=== PATIENT | male | born 1940 | race Caucasian/White ===

== ENCOUNTER → 2016-10-20 | Outpatient (CLI) | payer MEDICARE ==
[2016-10-20 10:47] LABS: CH 33.7; CHCM 33.6; HCT 39.9 % (39.0-53.0); HDW 2.49; HGB 13.3 gm/dL (13.0-17.5); MCH 33.6 pg (25.0-35.0); MCHC 33.3 g/dL (31.0-37.0); MCV 100.8 fL (80.0-100.0); Macrocytosis Slight; Mean Platelet Volume 9.1; RBC 3.96 m/uL (4.30-5.90); RDW 13.8 % (11.5-15.5); WBC 5.3 k/uL (3.8-10.6)
[2016-10-20 10:51] LABS: Appearance,Urine Clear (Clear); Bacteria,Urine Occasional /hpf; Bilirubin,Urine Negative (Negative); Glucose,Urine (UA) Negative (Negative); Ketones,Urine Negative (Negative); Leukocyte Esterase,Urine Moderate (Negative); Mucus,Urine Rare /hpf; Nitrite,Urine Negative (Negative); Particle Count 10788; Protein,Urine Negative (Negative); RBC,Urine <1 /hpf (0-5); Specific Gravity,Urine 1.007 (1.001-1.035); Squamous Epithelial Cell,Urine <1 /hpf (0-4); UA Billing (MACRO vs. MICRO) MICRO; Urobilinogen,Urine <2.0 mg/dL (<2.0); WBC,Urine 15 /hpf (0-5)
[2016-10-20 11:06] LABS: INR 2.3 (<1.1); Partial Thromboplastin Time 30.3 sec (22.0-30.0); Prothrombin Time 22.4 sec (9.0-12.0)
[2016-10-20 11:10] LABS: Calcium 8.6 mg/dL (8.4-10.2); Potassium 4.1 mmol/L (3.5-5.1)
[2016-10-20 11:33] LABS: Total Bilirubin 1.2 mg/dL (0.2-1.3); Total Protein 6.8 g/dL (6.3-8.2)
== END | disposition home or self-care (01) ==
LOC: LABWHC1 10:10
PROVIDERS: ATTEND Orthopaedic Surgery
DX: N39.0 Urinary tract infection, site not specified (principal)
CPT/HCPCS: 36415; 80053; 81001; 85027; 85610; 85730; 87070; 87077; 87086; 87186

== ENCOUNTER 2016-11-10 14:47 | Emergency (ER) | payer MEDICARE ==
[2016-11-10 15:15] VITALS: RESP 16
[2016-11-10 16:43] LABS: INR 3.6 (<1.1)
--- NOTE | 2016-11-10 16:49 | ED ---
General Adult HPI - General Source: patient, family, RN notes reviewed Mode of arrival: wheelchair Limitations: no limitations <Rj Smith - Last Filed: 11/10/16 17:10> <Terrell Farris - Last Filed: 11/10/16 17:16> - General Chief complaint: Extremity Injury, Lower Stated complaint: Post OP/Leg Pain/Poss clot Time Seen by Provider: 11/10/16 15:33 - History of Present Illness Initial comments: Patient is 76-year-old male who presents emergency room status post knee replacement on the right times one week. Patient does admit that he was advised by his outpatient therapist come here in the emergency room to rule out a blood clot. Patient does admit that he has had increased swelling to the right lower extremity over the last 2 days. He does admit some pain in the calf area. He denies any other complaints or associated symptoms. Patient denies any recent fever, chills, shortness of breath, chest pain, back pain, abdominal pain, nausea or vomiting, numbness or tingling, dysuria or hematuria, constipation or diarrhea, headaches or visual changes, or any other complaints. (Rj Smith) - Related Data Home Medications Medication Instructions Recorded Confirmed ALPRAZolam [Xanax] 0.5 mg PO TID PRN 11/10/16 11/10/16 Amiodarone [Cordarone] 200 mg PO DAILY 11/10/16 11/10/16 Bifidobacterium Infantis [Align] 4 mg PO DAILY 11/10/16 11/10/16 Calcium Carbonate [Calcium] 600 mg PO BID 11/10/16 11/10/16 Carvedilol [Coreg] 25 mg PO BID 11/10/16 11/10/16 Finasteride [Proscar] 5 mg PO DAILY 11/10/16 11/10/16 Furosemide [Lasix] 40 mg PO DAILY 11/10/16 11/10/16 Furosemide [Lasix] 80 mg PO DAILY 11/10/16 11/10/16 Levothyroxine Sodium [Levo-T] 25 mcg PO DAILY 11/10/16 11/10/16 Methocarbamol [Robaxin] 750 mg PO TID 11/10/16 11/10/16 Metolazone [Zaroxolyn] 2.5 mg PO DAILY PRN 11/10/16 11/10/16 Multivitamins, Thera [Multivitamin 1 tab PO DAILY 11/10/16 11/10/16 (formulary)] Polyethylene Glycol 3350 [Miralax] 17 gm PO DAILY PRN 11/10/16 11/10/16 Potassium Chloride [Klor-Con] 20 meq PO BID 11/10/16 11/10/16 Pravastatin Sodium [Pravachol] 40 mg PO HS 11/10/16 11/10/16 Spironolactone [Aldactone] 25 mg PO DAILY 11/10/16 11/10/16 Vitamin D3 2500units 2,500 units PO DAILY 11/10/16 11/10/16 Warfarin [Coumadin] 1 mg PO SUSA 11/10/16 11/10/16 Warfarin [Coumadin] 2 mg PO MOTUWETHFR 11/10/16 11/10/16 traMADol HCL [Ultram] 50 mg PO TID PRN 11/10/16 11/10/16 Previous Rx's Medication Instructions Recorded Cephalexin [Keflex] 500 mg PO Q12HR 7 Days 11/10/16 Allergies Allergy/AdvReac Type Severity Reaction Status Date / Time formoterol [From Dulera] Allergy Hallucinati Verified 11/10/16 15:42 ons hydromorphone [From Dilaudid] Allergy Rash/Hives Verified 11/10/16 15:42 mometasone furoate Allergy Hallucinati Verified 11/10/16 15:42 [From Dulera] ons Review of Systems ROS Other: All systems not noted in ROS Statement are negative. <Rj Smith - Last Filed: 11/10/16 17:10> ROS Other: All systems not noted in ROS Statement are negative. <Terrell Farris - Last Filed: 11/10/16 17:16> ROS Statement: Those systems with pertinent positive or pertinent negative responses have been documented in the HPI. Past Medical History Past Medical History: Atrial Fibrillation, Coronary Artery Disease (CAD), Heart Failure, COPD, Hypertension, Prostate Disorder, Renal Disease, Thyroid Disorder History of Any Multi-Drug Resistant Organisms: VRE Date of last positivie culture/infection: 10/20/16 MDRO Source:: URINE VRE Past Surgical History: Joint Replacement Additional Past Surgical History / Comment(s): right and left knee replacement, right shoulder surgery Past Psychological History: No Psychological Hx Reported Smoking Status: Never smoker Past Alcohol Use History: None Reported Past Drug Use History: None Reported <LuisRj - Last Filed: 11/10/16 17:10> General Exam Limitations: no limitations <Rj Smith - Last Filed: 11/10/16 17:10> <Terrell Farris - Last Filed: 11/10/16 17:16> - General Exam Comments Initial Comments: General: The patient is awake and alert, in no distress, and does not appear acutely ill. Neck: The neck is supple, there is no tenderness or JVD. Cardiovascular: There is a regular rate and rhythm. No murmur, rub or gallop is appreciated. Respiratory: Lungs are clear to auscultation, respirations are non-labored, breath sounds are equal. No wheezes, stridor, rales, or rhonchi. Musculoskeletal: Patient does have moderate swelling to the right lower extremity. Patient does have surgical incision midline over the right knee. Patient's sensation intact. Pulses equal bilaterally 2+. She does have pain to palpation to the posterior aspect of the right calf. Neurological: A&O x 3. CN II-XII intact, There are no obvious motor or sensory deficits. Coordination appears grossly intact. Speech is normal. Skin: No redness locally around in incision site. Bruising swelling appreciated to the right lower leg. Psychiatric: Normal mood and affect. (Rj Smith) Course <SmithRj - Last Filed: 11/10/16 17:10> <Terrell Farris - Last Filed: 11/10/16 17:16> Vital Signs 11/10/16 11/10/16 15:10 15:42 Temperature 97.6 F 97.9 F Pulse Rate 72 71 Respiratory 16 16 Rate Blood Pressure 93/62 109/60 O2 Sat by Pulse 98 97 Oximetry - Reevaluation(s) Reevaluation #1: 11/10/16 17:15 I did personally do a [id number] examination the patient did discuss the findings initially with his family and him. He does demonstrate right lower extremity edema with evidence of ecchymosis the incision to the anterior knee is intact no evidence of dehiscence or is very minimal erythema around the edges. No evidence of any lymphangitis or is ecchymosis noted to the medial aspect of the knee and thigh. Also some ecchymosis noted to the lower extremity no tenderness palpation over the calf or anterior leg. I do agree with the assessment and plan. (Terrell Farris) Medical Decision Making <Rj Smith - Last Filed: 11/10/16 17:10> <Terrell Farris - Last Filed: 11/10/16 17:16> - Medical Decision Making Ultrasound negative for any evidence of DVT. Patient's INR 3.6. Case was discussed and seen by attending physician Dr. Farris. At this time patient will be advised to hold Coumadin dose tonight. Advised to have INR rechecked over the next 2 days. Advised to begin antibiotic to cover for possible early infection. Patient advised follow-up the surgeon tomorrow. Advised return for any other concerns. (Rj Smith) - Lab Data Lab Results 11/10/16 Range/Units 16:24 PT 35.0 H (9.0-12.0) sec INR 3.6 (<1.1) Disposition Time of Disposition: 17:12 <Rj Smith - Last Filed: 11/10/16 17:10> <Terrell Farris - Last Filed: 11/10/16 17:16> Clinical Impression: Leg edema, right Disposition: HOME SELF-CARE Condition: Good Instructions: Leg Edema (ED) Additional Instructions: Please hold Coumadin dose tonight as discussed. Please have INR checked over the last 2 days. Please begin antibiotic as prescribed and follow-up with your surgeon tomorrow. Please return to emergency room for any other concerns. Prescriptions: Cephalexin [Keflex] 500 mg PO Q12HR 7 Days Referrals: Keith Sales DO [Primary Care Provider] - 1-2 days
--- NOTE | 2016-11-10 16:58 | US ---
EXAMINATION TYPE: US venous doppler duplex LE RT DATE OF EXAM: 11/10/2016 4:48 PM COMPARISON: NONE CLINICAL HISTORY: Pain, Post op 1 week total knee. SIDE PERFORMED: Right TECHNIQUE: The lower extremity deep venous system is examined utilizing real time linear array sonog maria with graded compression, doppler sonography and color-flow sonography. VESSELS IMAGED: External Iliac Vein (EIV) Common Femoral Vein Deep Femoral Vein Greater Saphenous Vein * Femoral Vein Popliteal Vein Small Saphenous Vein * Proximal Calf Veins (* superficial vessels) Right Leg: Negative for DVT IMPRESSION: Normal exam. No evidence of deep venous thrombosis in the right leg.
[2016-11-10 17:23] VITALS: BP 109/66; PULSE 70; TEMP 97.7
== END 2016-11-10 17:25 | disposition home or self-care (01) ==
LOC: EC 14:47
DX: R60.0 Localized edema (principal); I11.0 Hypertensive heart disease with heart failure; I50.9 Heart failure, unspecified; E07.9 Disorder of thyroid, unspecified; I48.91 Unspecified atrial fibrillation; Z96.653 Presence of artificial knee joint, bilateral; Z88.5 Allergy status to narcotic agent; Z88.8 Allergy status to other drugs, medicaments and biological substances; Z79.01 Long term (current) use of anticoagulants; Z79.899 Other long term (current) drug therapy
CPT/HCPCS: 36415; 85610; 99284

== ENCOUNTER 2016-12-10 13:07 | Emergency (ER) | payer MEDICARE ==
[2016-12-10 13:13] VITALS: RESP 18
--- NOTE | 2016-12-10 14:00 | ED ---
General Adult HPI - General Chief complaint: Fall Stated complaint: Fall Time Seen by Provider: 12/10/16 13:47 Source: patient, RN notes reviewed Mode of arrival: EMS Limitations: no limitations - History of Present Illness Initial comments: Patient 76-year-old male who presents emergency room today with a chief complaint of fall occurred just prior to arrival. He does admit that he was using his walker coming out of the bathroom. He states he believes he caught his bottom of his shoe on the lip of the threshold of the door causing him to fall forward down onto his knees bilaterally. He states he also went down and hit the right elbow and does have an abrasion to this area. He states tetanus is up-to-date. He states there is no head injury or loss conscious. He denies any other complaints or symptoms at this time. Patient denies any recent fever, chills, shortness of breath, chest pain, back pain, abdominal pain, nausea or vomiting, numbness or tingling, dysuria or hematuria, constipation or diarrhea, headaches or visual changes, or any other complaints. - Related Data Home Medications Medication Instructions Recorded Confirmed ALPRAZolam [Xanax] 0.5 mg PO TID PRN 11/10/16 12/10/16 Amiodarone [Cordarone] 200 mg PO DAILY 11/10/16 12/10/16 Bifidobacterium Infantis [Align] 4 mg PO DAILY 11/10/16 12/10/16 Calcium Carbonate [Calcium] 600 mg PO BID 11/10/16 12/10/16 Carvedilol [Coreg] 25 mg PO BID 11/10/16 12/10/16 Finasteride [Proscar] 5 mg PO DAILY 11/10/16 12/10/16 Furosemide [Lasix] 40 mg PO DAILY 11/10/16 12/10/16 Furosemide [Lasix] 80 mg PO DAILY 11/10/16 12/10/16 Levothyroxine Sodium [Levo-T] 25 mcg PO DAILY 11/10/16 12/10/16 Methocarbamol [Robaxin] 750 mg PO TID PRN 11/10/16 12/10/16 Metolazone [Zaroxolyn] 2.5 mg PO DAILY PRN 11/10/16 12/10/16 Multivitamins, Thera [Multivitamin 1 tab PO DAILY 11/10/16 12/10/16 (formulary)] Polyethylene Glycol 3350 [Miralax] 17 gm PO DAILY PRN 11/10/16 12/10/16 Potassium Chloride [Klor-Con] 20 meq PO BID 11/10/16 12/10/16 Pravastatin Sodium [Pravachol] 40 mg PO HS 11/10/16 12/10/16 Spironolactone [Aldactone] 25 mg PO DAILY 11/10/16 12/10/16 Vitamin D3 2500units 2,500 units PO DAILY 11/10/16 12/10/16 Warfarin [Coumadin] 1 mg PO DAILY 11/10/16 12/10/16 traMADol HCL [Ultram] 50 mg PO TID PRN 11/10/16 12/10/16 Allergies Allergy/AdvReac Type Severity Reaction Status Date / Time formoterol [From Dulera] Allergy Hallucinati Verified 12/10/16 14:21 ons hydromorphone [From Dilaudid] Allergy Rash/Hives Verified 12/10/16 14:21 mometasone furoate Allergy Hallucinati Verified 12/10/16 14:21 [From Dulera] ons Review of Systems ROS Statement: Those systems with pertinent positive or pertinent negative responses have been documented in the HPI. ROS Other: All systems not noted in ROS Statement are negative. Past Medical History Past Medical History: Atrial Fibrillation, Coronary Artery Disease (CAD), Heart Failure, COPD, Hypertension, Prostate Disorder, Renal Disease, Thyroid Disorder History of Any Multi-Drug Resistant Organisms: VRE Date of last positivie culture/infection: 10/20/16 MDRO Source:: URINE VRE Past Surgical History: Joint Replacement Additional Past Surgical History / Comment(s): right and left knee replacement, right shoulder surgery Past Psychological History: No Psychological Hx Reported Smoking Status: Never smoker Past Alcohol Use History: None Reported Past Drug Use History: None Reported General Exam - General Exam Comments Initial Comments: General: The patient is awake and alert, in no distress, and does not appear acutely ill. Eye: Pupils are equal, round and reactive to light, extra-ocular movements are intact. No nystagmus. There is normal conjunctiva bilaterally. No signs of icterus. Ears, nose, mouth and throat: There are moist mucous membranes and no oral lesions. Neck: The neck is supple, there is no tenderness or JVD. Cardiovascular: There is a regular rate and rhythm. No murmur, rub or gallop is appreciated. Respiratory: Lungs are clear to auscultation, respirations are non-labored, breath sounds are equal. No wheezes, stridor, rales, or rhonchi. Gastrointestinal: Soft, non-distended, non-tender abdomen without masses or organomegaly noted. There is no rebound or guarding present. No CVA tenderness. Bowel sounds are unremarkable. Musculoskeletal: patient does have bilateral old surgical incisions over the anterior knees. No sign of infection. Healing well. Patient shows good range of motion bilaterally. No bony tenderness on exam. Strength 5/5. Sensation intact. Pulses equal bilaterally 2+. Neurological: A&O x 3. CN II-XII intact, There are no obvious motor or sensory deficits. Coordination appears grossly intact. Speech is normal. Skin: superficial abrasion to the posterior aspect of the right elbow. No active bleeding. small superficial abrasion over the anterior aspect of the right knee. Psychiatric: Cooperative, appropriate mood & affect, normal judgment. Limitations: no limitations Course Vital Signs 12/10/16 13:09 Temperature 97.4 F L Pulse Rate 69 Respiratory 18 Rate Blood Pressure 112/59 O2 Sat by Pulse 100 Oximetry Medical Decision Making - Medical Decision Making ears negative for any acute abnormalities. Results were discussed with patient. Patient's laboratory appear in the emergency room. She'll be discharged home. Advised follow-up with orthopedic doctor. Advised return if any symptoms increase or worsen. Disposition Clinical Impression: Fall Disposition: HOME SELF-CARE Condition: Good Instructions: Fall Prevention (ED) Additional Instructions: Please follow-up with the orthopedic doctor over the next 2 days as discussed. Please return to emergency room if any symptoms increase or worsen or for any other concerns. Referrals: Keith Sales DO [Primary Care Provider] - 1-2 days Time of Disposition: 14:59
--- NOTE | 2016-12-10 14:26 | XR ---
EXAMINATION TYPE: XR knee complete bilateral DATE OF EXAM: 12/10/2016 CLINICAL HISTORY: pain TECHNIQUE: Three views of the right knee are obtained. COMPARISON: None. FINDINGS: There is no acute fracture/dislocation. Total knee arthroplasty appears well seated. The o verlying soft tissue appears unremarkable. IMPRESSION: There is no acute fracture or dislocation.ICD 10 NO FRACTURE, INITIAL EVALUATION EXAMINATION TYPE: XR knee complete bilateral DATE OF EXAM: 12/10/2016 CLINICAL HISTORY: pain TECHNIQUE: Three views of the left knee are obtained. COMPARISON: None. FINDINGS: There is no acute fracture/dislocation. Total knee arthroplasty appears well seated. The overlying soft tissue appears unremarkable. IMPRESSION: There is no acute fracture or dislocation ICD 10 NO FRACTURE, INITIAL EVALUATION
--- NOTE | 2016-12-10 14:26 | XR ---
EXAMINATION TYPE: XR pelvis AP view DATE OF EXAM: 12/10/2016 CLINICAL HISTORY: pain TECHNIQUE: Single view the pelvis is submitted. FINDINGS: No evidence for fracture, dislocation or bony lesion. Joint spaces are well-preserved. S I joints appear symmetric. IMPRESSION: 1. No acute fracture or dislocation seen. ICD 10 NO FRACTURE, INITIAL EVALUATION
[2016-12-10 15:23] VITALS: BP 102/64; PULSE 71; TEMP 97.6
== END 2016-12-10 15:23 | disposition home or self-care (01) ==
LOC: EC 13:07
DX: S50.311A Abrasion of right elbow, initial encounter (principal); S80.211A Abrasion, right knee, initial encounter; I48.91 Unspecified atrial fibrillation; I25.10 Atherosclerotic heart disease of native coronary artery without angina pectoris; I50.9 Heart failure, unspecified; I10 Essential (primary) hypertension; E07.9 Disorder of thyroid, unspecified; N42.9 Disorder of prostate, unspecified; Z79.01 Long term (current) use of anticoagulants; Z79.899 Other long term (current) drug therapy; Z88.5 Allergy status to narcotic agent; Z88.8 Allergy status to other drugs, medicaments and biological substances; Z96.653 Presence of artificial knee joint, bilateral; W01.10XA Fall on same level from slipping, tripping and stumbling with subsequent striking against unspecified object, initial encounter; Y93.01 Activity, walking, marching and hiking; Y92.89 Other specified places as the place of occurrence of the external cause
CPT/HCPCS: 72170; 99283

== ENCOUNTER 2017-06-25 19:42 | Observation (INO) | payer MEDICARE ==
[2017-06-25] MEDS ORDERED: ASPIRIN 325 MG TAB PO STA (20:14)
[2017-06-25 20:49] LABS: Basophils % (A) 0 %; Eosinophils % (A) 0 %; HCT 41.2 % (39.0-53.0); HGB 13.8 gm/dL (13.0-17.5); Lymphocytes # (A) 0.9 k/uL (1.0-4.8); Lymphocytes % (A) 11 %; MCH 32.6 pg (25.0-35.0); MCHC 33.4 g/dL (31.0-37.0); MCV 97.5 fL (80.0-100.0); Mean Platelet Volume 10.2; Monocytes # (A) 0.4 k/uL (0-1.0); Monocytes % (A) 5 %; Neutrophils % (A) 82 %; Platelet Count 125 k/uL (150-450); RBC 4.22 m/uL (4.30-5.90); RDW 13.4 % (11.5-15.5); WBC 8.6 k/uL (3.8-10.6)
[2017-06-25 20:59] LABS: Calcium 8.9 mg/dL (8.4-10.2); Total Bilirubin 1.9 mg/dL (0.2-1.3)
[2017-06-25 21:07] LABS: INR 2.3 (<1.2); Partial Thromboplastin Time 31.3 sec (22.0-30.0); Prothrombin Time 20.8 sec (9.0-12.0)
[2017-06-25 21:09] LABS: Albumin 4.3 g/dL (3.5-5.0); Total Protein 7.4 g/dL (6.3-8.2)
[2017-06-25 21:11] LABS: Potassium 5.4 mmol/L (3.5-5.1)
--- NOTE | 2017-06-25 21:28 | XR ---
EXAMINATION: XR chest 2V DATE AND TIME: 06/25/2017 9:04 PM ORDERING PROVIDER: Chris Pedersen CLINICAL INDICATION: chest pain TECHNIQUE: PA and lateral COMPARISON: None. DESCRIPTION: Pacemaker noted. The lungs are predominantly clear, but a subtle fine reticular pattern of increased density seen throughout the lungs, mildly silhouetting the pulmonary vasculature symmetr ically. This can correlate with a clinical diagnosis of minimal interstitial phase pulmonary edema. The pleural spaces are negative. The cardiac silhouette is mildly enlarged. The mediastinal and pleural silhouettes are unremarkable. The skeletal structures are intact without focal findings. The soft tissues are unremarkable. IMPRESSION: Suspect minimal interstitial phase pulmonary edema presumably cardiogenic etiology.
[2017-06-25] MEDS ORDERED: SODIUM POLYSTYRENE SULFONATE 15 GM/60 ML BOTTLE PO STA (22:05)
--- NOTE | 2017-06-25 22:05 | ED ---
General Adult HPI - General Chief complaint: Abdominal Pain Stated complaint: chest pain,abd pain Time Seen by Provider: 06/25/17 19:53 Source: patient, EMS Mode of arrival: EMS Limitations: no limitations - History of Present Illness Initial comments: 77-year-old male with past medical history of H or fibrillation on Coumadin, CAD, CHF, COPD, HTN, kidney disease, and thyroid disorder presenting for evaluation of chest pain and bilateral arm tingling. He states this started today at about 4:30 and has progressively continued throughout the day. He states the chest pain goes from one armpit to the other and there is also epigastric abdominal pain. He denies nausea vomiting lightheadedness or dizziness. Pain is nonreproducible. Abdominal pain is not associated with by mouth intake. - Related Data Home Medications Medication Instructions Recorded Confirmed ALPRAZolam [Xanax] 0.5 mg PO TID PRN 11/10/16 06/25/17 Amiodarone [Cordarone] 200 mg PO DAILY 11/10/16 06/25/17 Bifidobacterium Infantis [Align] 4 mg PO HS 11/10/16 06/25/17 Calcium Carbonate [Calcium] 600 mg PO BID 11/10/16 06/25/17 Carvedilol [Coreg] 25 mg PO BID 11/10/16 06/25/17 Finasteride [Proscar] 5 mg PO DAILY 11/10/16 06/25/17 Furosemide [Lasix] 40 mg PO DAILY 11/10/16 06/25/17 Furosemide [Lasix] 80 mg PO DAILY 11/10/16 06/25/17 Levothyroxine Sodium [Levo-T] 25 mcg PO DAILY 11/10/16 06/25/17 Methocarbamol [Robaxin] 750 mg PO TID PRN 11/10/16 06/25/17 Metolazone [Zaroxolyn] 2.5 mg PO DAILY PRN 11/10/16 06/25/17 Multivitamins, Thera [Multivitamin 1 tab PO DAILY 11/10/16 06/25/17 (formulary)] Polyethylene Glycol 3350 [Miralax] 17 gm PO DAILY PRN 11/10/16 06/25/17 Potassium Chloride [Klor-Con] 20 meq PO BID 11/10/16 06/25/17 Pravastatin Sodium [Pravachol] 40 mg PO HS 11/10/16 06/25/17 Spironolactone [Aldactone] 25 mg PO DAILY 11/10/16 06/25/17 Warfarin [Coumadin] 1 mg PO DRIVER 11/10/16 06/25/17 traMADol HCL [Ultram] 50 mg PO TID PRN 11/10/16 06/25/17 Acetaminophen [Tylenol 8 Hour] 650 mg PO Q8H PRN 06/25/17 06/25/17 Bisacodyl [Dulcolax] 5 mg PO HS 06/25/17 06/25/17 Cholecalciferol [Vitamin D3] 5,000 unit PO BID 06/25/17 06/25/17 Warfarin Sodium 2 mg PO MOTUWETHFRSA 06/25/17 06/25/17 Allergies Allergy/AdvReac Type Severity Reaction Status Date / Time formoterol [From Dulera] Allergy Hallucinati Verified 06/25/17 20:04 ons hydromorphone [From Dilaudid] Allergy Rash/Hives Verified 06/25/17 20:04 mometasone furoate Allergy Hallucinati Verified 06/25/17 20:04 [From Dulera] ons Review of Systems ROS Statement: Those systems with pertinent positive or pertinent negative responses have been documented in the HPI. ROS Other: All systems not noted in ROS Statement are negative. Constitutional: Denies: fever, chills, weakness Eyes: Denies: eye pain, eye discharge ENT: Denies: ear pain, throat pain, hearing loss Respiratory: Denies: cough, dyspnea, wheezes, hemoptysis Cardiovascular: Reports: chest pain, dyspnea on exertion, edema. Denies: palpitations, orthopnea, syncope Endocrine: Denies: fatigue, polydipsia, polyuria Gastrointestinal: Reports: abdominal pain, nausea. Denies: vomiting, diarrhea, constipation, hematemesis, melena, hematochezia Genitourinary: Denies: urgency, dysuria Musculoskeletal: Denies: back pain, arthralgia, myalgia Skin: Denies: rash, lesions Neurological: Denies: headache, weakness Psychiatric: Denies: anxiety, depression Hematological/Lymphatic: Denies: easy bleeding, easy bruising Past Medical History Past Medical History: Atrial Fibrillation, Coronary Artery Disease (CAD), Heart Failure, COPD, Hypertension, Prostate Disorder, Renal Disease, Thyroid Disorder History of Any Multi-Drug Resistant Organisms: VRE Date of last positivie culture/infection: 10/20/16 MDRO Source:: URINE VRE Past Surgical History: Joint Replacement Additional Past Surgical History / Comment(s): right and left knee replacement, right shoulder surgery Past Psychological History: No Psychological Hx Reported Smoking Status: Never smoker Past Alcohol Use History: None Reported Past Drug Use History: None Reported General Exam Limitations: no limitations General appearance: alert, in no apparent distress Head exam: Present: atraumatic, normocephalic, normal inspection Eye exam: Present: normal appearance, PERRL, EOMI. Absent: scleral icterus, conjunctival injection, periorbital swelling ENT exam: Present: normal exam, mucous membranes moist Neck exam: Present: normal inspection. Absent: tenderness, meningismus, lymphadenopathy Respiratory exam: Present: normal lung sounds bilaterally, rhonchi (Bilateral lower lobes, faint). Absent: respiratory distress, wheezes, rales, stridor Cardiovascular Exam: Present: regular rate, normal rhythm, normal heart sounds. Absent: systolic murmur, diastolic murmur, rubs, gallop, clicks GI/Abdominal exam: Present: soft, normal bowel sounds. Absent: distended, tenderness, guarding, rebound, rigid Rectal exam: Present: deferred Extremities exam: Present: full ROM, normal capillary refill, pedal edema. Absent: normal inspection, tenderness, joint swelling, calf tenderness Back exam: Present: normal inspection Neurological exam: Present: alert, oriented X3, CN II-XII intact Psychiatric exam: Present: normal affect, normal mood Skin exam: Present: warm, dry, intact, normal color. Absent: rash Course Vital Signs 06/25/17 20:00 Temperature 96.8 F L Pulse Rate 71 Respiratory 20 Rate Blood Pressure 156/71 O2 Sat by Pulse 100 Oximetry EKG Findings - EKG Comments: EKG Findings:: Jugular paced rhythm with ventricular rate of 71, QRS 198, QTC is 575 Medical Decision Making - Medical Decision Making 77-year-old male with past medical history as noted above presented for evaluation of chest pain with bilateral arm tingling starting suddenly this afternoon. On physical examination the chest pain is nonreproducible. Lungs are clear to auscultation in the upper lobes but mild rales bilateral lower lobes that are faint to auscultation. There is lower extremity edema. Remainder physical exam is benign.Labs significant for a therapeutic INR of 2.3. His kidney function is stable for his baseline however he does have mild hyperkalemia. BNP is also elevated 2330. Chest x-ray shows interstitial phase pulmonary edema presumably cardiogenic in etiology. The patient was reevaluated and had no change in his physical exam. He was informed of all results and through shared decision making it was determined that he would be admitted for further treatment and evaluation. Discussed the case with [facility] hospitalist Dr. Umaña who accepted the admission without further request. Admission order placed and bed request submitted. - Lab Data Result diagrams: 06/25/17 19:58 06/25/17 19:58 Lab Results 06/25/17 06/25/17 06/25/17 Range/Units 19:58 19:58 19:58 WBC 8.6 (3.8-10.6) k/uL RBC 4.22 L (4.30-5.90) m/uL Hgb 13.8 (13.0-17.5) gm/dL Hct 41.2 (39.0-53.0) % MCV 97.5 (80.0-100.0) fL MCH 32.6 (25.0-35.0) pg MCHC 33.4 (31.0-37.0) g/dL RDW 13.4 (11.5-15.5) % Plt Count 125 L (150-450) k/uL Neutrophils % 82 % Lymphocytes % 11 % Monocytes % 5 % Eosinophils % 0 % Basophils % 0 % Neutrophils # 7.0 (1.3-7.7) k/uL Lymphocytes # 0.9 L (1.0-4.8) k/uL Monocytes # 0.4 (0-1.0) k/uL Eosinophils # 0.0 (0-0.7) k/uL Basophils # 0.0 (0-0.2) k/uL PT (9.0-12.0) sec INR (<1.2) APTT (22.0-30.0) sec Sodium 134 L (137-145) mmol/L Potassium 5.4 H (3.5-5.1) mmol/L Chloride 100 (98-107) mmol/L Carbon Dioxide 23 (22-30) mmol/L Anion Gap 11 mmol/L BUN 25 H (9-20) mg/dL Creatinine 1.50 H (0.66-1.25) mg/dL Est GFR (MDRD) Af Amer 55 (>60 ml/min/1.73 sqM) Est GFR (MDRD) Non-Af 46 (>60 ml/min/1.73 sqM) Glucose 149 H (74-99) mg/dL Calcium 8.9 (8.4-10.2) mg/dL Total Bilirubin 1.9 H (0.2-1.3) mg/dL AST 81 H (17-59) U/L ALT 26 (21-72) U/L Alkaline Phosphatase 104 (38-126) U/L Troponin I (0.000-0.034) ng/mL NT-Pro-B Natriuret Pep 2330 pg/mL Total Protein 7.4 (6.3-8.2) g/dL Albumin 4.3 (3.5-5.0) g/dL Lipase 259 (23-300) U/L 06/25/17 06/25/17 Range/Units 19:58 19:58 WBC (3.8-10.6) k/uL RBC (4.30-5.90) m/uL Hgb (13.0-17.5) gm/dL Hct (39.0-53.0) % MCV (80.0-100.0) fL MCH (25.0-35.0) pg MCHC (31.0-37.0) g/dL RDW (11.5-15.5) % Plt Count (150-450) k/uL Neutrophils % % Lymphocytes % % Monocytes % % Eosinophils % % Basophils % % Neutrophils # (1.3-7.7) k/uL Lymphocytes # (1.0-4.8) k/uL Monocytes # (0-1.0) k/uL Eosinophils # (0-0.7) k/uL Basophils # (0-0.2) k/uL PT 20.8 H (9.0-12.0) sec INR 2.3 H (<1.2) APTT 31.3 H (22.0-30.0) sec Sodium (137-145) mmol/L Potassium (3.5-5.1) mmol/L Chloride (98-107) mmol/L Carbon Dioxide (22-30) mmol/L Anion Gap mmol/L BUN (9-20) mg/dL Creatinine (0.66-1.25) mg/dL Est GFR (MDRD) Af Amer (>60 ml/min/1.73 sqM) Est GFR (MDRD) Non-Af (>60 ml/min/1.73 sqM) Glucose (74-99) mg/dL Calcium (8.4-10.2) mg/dL Total Bilirubin (0.2-1.3) mg/dL AST (17-59) U/L ALT (21-72) U/L Alkaline Phosphatase (38-126) U/L Troponin I 0.034 (0.000-0.034) ng/mL NT-Pro-B Natriuret Pep pg/mL Total Protein (6.3-8.2) g/dL Albumin (3.5-5.0) g/dL Lipase (23-300) U/L Disposition Clinical Impression: CHF (congestive heart failure), Hyperkalemia Disposition: ADMITTED IP TO THIS HOSP Referrals: Keith Sales DO [Primary Care Provider] - 1-2 days Decision to Admit Reason: Admit from EC Decision Date: 06/25/17 Decision Time: 22:05
[2017-06-25] MEDS ORDERED: ACETAMINOPHEN TAB 325 MG TAB PO PRN ×2 (22:08→22:11)
[2017-06-25] MEDS ORDERED: ALPRAZolam 0.25 MG TAB PO PRN (22:11)
[2017-06-25] MEDS ORDERED: METOLAZONE 2.5 MG TAB PO PRN (22:11)
[2017-06-25] MEDS ORDERED: METHOCARBAMOL 750 MG TAB PO PRN (22:11)
[2017-06-25] MEDS ORDERED: traMADol 50 MG TAB PO PRN (22:11)
[2017-06-25] MEDS ORDERED: POLYETHYLENE GLYCOL 3350 17 GM POWD.PACK PO PRN (22:11)
[2017-06-25] MEDS ORDERED: FUROSEMIDE 10 MG/ML 10 ML VIAL IV SCH (22:15)
[2017-06-25] MEDS ORDERED: NITROGLYCERIN SL TABS 0.4 MG TAB SUBLINGUAL PRN (22:22)
[2017-06-25] MEDS ORDERED: NITROGLYCERIN SL TABS 0.4 MG TAB SUBLINGUAL STA (22:22)
--- NOTE | 2017-06-25 22:37 | P.HPIM ---
History of Present Illness H&P Date: 06/25/17 Chief Complaint: SOB and chest pressure 77-year-old male with past medical history of atrial fibrillation on Coumadin, CHF status post pacemaker/defibrillator placement, COPD, HTN, chronic kidney disease, and hypothyroidism presenting for evaluation of chest pain and shortness of breath. The pain feels like a pressure and it extends from one armpit to the other and radiates all the way to the abdomen reaching the umbilical area. It started after he finished eating dinner. It was 8 out of 10 in severity when it started and currently is 6 out of 10. It was associated with some tingling sensation around his lips as well as both of his hands. He reported that he always feels cold but he denied having any fevers. He denies nausea vomiting, lightheadedness or dizziness. He denied having any recent illness, cough, urinary symptoms, diarrhea or constipation. No focal weakness or numbness, no slurred speech, no blurry vision or double vision. When he was checked by his conditioning room worker about 2 weeks ago in the office and was told that everything looked fine. His last echocardiogram was done last summer in December or January. His ejection fraction according to him was between 20 and 23%. Review of Systems 12 point review of system was performed, negative except for HPI Past Medical History Past Medical History: Atrial Fibrillation, Coronary Artery Disease (CAD), Heart Failure, COPD, Hypertension, Prostate Disorder, Renal Disease, Thyroid Disorder History of Any Multi-Drug Resistant Organisms: VRE Date of last positivie culture/infection: 10/20/16 MDRO Source:: URINE VRE Past Surgical History: Joint Replacement Additional Past Surgical History / Comment(s): right and left knee replacement, right shoulder surgery Past Psychological History: No Psychological Hx Reported Smoking Status: Never smoker Past Alcohol Use History: None Reported Past Drug Use History: None Reported Additional History: Family history: Unobtainable Medications and Allergies Home Medications Medication Instructions Recorded Confirmed Type ALPRAZolam [Xanax] 0.5 mg PO TID PRN 11/10/16 06/25/17 History Amiodarone [Cordarone] 200 mg PO DAILY 11/10/16 06/25/17 History Bifidobacterium Infantis [Align] 4 mg PO HS 11/10/16 06/25/17 History Calcium Carbonate [Calcium] 600 mg PO BID 11/10/16 06/25/17 History Carvedilol [Coreg] 25 mg PO BID 11/10/16 06/25/17 History Finasteride [Proscar] 5 mg PO DAILY 11/10/16 06/25/17 History Furosemide [Lasix] 40 mg PO DAILY 11/10/16 06/25/17 History Furosemide [Lasix] 80 mg PO DAILY 11/10/16 06/25/17 History Levothyroxine Sodium [Levo-T] 25 mcg PO DAILY 11/10/16 06/25/17 History Methocarbamol [Robaxin] 750 mg PO TID PRN 11/10/16 06/25/17 History Metolazone [Zaroxolyn] 2.5 mg PO DAILY PRN 11/10/16 06/25/17 History Multivitamins, Thera [Multivitamin 1 tab PO DAILY 11/10/16 06/25/17 History (formulary)] Polyethylene Glycol 3350 [Miralax] 17 gm PO DAILY PRN 11/10/16 06/25/17 History Potassium Chloride [Klor-Con] 20 meq PO BID 11/10/16 06/25/17 History Pravastatin Sodium [Pravachol] 40 mg PO HS 11/10/16 06/25/17 History Spironolactone [Aldactone] 25 mg PO DAILY 11/10/16 06/25/17 History Warfarin [Coumadin] 1 mg PO DRIVER 11/10/16 06/25/17 History traMADol HCL [Ultram] 50 mg PO TID PRN 11/10/16 06/25/17 History Acetaminophen [Tylenol 8 Hour] 650 mg PO Q8H PRN 06/25/17 06/25/17 History Bisacodyl [Dulcolax] 5 mg PO HS 06/25/17 06/25/17 History Cholecalciferol [Vitamin D3] 5,000 unit PO BID 06/25/17 06/25/17 History Warfarin Sodium 2 mg PO MOTUWETHFRSA 06/25/17 06/25/17 History Allergies Allergy/AdvReac Type Severity Reaction Status Date / Time formoterol [From Dulera] Allergy Hallucinati Verified 06/25/17 20:04 ons hydromorphone [From Dilaudid] Allergy Rash/Hives Verified 06/25/17 20:04 mometasone furoate Allergy Hallucinati Verified 06/25/17 20:04 [From Dulera] ons Physical Exam Vitals: Vital Signs Temp Pulse Resp BP Pulse Ox 06/25/17 21:04 81 20 141/61 99 06/25/17 20:00 96.8 F L 71 20 156/71 100 Intake and Output 06/25/17 06/25/17 06/25/17 06:59 14:59 22:59 Other: Weight 95.254 kg Patient Weight 06/26/17 06:59 Weight 95.254 kg Constitutional: No acute distress, conversant, pleasant Eyes:Anicteric sclerae, moist conjunctiva, no lid-lag, PERRLA, ENMT: Oropharynx clear, no erythema, exudates Neck: Supple, FROM, no masses, or JVD, No carotid bruits, No thyromegaly Lungs: Clear to auscultation, Clear to percussion, Normal respiratory effort, no accessory muscle use Cardiovascular: Heart regular in rate and rhythm, No murmurs, gallops, or rubs, trace peripheral edema left leg more than right. Abdominal: Soft, slightly distende, tender in the epigastric and periumbilical areas. There is an umbilical hernia evident during coughing. No guarding, rebound or rigidity, Normoactive bowel sounds, No hepatomegaly, No splenomegaly , No palpable mass Skin: Normal temperature, tone, texture, turgor, no induration, No subcutaneous nodules, No rash, lesions, No ulcers Extremities: No digital cyanosis, No clubbing, Pedal pulses intact and symmetrical, Radial pulses intact and symmetrical, No calf tenderness Psychiatric: Alert and oriented to person, place and time, appropriate affect, intact judgement Neuro: Muscles Strength 5/5 in all 4 extremities, Sensation to light touch grossly present throughout, Cranial nerves II-XII grossly intact, no focal sensory deficits Results CBC & Chem 7: 06/25/17 19:58 06/25/17 19:58 Labs: Abnormal Lab Results - Last 24 Hours (Table) 06/25/17 06/25/17 06/25/17 Range/Units 19:58 19:58 19:58 RBC 4.22 L (4.30-5.90) m/uL Plt Count 125 L (150-450) k/uL Lymphocytes # 0.9 L (1.0-4.8) k/uL PT 20.8 H (9.0-12.0) sec INR 2.3 H (<1.2) APTT 31.3 H (22.0-30.0) sec Sodium 134 L (137-145) mmol/L Potassium 5.4 H (3.5-5.1) mmol/L BUN 25 H (9-20) mg/dL Creatinine 1.50 H (0.66-1.25) mg/dL Glucose 149 H (74-99) mg/dL Total Bilirubin 1.9 H (0.2-1.3) mg/dL AST 81 H (17-59) U/L Assessment and Plan Plan: #1 Acute chest pain and shortness of breath: Likely secondary to acute exacerbation of chronic systolic congestive heart failure Admit to subjective care for observation Labs, chest x-ray and EKG were reviewed. Cycle troponins Administer nitroglycerin sublingual Switch Lasix from by mouth to IV at 60 mg twice a day. Continue Zaroxolyn and Aldactone Obtain echocardiogram to follow-up an ejection fraction Consult cardiology Continue metoprolol, unclear why he is not on WAGNER inhibitor, obtain records from [place], #2 Chronic atrial fibrillation: Status post pacemaker placement Continue amiodarone and warfarin Currently INR is therapeutic #3 Hypothyroidism: Continue levothyroxine Check TSH #49 Benign prostatic hypertrophy: Continue finasteride #5 Benign hypertension, hyperlipidemia: Continue all medications #6 DVT prophylaxis Already on Coumadin
[2017-06-25] MEDS: WARFARIN 2 MG TAB PO SCH ×3 (22:39→22:42)
[2017-06-25] MEDS ORDERED: PRAVASTATIN SODIUM 40 MG TAB PO SCH (23:34)
[2017-06-26 01:01] VITALS: RESP 16
[2017-06-26 01:07] VITALS: PULSE 71; BMI 30.9
[2017-06-26 04:09] VITALS: BP 114/68; TEMP 97.1
[2017-06-26 08:56] LABS: Calcium 8.9 mg/dL (8.4-10.2); Magnesium 2.2 mg/dL (1.6-2.3); Phosphorus 3.1 mg/dL (2.5-4.5); Potassium 3.3 mmol/L (3.5-5.1)
[2017-06-26] MEDS ORDERED: CHOLECALCIFEROL 1,000 UNIT TAB ONE (09:00)
[2017-06-26] MEDS ORDERED: FINASTERIDE 5 MG TAB ONE (09:00)
[2017-06-26] MEDS ORDERED: LOSARTAN 25 MG TAB ONE (09:00)
[2017-06-26] MEDS ORDERED: SPIRONOLACTONE 25 MG TAB ONE (09:00)
[2017-06-26] MEDS ORDERED: LEVOTHYROXINE 25 MCG TAB ONE (09:00)
[2017-06-26] MEDS ORDERED: FUROSEMIDE 10 MG/ML 10 ML VIAL ONE (09:00)
[2017-06-26] MEDS ORDERED: CALCIUM CARBONATE 500 MG CHEWABLE PO ONE (09:00)
[2017-06-26] MEDS ORDERED: LEVOTHYROXINE 25 MCG TAB PO SCH (09:00)
[2017-06-26] MEDS ORDERED: CARVEDILOL 12.5 MG TAB ONE (09:00)
[2017-06-26] MEDS ORDERED: CHOLECALCIFEROL 1,000 UNIT TAB PO SCH (09:00)
[2017-06-26] MEDS ORDERED: AMIODARONE 200 MG TAB ONE (09:00)
[2017-06-26] MEDS ORDERED: ISOSORBIDE MONONITRATE ER 30 MG TAB.ER.24H PO ONE (09:00)
[2017-06-26] MEDS ORDERED: FINASTERIDE 5 MG TAB PO SCH (09:00)
[2017-06-26] MEDS ORDERED: SPIRONOLACTONE 25 MG TAB PO SCH (09:00)
[2017-06-26] MEDS ORDERED: CALCIUM CARBONATE 500 MG CHEWABLE PO SCH (09:00)
[2017-06-26] MEDS ORDERED: CARVEDILOL 12.5 MG TAB PO SCH (09:00)
[2017-06-26] MEDS ORDERED: AMIODARONE 200 MG TAB PO SCH (09:00)
[2017-06-26] MEDS ORDERED: MULTIVITAMINS, THERA 1 EACH TAB PO SCH (09:00)
[2017-06-26] MEDS ORDERED: MULTIVITAMINS, THERA 1 EACH TAB ONE (09:00)
[2017-06-26] MEDS ORDERED: ALPRAZolam 0.5 MG TAB ONE (10:15)
[2017-06-26] MEDS ORDERED: LOSARTAN 25 MG TAB PO ONE (10:45)
--- NOTE | 2017-06-26 10:54 | CONS ---
CONSULTATION CHIEF COMPLAINT: Shortness of breath and chest pain. This is a 77-year-old gentleman with history of atrial fibrillation, cardiomyopathy with congestive heart failure, status post AICD, hypertension, chronic renal insufficiency, who presented to hospital complaining of chest discomfort. He describes it as a pressure-like sensation starting in the epigastric area, felt in the precordial area and also radiated to both upper extremities. The patient has extensive cardiac history and apparently developed cardiomyopathy with congestive heart failure more than 15 years ago. He follows with a order processing clerk out of [facility]. He has known cardiomyopathy with severe LV systolic dysfunction. He apparently has had a negative stress test within the last one year. He has had 2 cardiac catheterizations over the last 15 years and was told that he had normal coronary arteries. I do not have those records with me. His symptoms have gradually improved and at the time of my evaluation, he appears comfortable at rest and chest discomfort has resolved. While I am not able to access the labs at the moment, I am told by the nurse that the cardiac enzymes have been negative. EKG shows paced rhythm. PAST MEDICAL HISTORY: Significant for atrial fibrillation, cardiomyopathy, congestive heart failure, COPD, renal disease, and thyroid disease. PAST SURGICAL HISTORY: Significant for right and left knee replacement and right shoulder surgery. SOCIAL HISTORY: Negative for smoking. There is no history of EtOH abuse or drug abuse. REVIEW OF SYSTEMS: HEENT is unremarkable. CARDIAC: As described above. RESPIRATORY: As described above. GI: Negative. GENITOURINARY: Negative. ALLERGY/IMMUNOLOGY: Negative. SKIN: Negative. MUSCULOSKELETAL: Significant for joint pain. PSYCHOSOCIAL: Negative. ENDOCRINE: Negative. HEMATOLOGICAL: Negative. DERM: Negative. CONSTITUTIONAL: Negative. ONCOLOGICAL: Negative. Rest of the system review is not relevant. HOME MEDICATIONS: Patient's home medications include amiodarone 200 mg daily, Xanax, Coreg 25 b.i.d., Proscar 5 mg daily, Lasix 40 mg daily, levothyroxine, Zaroxolyn, Pravachol, Aldactone, Coumadin, Dulcolax. ALLERGIES: Allergic to DULERA, DILAUDID. FAMILY HISTORY: Negative for premature coronary artery disease. SOCIAL HISTORY: Negative for smoking, EtOH abuse or drug abuse. PHYSICAL EXAMINATION: On exam, he appears comfortable at rest. Vital signs are stable. Chest exam reveals good air entry bilaterally. I do not hear any crackles or rhonchi. Heart exam reveals first and second heart sounds. No gallop. Has an ejection systolic murmur in the aortic area. Abdomen is soft. Exam of extremities did not reveal any edema. Peripheral pulses are felt. LAB: Labs show that 3 sets of cardiac enzymes are negative. BUN is 25, creatinine is 1.5. Potassium is elevated at 5.4. Hemoglobin is 13.8. INR is therapeutic at 2.3. ASSESSMENT: 1. Precordial chest pain. 2. Chronic atrial fibrillation. 3. Cardiomyopathy, status post automated implantable cardioverter-defibrillator. 4. Chronic systolic heart failure. 5. Hyperkalemia. PLAN: I will review records from his order processing clerk. Given the typical symptoms, I advised him to undergo cardiac catheterization. Understanding all the issues, he wishes to go home and have followup through his own order processing clerk. We will ambulate the patient, start him on nitrates if he is not already on it and continue the current therapies including beta blockers and arrange follow up with his order processing clerk. We will review the echo once the results are available. We are going to stop the Aldactone at this time due to the hyperkalemia and renal insufficiency. MMODL / IJN: [id number] /
[2017-06-26] MEDS ORDERED: ISOSORBIDE MONONITRATE ER 30 MG TAB.ER.24H PO SCH (11:30)
[2017-06-26] MEDS ORDERED: BIFIDOBACTERIUM INFANTIS 4 MG PO SCH (21:00)
[2017-06-26] MEDS ORDERED: BISACODYL 5 MG TABLET.DR PO SCH (21:00)
[2017-06-26] MEDS ORDERED: PRAVASTATIN SODIUM 40 MG TAB PO SCH (21:00)
--- NOTE | 2017-06-26 22:53 | ECHOF ---
Referral Reason:CHF evaulation MEASUREMENTS -------- HEIGHT: 175.3 cm WEIGHT: 98.4 kg BP: 114/68 IVSd: 0.9 cm (0.6 - 1.1) LVIDd: 5.0 cm (3.9 - 5.3) LVPWd: 1.0 cm (0.6 - 1.1) IVSs: 1.2 cm LVIDs: 4.7 cm LVPWs: 1.0 cm LAESV Index (A-L): 46.62 ml/m Ao Diam: 3.0 cm (2.0 - 3.7) AV Cusp: 1.6 cm (1.5 - 2.6) LA Diam: 4.4 cm (2.7 - 3.8) MV EXCURSION: 15.271 mm (> 18.000) MV EF SLOPE: 89 mm/s (70 - 150) EPSS: 2.3 cm MV E Jc: 0.94 m/s MV DecT: 188 ms MV A Jc: 0.43 m/s MV E/A Ratio: 2.19 AR PHT: 987 ms RAP: 5.00 mmHg RVSP: 21.75 mmHg FINDINGS -------- Paced rhythm. AICD Pacemaker This was a technically good study. The left ventricular size is normal. Left ventricular wall thickness is normal. There is severe g lobal hypokinesis of LV . Overall left ventricular systolic function is severely impaired with, an EF between 20 - 25 %. The right ventricle is normal in size and function. The left atrium is moderately dilated. The right atrium is normal in size. 1.5mg of Definity was utilized for enhancement of images to rule out thrombus in LV APEX. No thrombus seen. There is mild aortic regurgitation. Mild mitral regurgitation is present. Mild tricuspid regurgitation present. The right ventricular systolic pressure, as measured by Doppl er, is 21.75mmHg. Pulmonic valve appears structurally normal. The aortic root size is normal. The pericardium is normal. CONCLUSIONS -------- 1. Paced rhythm. 2. AICD 3. Pacemaker 4. This was a technically good study. 5. The left ventricular size is normal. 6. Left ventricular wall thickness is normal. 7. There is severe global hypokinesis of LV . 8. Overall left ventricular systolic function is severely impaired with, an EF between 20 - 25 %. 9. The right ventricle is normal in size and function. 10. The left atrium is moderately dilated. 11. The right atrium is normal in size. 12. 1.5mg of Definity was utilized for enhancement of images to rule out thrombus in LV APEX. No thro mbus seen 13. There is mild aortic regurgitation. 14. Mild mitral regurgitation is present. 15. Mild tricuspid regurgitation present. 16. The right ventricular systolic pressure, as measured by Doppler, is 21.75mmHg. 17. Pulmonic valve appears structurally normal. 18. The aortic root size is normal. 19. The pericardium is normal. AUTO REFINISHER: Patricia Ortiz RDCS
--- NOTE | 2017-06-27 08:06 | DS ---
DISCHARGE SUMMARY DATE OF ADMISSION: 06/25/2017. DATE OF DISCHARGE: 06/26/2017. DISCHARGE DIAGNOSES: 1. Chest pain with anginal equivalent. 2. Acute exacerbation of systolic congestive heart failure with ejection fraction 20- 25%. 3. Chronic atrial fibrillation. 4. Coumadin coagulopathy. 5. Hypothyroidism. 6. Benign prostatic hypertrophy. 7. Benign hypertension, controlled. 8. Dyslipidemia. 9. Hyperkalemia with chronic kidney disease stage 3, hyperkalemia resolved. HOSPITAL COURSE: The patient is a 77-year-old, male with past medical history of atrial fibrillation on Coumadin, congestive heart failure with ejection fraction 20-25 % with a pacemaker and defibrillator placement, COPD, hypertension, chronic kidney disease, and hypothyroidism who presents to the emergency department with complaints of chest pain and shortness of breath. In the emergency department. He was found to have mild congestive heart failure on his chest x-ray, and a slightly elevated basic metabolic profile. He is started on IV diuretics and admitted to the hospital to [facility] unit for further monitoring of his chest pain and congestive heart failure. His EKG showed a paced rhythm with no acute abnormalities. His troponin was negative x3. He was seen by Cardiology who recommended evaluation with his primary prize jacker and possible need for inpatient transfer with catheterization vs outpatient evaluation. The patient remained chest pain free throughout his hospitalization. His blood pressure was initially 154/ 77 in the emergency department but this trended down his norms of about 113 prior to discharge. All of his symptoms had resolved. I had a long discussion with his primary prize jacker Dr. Crane out of [facility]. After much discussion, we elected that the patient could be discharged home. They will call him with a appointment for an outpatient Lexiscan early next week and he will follow up in the office. He did not want to jump directly to cardiac catheterization with the patient's complicated past history and his advanced age. This was discussed with the patient and his daughter and they were in agreement with plan of care. I also discussed with them at length that they need to return to the emergency department and seek medical care should his chest pain comes back or his numbness and tingling or shortness of breath return. They also understand that he was started on losartan 12.5 mg oral daily and that he needs to take his blood pressure daily. If his systolic blood pressures is less than 95 he will discontinue this medication. He does have a history of hypotension with WAGNER inhibitor in the past and this was discussed with his primary prize jacker who is the one that felt the addition of losartan with help. He will continue on all of his medications as prior to admission with the addition of losartan 12.5 mg daily. He was discharged home in stable condition. Patient seen and examined at bedside. He complains of constipation which subsequently resolved on my second visit after having prune juice. He denies any chest pain, shortness of breath, or numbness and tingling. Initially he had trouble recalling his prize jacker but after he was able to calm down he could tell me his prize jacker and daughter's name. PHYSICAL EXAM: General: no acute distress. Nontoxic. Appeared at stated age. HEAD: Normocephalic, atraumatic. Symmetric. Eyes: Extraocular motion intact. No lid lesions or leg, an icteric sclerae. Cardiovascular are S1, S2. Without murmurs, rubs, gallops, or rubs. Trace edema bilateral feet. Positive posterior tibial pulses bilaterally. LUNGS: Clear to auscultation bilaterally without rhonchi, rales, or wheezing. No accessory muscle use. ABDOMEN: Soft, nontender to palpation. Nondistended, no organomegaly. Neuro cranial nerves 2-12 grossly intact, no focal neuro deficits. Psych: Alert and oriented with appropriate affect. FOLLOWUP: 1. The patient will follow up with his primary care provider Dr. Sales in 7 days. 2. Patient cardiology office will call him with an appointment for a Lexiscan stress test and follow up with Dr. Crane early next week. 3. Heart healthy diet. 4. Activity as tolerated. 5. Return to the hospital or seek medical advice should you have recurrent chest pain, shortness of breath, or numbness and tingling. 6. Please check blood pressures once daily, make a log, and if blood pressure is less than 95, discontinue losartan. 7. Please take medications as directed. PERTINENT STUDIES: Chest x-ray-mild venous congestion. HOME MEDICATIONS: 1. Xanax 0.5 mg 3 times daily as needed. 2. Amiodarone 200 mg daily. 3. Align 4 mg p.o. q.h.s. 4. Calcium carbonate 600 mg oral twice daily. 5. Coreg 25 mg oral twice daily. 6. Proscar 5 mg daily. 7. Lasix 40 mg daily or 80 mg daily as needed. 8. Levothyroxine 25 mcg daily. 9. Robaxin 75 mg oral 3 times daily. 10.Zaroxolyn 25 mg oral daily. 11.Multivitamin 1 tab oral daily. 12.MiraLAX 17 g p.o. daily as needed. 13.Potassium chloride 20 mEq twice daily. 14.Pravachol 40 mg at night. 15.Spironolactone 25 mg daily. 16.Coumadin 1 mg on Thursday and then as directed. 17.Ultram 50 mg oral 3 times daily. 18.Acetaminophen 650 mg oral every 8 hours. 19.Dulcolax 5 mg oral at night. 20.Vitamin D3 5000 units p.o. twice daily. 21.Additional medications losartan 12.5 mg daily. MMODL / IJN: [id number] / MTDD
[2017-06-27 21:40] LABS: HCT 40.8 % (39.0-53.0); HGB 13.1 gm/dL (13.0-17.5); MCH 32.3 pg (25.0-35.0); MCHC 32.2 g/dL (31.0-37.0); MCV 100.3 fL (80.0-100.0); Mean Platelet Volume 11.1; Platelet Count 123 k/uL (150-450); RBC 4.07 m/uL (4.30-5.90); RDW 13.4 % (11.5-15.5); WBC 9.6 k/uL (3.8-10.6)
[2017-06-27 21:59] LABS: Band Neutrophils % 6 %; Lymphocytes # (M) 0.58 k/uL (1.0-4.8); Monocytes # (M) 1.06 k/uL (0-1.0); Neutrophils % (M) 77 %; Nucleated Red Blood Cells 0 /100 WBC (0-0); Total Cells Counted 100
[2017-06-28] MEDS ORDERED: WARFARIN 1 MG TAB PO SCH (18:00)
== END 2017-06-26 15:10 | disposition home or self-care (01) ==
LOC: EC 19:42 → 6SEL 22:05
PROVIDERS: ADMIT Internal Medicine; ATTEND Internal Medicine
DX: R07.89 Other chest pain (principal); J44.9 Chronic obstructive pulmonary disease, unspecified; I13.0 Hypertensive heart and chronic kidney disease with heart failure and stage 1 through stage 4 chronic kidney disease, or unspecified chronic kidney disease; N18.3 Chronic kidney disease, stage 3 (moderate); I50.23 Acute on chronic systolic (congestive) heart failure; I25.10 Atherosclerotic heart disease of native coronary artery without angina pectoris; I48.2 Chronic atrial fibrillation; E03.9 Hypothyroidism, unspecified; E87.5 Hyperkalemia; I42.9 Cardiomyopathy, unspecified; N40.0 Benign prostatic hyperplasia without lower urinary tract symptoms; R79.1 Abnormal coagulation profile; E78.5 Hyperlipidemia, unspecified; T45.515A Adverse effect of anticoagulants, initial encounter; Z79.01 Long term (current) use of anticoagulants; Z79.899 Other long term (current) drug therapy; Z88.5 Allergy status to narcotic agent; Z88.8 Allergy status to other drugs, medicaments and biological substances; Z95.810 Presence of automatic (implantable) cardiac defibrillator
CPT/HCPCS: 99285; 36415; 93005; 83880; 80053; 80048; 83690; 83735; 84100; 84443; 84484 ×2; 85025 ×2; 85610; 85730; 71020; G0378 ×2; C8929; Q9957; 93306

== ENCOUNTER 2020-06-25 08:22 | Emergency (ER) | payer MEDICARE ==
[2020-06-25] MEDS ORDERED: SODIUM CHLORIDE 0.9% 1,000 ML IV STA ×2 (09:18)
[2020-06-25 09:53] LABS: Albumin 3.7 g/dL (3.5-5.0); Calcium 8.7 mg/dL (8.4-10.2); Potassium 4.1 mmol/L (3.5-5.1); Total Bilirubin 2.1 mg/dL (0.2-1.3); Total Protein 6.4 g/dL (6.3-8.2)
--- NOTE | 2020-06-25 09:54 | XR ---
EXAMINATION TYPE: XR KUB DATE OF EXAM: 06/25/2020 COMPARISON: NONE HISTORY: Pain TECHNIQUE: Single supine KUB image of the abdomen is obtained FINDINGS: Small bowel demonstrates no evidence for dilatation or air fluid levels. Gas and fecal material is seen in non-distended colon. No convincing evidence for pneumoperitoneum. No unusual calcifications. The lung bases are clear. The osseous structures are intact. IMPRESSION: 1. Overall nonobstructive bowel gas pattern.
--- NOTE | 2020-06-25 09:55 | XR ---
EXAMINATION TYPE: XR chest 1V DATE OF EXAM: 06/25/2020 HISTORY: Shortness of breath. COMPARISON: 06/29/2017 TECHNIQUE: Single view of the chest is submitted. FINDINGS: Demonstrated are scattered senescent parenchymal change. Pulmonary venous congestion without overt failure. Small right-sided pleural effusion. Dual-lead pace r is in place. The heart is stable. Hilar and mediastinal structures are within normal limits. Degenerative changes are seen of the dorsal spine. IMPRESSION: 1. Pulmonary venous congestion without overt failure. Small right-sided pleural effusion. Dual-lead pacer is in place.
--- NOTE | 2020-06-25 10:32 | ED ---
Nausea/Vomiting/Diarrhea HPI - General Chief complaint: Nausea/Vomiting/Diarrhea Stated complaint: diarrrhea Time Seen by Provider: 06/25/20 08:43 Source: patient, EMS, RN notes reviewed, old records reviewed Mode of arrival: EMS - History of Present Illness Initial comments: 80-year-old male presents emergency department today for evaluation for her diarrhea since April. He reports he's had significant watery diarrhea. He states he believes he may develop an infection after he had a pacemaker placed at [facility] and week later he developed the diarrhea. He reports crampy abdominal pain. Reports his watery stools. Denies any significant bloody stool. He also reports a history of a hemorrhoid. Patient states that he has no specific chest pain shortness of breath. - Related Data Home Medications Medication Instructions Recorded Confirmed Amiodarone [Cordarone] 200 mg PO DAILY@0900 11/10/16 06/25/20 Finasteride [Proscar] 5 mg PO DAILY@0911/10/16 06/25/20 Levothyroxine Sodium [Levo-T] 25 mcg PO DAILY@0811/10/16 06/25/20 Pravastatin Sodium [Pravachol] 40 mg PO HS 11/10/16 06/25/20 Spironolactone [Aldactone] 25 mg PO DAILY@0911/10/16 06/25/20 Warfarin Sodium 2 mg PO HS 06/25/17 06/25/20 bisacodyL [Dulcolax] 5 mg PO HS PRN 06/25/17 06/25/20 ALPRAZolam [Xanax] 0.5 mg PO TID 06/27/17 06/25/20 Carvedilol [Coreg] 12.5 mg PO BID 06/25/20 06/25/20 Furosemide [Lasix] 40 mg PO DAILY@1100 06/25/20 06/25/20 Furosemide [Lasix] 80 mg PO DAILY@0906/25/20 06/25/20 Hydrocortisone Pr Cream 1 applic RECTAL BID PRN 06/25/20 06/25/20 [Proctosol-Hc 2.5%] Loperamide [Imodium] 2 mg PO QID PRN 06/25/20 06/25/20 Nitroglycerin Sl Tabs [Nitrostat] 0.4 mg SUBLINGUAL Q5M PRN 06/25/20 06/25/20 Polyethylene Glycol 3350 [Miralax] 17 gm PO DAILY PRN 06/25/20 06/25/20 Potassium Chloride ER [K-Dur 20] 20 meq PO BID 06/25/20 06/25/20 metOLazone [Zaroxolyn] 2.5 mg PO DAILY PRN 06/25/20 06/25/20 Previous Rx's Medication Instructions Recorded Ciprofloxacin HCl [Cipro] 500 mg PO Q12H 5 Days #10 tab 06/25/20 Loperamide [Imodium] 2 mg PO QID #20 capsule 06/25/20 Allergies Allergy/AdvReac Type Severity Reaction Status Date / Time formoterol [From Dulera] Allergy Hallucinati Verified 06/25/20 11:49 ons hydromorphone [From Dilaudid] Allergy Rash/Hives Verified 06/25/20 11:49 mometasone furoate Allergy Hallucinati Verified 06/25/20 11:49 [From Dulera] ons Review of Systems ROS Statement: Those systems with pertinent positive or pertinent negative responses have been documented in the HPI. ROS Other: All systems not noted in ROS Statement are negative. Past Medical History Past Medical History: Atrial Fibrillation, Coronary Artery Disease (CAD), Heart Failure, COPD, Hypertension, Prostate Disorder, Renal Disease, Thyroid Disorder Additional Past Medical History / Comment(s): CKD 3 History of Any Multi-Drug Resistant Organisms: VRE Date of last positivie culture/infection: 10/20/16 MDRO Source:: URINE VRE Past Surgical History: Joint Replacement Additional Past Surgical History / Comment(s): right and left knee replacement, right shoulder surgery Past Anesthesia/Blood Transfusion Reactions: No Reported Reaction Past Psychological History: No Psychological Hx Reported Smoking Status: Former smoker Past Alcohol Use History: None Reported Past Drug Use History: None Reported - Past Family History Father Additional Family Medical History / Comment(s): Heart disease, blood clot that traveled ultimately result in his Mother Additional Family Medical History / Comment(s): Some type of intestinal cancer resulting in a bleed. General Exam - General Exam Comments Initial Comments: 80-year-old male. Alert and oriented 3. Head exam: Present: atraumatic, normocephalic, normal inspection Eye exam: Present: normal appearance, PERRL, EOMI. Absent: scleral icterus, conjunctival injection, periorbital swelling ENT exam: Present: normal exam, mucous membranes moist Neck exam: Present: normal inspection. Absent: tenderness, meningismus, ly mphadenopathy Respiratory exam: Present: normal lung sounds bilaterally. Absent: respiratory distress, wheezes, rales, rhonchi, stridor Cardiovascular Exam: Present: regular rate, normal rhythm, normal heart sounds. Absent: systolic murmur, diastolic murmur, rubs, gallop, clicks GI/Abdominal exam: Present: soft, normal bowel sounds. Absent: distended, tenderness, guarding, rebound, rigid Extremities exam: Present: normal inspection, full ROM, normal capillary refill. Absent: tenderness, pedal edema, joint swelling, calf tenderness Back exam: Present: normal inspection Neurological exam: Present: alert, oriented X3, CN II-XII intact Course Vital Signs 06/25/20 06/25/20 08:23 09:30 Temperature 97.6 F Pulse Rate 69 Blood Pressure 113/69 105/76 O2 Sat by Pulse 98 Oximetry Medical Decision Making - Lab Data Result diagrams: 06/25/20 09:26 06/25/20 09:26 Lab Results 06/25/20 06/25/20 06/25/20 Range/Units 09:26 09:26 09:52 WBC 4.2 (3.8-10.6) k/uL RBC 4.54 (4.30-5.90) m/uL Hgb 14.6 (13.0-17.5) gm/dL Hct 45.8 (39.0-53.0) % MCV 100.7 H (80.0-100.0) fL MCH 32.2 (25.0-35.0) pg MCHC 31.9 (31.0-37.0) g/dL RDW 14.8 (11.5-15.5) % Plt Count 86 L (150-450) k/uL MPV 10.6 Neutrophils % 67 % Lymphocytes % 18 % Monocytes % 9 % Eosinophils % 2 % Basophils % 1 % Neutrophils # 2.8 (1.3-7.7) k/uL Lymphocytes # 0.8 L (1.0-4.8) k/uL Monocytes # 0.4 (0-1.0) k/uL Eosinophils # 0.1 (0-0.7) k/uL Basophils # 0.0 (0-0.2) k/uL Manual Slide Review Performed Poikilocytosis (manual Present Macrocytosis Slight Sodium 136 L (137-145) mmol/L Potassium 4.1 (3.5-5.1) mmol/L Chloride 103 (98-107) mmol/L Carbon Dioxide 26 (22-30) mmol/L Anion Gap 7 mmol/L BUN 18 (9-20) mg/dL Creatinine 1.74 H (0.66-1.25) mg/dL Est GFR (CKD-EPI)AfAm 42 (>60 ml/min/1.73 sqM) Est GFR (CKD-EPI)NonAf 37 (>60 ml/min/1.73 sqM) Glucose 101 H (74-99) mg/dL Plasma Lactic Acid Edin 1.3 (0.7-2.0) mmol/L Calcium 8.7 (8.4-10.2) mg/dL Total Bilirubin 2.1 H (0.2-1.3) mg/dL AST 34 (17-59) U/L ALT 16 (4-49) U/L Alkaline Phosphatase 76 (38-126) U/L Total Protein 6.4 (6.3-8.2) g/dL Albumin 3.7 (3.5-5.0) g/dL Amylase 101 (30-110) U/L Lipase 206 (23-300) U/L Urine Color Urine Appearance (Clear) Urine pH (5.0-8.0) Ur Specific Garibaldi (1.001-1.035) Urine Protein (Negative) Urine Glucose (UA) (Negative) Urine Ketones (Negative) Urine Blood (Negative) Urine Nitrite (Negative) Urine Bilirubin (Negative) Urine Urobilinogen (<2.0) mg/dL Ur Leukocyte Esterase (Negative) Urine RBC (0-5) /hpf Urine WBC (0-5) /hpf Ur Squamous Epith Cells (0-4) /hpf Amorphous Sediment (None) /hpf Urine Bacteria (None) /hpf Hyaline Casts (0-2) /lpf Stool Occult Blood (Negative) C. difficile (EIA) Intrp (Negative) 06/25/20 06/25/20 06/25/20 Range/Units 11:04 11:17 11:17 WBC (3.8-10.6) k/uL RBC (4.30-5.90) m/uL Hgb (13.0-17.5) gm/dL Hct (39.0-53.0) % MCV (80.0-100.0) fL MCH (25.0-35.0) pg MCHC (31.0-37.0) g/dL RDW (11.5-15.5) % Plt Count (150-450) k/uL MPV Neutrophils % % Lymphocytes % % Monocytes % % Eosinophils % % Basophils % % Neutrophils # (1.3-7.7) k/uL Lymphocytes # (1.0-4.8) k/uL Monocytes # (0-1.0) k/uL Eosinophils # (0-0.7) k/uL Basophils # (0-0.2) k/uL Manual Slide Review Poikilocytosis (manual Macrocytosis Sodium (137-145) mmol/L Potassium (3.5-5.1) mmol/L Chloride (98-107) mmol/L Carbon Dioxide (22-30) mmol/L Anion Gap mmol/L BUN (9-20) mg/dL Creatinine (0.66-1.25) mg/dL Est GFR (CKD-EPI)AfAm (>60 ml/min/1.73 sqM) Est GFR (CKD-EPI)NonAf (>60 ml/min/1.73 sqM) Glucose (74-99) mg/dL Plasma Lactic Acid Edin (0.7-2.0) mmol/L Calcium (8.4-10.2) mg/dL Total Bilirubin (0.2-1.3) mg/dL AST (17-59) U/L ALT (4-49) U/L Alkaline Phosphatase (38-126) U/L Total Protein (6.3-8.2) g/dL Albumin (3.5-5.0) g/dL Amylase (30-110) U/L Lipase (23-300) U/L Urine Color Yellow Urine Appearance Clear (Clear) Urine pH 5.5 (5.0-8.0) Ur Specific Garibaldi 1.007 (1.001-1.035) Urine Protein Trace H (Negative) Urine Glucose (UA) Negative (Negative) Urine Ketones Negative (Negative) Urine Blood Negative (Negative) Urine Nitrite Negative (Negative) Urine Bilirubin Negative (Negative) Urine Urobilinogen 2.0 (<2.0) mg/dL Ur Leukocyte Esterase Trace H (Negative) Urine RBC <1 (0-5) /hpf Urine WBC 5 (0-5) /hpf Ur Squamous Epith Cells 1 (0-4) /hpf Amorphous Sediment Rare H (None) /hpf Urine Bacteria Occasional H (None) /hpf Hyaline Casts 10 H (0-2) /lpf Stool Occult Blood Negative (Negative) C. difficile (EIA) Intrp Negative (Negative) Disposition Clinical Impression: Diarrhea Disposition: HOME SELF-CARE Condition: Good Instructions (If sedation given, give patient instructions): Acute Diarrhea (ED) Additional Instructions: Patient's stool culture will be pending. Recommended taking the antibiotic until that time. Following up with primary care doctor for reevaluation. Return to the ED if any alarming signs or symptoms occur. Prescriptions: Ciprofloxacin HCl [Cipro] 500 mg PO Q12H 5 Days #10 tab Loperamide [Imodium] 2 mg PO QID #20 capsule Is patient prescribed a controlled substance at d/c from ED?: No Referrals: Keith Sales DO [Primary Care Provider] - 1-2 days Time of Disposition: 13:09
[2020-06-25 10:33] LABS: Basophils % (A) 1 %; Eosinophils # (A) 0.1 k/uL (0-0.7); Eosinophils % (A) 2 %; HCT 45.8 % (39.0-53.0); HGB 14.6 gm/dL (13.0-17.5); Lymphocytes # (A) 0.8 k/uL (1.0-4.8); Lymphocytes % (A) 18 %; MCH 32.2 pg (25.0-35.0); MCHC 31.9 g/dL (31.0-37.0); MCV 100.7 fL (80.0-100.0); Macrocytosis Slight; Mean Platelet Volume 10.6; Monocytes # (A) 0.4 k/uL (0-1.0); Monocytes % (A) 9 %; Neutrophils # (A) 2.8 k/uL (1.3-7.7); Neutrophils % (A) 67 %; RBC 4.54 m/uL (4.30-5.90); RDW 14.8 % (11.5-15.5); WBC 4.2 k/uL (3.8-10.6)
[2020-06-25 10:56] LABS: Platelet Count 86 k/uL (150-450)
[2020-06-25 10:57] LABS: Poikilocytosis (M) Present
[2020-06-25 11:44] LABS: Amorphous Sediment,Urine Rare /hpf; Appearance,Urine Clear (Clear); Bacteria,Urine Occasional /hpf; Bilirubin,Urine Negative (Negative); Blood,Urine Negative (Negative); Color,Urine Yellow; Glucose,Urine (UA) Negative (Negative); Hyaline Casts,Urine 10 /lpf (0-2); Ketones,Urine Negative (Negative); Leukocyte Esterase,Urine Trace (Negative); Nitrite,Urine Negative (Negative); PH, Urine 5.5 (5.0-8.0); Protein,Urine Trace (Negative); RBC,Urine <1 /hpf (0-5); Specific Gravity,Urine 1.007 (1.001-1.035); Squamous Epithelial Cell,Urine 1 /hpf (0-4); WBC,Urine 5 /hpf (0-5)
[2020-06-25] MEDS ORDERED: LEVOFLOXACIN 500 MG TAB PO STA (13:07)
[2020-06-25] MEDS ORDERED: DIPHENOX-ATROP STARTER PACK 8 TAB BTL PO STA (13:07)
[2020-06-25 13:22] VITALS: BP 115/72; PULSE 71; RESP 18; TEMP 98.2
== END 2020-06-25 13:23 | disposition home or self-care (01) ==
LOC: EC 08:22
DX: R19.7 Diarrhea, unspecified (principal); I13.0 Hypertensive heart and chronic kidney disease with heart failure and stage 1 through stage 4 chronic kidney disease, or unspecified chronic kidney disease; N18.30 Chronic kidney disease, stage 3 unspecified; I50.9 Heart failure, unspecified; I48.91 Unspecified atrial fibrillation; E07.9 Disorder of thyroid, unspecified; Z79.01 Long term (current) use of anticoagulants; Z79.899 Other long term (current) drug therapy; Z79.890 Hormone replacement therapy; Z88.8 Allergy status to other drugs, medicaments and biological substances; Z88.5 Allergy status to narcotic agent; Z87.891 Personal history of nicotine dependence; Z96.653 Presence of artificial knee joint, bilateral; Z20.828 Contact with and (suspected) exposure to other viral communicable diseases
CPT/HCPCS: 36415; 80053; 82150; 83605; 83690; 85025; 82272; 81001; 87324; 87045; 83630; 87046; 71045; 74018; 99284; 96360; 96361 ×3; U0003

== ENCOUNTER 2020-08-15 19:34 | Inpatient (IN) | payer MEDICARE ==
[2020-08-15] MEDS ORDERED: IPRATROPIUM-ALBUTEROL 3 ML NEB INHALATION STA (19:50)
--- NOTE | 2020-08-15 19:53 | ED ---
General Adult HPI - General Chief complaint: Shortness of Breath Stated complaint: NAT Time Seen by Provider: 08/15/20 19:42 Source: patient, EMS, RN notes reviewed Mode of arrival: EMS Limitations: no limitations - History of Present Illness Initial comments: Patient is a pleasant 80-year-old male presenting to the emergency Department with complaints of difficulty in breathing. Onset of symptoms was a week or so ago. Symptoms worsen last couple of days. Patient has occasional cough, dry. No leg pain. Patient does have some leg edema. Patient was recently started on Lasix for this. No fevers. Patient does have history of similar symptoms previously associated with COPD. - Related Data Home Medications Medication Instructions Recorded Confirmed Amiodarone [Cordarone] 200 mg PO DAILY 11/10/16 08/15/20 Finasteride [Proscar] 5 mg PO DAILY 11/10/16 08/15/20 Levothyroxine Sodium [Levo-T] 25 mcg PO DAILY 11/10/16 08/15/20 Pravastatin Sodium [Pravachol] 40 mg PO HS 11/10/16 08/15/20 Spironolactone [Aldactone] 25 mg PO DAILY 11/10/16 08/15/20 ALPRAZolam [Xanax] 0.5 mg PO TID 06/27/17 08/15/20 Carvedilol [Coreg] 12.5 mg PO BID 06/25/20 08/15/20 Furosemide [Lasix] 80 mg PO BID 06/25/20 08/15/20 Nitroglycerin Sl Tabs [Nitrostat] 0.4 mg SUBLINGUAL Q5M PRN 06/25/20 08/15/20 Potassium Chloride ER [K-Dur 20] 20 meq PO BID 06/25/20 08/15/20 metOLazone [Zaroxolyn] 2.5 mg PO DIRECTED 06/25/20 08/15/20 Loperamide [Imodium] 2 mg PO QID PRN 08/15/20 08/15/20 Warfarin [Coumadin] 1 mg PO DAILY 08/15/20 08/15/20 Allergies Allergy/AdvReac Type Severity Reaction Status Date / Time formoterol [From Dulera] Allergy Hallucinati Verified 06/25/20 11:49 ons hydromorphone [From Dilaudid] Allergy Rash/Hives Verified 06/25/20 11:49 methocarbamol Allergy Unknown Verified 08/15/20 21:22 mometasone furoate Allergy Hallucinati Verified 06/25/20 11:49 [From Dulera] ons Review of Systems ROS Statement: Those systems with pertinent positive or pertinent negative responses have been documented in the HPI. ROS Other: All systems not noted in ROS Statement are negative. Constitutional: Denies: fever Eyes: Denies: eye pain ENT: Denies: ear pain Respiratory: Reports: as per HPI, cough, dyspnea Cardiovascular: Denies: chest pain Endocrine: Denies: fatigue Gastrointestinal: Denies: abdominal pain Genitourinary: Denies: dysuria Musculoskeletal: Denies: back pain Skin: Denies: rash Neurological: Denies: weakness Past Medical History Past Medical History: Atrial Fibrillation, Coronary Artery Disease (CAD), Heart Failure, COPD, Hypertension, Prostate Disorder, Renal Disease, Thyroid Disorder Additional Past Medical History / Comment(s): CKD 3 History of Any Multi-Drug Resistant Organisms: VRE Date of last positivie culture/infection: 10/20/16 MDRO Source:: URINE VRE Past Surgical History: Joint Replacement Additional Past Surgical History / Comment(s): right and left knee replacement, right shoulder surgery Past Anesthesia/Blood Transfusion Reactions: No Reported Reaction Past Psychological History: No Psychological Hx Reported Smoking Status: Former smoker Past Alcohol Use History: None Reported Past Drug Use History: None Reported - Past Family History Father Additional Family Medical History / Comment(s): Heart disease, blood clot that traveled ultimately result in his Mother Additional Family Medical History / Comment(s): Some type of intestinal cancer resulting in a bleed. General Exam Limitations: no limitations General appearance: alert, in no apparent distress Head exam: Present: normocephalic Eye exam: Present: normal appearance Respiratory exam: Present: wheezes Cardiovascular Exam: Present: regular rate, normal rhythm GI/Abdominal exam: Present: soft. Absent: tenderness Extremities exam: Present: pedal edema. Absent: calf tenderness Neurological exam: Present: alert Psychiatric exam: Present: normal affect, normal mood Skin exam: Present: normal color Course Vital Signs 08/15/20 08/15/20 08/15/20 19:36 20:24 20:25 Temperature 98.0 F Pulse Rate 72 67 Respiratory 20 22 Rate Blood Pressure 101/75 O2 Sat by Pulse 99 Oximetry 08/15/20 20:35 Temperature Pulse Rate 70 Respiratory Rate Blood Pressure O2 Sat by Pulse Oximetry EKG Findings - EKG Comments: EKG Findings:: Paced rhythm with a rate of 70. QRS 22. QT 536. QTc 578. Superior axis. Wide-complex QRS. No acute ST change Medical Decision Making - Medical Decision Making Patient reevaluated and resting comfortably in bed. Patient updated on results and plan. [facility] has been paged for admission covering for hospital call - Lab Data Result diagrams: 08/15/20 20:07 08/15/20 20:07 Lab Results 08/15/20 08/15/20 08/15/20 Range/Units 20:07 20:07 20:07 WBC 4.2 (3.8-10.6) k/uL RBC 4.71 (4.30-5.90) m/uL Hgb 14.9 (13.0-17.5) gm/dL Hct 46.0 (39.0-53.0) % MCV 97.6 (80.0-100.0) fL MCH 31.6 (25.0-35.0) pg MCHC 32.4 (31.0-37.0) g/dL RDW 15.3 (11.5-15.5) % Plt Count 103 L (150-450) k/uL MPV 10.7 Neutrophils % 64 % Lymphocytes % 18 % Monocytes % 13 % Eosinophils % 1 % Basophils % 1 % Neutrophils # 2.7 (1.3-7.7) k/uL Lymphocytes # 0.8 L (1.0-4.8) k/uL Monocytes # 0.5 (0-1.0) k/uL Eosinophils # 0.1 (0-0.7) k/uL Basophils # 0.0 (0-0.2) k/uL PT 18.9 H (9.0-12.0) sec INR 1.9 H (<1.2) APTT 29.8 (22.0-30.0) sec Sodium 132 L (137-145) mmol/L Potassium 4.5 (3.5-5.1) mmol/L Chloride 100 (98-107) mmol/L Carbon Dioxide 21 L (22-30) mmol/L Anion Gap 11 mmol/L BUN 34 H (9-20) mg/dL Creatinine 1.55 H (0.66-1.25) mg/dL Est GFR (CKD-EPI)AfAm 49 (>60 ml/min/1.73 sqM) Est GFR (CKD-EPI)NonAf 42 (>60 ml/min/1.73 sqM) Glucose 96 (74-99) mg/dL Plasma Lactic Acid Edin (0.7-2.0) mmol/L Calcium 8.8 (8.4-10.2) mg/dL Total Bilirubin 2.2 H (0.2-1.3) mg/dL AST 43 (17-59) U/L ALT 19 (4-49) U/L Alkaline Phosphatase 124 (38-126) U/L Troponin I (0.000-0.034) ng/mL NT-Pro-B Natriuret Pep pg/mL Total Protein 6.8 (6.3-8.2) g/dL Albumin 3.7 (3.5-5.0) g/dL Coronavirus (PCR) (Not Detectd) Influenza Type A RNA (Not Detectd) Influenza Type B (PCR) (Not Detectd) 08/15/20 08/15/20 08/15/20 Range/Units 20:07 20:07 20:07 WBC (3.8-10.6) k/uL RBC (4.30-5.90) m/uL Hgb (13.0-17.5) gm/dL Hct (39.0-53.0) % MCV (80.0-100.0) fL MCH (25.0-35.0) pg MCHC (31.0-37.0) g/dL RDW (11.5-15.5) % Plt Count (150-450) k/uL MPV Neutrophils % % Lymphocytes % % Monocytes % % Eosinophils % % Basophils % % Neutrophils # (1.3-7.7) k/uL Lymphocytes # (1.0-4.8) k/uL Monocytes # (0-1.0) k/uL Eosinophils # (0-0.7) k/uL Basophils # (0-0.2) k/uL PT (9.0-12.0) sec INR (<1.2) APTT (22.0-30.0) sec Sodium (137-145) mmol/L Potassium (3.5-5.1) mmol/L Chloride (98-107) mmol/L Carbon Dioxide (22-30) mmol/L Anion Gap mmol/L BUN (9-20) mg/dL Creatinine (0.66-1.25) mg/dL Est GFR (CKD-EPI)AfAm (>60 ml/min/1.73 sqM) Est GFR (CKD-EPI)NonAf (>60 ml/min/1.73 sqM) Glucose (74-99) mg/dL Plasma Lactic Acid Edin 1.8 (0.7-2.0) mmol/L Calcium (8.4-10.2) mg/dL Total Bilirubin (0.2-1.3) mg/dL AST (17-59) U/L ALT (4-49) U/L Alkaline Phosphatase (38-126) U/L Troponin I 0.042 H* (0.000-0.034) ng/mL NT-Pro-B Natriuret Pep 6810 pg/mL Total Protein (6.3-8.2) g/dL Albumin (3.5-5.0) g/dL Coronavirus (PCR) (Not Detectd) Influenza Type A RNA (Not Detectd) Influenza Type B (PCR) (Not Detectd) 08/15/20 Range/Units 20:07 WBC (3.8-10.6) k/uL RBC (4.30-5.90) m/uL Hgb (13.0-17.5) gm/dL Hct (39.0-53.0) % MCV (80.0-100.0) fL MCH (25.0-35.0) pg MCHC (31.0-37.0) g/dL RDW (11.5-15.5) % Plt Count (150-450) k/uL MPV Neutrophils % % Lymphocytes % % Monocytes % % Eosinophils % % Basophils % % Neutrophils # (1.3-7.7) k/uL Lymphocytes # (1.0-4.8) k/uL Monocytes # (0-1.0) k/uL Eosinophils # (0-0.7) k/uL Basophils # (0-0.2) k/uL PT (9.0-12.0) sec INR (<1.2) APTT (22.0-30.0) sec Sodium (137-145) mmol/L Potassium (3.5-5.1) mmol/L Chloride (98-107) mmol/L Carbon Dioxide (22-30) mmol/L Anion Gap mmol/L BUN (9-20) mg/dL Creatinine (0.66-1.25) mg/dL Est GFR (CKD-EPI)AfAm (>60 ml/min/1.73 sqM) Est GFR (CKD-EPI)NonAf (>60 ml/min/1.73 sqM) Glucose (74-99) mg/dL Plasma Lactic Acid Edin (0.7-2.0) mmol/L Calcium (8.4-10.2) mg/dL Total Bilirubin (0.2-1.3) mg/dL AST (17-59) U/L ALT (4-49) U/L Alkaline Phosphatase (38-126) U/L Troponin I (0.000-0.034) ng/mL NT-Pro-B Natriuret Pep pg/mL Total Protein (6.3-8.2) g/dL Albumin (3.5-5.0) g/dL Coronavirus (PCR) Not Detected (Not Detectd) Influenza Type A RNA Not Detected (Not Detectd) Influenza Type B (PCR) Not Detected (Not Detectd) - Radiology Data Radiology results: image reviewed (Chest x-ray does show mild CHF with right pleural effusion.) Disposition Clinical Impression: CHF (congestive heart failure) Disposition: ADMITTED IP TO THIS HOSP Is patient prescribed a controlled substance at d/c from ED?: No Referrals: Keith Sales DO [Primary Care Provider] - 1-2 days Decision Time: 21:34
--- NOTE | 2020-08-15 20:24 | XR ---
EXAMINATION TYPE: XR chest 2V DATE OF EXAM: 08/15/2020 COMPARISON: 06/25/2020. HISTORY: Shortness of breath. TECHNIQUE: Frontal and lateral views of the chest are obtained. FINDINGS: There is mild interstitial edema with small right pleural effusion. No pneumothorax seen. Moderate to marked cardiomegaly. Left AICD noted. The osseous structures are intact. IMPRESSION: Mild CHF with small right pleural effusion.
[2020-08-15 20:34] LABS: Basophils % (A) 1 %; Eosinophils # (A) 0.1 k/uL (0-0.7); Eosinophils % (A) 1 %; HGB 14.9 gm/dL (13.0-17.5); Lymphocytes # (A) 0.8 k/uL (1.0-4.8); Lymphocytes % (A) 18 %; MCH 31.6 pg (25.0-35.0); MCHC 32.4 g/dL (31.0-37.0); MCV 97.6 fL (80.0-100.0); Mean Platelet Volume 10.7; Monocytes # (A) 0.5 k/uL (0-1.0); Monocytes % (A) 13 %; Neutrophils # (A) 2.7 k/uL (1.3-7.7); Neutrophils % (A) 64 %; Platelet Count 103 k/uL (150-450); RBC 4.71 m/uL (4.30-5.90); RDW 15.3 % (11.5-15.5); WBC 4.2 k/uL (3.8-10.6)
[2020-08-15 20:39] LABS: INR 1.9 (<1.2); Partial Thromboplastin Time 29.8 sec (22.0-30.0); Prothrombin Time 18.9 sec (9.0-12.0)
[2020-08-15 20:45] LABS: Albumin 3.7 g/dL (3.5-5.0); Calcium 8.8 mg/dL (8.4-10.2); Potassium 4.5 mmol/L (3.5-5.1); Total Bilirubin 2.2 mg/dL (0.2-1.3); Total Protein 6.8 g/dL (6.3-8.2)
[2020-08-15 21:00] LABS: SARS-CoV-2 RNA Rapid Abbott Not Detected (Not Detectd)
[2020-08-15] MEDS ORDERED: ASPIRIN 325 MG TAB PO STA (21:35)
[2020-08-15] MEDS: FUROSEMIDE 10 MG/ML 4 ML VIAL IV SCH (22:20)
[2020-08-15] MEDS: NITROGLYCERIN OINT 1 INCH/GM PACKET TOPICAL SCH (22:21)
--- NOTE | 2020-08-16 02:45 | P.HPIM ---
History of Present Illness H&P Date: 08/15/20 Chief Complaint: trouble breathing 80 year old male with CHF, pacemaker, COPD, CAD, hypothyroid patient comes in due to trouble breathing. his daughter reports progressive SOB over the past few days, and seems to have gotten worse today, she was checking on him as he lives alone, and found him to be tired, with trouble breathing, and congested lips patient denies any associated chest pain , but he admits to progressive exertional dyspnea , he has been started on lasix by his doctors due to swollen legs in the past, however, he did not improve much this time, and his doctors were discussing starting him on metalozone, but he was waiting for approval from his overcoil stepper , due to CKD. he otherwise , denies any leg swelling this time, no leg tenderness, no chest pain , no fever, no chills, no nausea no vomiting, no abd pain , no recent travel or hospitalization . daughter was going to check on him , and get his INR, but she found his tired and decided thats time to come to the hospital . patient felt better after a dose of lasix. in the ED blood work , showed CKD 3, elevated trops probably related to CKD (has chronic elevation), eKG paced rhythm , mild thrombocytopenia , mile elevation of bilirubin Review of Systems Pertinent positives as noted in HPI. All other systems were reviewed and are negative Past Medical History Past Medical History: Atrial Fibrillation, Coronary Artery Disease (CAD), Heart Failure, COPD, Hypertension, Prostate Disorder, Renal Disease, Thyroid Disorder Additional Past Medical History / Comment(s): CKD 3 History of Any Multi-Drug Resistant Organisms: VRE Date of last positivie culture/infection: 10/20/16 MDRO Source:: URINE VRE Past Surgical History: Joint Replacement Additional Past Surgical History / Comment(s): right and left knee replacement, right shoulder surgery Past Anesthesia/Blood Transfusion Reactions: No Reported Reaction Past Psychological History: No Psychological Hx Reported Smoking Status: Former smoker Past Alcohol Use History: None Reported Past Drug Use History: None Reported - Past Family History Father Additional Family Medical History / Comment(s): Heart disease, blood clot that traveled ultimately result in his Mother Additional Family Medical History / Comment(s): Some type of intestinal cancer resulting in a bleed. Medications and Allergies Home Medications Medication Instructions Recorded Confirmed Type Amiodarone [Cordarone] 200 mg PO DAILY 11/10/16 08/15/20 History Finasteride [Proscar] 5 mg PO DAILY 11/10/16 08/15/20 History Levothyroxine Sodium [Levo-T] 25 mcg PO DAILY 11/10/16 08/15/20 History Pravastatin Sodium [Pravachol] 40 mg PO HS 11/10/16 08/15/20 History Spironolactone [Aldactone] 25 mg PO DAILY 11/10/16 08/15/20 History ALPRAZolam [Xanax] 0.5 mg PO TID 06/27/17 08/15/20 History Carvedilol [Coreg] 12.5 mg PO BID 06/25/20 08/15/20 History Furosemide [Lasix] 80 mg PO BID 06/25/20 08/15/20 History Nitroglycerin Sl Tabs [Nitrostat] 0.4 mg SUBLINGUAL Q5M PRN 06/25/20 08/15/20 History Potassium Chloride ER [K-Dur 20] 20 meq PO BID 06/25/20 08/15/20 History metOLazone [Zaroxolyn] 2.5 mg PO DIRECTED 06/25/20 08/15/20 History Loperamide [Imodium] 2 mg PO QID PRN 08/15/20 08/15/20 History Warfarin [Coumadin] 1 mg PO DAILY 08/15/20 08/15/20 History Allergies Allergy/AdvReac Type Severity Reaction Status Date / Time formoterol [From Dulera] Allergy Hallucinati Verified 06/25/20 11:49 ons hydromorphone [From Dilaudid] Allergy Rash/Hives Verified 06/25/20 11:49 methocarbamol Allergy Unknown Verified 08/15/20 21:22 mometasone furoate Allergy Hallucinati Verified 06/25/20 11:49 [From Dulera] ons Physical Exam Vitals: Vital Signs Temp Pulse Resp BP Pulse Ox 08/15/20 22:00 74 20 97/61 100 08/15/20 20:35 70 08/15/20 20:25 22 08/15/20 20:24 67 08/15/20 19:36 98.0 F 72 20 101/75 99 Intake and Output 08/15/20 08/15/2021 14:59 22:59 06:59 Other: Weight 92.986 kg Constitutional: No acute distress, conversant, pleasant Eyes: hint of jaundice sclerae, moist conjunctiva, Pupils equal round reactive to light ENMT: NC/AT Oropharynx clear, no erythema, or exudates Neck: Supple, FROM, no masses, or JVD No carotid bruits No thyromegaly Lungs: good breathi sounds bilaterally , no wheezing , no rhonchi no rales Clear to percussion Normal respiratory effort, no accessory muscle use Cardiovascular: Heart regular in rate and rhythm, No murmurs, gallops, or rubs No peripheral edema Abdominal: Soft Nontender, no guarding, rebound or rigidity Abdomen moving with respiration Normoactive bowel sounds No hepatomegaly, No splenomegaly No palpable mass No abdominal wall hernia noted Skin: Normal temperature, tone, texture, turgor No induration No subcutaneous nodules No rash, lesions No ulcers Extremities: No digital cyanosis No clubbing Pedal pulses intact and symmetrical Radial pulses intact and symmetrical No calf tenderness Psychiatric: Alert and oriented to person, place Appropriate affect fair judgement Neuro Muscles Strength 5/5 in all 4 extremities Sensation to light touch grossly present throughout Cranial nerves II-XII grossly intact No focal sensory deficits Lymphatics: no palpable cervical or supraclavicular , or inguinal lymph nodes Results CBC & Chem 7: 08/15/20 20:07 08/15/20 20:07 Labs: Abnormal Lab Results - Last 24 Hours (Table) 08/15/20 08/15/20 08/15/20 Range/Units 20:07 20:07 20:07 Plt Count 103 L (150-450) k/uL Lymphocytes # 0.8 L (1.0-4.8) k/uL PT 18.9 H (9.0-12.0) sec INR 1.9 H (<1.2) Sodium 132 L (137-145) mmol/L Carbon Dioxide 21 L (22-30) mmol/L BUN 34 H (9-20) mg/dL Creatinine 1.55 H (0.66-1.25) mg/dL Total Bilirubin 2.2 H (0.2-1.3) mg/dL Troponin I (0.000-0.034) ng/mL 08/15/20 Range/Units 20:07 Plt Count (150-450) k/uL Lymphocytes # (1.0-4.8) k/uL PT (9.0-12.0) sec INR (<1.2) Sodium (137-145) mmol/L Carbon Dioxide (22-30) mmol/L BUN (9-20) mg/dL Creatinine (0.66-1.25) mg/dL Total Bilirubin (0.2-1.3) mg/dL Troponin I 0.042 H* (0.000-0.034) ng/mL Assessment and Plan Assessment: mild systolic CHF exacerbation right pleural effusion exertional dyspnea plan IV diuresis PT eval trend trops , most likely elevated chronically related to CKD, denies any chest pain monitor vital signs , teletypesetter monitor resume home meds chronic condition history of CAD hypothyroid BPH afib on coumadin (dosing by pharmacy ) resume home meds mild thrombocytopenia , denies any bleeding , continue tomonitor Surrogate decision-maker: daughter [phone] nino Garcia CODE STATUS: full code DVT prophylaxis: on coumadin Discussed with: Patient, ER Anticipated length of stay > than [address]: home A total of 65 minutes was spent on the care of this complex patient more than 50% of the time was spent in counseling and care coordination.
[2020-08-16] MEDS: FUROSEMIDE 10 MG/ML 4 ML VIAL IV SCH (06:03)
[2020-08-16] MEDS: LEVOTHYROXINE 25 MCG TAB PO SCH (06:07)
[2020-08-16] MEDS: carvediloL 12.5 MG TAB PO SCH ×2 (07:36→17:31)
[2020-08-16] MEDS: SPIRONOLACTONE 25 MG TAB PO SCH (09:19)
[2020-08-16] MEDS: NITROGLYCERIN OINT 1 INCH/GM PACKET TOPICAL SCH ×4 (09:19→20:24)
[2020-08-16] MEDS: FINASTERIDE 5 MG TAB PO SCH (09:20)
[2020-08-16] MEDS: AMIODARONE 200 MG TAB PO SCH (09:20)
--- NOTE | 2020-08-16 11:04 | ECHOF ---
Referral Reason:LV function MEASUREMENTS -------- HEIGHT: 175.3 cm WEIGHT: 93.0 kg BP: 104/67 RVIDd: 2.9 cm (< 3.3) IVSd: 0.7 cm (0.6 - 1.1) LVIDd: 6.7 cm (3.9 - 5.3) LVPWd: 0.9 cm (0.6 - 1.1) IVSs: 1.0 cm LVIDs: 6.6 cm LVPWs: 1.1 cm LAESV Index (A-L): 44.42 ml/m Ao Diam: 3.7 cm (2.0 - 3.7) AV Cusp: 1.6 cm (1.5 - 2.6) LA Diam: 3.8 cm (2.7 - 3.8) MV EXCURSION: 16.703 mm (> 18.000) MV EF SLOPE: 69 mm/s (70 - 150) EPSS: 3.0 cm MV E Jc: 0.71 m/s MV DecT: 239 ms MV A Jc: 0.21 m/s MV E/A Ratio: 3.31 AR PHT: 573 ms RAP: 15.00 mmHg RVSP: 39.40 mmHg FINDINGS -------- Pacerwire seen in RV and RA. This was a technically adequate study. The left ventricle is moderately dilated. Left ventricular wall thickness is normal. There is sev ere global hypokinesis of LV . Overall left ventricular systolic function is severely impaired with , an EF < 20%. Left ventricular fillimg pressure cannot be estimated due to paced rhythm. The right ventricle is normal in size. LA is severely dilated >40 ml/m2 The right atrial size is normal. There is mild aortic valve sclerosis. There is mild aortic regurgitation. Mild mitral annular calcification present. Mild mitral regurgitation is present. The tricuspid valve appears structurally normal. Mild tricuspid regurgitation present. There is m ild pulmonary hypertension. The right ventricular systolic pressure, as measured by Doppler, is 39. 40mmHg. The pulmonic valve was not well visualized. There is no pulmonic regurgitation present. The aortic root size is normal. The inferior vena cava is mildly dilated. There is no pericardial effusion. CONCLUSIONS -------- 1. Pacerwire seen in RV and RA. 2. The left ventricle is moderately dilated. 3. There is severe global hypokinesis of LV . 4. Overall left ventricular systolic function is severely impaired with, an EF < 20%. 5. LA is severely dilated >40 ml/m2 6. There is mild aortic valve sclerosis. 7. There is mild aortic regurgitation. 8. Mild mitral annular calcification present. 9. Mild mitral regurgitation is present. 10. Mild tricuspid regurgitation present. 11. There is mild pulmonary hypertension. 12. There is no pericardial effusion. EMBRYOLOGY PROFESSOR: Patricia Ortiz RDCS
--- NOTE | 2020-08-16 11:41 | CONS ---
ISATU Buitrago is a 80-year-old gentleman with history of cardiomyopathy, congestive heart failure, COPD, coronary artery disease, prior history of AICD whose details are not available to me and atrial fibrillation who presented to hospital with symptoms of shortness of breath. He has been becoming progressively more short of breath over the last several days that has gotten particularly worse on the day of his coming to the emergency room. He is tired, fatigued and short of breath. The patient states that he has been becoming progressively short of breath ever since he had the device put in in April. The patient has chronic renal insufficiency, currently on a diuretic, but his seat joiner was waiting for the energy audit advisor approval to give metolazone. At the time of my evaluation, patient appears very comfortable at rest. He is lying flat in the bed. Does not have any leg edema. Does not appear to be short of breath. He is in paced rhythm. PAST MEDICAL HISTORY: Significant for atrial fibrillation, pacer defibrillator, cardiomyopathy, congestive heart failure, coronary artery disease, COPD, hypertension, renal insufficiency. MEDICATIONS: Medications at home included Lasix 80 b.i.d., Coumadin, Aldactone 25 mg daily, Pravachol 40 mg daily, K-Dur 20 b.i.d., sublingual nitroglycerin on a p.r.n. basis, Zaroxolyn, Imodium, levothyroxine, Proscar, Coreg, Cordarone, and Xanax. ALLERGIES: He is allergic to DULERA, DILAUDID and METHOCARBAMOL. FAMILY HISTORY: Negative for premature coronary artery disease. SOCIAL HISTORY: Negative for current smoking, EtOH abuse, or drug abuse. REVIEW OF SYSTEMS: HEENT is unremarkable. CARDIAC: As described above. RESPIRATORY: As described above. GI: Negative. GENITOURINARY: Negative. ALLERGY/IMMUNOLOGY: Negative. SKIN: Negative. MUSCULOSKELETAL: Significant for arthritis. PSYCHOSOCIAL: Negative. ENDOCRINE: Negative. DERM: Negative. CONSTITUTIONAL: Negative. ONCOLOGICAL: Negative. TECHNICAL INSPECTOR: Significant for deafness. Rest of the system review is not relevant. PHYSICAL EXAMINATION: On exam, patient is afebrile. Heart rate is 70 beats per minute. Blood pressure is 104/67. Respiratory rate is 18. O2 saturation is 99%. There is no jugular venous distention. Chest exam reveals good air entry bilaterally. I do not hear any crackles or rhonchi. Heart exam reveals first and second heart sounds. No gallop. Has a systolic murmur at the apex. Abdomen is soft. Examination of extremities did not reveal any edema. Peripheral pulses are felt. LABS: Labs show that he is negative for influenza and coronavirus. Troponin is slightly elevated at 0.04, 0.04. Creatinine is 1.5. BNP is elevated at 6810. Hemoglobin is normal at 14.9. INR is therapeutic at 1.9. ASSESSMENT: 1. Acute exacerbation of chronic systolic heart failure. 2. Troponin elevation probably related to renal insufficiency. The patient did not have a myocardial infarction. 3. Chronic renal insufficiency. 4. Persistent atrial fibrillation. PLAN: I will continue the patient on IV Lasix, beta blockers, nitrates, statins. Continue the Coumadin to maintain an INR of 2 to 2.5. I will obtain a 2D echo to evaluate his LV function. PATRICIA / NICOLE: [phone] /
[2020-08-16] MEDS ORDERED: FUROSEMIDE 10 MG/ML 2 ML VIAL IV ONE (11:45)
--- NOTE | 2020-08-16 12:12 | P.PN ---
Progress Note - Text Progress Note Date: 08/16/20 Pt seen and examined at bedside, I agree with the plan as documented by by colleague earlier in the day. I called Cinthia Garcia today to update her on plan of care going forward, and she is in agreement. Echo findings show EF of <20%; patient tells me he had an echo a couple weeks ago at [facility] which showed an EF of 10%.
[2020-08-16 12:21] LABS: Basophils % (A) 1 %; Eosinophils # (A) 0.1 k/uL (0-0.7); Eosinophils % (A) 2 %; HCT 47.7 % (39.0-53.0); HGB 14.8 gm/dL (13.0-17.5); Hypochromasia Slight; Lymphocytes # (A) 0.8 k/uL (1.0-4.8); Lymphocytes % (A) 17 %; MCH 30.6 pg (25.0-35.0); MCV 98.7 fL (80.0-100.0); Macrocytosis Slight; Mean Platelet Volume 10.1; Monocytes # (A) 0.5 k/uL (0-1.0); Monocytes % (A) 10 %; Neutrophils % (A) 67 %; RBC 4.83 m/uL (4.30-5.90); RDW 15.6 % (11.5-15.5); WBC 4.5 k/uL (3.8-10.6)
[2020-08-16 12:32] LABS: Albumin 3.6 g/dL (3.5-5.0); Potassium 4.1 mmol/L (3.5-5.1); Total Bilirubin 2.6 mg/dL (0.2-1.3); Total Protein 6.6 g/dL (6.3-8.2)
[2020-08-16 12:34] LABS: Calcium 8.9 mg/dL (8.4-10.2); INR 2.4 (<1.2)
[2020-08-16 13:06] LABS: Platelet Count 94 k/uL (150-450); Poikilocytosis (M) Present
--- NOTE | 2020-08-16 17:14 | P.PN ---
Subjective Progress Note Date: 08/16/20 Ongoing complaints of weakness, dyspnea, LE swelling, fatigue. Objective - Vital Signs Vital signs: Vital Signs Temp 97.7 F 08/16/20 15:21 Pulse 70 08/16/20 15:21 Resp 20 08/16/20 15:21 BP 104/60 08/16/20 15:21 Pulse Ox 99 08/16/20 15:21 Intake & Output 08/15/20 08/16/20 08/16/20 18:59 06:59 18:59 Output Total 850 1500 Balance -850 -1500 Weight 92.986 kg Output: Urine 850 1500 Other: # Voids 2 - Exam Gen: awake, alert HEENT: normocephalic, atraumatic, good hearing acuity, moist mucous membranes Resp: good air exchange, breathing comfortably with no accessory muscle use CVS: good distal perfusion x 4, GI: soft, NTTP, ND : no SPT, no CVAT, garcia catheter not present MSK: Bilateral pitting edema, no clubbing Neuro: non-focal, moving all extremities Psych: cooperative, euthymic mood - Labs CBC & Chem 7: 08/16/20 11:50 08/16/20 11:50 Labs: Abnormal Lab Results - Last 24 Hours (Table) 08/15/20 08/15/20 08/15/20 Range/Units 20:07 20:07 20:07 RDW (11.5-15.5) % Plt Count 103 L (150-450) k/uL Lymphocytes # 0.8 L (1.0-4.8) k/uL PT 18.9 H (9.0-12.0) sec INR 1.9 H (<1.2) Sodium 132 L (137-145) mmol/L Carbon Dioxide 21 L (22-30) mmol/L BUN 34 H (9-20) mg/dL Creatinine 1.55 H (0.66-1.25) mg/dL Total Bilirubin 2.2 H (0.2-1.3) mg/dL Troponin I (0.000-0.034) ng/mL 08/15/20 08/16/20 08/16/20 Range/Units 20:07 03:06 11:50 RDW (11.5-15.5) % Plt Count (150-450) k/uL Lymphocytes # (1.0-4.8) k/uL PT 23.0 H (9.0-12.0) sec INR 2.4 H (<1.2) Sodium (137-145) mmol/L Carbon Dioxide (22-30) mmol/L BUN (9-20) mg/dL Creatinine (0.66-1.25) mg/dL Total Bilirubin (0.2-1.3) mg/dL Troponin I 0.042 H* 0.043 H* (0.000-0.034) ng/mL 08/16/20 08/16/20 Range/Units 11:50 11:50 RDW 15.6 H (11.5-15.5) % Plt Count 94 L (150-450) k/uL Lymphocytes # 0.8 L (1.0-4.8) k/uL PT (9.0-12.0) sec INR (<1.2) Sodium (137-145) mmol/L Carbon Dioxide (22-30) mmol/L BUN 32 H (9-20) mg/dL Creatinine 1.50 H (0.66-1.25) mg/dL Total Bilirubin 2.6 H (0.2-1.3) mg/dL Troponin I (0.000-0.034) ng/mL Assessment and Plan Assessment: systolic CHF exacerbation right pleural effusion exertional dyspnea plan IV diuresis PT eval trend trops , most likely elevated chronically related to CKD, denies any chest pain monitor vital signs , 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
[2020-08-16] MEDS ORDERED: WARFARIN 1 MG TAB PO ONE (18:00)
[2020-08-16] MEDS: FUROSEMIDE 10 MG/ML 10 ML VIAL IV SCH (20:24)
[2020-08-16] MEDS: ASPIRIN 325 MG TAB PO SCH (20:24)
[2020-08-16] MEDS: PRAVASTATIN SODIUM 40 MG TAB PO SCH (20:24)
[2020-08-16] MEDS: ALPRAZolam 0.5 MG TAB PO PRN (21:57)
[2020-08-17] MEDS: carvediloL 12.5 MG TAB PO SCH ×2 (06:41→15:00)
[2020-08-17] MEDS: LEVOTHYROXINE 25 MCG TAB PO SCH (06:41)
[2020-08-17] MEDS: SPIRONOLACTONE 25 MG TAB PO SCH (08:03)
[2020-08-17] MEDS: AMIODARONE 200 MG TAB PO SCH (08:03)
[2020-08-17] MEDS: NITROGLYCERIN OINT 1 INCH/GM PACKET TOPICAL SCH (08:04)
[2020-08-17] MEDS: FUROSEMIDE 10 MG/ML 10 ML VIAL IV SCH ×2 (08:04→20:02)
[2020-08-17] MEDS: ASPIRIN 325 MG TAB PO SCH (08:04)
[2020-08-17] MEDS: FINASTERIDE 5 MG TAB PO SCH (08:08)
[2020-08-17 08:10] LABS: INR 1.8 (<1.2); Prothrombin Time 17.8 sec (9.0-12.0)
[2020-08-17] MEDS ORDERED: bisacodyL 5 MG TABLET.DR PO PRN (08:12)
[2020-08-17] MEDS: polyethylene glycoL 3350 17 GM POWD.PACK PO SCH (09:58)
[2020-08-17] MEDS: DOCUSATE 100 MG CAP PO SCH ×2 (09:58→21:46)
[2020-08-17] MEDS ORDERED: FUROSEMIDE 10 MG/ML 2 ML VIAL IV STA (10:12)
--- NOTE | 2020-08-17 11:46 | P.PN ---
Subjective Progress Note Date: 08/17/20 No new complaints. Spoke with daughter yesterday about overall care plan. Ongoing IV diuresis, then d/c likely tomorrow. Objective - Vital Signs Vital signs: Vital Signs Temp 97.6 F 08/17/20 11:34 Pulse 76 08/17/20 11:34 Resp 16 08/17/20 11:34 BP 100/57 08/17/20 11:34 Pulse Ox 95 08/17/20 11:34 Intake & Output 08/16/20 08/17/20 08/17/20 18:59 06:59 18:59 Intake Total 250 20 220 Output Total 1800 Balance -1550 20 220 Weight 95.572 kg 94.2 kg Intake: IV 10 20 20 Invasive Line 1 10 20 20 Oral 240 200 Output: Urine 1800 Other: Voiding Method Urinal Urinal Urinal Diaper Diaper Diaper Incontinent Incontinent Incontinent # Voids 2 1 # Bowel Movements 1 - Exam Gen: awake, alert HEENT: normocephalic, atraumatic, good hearing acuity, moist mucous membranes Resp: good air exchange, breathing comfortably with no accessory muscle use CVS: good distal perfusion x 4, GI: soft, NTTP, ND : no SPT, no CVAT, garcia catheter not present MSK: Bilateral pitting edema, no clubbing Neuro: non-focal, moving all extremities Psych: cooperative, euthymic mood - Labs CBC & Chem 7: 08/16/20 11:50 08/16/20 11:50 Labs: Abnormal Lab Results - Last 24 Hours (Table) 08/16/20 08/16/20 08/16/20 Range/Units 11:50 11:50 11:50 RDW 15.6 H (11.5-15.5) % Plt Count 94 L (150-450) k/uL Lymphocytes # 0.8 L (1.0-4.8) k/uL PT 23.0 H (9.0-12.0) sec INR 2.4 H (<1.2) BUN 32 H (9-20) mg/dL Creatinine 1.50 H (0.66-1.25) mg/dL Total Bilirubin 2.6 H (0.2-1.3) mg/dL 08/17/20 Range/Units 07:01 RDW (11.5-15.5) % Plt Count (150-450) k/uL Lymphocytes # (1.0-4.8) k/uL PT 17.8 H (9.0-12.0) sec INR 1.8 H (<1.2) BUN (9-20) mg/dL Creatinine (0.66-1.25) mg/dL Total Bilirubin (0.2-1.3) mg/dL Microbiology - Last 24 Hours (Table) 08/15/20 20:07 Blood Culture - Preliminary Blood No Growth after 24 hours Assessment and Plan Assessment: systolic CHF exacerbation right pleural effusion exertional dyspnea plan IV diuresis PT eval trend trops , most likely elevated chronically related to CKD, denies any chest pain monitor vital signs , 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
--- NOTE | 2020-08-17 12:01 | P.PN ---
Subjective Progress Note Date: 08/17/20 HISTORY OF PRESENT ILLNESS: 80-year-old male who follows with a integrated specialist out of [facility] who is admitted to the hospital secondary to congestive heart failure. Patient denies chest pain or pressure. He denies shortness of breath at the time of examination. He remains on IV Lasix 60 mg twice a day. Fluid balance of the last 24 hours is -1530 mL. Patient reports feeling slightly off balance pending relating to the bathroom. Echocardiogram completed revealed ejection fraction less than 20%. PHYSICAL EXAM: VITAL SIGNS: Reviewed. GENERAL: Well-developed in no acute distress. NECK: Supple. No JVD or thyromegaly LUNGS: Respirations even and unlabored. Lungs diminished to auscultation bilaterally. HEART: Irregular rate and rhythm. S1 and S2 heard. Systolic murmur noted. EXTREMITIES: Normal range of motion. No clubbing or cyanosis. Peripheral pulses intact. No lower extremity edema ASSESSMENT: Acute exacerbation of chronic systolic heart failure, ejection fraction 20% Chronic persistent atrial fibrillation, on anticoagulation with Coumadin Cardiomyopathy with previous ICD placement PLAN: Continue IV Lasix Monitor kidney function Daily weight Accurate I&O Continue Coumadin per pharmacy dosing Anticipate discharge home tomorrow Nurse practitioner note has been reviewed by physician. Signing provider agrees with the documented findings, assessment, and plan of care. Objective - Vital Signs Vital signs: Vital Signs Temp 97.6 F 08/17/20 11:34 Pulse 76 08/17/20 11:34 Resp 16 08/17/20 11:34 BP 100/57 08/17/20 11:34 Pulse Ox 95 08/17/20 11:34 Intake & Output 08/16/20 08/17/20 08/17/20 18:59 06:59 18:59 Intake Total 250 20 220 Output Total 1800 Balance -1550 20 220 Weight 95.572 kg 94.2 kg Intake: IV 10 20 20 Invasive Line 1 10 20 20 Oral 240 200 Output: Urine 1800 Other: Voiding Method Urinal Urinal Urinal Diaper Diaper Diaper Incontinent Incontinent Incontinent # Voids 2 1 # Bowel Movements 1 - Labs CBC & Chem 7: 08/16/20 11:50 08/16/20 11:50 Labs: Abnormal Lab Results - Last 24 Hours (Table) 08/16/20 08/16/20 08/16/20 Range/Units 11:50 11:50 11:50 RDW 15.6 H (11.5-15.5) % Plt Count 94 L (150-450) k/uL Lymphocytes # 0.8 L (1.0-4.8) k/uL PT 23.0 H (9.0-12.0) sec INR 2.4 H (<1.2) BUN 32 H (9-20) mg/dL Creatinine 1.50 H (0.66-1.25) mg/dL Total Bilirubin 2.6 H (0.2-1.3) mg/dL 08/17/20 Range/Units 07:01 RDW (11.5-15.5) % Plt Count (150-450) k/uL Lymphocytes # (1.0-4.8) k/uL PT 17.8 H (9.0-12.0) sec INR 1.8 H (<1.2) BUN (9-20) mg/dL Creatinine (0.66-1.25) mg/dL Total Bilirubin (0.2-1.3) mg/dL Microbiology - Last 24 Hours (Table) 08/15/20 20:07 Blood Culture - Preliminary Blood No Growth after 24 hours
[2020-08-17 14:22] VITALS: BMI 30.7
[2020-08-17] MEDS ORDERED: WARFARIN 1.25 MG TAB PO ONE (18:00)
[2020-08-17] MEDS: PRAVASTATIN SODIUM 40 MG TAB PO SCH (20:07)
[2020-08-17] MEDS: ALPRAZolam 0.5 MG TAB PO PRN (23:18)
[2020-08-18] MEDS: LEVOTHYROXINE 25 MCG TAB PO SCH (06:22)
[2020-08-18] MEDS: carvediloL 12.5 MG TAB PO SCH (06:23)
[2020-08-18 07:19] LABS: INR 2.1 (<1.2); Prothrombin Time 20.1 sec (9.0-12.0)
[2020-08-18 07:20] LABS: Calcium 8.5 mg/dL (8.4-10.2); Potassium 3.6 mmol/L (3.5-5.1)
[2020-08-18 09:00] VITALS: BP 99/58; PULSE 65; RESP 16; TEMP 98.6
[2020-08-18] MEDS: DOCUSATE 100 MG CAP PO SCH (09:00)
[2020-08-18] MEDS: FINASTERIDE 5 MG TAB PO SCH (09:00)
[2020-08-18] MEDS: AMIODARONE 200 MG TAB PO SCH (09:00)
[2020-08-18] MEDS: FUROSEMIDE 10 MG/ML 10 ML VIAL IV SCH (09:00)
[2020-08-18] MEDS: SPIRONOLACTONE 25 MG TAB PO SCH (09:00)
[2020-08-18] MEDS: polyethylene glycoL 3350 17 GM POWD.PACK PO SCH (09:00)
--- NOTE | 2020-08-18 09:21 | P.DS ---
Providers Date of admission: 08/15/20 21:35 Expected date of discharge: 08/18/20 Attending physician: Amee Chu MD Consults: 08/15/20 21:35 Consult Physician Routine Consulting Provider: Devendra Chavira Consult Reason/Comments: chf Do you want consulting provider notified?: Yes Primary care physician: [facility] Course: This is a 80-year-old male with past medical history noted below who presented to the emergency room with worsening shortness of breath. Patient was evaluated in the ER and admitted to the hospital for further management of his medical problems noted below. 1. Acute systolic heart failure exacerbation, echocardiogram showed EF of 20%. Patient was diuresed with IV Lasix 80 mg twice daily with good response. Lower extremity edema and shortness of breath improved significantly. Patient will resume home dose of diuretics as directed by his big data developer. I would change his potassium supplement from twice a day to once a day as patient did not require potassium replacement during this hospitalization. He is scheduled to follow-up with his big data developer on Thursday. Continue to monitor weight at home. 2. Underlying ischemic cardiomyopathy status post AICD placement 3. Coronary artery disease 4. Underlying COPD with no evidence of exacerbation 5. Chronic atrial fibrillation on anticoagulation with Coumadin. INR on the day of discharge 2.1 Patient will be discharged home in a stable condition. He was on room air on the day of discharge. He is scheduled to follow-up with his big data developer at [facility] on Thursday. Physical exam: General: The patient is awake and alert, in no distress Eye: there is normal conjunctiva bilaterally. Neck: The neck is supple, there is no JVD. Cardiovascular: Normal S1-S2, no S3-S4, no murmurs. Respiratory: Lungs clear to auscultation bilaterally Gastrointestinal: Abdomen is soft, nontender Musculoskeletal: There is +1 pedal edema. Neurological:. Speech is normal. Skin: Skin is warm and dry Patient Condition at Discharge: Fair Plan - Discharge Summary Discharge Rx Participant: No New Discharge Prescriptions: Continue Pravastatin Sodium [Pravachol] 40 mg PO HS Spironolactone [Aldactone] 25 mg PO DAILY Finasteride [Proscar] 5 mg PO DAILY Levothyroxine Sodium [Levo-T] 25 mcg PO DAILY Amiodarone [Cordarone] 200 mg PO DAILY ALPRAZolam [Xanax] 0.5 mg PO TID Nitroglycerin Sl Tabs [Nitrostat] 0.4 mg SUBLINGUAL Q5M PRN PRN Reason: Chest Pain metOLazone [Zaroxolyn] 2.5 mg PO DIRECTED Carvedilol [Coreg] 12.5 mg PO BID Furosemide [Lasix] 80 mg PO BID Warfarin [Coumadin] 1 mg PO DAILY Loperamide [Imodium] 2 mg PO QID PRN PRN Reason: Diarrhea Changed Potassium Chloride ER [K-Dur 20] 20 meq PO DAILY #0 Discharge Medication List Amiodarone [Cordarone] 200 mg PO DAILY 11/10/16 [History] Finasteride [Proscar] 5 mg PO DAILY 11/10/16 [History] Levothyroxine Sodium [Levo-T] 25 mcg PO DAILY 11/10/16 [History] Pravastatin Sodium [Pravachol] 40 mg PO HS 11/10/16 [History] Spironolactone [Aldactone] 25 mg PO DAILY 11/10/16 [History] ALPRAZolam [Xanax] 0.5 mg PO TID 06/27/17 [History] Carvedilol [Coreg] 12.5 mg PO BID 06/25/20 [History] Furosemide [Lasix] 80 mg PO BID 06/25/20 [History] Nitroglycerin Sl Tabs [Nitrostat] 0.4 mg SUBLINGUAL Q5M PRN 06/25/20 [History] metOLazone [Zaroxolyn] 2.5 mg PO DIRECTED 06/25/20 [History] Loperamide [Imodium] 2 mg PO QID PRN 08/15/20 [History] Warfarin [Coumadin] 1 mg PO DAILY 08/15/20 [History] Potassium Chloride ER [K-Dur 20] 20 meq PO DAILY #0 08/18/20 [Rx] Follow up Appointment(s)/Referral(s): Keith Sales DO [Primary Care Provider] - 1-2 days Discharge Disposition: HOME SELF-CARE
--- NOTE | 2020-08-18 12:08 | P.PN ---
Subjective Progress Note Date: 08/18/20 Assessment pleasant 80-year-old gentleman who follows with a returner out of [facility]. With has a history of cardiomyopathy status post ICD. Presented to the hospital secondary to congestive heart failure. He has been diuresed and is feeling quite better. His breathing although not completely to his baseline is significantly improved since admission. Echocardiogram done showed an ejection fraction of less than 20%. He is overall feeling well this morning and is ready to be discharged home. He has no complaints of chest discomfort, edema, palpitations, dizziness or lightheadedness. He has no orthopnea or PND. Continues to have some dyspnea on exertion. Objective - Vital Signs Vital signs: Vital Signs Temp 98.6 F 08/18/20 08:00 Pulse 65 08/18/20 08:00 Resp 16 08/18/20 08:00 BP 99/58 08/18/20 08:00 Pulse Ox 97 08/18/20 08:00 Intake & Output 08/17/20 08/18/20 08/18/20 18:59 06:59 18:59 Intake Total 770 10 300 Output Total 900 800 Balance -130 -790 300 Weight 94.2 kg 94.7 kg Intake: IV 30 10 Invasive Line 1 30 10 Oral 740 300 Output: Urine 900 800 Other: Voiding Method Urinal Toilet Toilet Diaper Incontinent - Exam PHYSICAL EXAMINATION: HEENT: Head is atraumatic, normocephalic. Pupils equal, round. Neck is supple. There is no elevated jugular venous pressure. HEART EXAMINATION: Heart sounds irregular irregular, S1 and S2 with systolic murmur. CHEST EXAMINATION: Lungs reveal diminished air entry bilaterally. No chest wall tenderness is noted on palpation or with deep breathing. ABDOMEN: Soft, nontender. Bowel sounds are heard. No organomegaly noted. EXTREMITIES: 2+ peripheral pulses with no evidence of peripheral edema and no calf tenderness noted. NEUROLOGIC patient is awake, alert and oriented x3. . - Labs CBC & Chem 7: 08/16/20 11:50 08/18/20 06:20 Labs: Abnormal Lab Results - Last 24 Hours (Table) 08/18/20 08/18/20 Range/Units 06:20 06:20 PT 20.1 H (9.0-12.0) sec INR 2.1 H (<1.2) Sodium 136 L (137-145) mmol/L BUN 28 H (9-20) mg/dL Creatinine 1.41 H (0.66-1.25) mg/dL Microbiology - Last 24 Hours (Table) 08/15/20 20:07 Blood Culture - Preliminary Blood No Growth after 48 hours Assessment and Plan Assessment: #1 acute exacerbation of chronic systolic congestive heart failure, ejection fraction less than 20% #2 chronic persistent atrial fibrillation, anticoagulated on Coumadin #3 cardiomyopathy with previous ICD placement Plan: From cardiology's perspective medications were reviewed and we will continue the same. Anticipate the patient will be discharged home today. He will follow-up as an outpatient with his primary returner. The above dictated assessment and findings were discussed with signing physician. The impression and plan of care have been directed as dictated. Trinidad Gabriel, Nurse Practitioner, acting as scribe for signing physician.
[2020-08-18] MEDS ORDERED: WARFARIN 1 MG TAB PO ONE (18:00)
== END 2020-08-18 13:28 | disposition home health service (06) | DRG 291 ==
LOC: EC 19:34 → 3SCARD 21:35
PROVIDERS: ADMIT Internal Medicine; ATTEND Internal Medicine
DX: I13.0 Hypertensive heart and chronic kidney disease with heart failure and stage 1 through stage 4 chronic kidney disease, or unspecified chronic kidney disease (principal); I50.23 Acute on chronic systolic (congestive) heart failure; I48.19 Other persistent atrial fibrillation; D69.6 Thrombocytopenia, unspecified; Z79.01 Long term (current) use of anticoagulants; N18.30 Chronic kidney disease, stage 3 unspecified; J44.9 Chronic obstructive pulmonary disease, unspecified; Z20.822 Contact with and (suspected) exposure to COVID-19; I25.5 Ischemic cardiomyopathy; E80.7 Disorder of bilirubin metabolism, unspecified; E03.9 Hypothyroidism, unspecified; I25.10 Atherosclerotic heart disease of native coronary artery without angina pectoris; N40.1 Benign prostatic hyperplasia with lower urinary tract symptoms; N39.498 Other specified urinary incontinence; R77.8 Other specified abnormalities of plasma proteins; R53.1 Weakness; Z79.890 Hormone replacement therapy; Z79.899 Other long term (current) drug therapy; Z87.891 Personal history of nicotine dependence; Z96.653 Presence of artificial knee joint, bilateral; Z86.19 Personal history of other infectious and parasitic diseases; Z95.810 Presence of automatic (implantable) cardiac defibrillator; Z60.2 Problems related to living alone; Z88.5 Allergy status to narcotic agent; Z88.8 Allergy status to other drugs, medicaments and biological substances; Z82.49 Family history of ischemic heart disease and other diseases of the circulatory system; Z80.0 Family history of malignant neoplasm of digestive organs; Z83.2 Family history of diseases of the blood and blood-forming organs and certain disorders involving the immune mechanism
CPT/HCPCS: 36415; 71046; 80048; 80053; 83605; 83880; 84484; 85025; 85610; 85730; 87040; 87502; 87635; 93005; 93306; 94640; 96374; 96376; 99285

== ENCOUNTER 2020-09-10 06:01 | Inpatient (IN) | payer MEDICARE ==
--- NOTE | 2020-09-10 06:05 | ED ---
Weakness HPI - General Stated complaint: NAT Time Seen by Provider: 09/10/20 06:03 Source: RN notes reviewed, old records reviewed Mode of arrival: EMS Limitations: altered mental status - History of Present Illness Initial comments: This is a 80-year-old male DF for evaluation patient presents today for evaluation regards to severe shortness of breath found on the ground with low oxygen level. Patient brought in DF for evaluation poor strain secondary to clinical distress. Placed on BiPAP on arrival in the ER, history otherwise obtained from EMS and patient's prior charting MD Complaint: generalized weakness, lack of energy, difficulty walking -: hour(s) Location: generalized Severity: severe Severity scale (1-10): 10 Consistency: constant Improves with: none Worsens with: none Context: recent illness, history of similar Associated Symptoms: confusion, shortness of breath - Related Data Home Medications Medication Instructions Recorded Confirmed Amiodarone [Cordarone] 200 mg PO DAILY 11/10/16 09/10/20 Finasteride [Proscar] 5 mg PO DAILY 11/10/16 09/10/20 Levothyroxine Sodium [Levo-T] 25 mcg PO DAILY 11/10/16 09/10/20 Pravastatin Sodium [Pravachol] 40 mg PO HS 11/10/16 09/10/20 Spironolactone [Aldactone] 25 mg PO DAILY 11/10/16 09/10/20 ALPRAZolam [Xanax] 0.5 mg PO TID 06/27/17 09/10/20 Carvedilol [Coreg] 12.5 mg PO BID 06/25/20 09/10/20 Nitroglycerin Sl Tabs [Nitrostat] 0.4 mg SL Q5M PRN 06/25/20 09/10/20 metOLazone [Zaroxolyn] 2.5 mg PO DIRECTED PRN 06/25/20 09/10/20 Loperamide [Imodium] 2 mg PO QID PRN 08/15/20 09/10/20 Warfarin [Coumadin] 1 mg PO DAILY 08/15/20 09/10/20 Furosemide [Lasix] 80 mg PO BID 09/10/20 09/10/20 Previous Rx's Medication Instructions Recorded Potassium Chloride ER [K-Dur 20] 20 meq PO DAILY #0 08/18/20 Allergies Allergy/AdvReac Type Severity Reaction Status Date / Time formoterol [From Dulera] Allergy Hallucinati Verified 09/10/20 07:17 ons hydromorphone [From Dilaudid] Allergy Rash/Hives Verified 09/10/20 07:17 methocarbamol Allergy Unknown Verified 09/10/20 07:17 mometasone furoate Allergy Hallucinati Verified 09/10/20 07:17 [From Dulera] ons Review of Systems ROS Statement: Those systems with pertinent positive or pertinent negative responses have been documented in the HPI. ROS Other: All systems not noted in ROS Statement are negative. Past Medical History Past Medical History: Atrial Fibrillation, Coronary Artery Disease (CAD), Heart Failure, COPD, Hypertension, Osteoarthritis (OA), Prostate Disorder, Renal Disease, Sleep Apnea/CPAP/BIPAP, Thyroid Disorder Additional Past Medical History / Comment(s): CKD 3, Ventricular tachycardia, cardiomyopathy, CAD, EF 10% (07/20/2020), Prostatitis, kidney failure, vertigo & orthostatic,[id number], degenerative neck vertebra,lower lumbar pinched nerves, osteopina, History of Any Multi-Drug Resistant Organisms: VRE Date of last positivie culture/infection: 10/20/16 MDRO Source:: URINE VRE Past Surgical History: AICD, Heart Catheterization, Joint Replacement, Pacemaker Additional Past Surgical History / Comment(s): right and left knee replacement, right shoulder surgery Past Anesthesia/Blood Transfusion Reactions: No Reported Reaction Type of Cardiac Device: Permanent Pacemaker, AICD Device Placement Date:: 04/19/20 Past Psychological History: No Psychological Hx Reported Smoking Status: Former smoker Past Alcohol Use History: None Reported Additional Past Alcohol Use History / Comment(s): Quit smoking at the age of 13. Smoked for 5 years- 1PPD Past Drug Use History: None Reported - Past Family History Father Additional Family Medical History / Comment(s): Heart disease, blood clot that traveled ultimately result in his Mother Additional Family Medical History / Comment(s): Some type of intestinal cancer resulting in a bleed. General Exam Limitations: altered mental status General appearance: alert, anxious, lethargic, in distress Head exam: Present: atraumatic, normocephalic, normal inspection Eye exam: Present: normal appearance, PERRL, EOMI. Absent: scleral icterus, conjunctival injection, periorbital swelling ENT exam: Present: normal exam, mucous membranes moist Neck exam: Present: normal inspection. Absent: tenderness, meningismus, lymphadenopathy Respiratory exam: Present: respiratory distress, wheezes, rales, rhonchi, accessory muscle use, decreased breath sounds, prolonged expiratory. Absent: stridor Cardiovascular Exam: Present: regular rate, normal rhythm, normal heart sounds. Absent: systolic murmur, diastolic murmur, rubs, gallop, clicks GI/Abdominal exam: Present: soft, normal bowel sounds. Absent: distended, tenderness, guarding, rebound, rigid Extremities exam: Present: normal inspection, full ROM, normal capillary refill. Absent: tenderness, pedal edema, joint swelling, calf tenderness Back exam: Present: normal inspection Neurological exam: Present: alert, oriented X3, CN II-XII intact Psychiatric exam: Present: normal affect, normal mood Skin exam: Present: warm, dry, intact, normal color. Absent: rash Course Vital Signs 09/10/20 09/10/20 09/10/20 06:10 06:15 07:01 Temperature 97.6 F Pulse Rate 70 71 Respiratory 22 22 22 Rate Blood Pressure 96/67 115/80 O2 Sat by Pulse 98 100 Oximetry 09/10/20 09/10/20 09/10/20 07:44 07:51 09:55 Temperature Pulse Rate 71 69 69 Respiratory 19 Rate Blood Pressure 102/70 O2 Sat by Pulse 100 Oximetry 09/10/20 09/10/20 09/10/20 10:50 10:56 13:16 Temperature Pulse Rate 73 77 70 Respiratory 17 Rate Blood Pressure 102/69 O2 Sat by Pulse 100 Oximetry 09/10/20 15:16 Temperature Pulse Rate 75 Respiratory Rate Blood Pressure O2 Sat by Pulse Oximetry - Reevaluation(s) Reevaluation #1: Medical record is reviewed Patient symptoms are improved here in the ER on BiPAP is patient was placed on BiPAP on arrival Patient informed results and questions have been answered Patient will be admitted for cardiopulmonary evaluation treatment, continue BiPAP EKG Findings - EKG Comments: EKG Findings:: EKG shows paced 73 QRS 218 QTC 588 Medical Decision Making - Medical Decision Making 80 male DF for evaluation weakness patient is COPD CHF with hypoxia will admit for multifactorial respiratory failure possible coronavirus - Lab Data Result diagrams: 09/10/20 06:20 09/11/20 06:36 Lab Results 09/10/20 09/10/20 09/10/20 Range/Units 06:20 06:20 06:20 WBC 11.2 H (3.8-10.6) k/uL RBC 5.15 (4.30-5.90) m/uL Hgb 16.3 (13.0-17.5) gm/dL Hct 50.6 (39.0-53.0) % MCV 98.4 (80.0-100.0) fL MCH 31.7 (25.0-35.0) pg MCHC 32.2 (31.0-37.0) g/dL RDW 16.3 H (11.5-15.5) % Plt Count 88 L (150-450) k/uL MPV 11.1 Neutrophils % 88 % Lymphocytes % 5 % Monocytes % 5 % Eosinophils % 1 % Basophils % 0 % Neutrophils # 9.8 H (1.3-7.7) k/uL Lymphocytes # 0.5 L (1.0-4.8) k/uL Monocytes # 0.6 (0-1.0) k/uL Eosinophils # 0.1 (0-0.7) k/uL Basophils # 0.0 (0-0.2) k/uL Anisocytosis Slight Macrocytosis Slight PT 34.1 H (9.0-12.0) sec INR 3.5 H (<1.2) APTT 31.1 H (22.0-30.0) sec Sodium (137-145) mmol/L Potassium (3.5-5.1) mmol/L Chloride (98-107) mmol/L Carbon Dioxide (22-30) mmol/L Anion Gap mmol/L BUN (9-20) mg/dL Creatinine (0.66-1.25) mg/dL Est GFR (CKD-EPI)AfAm (>60 ml/min/1.73 sqM) Est GFR (CKD-EPI)NonAf (>60 ml/min/1.73 sqM) Glucose (74-99) mg/dL Plasma Lactic Acid Edin (0.7-2.0) mmol/L Calcium (8.4-10.2) mg/dL Phosphorus (2.5-4.5) mg/dL Magnesium (1.6-2.3) mg/dL Total Bilirubin (0.2-1.3) mg/dL AST (17-59) U/L ALT (4-49) U/L Alkaline Phosphatase (38-126) U/L Lactate Dehydrogenase (313-618) U/L Creatine Kinase (55-170) U/L Troponin I (0.000-0.034) ng/mL C-Reactive Protein (<10.0) mg/L NT-Pro-B Natriuret Pep pg/mL Total Protein (6.3-8.2) g/dL Albumin (3.5-5.0) g/dL Urine Color Yellow Urine Appearance Clear (Clear) Urine pH 5.0 (5.0-8.0) Ur Specific [place] 1.008 (1.001-1.035) Urine Protein Negative (Negative) Urine Glucose (UA) Negative (Negative) Urine Ketones Negative (Negative) Urine Blood Negative (Negative) Urine Nitrite Negative (Negative) Urine Bilirubin Negative (Negative) Urine Urobilinogen <2.0 (<2.0) mg/dL Ur Leukocyte Esterase Negative (Negative) Coronavirus (PCR) (Not Detectd) 09/10/20 09/10/20 09/10/20 Range/Units 06:20 06:20 06:20 WBC (3.8-10.6) k/uL RBC (4.30-5.90) m/uL Hgb (13.0-17.5) gm/dL Hct (39.0-53.0) % MCV (80.0-100.0) fL MCH (25.0-35.0) pg MCHC (31.0-37.0) g/dL RDW (11.5-15.5) % Plt Count (150-450) k/uL MPV Neutrophils % % Lymphocytes % % Monocytes % % Eosinophils % % Basophils % % Neutrophils # (1.3-7.7) k/uL Lymphocytes # (1.0-4.8) k/uL Monocytes # (0-1.0) k/uL Eosinophils # (0-0.7) k/uL Basophils # (0-0.2) k/uL Anisocytosis Macrocytosis PT (9.0-12.0) sec INR (<1.2) APTT (22.0-30.0) sec Sodium 129 L (137-145) mmol/L Potassium 5.1 (3.5-5.1) mmol/L Chloride 97 L (98-107) mmol/L Carbon Dioxide 18 L (22-30) mmol/L Anion Gap 14 mmol/L BUN 42 H (9-20) mg/dL Creatinine 1.84 H (0.66-1.25) mg/dL Est GFR (CKD-EPI)AfAm 40 (>60 ml/min/1.73 sqM) Est GFR (CKD-EPI)NonAf 34 (>60 ml/min/1.73 sqM) Glucose 115 H (74-99) mg/dL Plasma Lactic Acid Edin 4.9 H* (0.7-2.0) mmol/L Calcium 9.2 (8.4-10.2) mg/dL Phosphorus 5.0 H (2.5-4.5) mg/dL Magnesium 2.2 (1.6-2.3) mg/dL Total Bilirubin 4.5 H (0.2-1.3) mg/dL AST 111 H (17-59) U/L ALT 56 H (4-49) U/L Alkaline Phosphatase 147 H (38-126) U/L Lactate Dehydrogenase 826 H (313-618) U/L Creatine Kinase 65 (55-170) U/L Troponin I 0.074 H* (0.000-0.034) ng/mL C-Reactive Protein 60.7 H (<10.0) mg/L NT-Pro-B Natriuret Pep pg/mL Total Protein 7.3 (6.3-8.2) g/dL Albumin 4.1 (3.5-5.0) g/dL Urine Color Urine Appearance (Clear) Urine pH (5.0-8.0) Ur Specific [place] (1.001-1.035) Urine Protein (Negative) Urine Glucose (UA) (Negative) Urine Ketones (Negative) Urine Blood (Negative) Urine Nitrite (Negative) Urine Bilirubin (Negative) Urine Urobilinogen (<2.0) mg/dL Ur Leukocyte Esterase (Negative) Coronavirus (PCR) (Not Detectd) 09/10/20 09/10/20 Range/Units 06:20 06:26 WBC (3.8-10.6) k/uL RBC (4.30-5.90) m/uL Hgb (13.0-17.5) gm/dL Hct (39.0-53.0) % MCV (80.0-100.0) fL MCH (25.0-35.0) pg MCHC (31.0-37.0) g/dL RDW (11.5-15.5) % Plt Count (150-450) k/uL MPV Neutrophils % % Lymphocytes % % Monocytes % % Eosinophils % % Basophils % % Neutrophils # (1.3-7.7) k/uL Lymphocytes # (1.0-4.8) k/uL Monocytes # (0-1.0) k/uL Eosinophils # (0-0.7) k/uL Basophils # (0-0.2) k/uL Anisocytosis Macrocytosis PT (9.0-12.0) sec INR (<1.2) APTT (22.0-30.0) sec Sodium (137-145) mmol/L Potassium (3.5-5.1) mmol/L Chloride (98-107) mmol/L Carbon Dioxide (22-30) mmol/L Anion Gap mmol/L BUN (9-20) mg/dL Creatinine (0.66-1.25) mg/dL Est GFR (CKD-EPI)AfAm (>60 ml/min/1.73 sqM) Est GFR (CKD-EPI)NonAf (>60 ml/min/1.73 sqM) Glucose (74-99) mg/dL Plasma Lactic Acid Edin (0.7-2.0) mmol/L Calcium (8.4-10.2) mg/dL Phosphorus (2.5-4.5) mg/dL Magnesium (1.6-2.3) mg/dL Total Bilirubin (0.2-1.3) mg/dL AST (17-59) U/L ALT (4-49) U/L Alkaline Phosphatase (38-126) U/L Lactate Dehydrogenase (313-618) U/L Creatine Kinase (55-170) U/L Troponin I (0.000-0.034) ng/mL C-Reactive Protein (<10.0) mg/L NT-Pro-B Natriuret Pep 30232 pg/mL Total Protein (6.3-8.2) g/dL Albumin (3.5-5.0) g/dL Urine Color Urine Appearance (Clear) Urine pH (5.0-8.0) Ur Specific [place] (1.001-1.035) Urine Protein (Negative) Urine Glucose (UA) (Negative) Urine Ketones (Negative) Urine Blood (Negative) Urine Nitrite (Negative) Urine Bilirubin (Negative) Urine Urobilinogen (<2.0) mg/dL Ur Leukocyte Esterase (Negative) Coronavirus (PCR) Not Detected (Not Detectd) - Radiology Data Radiology results: report reviewed (Chest x-ray was significant pulmonary edema), image reviewed Critical Care Time Critical Care Time: Yes Total Critical Care Time: 31 Disposition Clinical Impression: Weakness, COPD (chronic obstructive pulmonary disease), CHF (congestive heart failure), Hypoxia Disposition: ADMITTED IP TO THIS [facility] Condition: Good Is patient prescribed a controlled substance at d/c from ED?: No
[2020-09-10] MEDS ORDERED: IPRATROPIUM 0.5 MG/2.5 ML NEBU INHALATION STA (06:08)
[2020-09-10] MEDS ORDERED: ALBUTEROL NEBULIZED 2.5 MG/3 ML INHALATION STA (06:08)
[2020-09-10] MEDS ORDERED: methylPREDNISolone SOD SUCCI 125 MG/2 ML VIAL IV STA (06:09)
--- NOTE | 2020-09-10 06:38 | XR ---
EXAM: XR Chest, 1 View CLINICAL HISTORY: ITS.REASON XR Reason: sob TECHNIQUE: Frontal view of the chest. COMPARISON: Chest radiograph August 15, 2020. FINDINGS/IMPRESSION: Small right pleural effusion. Emphysema. Mild pulmonary vascular congestion. No pneumothorax. Cardiomegaly. 3-lead AICD/pacemaker. Calcified aorta.
[2020-09-10 06:43] LABS: Anisocytosis Slight; Basophils % (A) 0 %; Eosinophils # (A) 0.1 k/uL (0-0.7); Eosinophils % (A) 1 %; HCT 50.6 % (39.0-53.0); HGB 16.3 gm/dL (13.0-17.5); Lymphocytes # (A) 0.5 k/uL (1.0-4.8); Lymphocytes % (A) 5 %; MCH 31.7 pg (25.0-35.0); MCHC 32.2 g/dL (31.0-37.0); MCV 98.4 fL (80.0-100.0); Macrocytosis Slight; Mean Platelet Volume 11.1; Monocytes # (A) 0.6 k/uL (0-1.0); Monocytes % (A) 5 %; Neutrophils # (A) 9.8 k/uL (1.3-7.7); Neutrophils % (A) 88 %; RBC 5.15 m/uL (4.30-5.90); RDW 16.3 % (11.5-15.5); WBC 11.2 k/uL (3.8-10.6)
[2020-09-10 06:54] LABS: Platelet Count 88 k/uL (150-450)
[2020-09-10 06:56] LABS: INR 3.5 (<1.2); Partial Thromboplastin Time 31.1 sec (22.0-30.0); Prothrombin Time 34.1 sec (9.0-12.0)
[2020-09-10 07:04] LABS: Albumin 4.1 g/dL (3.5-5.0); C Reactive Protein 60.7 mg/L (<10.0); Calcium 9.2 mg/dL (8.4-10.2); Magnesium 2.2 mg/dL (1.6-2.3); Potassium 5.1 mmol/L (3.5-5.1); Total Bilirubin 4.5 mg/dL (0.2-1.3); Total Protein 7.3 g/dL (6.3-8.2)
[2020-09-10] MEDS: IPRATROPIUM-ALBUTEROL 3 ML NEB INHALATION SCH ×4 (07:41→19:32)
[2020-09-10] MEDS ORDERED: ENOXAPARIN 40 MG/0.4 ML SYRINGE SQ SCH (09:00)
[2020-09-10] MEDS ORDERED: metOLazone 2.5 MG TAB PO PRN (10:47)
[2020-09-10] MEDS ORDERED: NITROGLYCERIN SL TABS 0.4 MG TAB SUBLINGUAL PRN (10:47)
[2020-09-10] MEDS ORDERED: LOPERAMIDE 2 MG CAP PO PRN (10:47)
[2020-09-10] MEDS: FUROSEMIDE 10 MG/ML 10 ML VIAL IV SCH ×2 (11:53→23:53)
--- NOTE | 2020-09-10 11:53 | P.HPIM ---
History of Present Illness 80-year-old male came in with compensative generalized weakness lack of energy difficulty walking has been going on for last few days. She is presently on BiPAP is being treated for COPD exacerbation although patient doesn't have any significant wheezing at this time. Patient does have history of congestive heart failure with EF of less than 20% was recently treated for CHF exacerbation patient doesn't have any pedal edema no significantly elevated JVD but BNP is elevated to 11,000 which was around 6000 during his last hospitalization and he was treated for CHF exacerbation. Patient does have elevated liver enzymes which can be hepatic congestion along with mildly elevated although therapeutic INR. She does have history of atrial fibrillation presently rate controlled at this time. He does have chronic kidney disease creatinine at his baseline which is around 1.8. Patient is presently on IV steroids for COPD. patient apparently didn't see for last couple days because of which she is bit drowsy today Review of Systems Other review of systems is negative except those mentioned above Past Medical History Past Medical History: Atrial Fibrillation, Coronary Artery Disease (CAD), Heart Failure, COPD, Hypertension, Osteoarthritis (OA), Prostate Disorder, Renal Disease, Sleep Apnea/CPAP/BIPAP, Thyroid Disorder Additional Past Medical History / Comment(s): CKD 3, Ventricular tachycardia, cardiomyopathy, CAD, EF 10% (07/20/2020), Prostatitis, kidney failure, vertigo & orthostatic,[id number], degenerative neck vertebra,lower lumbar pinched nerves, osteopina, History of Any Multi-Drug Resistant Organisms: VRE Date of last positivie culture/infection: 10/20/16 MDRO Source:: URINE VRE Past Surgical History: AICD, Heart Catheterization, Joint Replacement, Pacemaker Additional Past Surgical History / Comment(s): right and left knee replacement, right shoulder surgery Past Anesthesia/Blood Transfusion Reactions: No Reported Reaction Type of Cardiac Device: Permanent Pacemaker, AICD Device Placement Date:: 04/19/20 Past Psychological History: No Psychological Hx Reported Smoking Status: Former smoker Past Alcohol Use History: None Reported Additional Past Alcohol Use History / Comment(s): Quit smoking at the age of 13. Smoked for 5 years- 1PPD Past Drug Use History: None Reported - Past Family History Father Additional Family Medical History / Comment(s): Heart disease, blood clot that traveled ultimately result in his Mother Additional Family Medical History / Comment(s): Some type of intestinal cancer resulting in a bleed. Medications and Allergies Home Medications Medication Instructions Recorded Confirmed Type Amiodarone [Cordarone] 200 mg PO DAILY 11/10/16 09/10/20 History Finasteride [Proscar] 5 mg PO DAILY 11/10/16 09/10/20 History Levothyroxine Sodium [Levo-T] 25 mcg PO DAILY 11/10/16 09/10/20 History Pravastatin Sodium [Pravachol] 40 mg PO HS 11/10/16 09/10/20 History Spironolactone [Aldactone] 25 mg PO DAILY 11/10/16 09/10/20 History ALPRAZolam [Xanax] 0.5 mg PO TID 06/27/17 09/10/20 History Carvedilol [Coreg] 12.5 mg PO BID 06/25/20 09/10/20 History Nitroglycerin Sl Tabs [Nitrostat] 0.4 mg SL Q5M PRN 06/25/20 09/10/20 History metOLazone [Zaroxolyn] 2.5 mg PO DIRECTED PRN 06/25/20 09/10/20 History Loperamide [Imodium] 2 mg PO QID PRN 08/15/20 09/10/20 History Warfarin [Coumadin] 1 mg PO DAILY 08/15/20 09/10/20 History Potassium Chloride ER [K-Dur 20] 20 meq PO DAILY #0 08/18/20 09/10/20 Rx Furosemide [Lasix] 80 mg PO BID 09/10/20 09/10/20 History Allergies Allergy/AdvReac Type Severity Reaction Status Date / Time formoterol [From Dulera] Allergy Hallucinati Verified 09/10/20 07:17 ons hydromorphone [From Dilaudid] Allergy Rash/Hives Verified 09/10/20 07:17 methocarbamol Allergy Unknown Verified 09/10/20 07:17 mometasone furoate Allergy Hallucinati Verified 09/10/20 07:17 [From Dulera] ons Physical Exam Vitals: Vital Signs Temp Pulse Resp BP Pulse Ox 09/10/20 10:56 77 09/10/20 10:50 73 09/10/20 09:55 69 19 102/70 100 09/10/20 07:51 69 09/10/20 07:44 71 09/10/20 07:01 71 22 115/80 100 09/10/20 06:15 22 09/10/20 06:10 97.6 F 70 22 96/67 98 Intake and Output 09/09/20 09/10/20 09/10/20 22:59 06:59 14:59 Other: Weight 86.183 kg PHYSICAL EXAMINATION: GENERAL: The patient is drowsy on BiPAP, not in any acute distress. Well developed, well nourished. HEENT: Pupils are round and equally reacting to light. EOMI. No scleral icterus. No conjunctival pallor. Normocephalic, atraumatic. No pharyngeal erythema. No thyromegaly. CARDIOVASCULAR: S1 and S2 present. No murmurs, rubs, or gallops. PULMONARY: Chest is clear to auscultation, no wheezing or crackles. ABDOMEN: Soft, nontender, nondistended, normoactive bowel sounds. No palpable organomegaly. MUSCULOSKELETAL: No joint swelling or deformity. EXTREMITIES: No cyanosis, clubbing, or pedal edema. NEUROLOGICAL: Gross neurological examination did not reveal any focal deficits. SKIN: No rashes. Results CBC & Chem 7: 09/10/20 06:20 09/10/20 06:20 Labs: Abnormal Lab Results - Last 24 Hours (Table) 09/10/20 09/10/20 09/10/20 Range/Units 06:20 06:20 06:20 WBC 11.2 H (3.8-10.6) k/uL RDW 16.3 H (11.5-15.5) % Plt Count 88 L (150-450) k/uL Neutrophils # 9.8 H (1.3-7.7) k/uL Lymphocytes # 0.5 L (1.0-4.8) k/uL PT 34.1 H (9.0-12.0) sec INR 3.5 H (<1.2) APTT 31.1 H (22.0-30.0) sec Sodium 129 L (137-145) mmol/L Chloride 97 L (98-107) mmol/L Carbon Dioxide 18 L (22-30) mmol/L BUN 42 H (9-20) mg/dL Creatinine 1.84 H (0.66-1.25) mg/dL Glucose 115 H (74-99) mg/dL Plasma Lactic Acid Edin (0.7-2.0) mmol/L Phosphorus 5.0 H (2.5-4.5) mg/dL Total Bilirubin 4.5 H (0.2-1.3) mg/dL AST 111 H (17-59) U/L ALT 56 H (4-49) U/L Alkaline Phosphatase 147 H (38-126) U/L Lactate Dehydrogenase 826 H (313-618) U/L Troponin I (0.000-0.034) ng/mL C-Reactive Protein 60.7 H (<10.0) mg/L 09/10/20 09/10/20 Range/Units 06:20 06:20 WBC (3.8-10.6) k/uL RDW (11.5-15.5) % Plt Count (150-450) k/uL Neutrophils # (1.3-7.7) k/uL Lymphocytes # (1.0-4.8) k/uL PT (9.0-12.0) sec INR (<1.2) APTT (22.0-30.0) sec Sodium (137-145) mmol/L Chloride (98-107) mmol/L Carbon Dioxide (22-30) mmol/L BUN (9-20) mg/dL Creatinine (0.66-1.25) mg/dL Glucose (74-99) mg/dL Plasma Lactic Acid Edin 4.9 H* (0.7-2.0) mmol/L Phosphorus (2.5-4.5) mg/dL Total Bilirubin (0.2-1.3) mg/dL AST (17-59) U/L ALT (4-49) U/L Alkaline Phosphatase (38-126) U/L Lactate Dehydrogenase (313-618) U/L Troponin I 0.074 H* (0.000-0.034) ng/mL C-Reactive Protein (<10.0) mg/L Assessment and Plan Plan: -Acute hypoxic respiratory failure: The patient probably has a combination of COPD as well as CHF exacerbation. Uses to steroids inhalational treatments patient will be started on IV Lasix along with metolazone. As patient blood pressure is already on low normal side instead of Coreg will use metoprolol. Both pulmonology and cardiology were consulted -Hyponatremia probably hypervolemic hyponatremia Lasix as mentioned above -Chronic kidney disease stage IV may be hypertensive nephrosclerosis next and heparin atrial fibrillation paroxysmal presently rate controlled Coumadin will be held today will be restarted back tomorrow we will repeat INR tomorrow -COPD with acute exacerbation: Patient used to be smoker until 5 years ago used to smoke 1 pack per day Congestive heart heart failure chronic systolic dysfunction with EF of around less than 20% with acute exacerbation patient has an AICD . -Hypertension -Benign prostatic hypertrophy -Sleep apnea -Hypothyroidism DVT prophylaxis patient's INR is presently 3.5
[2020-09-10] MEDS ORDERED: methylPREDNISolone SOD SUCCI 125 MG/2 ML VIAL IV SCH (12:00)
[2020-09-10 15:12] LABS: Appearance,Urine Clear (Clear); Bilirubin,Urine Negative (Negative); Blood,Urine Negative (Negative); Color,Urine Yellow; Glucose,Urine (UA) Negative (Negative); Ketones,Urine Negative (Negative); Leukocyte Esterase,Urine Negative (Negative); Nitrite,Urine Negative (Negative); Protein,Urine Negative (Negative); Specific Gravity,Urine 1.008 (1.001-1.035); Urobilinogen,Urine <2.0 mg/dL (<2.0)
[2020-09-10] MEDS ORDERED: PRAVASTATIN SODIUM 40 MG TAB PO SCH (21:00)
[2020-09-10] MEDS: METOPROLOL TARTRATE 50 MG TAB PO SCH (21:47)
[2020-09-10] MEDS: methylPREDNISolone SOD SUCCI 40 MG/ML 1 ML VIAL IV SCH (21:47)
[2020-09-11] MEDS: LEVOTHYROXINE 25 MCG TAB PO SCH (07:17)
[2020-09-11] MEDS: IPRATROPIUM-ALBUTEROL 3 ML NEB INHALATION SCH ×3 (07:30→16:43)
[2020-09-11 07:58] LABS: Albumin 3.2 g/dL (3.5-5.0); Calcium 8.8 mg/dL (8.4-10.2); Potassium 4.5 mmol/L (3.5-5.1); Prothrombin Time 38.2 sec (9.0-12.0); Total Protein 6.2 g/dL (6.3-8.2)
[2020-09-11] MEDS: SPIRONOLACTONE 25 MG TAB PO SCH (08:47)
[2020-09-11] MEDS: METOPROLOL TARTRATE 50 MG TAB PO SCH ×2 (08:47→21:04)
[2020-09-11] MEDS: FINASTERIDE 5 MG TAB PO SCH (08:47)
[2020-09-11] MEDS: FUROSEMIDE 10 MG/ML 10 ML VIAL IV SCH ×2 (08:48→21:04)
[2020-09-11] MEDS: methylPREDNISolone SOD SUCCI 40 MG/ML 1 ML VIAL IV SCH (08:48)
[2020-09-11] MEDS ORDERED: POTASSIUM CHLORIDE ER 20 MEQ TAB.ER PO SCH (09:00)
[2020-09-11] MEDS ORDERED: AMIODARONE 200 MG TAB PO SCH (09:00)
--- NOTE | 2020-09-11 11:29 | P.PN ---
Subjective 80-year-old male was admitted secondary to CHF exacerbation and acute hypoxic respiratory failure was requiring the BiPAP yesterday patient is off BiPAP patient is not wheezing will discontinue the systemic steroids and patient will be continued on IV Lasix is improvement in serum creatinine as well as a serum sodium with IV Lasix. Patient appears to have heart failure exacerbation at this time. Patient was also started on Rocephin for minimally abnormal urine although patient doesn't have any symptoms and Videx will be discontinued at this time there is no evidence of pneumonia either. Patient is presently on 3 L of oxygen Constitutional: Denied any fatigue denied any fever. Cardio vascular: denied any chest pain, palpitations Gastrointestinal denied any nausea vomiting Pulmonary: Significantly improved shortness of breath. Neurologic denied any new focal deficits All inpatient medications were reviewed and appropriate changes in these medications as dictated in the interval history and assessment and plan. Objective - Vital Signs Vital signs: Vital Signs Temp 97.9 F 09/11/20 08:00 Pulse 72 09/11/20 11:00 Resp 16 09/11/20 08:00 BP 119/75 09/11/20 08:00 Pulse Ox 97 09/11/20 08:00 Intake & Output 09/10/20 09/11/20 09/11/20 18:59 06:59 18:59 Intake Total 1140 480 Output Total 2134 600 Balance -994 -120 Weight 86.183 kg 97 kg Intake: Oral 1140 480 Output: Urine 1500 600 Post Void Residual 634 Other: Voiding Method Indwelling Catheter Indwelling Catheter # Voids 1 1 # Bowel Movements 1 - Exam PHYSICAL EXAMINATION: GENERAL: The patient is drowsy on BiPAP, not in any acute distress. Well developed, well nourished. HEENT: Pupils are round and equally reacting to light. EOMI. No scleral icterus. No conjunctival pallor. Normocephalic, atraumatic. No pharyngeal erythema. No thyromegaly. CARDIOVASCULAR: S1 and S2 present. No murmurs, rubs, or gallops. PULMONARY: Chest is clear to auscultation, no wheezing or crackles. ABDOMEN: Soft, nontender, nondistended, normoactive bowel sounds. No palpable organomegaly. MUSCULOSKELETAL: No joint swelling or deformity. EXTREMITIES: No cyanosis, clubbing, or pedal edema. NEUROLOGICAL: Gross neurological examination did not reveal any focal deficits. SKIN: No rashes. - Labs CBC & Chem 7: 09/10/20 06:20 09/11/20 06:36 Labs: Abnormal Lab Results - Last 24 Hours (Table) 09/11/20 09/11/20 Range/Units 06:36 06:36 PT 38.2 H (9.0-12.0) sec INR 4.0 H (<1.2) Sodium 132 L (137-145) mmol/L BUN 48 H (9-20) mg/dL Creatinine 1.62 H (0.66-1.25) mg/dL Glucose 126 H (74-99) mg/dL Total Bilirubin 3.0 H (0.2-1.3) mg/dL AST 325 H (17-59) U/L ALT 162 H (4-49) U/L Total Protein 6.2 L (6.3-8.2) g/dL Albumin 3.2 L (3.5-5.0) g/dL Microbiology - Last 24 Hours (Table) 09/10/20 06:45 Blood Culture Gram Stain - Preliminary Blood Blood Culture - Preliminary Gram Neg Bacilli 09/10/20 06:30 Blood Culture Gram Stain - Preliminary Blood Blood Culture - Preliminary Gram Neg Bacilli 09/10/20 06:45 Blood Culture - Final Blood 09/10/20 06:30 Blood Culture - Final Blood Assessment and Plan Plan: -Acute hypoxic respiratory failure: Secondary to congestive heart failure chronic systolic dysfunction with acute exacerbation. Patient will be continued on IV Lasix. We'll repeat, his metabolic profile liver enzymes continues to be elevated. -Hyponatremia , hypervolemic hyponatremia proved with Lasix. -Related liver enzymes secondary to hepatic congestion expected to improve. -Chronic kidney disease stage IV may be hypertensive nephrosclerosis next and heparin atrial fibrillation paroxysmal presently rate controlled Coumadin will be held today will be restarted back tomorrow we will repeat INR tomorrow -COPD with mild acute acute exacerbation: Patient used to be smoker until 5 years ago used to smoke 1 pack per day. Patient will not require any systemic steroids at this time patient will be switched to inhaled steroids and IV steroids will be discontinued Congestive heart heart failure chronic systolic dysfunction with EF of around l ess than 20% with acute exacerbation patient has an AICD . -Hypertension -Benign prostatic hypertrophy -Sleep apnea -Hypothyroidism -Supratherapeutic INR without any evidence of bleeding DVT prophylaxis patient's INR is presently 4 and continue to hold Coumadin
--- NOTE | 2020-09-11 11:46 | P.CRDCN ---
History of Present Illness Consult date: 09/11/20 History of present illness: HISTORY OF PRESENT ILLNESS: This is a 80-year-old male with a past medical history significant for congestive heart failure, chronic kidney disease, COPD, atrial fibrillation, hypertension, and hyperlipidemia. Patient follows with a website designer out of [place] (Dr. Crane?). We have been asked to see the patient in consultation for congestive heart failure. Patient examined at the bedside. Patient states yesterday he was sitting on the side of his bed at home. He was trying to get out of bed but fell and landed on the floor. He states when he called EMS they noticed his fingers and lips to be blue so they brought him to the emergency room. The patient currently denies chest pain or pressure. He denies shortness of breath at the time of examination. Patient was found to be in acute exacerbation of CHF and was started on IV Lasix. EKG reveals paced rhythm Chest xray small right pleural effusion. Emphysema. Mild pulmonary vascular congestion. Cardiomegaly. Laboratory data: WBC 11.2. Hemoglobin 16.3. Platelet count 88. INR 4.0. Sodium 132. BUN 48. Creatinine 1.62. Bilirubin 3.0. AST 325. ALT 162. Troponin 0.074. BNP 11,600. Current home cardiac medications include Zaroxolyn 2.5 mg daily as needed, Coumadin 1 mg daily, Aldactone 25 mg daily, pravastatin 40 mg daily, potassium chloride 20 meq daily, Lasix 80 mg twice a day, Coreg 12.5 mg twice a day, amiodarone 200 mg daily Most recent echocardiogram obtained in August 2020 revealed ejection fraction less than 20%, mild mitral regurgitation, mild tricuspid regurgitation, and mild aortic regurgitation. REVIEW OF SYSTEMS: At the time of my exam: CONSTITUTIONAL: Denies fever or chills. HEENT: Denies blurred vision, vision changes, or eye pain. Denies hemoptysis CARDIOVASCULAR: Denies chest pain. Denies orthopnea. Denies PND. Denies palpitations RESPIRATORY: Denies shortness of breath. GASTROINTESTINAL: Denies abdominal pain. Denies nausea or vomiting. HEMATOLOGIC: Denies bleeding disorders. GENITOURINARY: Denies any blood in urine. SKIN: Denies pruitis. Denies rash. PHYSICAL EXAM: VITAL SIGNS: Reviewed. GENERAL: Well-developed in no acute distress. HEENT: Head is normocephalic. Pupils are equal, round. Sclerae anicteric. Mucous membranes of the mouth are moist. Neck supple. No JVD or thyromegaly LUNGS: Respirations even and unlabored. Lungs diminished bilaterally. HEART: Regular rate and rhythm. S1 and S2 heard. ABDOMEN: Soft. Nondistended. Nontender. EXTREMITIES: Normal range of motion. No clubbing or cyanosis. Peripheral pulses intact. EH hose to bilateral lower extremities NEUROLOGIC: Awake and alert. Oriented x 3. ASSESSMENT: Acute exacerbation of chronic systolic heart failure, ejection fraction less than 20% History of paroxysmal atrial fibrillation, on anticoagulation with Coumadin Supratherapeutic INR Transaminitis, suspect secondary to hepatic congestion History of AICD implantation Chronic kidney disease COPD Abnormal troponin, secondary to acute exacerbation of heart failure and chronic kidney disease, no evidence of acute coronary syndrome PLAN: No need to repeat echocardiogram as this was performed in August 2020 Continue IV Lasix Monitor kidney function Accurate I&O Daily weights Hold amiodarone and pravastatin secondary to elevated LFTs. Repeat in a.m. Continue to hold Coumadin secondary to elevated INR. Repeat in a.m. Further recommendations pending patient's course Nurse practitioner note has been reviewed by physician. Signing provider agrees with the documented findings, assessment, and plan of care. Past Medical History Past Medical History: Atrial Fibrillation, Coronary Artery Disease (CAD), Heart Failure, COPD, Hyperlipidemia, Hypertension, Osteoarthritis (OA), Prostate Diso rder, Renal Disease, Thyroid Disorder Additional Past Medical History / Comment(s): Pt recently admitted to [facility] on 08/15/20 with exacerbation CHD/EF 20%, lower extremity edema. Other hx: VTach, ischemic cardiomyopathy/has AICD-pacer, CKD stage III, BPH, degenerative cervical disease, lumbar pinched nerve with pain, bilateral shoulder muscle/tendons are shredded and extreme pain with movement, hyperstimulated nerve endings/will cause rash, orthostatic hypotension, vertigo, hypothyroid. History of Any Multi-Drug Resistant Organisms: VRE Date of last positivie culture/infection: 10/20/16 MDRO Source:: URINE VRE Past Surgical History: AICD, Heart Catheterization, Joint Replacement, Orthopedic Surgery, Pacemaker Additional Past Surgical History / Comment(s): AICD/pacer, right and left knee replacement, right shoulder surgery Past Anesthesia/Blood Transfusion Reactions: No Reported Reaction Type of Cardiac Device: Permanent Pacemaker, AICD Device Placement Date:: 04/19/20 Smoking Status: Never smoker - Past Family History Father Family Medical History: Coronary Artery Disease (CAD), Deep Vein Thrombosis (DVT) Additional Family Medical History / Comment(s): Heart disease, blood clot that traveled ultimately result in his Mother Family Medical History: Cancer, GI Bleed Additional Family Medical History / Comment(s): Some type of intestinal cancer resulting in a bleed. Medications and Allergies Home Medications Medication Instructions Recorded Confirmed Type Amiodarone [Cordarone] 200 mg PO DAILY 11/10/16 09/10/20 History Finasteride [Proscar] 5 mg PO DAILY 11/10/16 09/10/20 History Levothyroxine Sodium [Levo-T] 25 mcg PO DAILY 11/10/16 09/10/20 History Pravastatin Sodium [Pravachol] 40 mg PO HS 11/10/16 09/10/20 History Spironolactone [Aldactone] 25 mg PO DAILY 11/10/16 09/10/20 History ALPRAZolam [Xanax] 0.5 mg PO TID 06/27/17 09/10/20 History Carvedilol [Coreg] 12.5 mg PO BID 06/25/20 09/10/20 History Nitroglycerin Sl Tabs [Nitrostat] 0.4 mg SL Q5M PRN 06/25/20 09/10/20 History metOLazone [Zaroxolyn] 2.5 mg PO DIRECTED PRN 06/25/20 09/10/20 History Loperamide [Imodium] 2 mg PO QID PRN 08/15/20 09/10/20 History Warfarin [Coumadin] 1 mg PO DAILY 08/15/20 09/10/20 History Potassium Chloride ER [K-Dur 20] 20 meq PO DAILY #0 08/18/20 09/10/20 Rx Furosemide [Lasix] 80 mg PO BID 09/10/20 09/10/20 History Allergies Allergy/AdvReac Type Severity Reaction Status Date / Time formoterol [From Dulera] Allergy Hallucinati Verified 09/10/20 07:17 ons hydromorphone [From Dilaudid] Allergy Rash/Hives Verified 09/10/20 07:17 methocarbamol Allergy Unknown Verified 09/10/20 07:17 mometasone furoate Allergy Hallucinati Verified 09/10/20 07:17 [From Dulera] ons Physical Exam Vitals: Vital Signs Temp Pulse Pulse Resp BP BP BP 09/11/20 11:00 72 09/11/20 10:50 72 09/11/20 08:00 97.9 F 70 16 119/75 09/11/20 07:44 72 09/11/20 07:40 09/11/20 07:30 70 09/11/20 04:00 98.6 F 70 18 100/67 09/11/20 02:00 70 18 09/11/20 00:00 97.7 F 70 18 101/70 09/10/20 20:00 97.6 F 71 18 92/56 09/10/20 19:52 76 09/10/20 19:33 71 09/10/20 16:00 97.8 F 75 20 82/50 101/61 09/10/20 15:34 78 09/10/20 15:16 75 09/10/20 13:16 70 17 102/69 Pulse Ox 09/11/20 11:00 09/11/20 10:50 09/11/20 08:00 97 09/11/20 07:44 09/11/20 07:40 100 09/11/20 07:30 09/11/20 04:00 93 L 09/11/20 02:00 09/11/20 00:00 98 09/10/20 20:00 98 09/10/20 19:52 09/10/20 19:33 100 09/10/20 16:00 99 09/10/20 15:34 09/10/20 15:16 09/10/20 13:16 100 Intake and Output 09/10/20 09/11/20 09/11/20 22:59 06:59 14:59 Intake Total 240 900 480 Output Total 634 1500 600 Balance -394 -600 -120 Intake: Oral 240 900 480 Output: Urine 1500 600 Post Void Residual 634 Other: Voiding Method Indwelling Catheter Indwelling Catheter Indwelling Catheter # Voids 1 # Bowel Movements 1 Weight 97 kg Results 09/10/20 06:20 09/11/20 06:36 Cardiac Enzymes 09/11/20 Range/Units 06:36 AST 325 H (17-59) U/L Coagulation 09/11/20 Range/Units 06:36 PT 38.2 H (9.0-12.0) sec Comprehensive Metabolic Panel 09/11/20 Range/Units 06:36 Sodium 132 L (137-145) mmol/L Potassium 4.5 (3.5-5.1) mmol/L Chloride 100 (98-107) mmol/L Carbon Dioxide 23 (22-30) mmol/L BUN 48 H (9-20) mg/dL Creatinine 1.62 H (0.66-1.25) mg/dL Glucose 126 H (74-99) mg/dL Calcium 8.8 (8.4-10.2) mg/dL AST 325 H (17-59) U/L ALT 162 H (4-49) U/L Alkaline Phosphatase 122 (38-126) U/L Total Protein 6.2 L (6.3-8.2) g/dL Albumin 3.2 L (3.5-5.0) g/dL Current Medications Generic Name Dose Route Start Last Admin Trade Name Freq PRN Reason Stop Dose Admin Albuterol/Ipratropium 3 ml 09/10/20 08:00 09/11/20 10:50 Ipratropium-Albuterol 3 Ml Neb INHALATION 3 ml RT-QID BLANCA Administration Budesonide 0.5 mg 09/11/20 20:00 Budesonide 0.5 Mg/2 Ml Nebu INHALATION RT-BID BLANCA Finasteride 5 mg 09/11/20 09:00 09/11/20 08:47 Finasteride 5 Mg Tab PO 5 mg DAILY BLANCA Administration Furosemide 80 mg 09/10/20 11:00 09/11/20 08:48 Furosemide 10 Mg/Ml 10 Ml Vial IV 80 mg Q12HR BLANCA Administration Levothyroxine Sodium 25 mcg 09/11/20 06:30 09/11/20 07:17 Levothyroxine 25 Mcg Tab PO 25 mcg DAILY@0630 BLANCA Administration Metolazone 2.5 mg 09/10/20 10:47 Metolazone 2.5 Mg Tab PO DAILY PRN per heart monitor/edema Metoprolol Tartrate 50 mg 09/10/20 21:00 09/11/20 08:47 Metoprolol Tartrate 50 Mg Tab PO 50 mg BID BLANCA Administration Nitroglycerin 0.4 mg 09/10/20 10:47 Nitroglycerin Sl Tabs 0.4 Mg Tab SUBLINGUAL Q5M PRN Chest Pain Spironolactone 25 mg 09/11/20 09:00 09/11/20 08:47 Spironolactone 25 Mg Tab PO 25 mg DAILY BLANCA Administration Intake and Output 09/10/20 09/11/20 09/11/20 22:59 06:59 14:59 Intake Total 240 900 480 Output Total 634 1500 600 Balance -394 -600 -120 Intake: Oral 240 900 480 Output: Urine 1500 600 Post Void Residual 634 Other: Voiding Method Indwelling Catheter Indwelling Catheter Indwelling Catheter # Voids 1 # Bowel Movements 1 Weight 97 kg 09/10/20 06:20 09/11/20 06:36
--- NOTE | 2020-09-11 16:00 | P.CNPUL ---
History of Present Illness Consult date: 09/11/20 Reason for consult: dyspnea Chief complaint: Shortness of breath History of present illness: This is a 80-year-old white male with history of multiple medical problems including congestive heart failure, questionable COPD, chronic atrial fibrillation, chronic kidney disease, patient is also known to have history of cardiomyopathy and LV dysfunction, ejection fraction is supposedly quite low in the range of less than 20% based on previous echocardiogram done in August 2020. Patient was brought to the ER yesterday mostly because as he was sitting at the side of his bed, patient fell off the bed and landed on the floor. Upon EMS arrival, patient was noted to be present, and noted to be short of breath. Brought into the ER, chest x-ray showed evidence of congestive heart failure. Patient was placed on Lasix, and over the last 12 hours since admission the patient has made a significant improvement. Patient remains on Lasix, he is also on oxygen at 2 L nasal cannula, although his O2 saturation on room air was 98%, I was asked to see him on consultation mostly because of questionable COPD. Patient did have remote smoking history when he was a teenager, and has not smoked since he was a teenager. I have no idea how the diagnoses of COPD was made although the patient was never a heavy smoker. Patient denies cough wheezing denies intermittent episodes of wheezing and again patient is not on home oxygen, and not usually on bronchodilators Review of Systems Constitutional: Denies fever chills weight loss HEENT: Negative. Cardiac: As noted in HPI patient denies any chest pain, denies any palpitations, but was clearly in CHF upon presentation. Pulmonary: Shortness of breath on admission but presently asymptomatic. GI: Negative. Genitourinary: Negative. Musculoskeletal: Negative. Endocrine: Negative. Hematologic: Negative. Neurologic: Negative. Psychiatric: Negative. Skin: Negative. Past Medical History Past Medical History: Atrial Fibrillation, Coronary Artery Disease (CAD), Heart Failure, COPD, Hyperlipidemia, Hypertension, Osteoarthritis (OA), Prostate Disorder, Renal Disease, Thyroid Disorder Additional Past Medical History / Comment(s): Pt recently admitted to [facility] on 08/15/20 with exacerbation CHD/EF 20%, lower extremity edema. Other hx: VTach, ischemic cardiomyopathy/has AICD-pacer, CKD stage III, BPH, degenerative cervical disease, lumbar pinched nerve with pain, bilateral shoulder muscle/tendons are shredded and extreme pain with movement, hyperstimulated nerve endings/will cause rash, orthostatic hypotension, vertigo, hypothyroid. History of Any Multi-Drug Resistant Organisms: VRE Date of last positivie culture/infection: 10/20/16 MDRO Source:: URINE VRE Past Surgical History: AICD, Heart Catheterization, Joint Replacement, Orthopedic Surgery, Pacemaker Additional Past Surgical History / Comment(s): AICD/pacer, right and left knee replacement, right shoulder surgery Past Anesthesia/Blood Transfusion Reactions: No Reported Reaction Type of Cardiac Device: Permanent Pacemaker, AICD Device Placement Date:: 04/19/20 Smoking Status: Never smoker - Past Family History Father Family Medical History: Coronary Artery Disease (CAD), Deep Vein Thrombosis (DVT) Additional Family Medical History / Comment(s): Heart disease, blood clot that traveled ultimately result in his Mother Family Medical History: Cancer, GI Bleed Additional Family Medical History / Comment(s): Some type of intestinal cancer r esulting in a bleed. Medications and Allergies Home Medications Medication Instructions Recorded Confirmed Type Amiodarone [Cordarone] 200 mg PO DAILY 11/10/16 09/10/20 History Finasteride [Proscar] 5 mg PO DAILY 11/10/16 09/10/20 History Levothyroxine Sodium [Levo-T] 25 mcg PO DAILY 11/10/16 09/10/20 History Pravastatin Sodium [Pravachol] 40 mg PO HS 11/10/16 09/10/20 History Spironolactone [Aldactone] 25 mg PO DAILY 11/10/16 09/10/20 History ALPRAZolam [Xanax] 0.5 mg PO TID 06/27/17 09/10/20 History Carvedilol [Coreg] 12.5 mg PO BID 06/25/20 09/10/20 History Nitroglycerin Sl Tabs [Nitrostat] 0.4 mg SL Q5M PRN 06/25/20 09/10/20 History metOLazone [Zaroxolyn] 2.5 mg PO DIRECTED PRN 06/25/20 09/10/20 History Loperamide [Imodium] 2 mg PO QID PRN 08/15/20 09/10/20 History Warfarin [Coumadin] 1 mg PO DAILY 08/15/20 09/10/20 History Potassium Chloride ER [K-Dur 20] 20 meq PO DAILY #0 08/18/20 09/10/20 Rx Furosemide [Lasix] 80 mg PO BID 09/10/20 09/10/20 History Allergies Allergy/AdvReac Type Severity Reaction Status Date / Time formoterol [From Dulera] Allergy Hallucinati Verified 09/10/20 07:17 ons hydromorphone [From Dilaudid] Allergy Rash/Hives Verified 09/10/20 07:17 methocarbamol Allergy Unknown Verified 09/10/20 07:17 mometasone furoate Allergy Hallucinati Verified 09/10/20 07:17 [From Dulera] ons Physical Exam Vitals: Vital Signs Temp Pulse Pulse Resp BP BP Pulse Ox 09/11/20 12:00 70 16 99/64 98 09/11/20 11:00 72 09/11/20 10:50 72 09/11/20 08:00 97.9 F 70 16 119/75 97 09/11/20 07:44 72 09/11/20 07:40 100 09/11/20 07:30 70 09/11/20 04:00 98.6 F 70 18 100/67 93 L 09/11/20 02:00 70 18 09/11/20 00:00 97.7 F 70 18 101/70 98 09/10/20 20:00 97.6 F 71 18 92/56 98 09/10/20 19:52 76 09/10/20 19:33 71 100 09/10/20 16:00 97.8 F 75 20 82/50 101/61 99 Intake and Output 09/11/20 09/11/20 09/11/20 06:59 14:59 22:59 Intake Total 900 720 Output Total 1500 600 Balance -600 120 Intake: Oral 900 720 Output: Urine 1500 600 Other: Voiding Method Indwelling Catheter Indwelling Catheter # Bowel Movements 1 Weight 97 kg Physical Exam: Revealed 80-year-old white male, quite talkative, in no form of respiratory distress. Head: Atraumatic, normocephalic. HEENT:[Neck is supple.] [No neck masses.] [No thyromegaly.] [No JVD.]EOMI, nonicteric Chest: Symmetrical chest expansion. Lungs: Diminished breath sounds at the bases fine crackles at the bases no rhonchi and no wheezes. Cardiac Exam: [Normal S1 and S2, no S3 gallop2/6 systolic murmur thought the precordium. omen: [Soft, nontender, no megaly, no rebound, no guarding, normal bowel sounds.] Extremities: [No clubbi1+ bipedal el, no cyanosis.] good pulses bilaterally. Neurological Exam: [No focal neurologic deficit.] alert and oriented 3. psychiatric: Normal mood, affect and normal mental status examination. skin: No rashes. Musculoskeletal: No limitation in range of motion, no deformities. Results - Laboratory Findings CBC and BMP: 09/10/20 06:20 09/11/20 06:36 PT/INR, D-dimer PT 38.2 sec (9.0-12.0) H 09/11/20 06:36 INR 4.0 (<1.2) H 09/11/20 06:36 Abnormal lab findings: Abnormal Labs 09/10/20 09/10/20 09/10/20 06:20 06:20 06:20 WBC 11.2 H RDW 16.3 H Plt Count 88 L Neutrophils # 9.8 H Lymphocytes # 0.5 L PT 34.1 H INR 3.5 H APTT 31.1 H Sodium 129 L Chloride 97 L Carbon Dioxide 18 L BUN 42 H Creatinine 1.84 H Glucose 115 H Plasma Lactic Acid Edin Phosphorus 5.0 H Total Bilirubin 4.5 H AST 111 H ALT 56 H Alkaline Phosphatase 147 H Lactate Dehydrogenase 826 H Troponin I C-Reactive Protein 60.7 H Total Protein Albumin 09/10/20 09/10/20 09/11/20 06:20 06:20 06:36 WBC RDW Plt Count Neutrophils # Lymphocytes # PT 38.2 H INR 4.0 H APTT Sodium Chloride Carbon Dioxide BUN Creatinine Glucose Plasma Lactic Acid Edin 4.9 H* Phosphorus Total Bilirubin AST ALT Alkaline Phosphatase Lactate Dehydrogenase Troponin I 0.074 H* C-Reactive Protein Total Protein Albumin 09/11/20 06:36 WBC RDW Plt Count Neutrophils # Lymphocytes # PT INR APTT Sodium 132 L Chloride Carbon Dioxide BUN 48 H Creatinine 1.62 H Glucose 126 H Plasma Lactic Acid Edin Phosphorus Total Bilirubin 3.0 H AST 325 H ALT 162 H Alkaline Phosphatase Lactate Dehydrogenase Troponin I C-Reactive Protein Total Protein 6.2 L Albumin 3.2 L - Diagnostic Findings Chest x-ray: image reviewed (Chest x-ray is consistent with congestive heart failure./Interstitial edema.) Assessment and Plan Assessment: Impression: Acute exacerbation of chronic systolic congestive heart failure, ejection fraction is less than 20%. History of paroxysmal atrial fibrillation. Patient is on Coumadin. History of AICD implantation for his cardiomyopathy and LV dysfunction. Acute hepatic congestion and elevated transaminases. Chronic kidney disease could even be a picture of cardiorenal syndrome. Doubt chronic obstructive pulmonary disease, however patient will likely need a PFT on outpatient basis to determine the severity of his presumptive COPD. Recommendation: I fully agree with the present treatment plan including diuretics Continue cardiac meds as per cardiology. Continue to monitor daily fluid intake and output, as well as daily weights, Doubt need for any bronchodilators at this point. Recommend outpatient follow-up regarding his own any status. We'll continue to follow. Time with Patient: Greater than 30
[2020-09-11] MEDS ORDERED: BUDESONIDE 0.5 MG/2 ML NEBU INHALATION SCH (20:00)
[2020-09-11] MEDS: ALPRAZolam 0.5 MG TAB PO PRN (21:04)
[2020-09-12] MEDS: LEVOTHYROXINE 25 MCG TAB PO SCH (06:43)
--- NOTE | 2020-09-12 07:48 | XR ---
EXAMINATION TYPE: XR chest 1V portable DATE OF EXAM: 09/12/2020 Comparison: 09/10/2020 Clinical History: 80-year-old male CHF Findings: Left anterior chest wall AICD generator with right atrial, right ventricular, and coronary sinus lead s. Heart mildly enlarged. Small right effusion. Mild interstitial prominence. Impression: Overall stable exam with mild cardiomegaly and small right effusion. Correlate for possible mild CHF.
[2020-09-12 08:24] LABS: INR 4.8 (<1.2); Prothrombin Time 46.1 sec (9.0-12.0)
[2020-09-12 08:26] LABS: Albumin 3.2 g/dL (3.5-5.0); Calcium 8.8 mg/dL (8.4-10.2); Potassium 4.6 mmol/L (3.5-5.1); Total Bilirubin 2.3 mg/dL (0.2-1.3); Total Protein 6.2 g/dL (6.3-8.2)
[2020-09-12] MEDS: FUROSEMIDE 10 MG/ML 10 ML VIAL IV SCH ×2 (09:38→21:20)
[2020-09-12] MEDS: METOPROLOL TARTRATE 50 MG TAB PO SCH ×2 (09:39→21:20)
[2020-09-12] MEDS: FINASTERIDE 5 MG TAB PO SCH (09:39)
[2020-09-12] MEDS: SPIRONOLACTONE 25 MG TAB PO SCH (09:39)
[2020-09-12] MEDS: AMIODARONE 200 MG TAB PO SCH (12:45)
--- NOTE | 2020-09-12 12:49 | P.PN ---
Subjective 80-year-old male was admitted secondary to CHF exacerbation and acute hypoxic respiratory failure was requiring the BiPAP yesterday patient is off BiPAP patient is not wheezing will discontinue the systemic steroids and patient will be continued on IV Lasix is improvement in serum creatinine as well as a serum sodium with IV Lasix. Patient appears to have heart failure exacerbation at this time. Patient was also started on Rocephin for minimally abnormal urine although patient doesn't have any symptoms UTI antibiotics will be discontinued at this time there is no evidence of pneumonia either. Patient is presently on 3 L of oxygen. 09/12/2020 Patient is present with his and doesn't usually use oxygen at home. Patient's electrolytes and urine creatinine continue improved patient is feeling better. Patient will remain on IV Lasix.Patient's creatinine at baseline is around 1.4 present creatinine is around 1.4. Patient feels much better and repeat chest x-ray showing some pulmonary edema. Patient is found to be bacteremic with E. coli possible source being urinary tract infection, repeat urine cultures today and tomorrow. Patient's E. coli is pansensitive and possible source of infection is urinary tract infection Constitutional: Denied any fatigue denied any fever. Cardio vascular: denied any chest pain, palpitations Gastrointestinal denied any nausea vomiting Pulmonary: Significantly improved shortness of breath. Neurologic denied any new focal deficits All inpatient medications were reviewed and appropriate changes in these medications as dictated in the interval history and assessment and plan. Objective - Vital Signs Vital signs: Vital Signs Temp 97.4 F L 09/12/20 08:00 Pulse 69 09/12/20 08:00 Resp 16 09/12/20 08:00 BP 109/74 09/12/20 08:00 Pulse Ox 97 09/12/20 08:00 Intake & Output 09/11/20 09/12/20 09/12/20 18:59 06:59 18:59 Intake Total 1380 236 Output Total 1200 500 600 Balance 180 -500 -364 Weight 95 kg Intake: Oral 1380 236 Output: Urine 1200 500 600 Other: Voiding Method Indwelling Catheter Indwelling Catheter Indwelling Catheter # Bowel Movements 1 - Exam PHYSICAL EXAMINATION: GENERAL: The patient is drowsy on BiPAP, not in any acute distress. Well developed, well nourished. HEENT: Pupils are round and equally reacting to light. EOMI. No scleral icterus. No conjunctival pallor. Normocephalic, atraumatic. No pharyngeal erythema. No thyromegaly. CARDIOVASCULAR: S1 and S2 present. No murmurs, rubs, or gallops. PULMONARY: Chest is clear to auscultation, no wheezing or crackles. ABDOMEN: Soft, nontender, nondistended, normoactive bowel sounds. No palpable organomegaly. MUSCULOSKELETAL: No joint swelling or deformity. EXTREMITIES: No cyanosis, clubbing, or pedal edema. NEUROLOGICAL: Gross neurological examination did not reveal any focal deficits. SKIN: No rashes. - Labs CBC & Chem 7: 09/10/20 06:20 09/12/20 07:22 Labs: Abnormal Lab Results - Last 24 Hours (Table) 09/12/20 09/12/20 Range/Units 07:22 07:22 PT 46.1 H (9.0-12.0) sec INR 4.8 H (<1.2) Sodium 134 L (137-145) mmol/L BUN 53 H (9-20) mg/dL Creatinine 1.46 H (0.66-1.25) mg/dL Glucose 110 H (74-99) mg/dL Total Bilirubin 2.3 H (0.2-1.3) mg/dL AST 172 H (17-59) U/L ALT 145 H (4-49) U/L Alkaline Phosphatase 137 H (38-126) U/L Total Protein 6.2 L (6.3-8.2) g/dL Albumin 3.2 L (3.5-5.0) g/dL Microbiology - Last 24 Hours (Table) 09/10/20 06:45 Blood Culture Gram Stain - Final Blood Blood Culture - Final Escherichia coli 09/10/20 06:30 Blood Culture Gram Stain - Final Blood Blood Culture - Final Escherichia coli Assessment and Plan Plan: -Acute hypoxic respiratory failure: Secondary to congestive heart failure chronic systolic dysfunction with acute exacerbation. Patient will be continued on IV Lasix. We'll repeat, his metabolic profile liver enzymes continues to be elevated. -E. coli bacteremia possible source urinary tract infection patient presently has a Madrid catheter. This Madrid catheter was placed during this hospitalization. Patient had urinary tract infection present on admission. -Hyponatremia , hypervolemic hyponatremia proved with Lasix. -Elevated liver enzymes secondary to hepatic congestion expected to improve. -Chronic kidney disease stage 3 may be hypertensive nephrosclerosis next and heparin atrial fibrillation paroxysmal presently rate controlled Coumadin will be held today will be restarted back tomorrow we will repeat INR tomorrow -COPD with mild acute acute exacerbation: Patient used to be smoker until 5 years ago used to smoke 1 pack per day. Patient will not require any systemic steroids at this time patient will be switched to inhaled steroids and IV steroids will be discontinued Congestive heart heart failure chronic systolic dysfunction with EF of around less than 20% with acute exacerbation patient has an AICD . -Hypertension -Benign prostatic hypertrophy -Sleep apnea -Hypothyroidism -Supratherapeutic INR without any evidence of bleeding DVT prophylaxis patient's INR is presently 4.6 and continue to hold Coumadin
--- NOTE | 2020-09-12 13:15 | P.PN ---
Subjective Progress Note Date: 09/12/20 HISTORY OF PRESENT ILLNESS: 09/11/2020 This is a 80-year-old male with a past medical history significant for congestive heart failure, chronic kidney disease, COPD, atrial fibrillation, hypertension, and hyperlipidemia. Patient follows with a salon professional out of [place] (Dr. Crane?). We have been asked to see the patient in consultation for congestive heart failure. Patient examined at the bedside. Patient states yesterday he was sitting on the side of his bed at home. He was trying to get out of bed but fell and landed on the floor. He states when he called EMS they noticed his fingers and lips to be blue so they brought him to the emergency room. The patient currently denies chest pain or pressure. He denies shortness of breath at the time of examination. Patient was found to be in acute exacerbation of CHF and was started on IV Lasix. EKG reveals paced rhythm Chest xray small right pleural effusion. Emphysema. Mild pulmonary vascular congestion. Cardiomegaly. Laboratory data: WBC 11.2. Hemoglobin 16.3. Platelet count 88. INR 4.0. Sodium 132. BUN 48. Creatinine 1.62. Bilirubin 3.0. AST 325. ALT 162. Troponin 0.074. BNP 11,600. Current home cardiac medications include Zaroxolyn 2.5 mg daily as needed, Coumadin 1 mg daily, Aldactone 25 mg daily, pravastatin 40 mg daily, potassium chloride 20 meq daily, Lasix 80 mg twice a day, Coreg 12.5 mg twice a day, amiodarone 200 mg daily Most recent echocardiogram obtained in August 2020 revealed ejection fraction less than 20%, mild mitral regurgitation, mild tricuspid regurgitation, and mild aortic regurgitation. 09/12/2020 Patient examined at the bedside. Patient denies chest or pain. Reports improvement in his shortness of breath. He remains on IV Lasix 80 mg every 12 hours. Fluid balance over the last 24 hours is -1700 mL. BUN 53. Creatinine 1.46, down from 1.62 yesterday. LFTs are improving. AST 172. ALT 145. Patient is requesting to have his AICD interrogated. PHYSICAL EXAM: VITAL SIGNS: Reviewed. GENERAL: Well-developed in no acute distress. HEENT: Head is normocephalic. Pupils are equal, round. Sclerae anicteric. Mucous membranes of the mouth are moist. Neck supple. No JVD or thyromegaly LUNGS: Respirations even and unlabored. Lungs diminished bilaterally. HEART: Regular rate and rhythm. S1 and S2 heard. ABDOMEN: Soft. Nondistended. Nontender. EXTREMITIES: Normal range of motion. No clubbing or cyanosis. Peripheral pulses intact. EH hose to bilateral lower extremities NEUROLOGIC: Awake and alert. Oriented x 3. ASSESSMENT: Acute exacerbation of chronic systolic heart failure, ejection fraction less t fatima 20% History of paroxysmal atrial fibrillation, on anticoagulation with Coumadin Supratherapeutic INR Transaminitis, suspect secondary to hepatic congestion History of AICD implantation Chronic kidney disease COPD Abnormal troponin, secondary to acute exacerbation of heart failure and chronic kidney disease, no evidence of acute coronary syndrome PLAN: No need to repeat echocardiogram as this was performed in August 2020 Continue IV Lasix for another 24 hours. Monitor kidney function Accurate I&O Daily weights May resume amiodarone and pravastatin Continue to hold Coumadin secondary to elevated INR. Repeat in a.m. Interrogate AICD Further recommendations pending patient's course Nurse practitioner note has been reviewed by physician. Signing provider agrees with the documented findings, assessment, and plan of care. Objective - Vital Signs Vital signs: Vital Signs Temp 97.4 F L 09/12/20 08:00 Pulse 71 09/12/20 12:00 Resp 16 09/12/20 12:00 BP 107/68 09/12/20 12:00 Pulse Ox 98 09/12/20 12:00 Intake & Output 09/11/20 09/12/20 09/12/20 18:59 06:59 18:59 Intake Total 1380 236 Output Total 1200 500 600 Balance 180 -500 -364 Weight 95 kg Intake: Oral 1380 236 Output: Urine 1200 500 600 Other: Voiding Method Indwelling Catheter Indwelling Catheter Indwelling Catheter # Bowel Movements 1 - Labs CBC & Chem 7: 09/10/20 06:20 09/12/20 07:22 Labs: Abnormal Lab Results - Last 24 Hours (Table) 09/12/20 09/12/20 Range/Units 07:22 07:22 PT 46.1 H (9.0-12.0) sec INR 4.8 H (<1.2) Sodium 134 L (137-145) mmol/L BUN 53 H (9-20) mg/dL Creatinine 1.46 H (0.66-1.25) mg/dL Glucose 110 H (74-99) mg/dL Total Bilirubin 2.3 H (0.2-1.3) mg/dL AST 172 H (17-59) U/L ALT 145 H (4-49) U/L Alkaline Phosphatase 137 H (38-126) U/L Total Protein 6.2 L (6.3-8.2) g/dL Albumin 3.2 L (3.5-5.0) g/dL Microbiology - Last 24 Hours (Table) 09/10/20 06:45 Blood Culture Gram Stain - Final Blood Blood Culture - Final Escherichia coli 09/10/20 06:30 Blood Culture Gram Stain - Final Blood Blood Culture - Final Escherichia coli
[2020-09-12] MEDS: PRAVASTATIN SODIUM 40 MG TAB PO SCH (21:20)
[2020-09-12] MEDS: ALPRAZolam 0.5 MG TAB PO PRN (21:20)
[2020-09-13] MEDS: LEVOTHYROXINE 25 MCG TAB PO SCH (06:11)
--- NOTE | 2020-09-13 06:21 | CONS ---
CONSULTATION DATE OF SERVICE: 09/12/2020 REASON FOR CONSULTATION: E coli bacteremia. HISTORY OF PRESENT ILLNESS: The patient is a 80-year-old male with a past medical history significant for atrial fibrillation, congestive heart failure, chronic renal insufficiency, in this patient who was brought into the ER after apparently the patient fell from the side of his bed and landed on the floor. The patient denies any syncopal episode. On arrival of the EMS, the patient was noticed to be short of breath and hypoxic, for which the patient was brought into the ER. On arrival to the ER, the patient has been afebrile and no fever has been recorded during his hospital stay. The patient did have a white count of 11.2 on admission and has not been repeated since then. The patient did have elevated creatinine as well as elevated liver enzymes. Patient did have a normal UA. Burks PCR was negative. The patient did have a chest x-ray which shows emphysema, mild pulmonary vascular congestion. No pneumothorax. The patient's blood cultures came back positive with an E coli sensitive pathogen. Patient is treated with Rocephin 1 g daily. Infectious Disease was consulted because of his bacteremia. The patient has been complaining of feeling weak, tired and no energy. The patient denies having any chest pain, shortness of breath. Occasional cough. Denies any abdominal pain. No diarrhea. Did have Madrid catheter. No significant urinary symptoms. REVIEW OF SYSTEMS: Positive points have been mentioned in HPI. Rest of systems are negative. PAST MEDICAL HISTORY: Atrial fibrillation, coronary artery disease, heart failure, COPD, hypertension, osteoarthritis, prostate disorder, sleep apnea, hypothyroidism. PAST SURGICAL HISTORY: AICD placement, heart catheterization, bilateral knee replacement and right shoulder surgery. SOCIAL HISTORY: Remote history of smoking. No drinking or drug use. FAMILY HISTORY: Father with history of heart disease. ALLERGIES: HYDROMORPHONE, METHOCARBAMOL. MEDICATIONS: The patient is on Xanax, amiodarone, Rocephin 1 g daily, Proscar, Lasix, Synthroid, Zaroxolyn, Lopressor, Nitrostat, Pravachol, and Aldactone. PHYSICAL EXAMINATION: VITAL SIGNS: Blood pressure 105/69, pulse of 68, temperature 98, he is 96% on room air. GENERAL DESCRIPTION: An elderly male lying in bed in no distress. No tachypnea or accessory muscles of respiration use. HEENT: Examination shows slight pallor. No scleral icterus. Oral mucous membrane is dry. No pharyngeal erythema or thrush. NECK: Trachea central no thyromegaly. LUNGS: Unlabored breathing, decreased intensity of breath sounds. No wheeze. HEART: S1, S2. Regular rate and rhythm. ABDOMEN: Soft. No tenderness. No guarding or rigidity. EXTREMITIES: No edema of the feet. SKIN: No rash or masses palpable. NEUROLOGICAL: Patient is awake, alert, oriented times three. Mood and affect normal. LAB: Burks PCR was negative. Hemoglobin is 16.8, white count 11.2, BUN of 53, creatinine 1.46. Liver enzymes are elevated. Troponin was mildly elevated. Urine is negative. Burks PCR was negative. Chest x-ray report as mentioned above. DIAGNOSTIC IMPRESSION: Patient with E coli bacteremia in this patient who presented to the hospital after the patient did have a fall from the side of the bed without history of any syncopal episode. Source likely abdominal, possible cholangitis, as the patient did have an evidence of elevated liver exams. Clinically doubt urinary source as the patient has no urinary symptoms. UA has been negative. PLAN: 1. Blood cultures will be repeated to document clearance of the bacteremia. 2. We will obtain a CT of abdomen and pelvis with oral contrast to rule out any intraabdominal source. 3. Rocephin dose adjusted to 2 g daily. 4. We will follow on clinical condition and culture to further adjust medication if needed. Thank you for this consultation. Will follow this patient along with you. MMODL / IJN: [id number] /
[2020-09-13 06:24] LABS: Appearance,Urine Clear (Clear); Bacteria,Urine Rare /hpf; Bilirubin,Urine Negative (Negative); Blood,Urine Moderate (Negative); Color,Urine Yellow; Glucose,Urine (UA) Negative (Negative); Hyaline Casts,Urine 10 /lpf (0-2); Ketones,Urine Negative (Negative); Leukocyte Esterase,Urine Small (Negative); Mucus,Urine Rare /hpf; Nitrite,Urine Negative (Negative); PH, Urine 5.5 (5.0-8.0); Protein,Urine Negative (Negative); RBC,Urine 57 /hpf (0-5); Specific Gravity,Urine 1.012 (1.001-1.035); WBC,Urine 4 /hpf (0-5)
[2020-09-13] MEDS: IOPAMIDOL CONTRAST (ORAL USE) VIAL PO PRN ×2 (08:08→08:19)
[2020-09-13] MEDS: SPIRONOLACTONE 25 MG TAB PO SCH (08:18)
[2020-09-13] MEDS: METOPROLOL TARTRATE 50 MG TAB PO SCH ×2 (08:18→20:50)
[2020-09-13] MEDS: FUROSEMIDE 10 MG/ML 10 ML VIAL IV SCH ×2 (08:18→20:50)
[2020-09-13] MEDS: AMIODARONE 200 MG TAB PO SCH (08:18)
[2020-09-13] MEDS: FINASTERIDE 5 MG TAB PO SCH (08:18)
[2020-09-13 09:17] LABS: Anisocytosis Slight; Basophils % (A) 0 %; Eosinophils % (A) 0 %; HCT 47.4 % (39.0-53.0); HGB 15.1 gm/dL (13.0-17.5); INR 3.2 (<1.2); Lymphocytes # (A) 0.7 k/uL (1.0-4.8); Lymphocytes % (A) 9 %; MCH 30.8 pg (25.0-35.0); MCHC 31.8 g/dL (31.0-37.0); Macrocytosis Slight; Mean Platelet Volume 10.3; Monocytes # (A) 0.6 k/uL (0-1.0); Monocytes % (A) 8 %; Neutrophils # (A) 5.9 k/uL (1.3-7.7); Neutrophils % (A) 81 %; Prothrombin Time 30.9 sec (9.0-12.0); RBC 4.89 m/uL (4.30-5.90); RDW 16.8 % (11.5-15.5); WBC 7.3 k/uL (3.8-10.6)
[2020-09-13 09:39] LABS: Platelet Count 96 k/uL (150-450)
[2020-09-13 09:54] LABS: Albumin 3.3 g/dL (3.5-5.0); C Reactive Protein 35.2 mg/L (<10.0); Calcium 8.8 mg/dL (8.4-10.2); Potassium 3.8 mmol/L (3.5-5.1); Total Bilirubin 2.6 mg/dL (0.2-1.3); Total Protein 6.3 g/dL (6.3-8.2)
--- NOTE | 2020-09-13 10:48 | XR ---
EXAMINATION TYPE: XR chest 2V DATE OF EXAM: 09/13/2020 COMPARISON: 09/12/2020 TECHNIQUE: PA and lateral views submitted. HISTORY: Shortness of breath FINDINGS: Left anterior chest wall AICD generator with right atrial, right ventricular, and coronary sinus lead s. Heart mildly enlarged. Small right effusion. Mild interstitial prominence. IMPRESSION: 1. Overall stable exam with mild cardiomegaly and small right effusion. Correlate for possible mild C HF.
--- NOTE | 2020-09-13 11:33 | CT ---
EXAMINATION TYPE: CT abdomen pelvis wo con DATE OF EXAM: 09/13/2020 COMPARISON: 06/27/2017 HISTORY: 80-year-old male E. Coli bacteremia CT DLP: 943.2 mGycm. Automated exposure control for dose reduction was used. TECHNIQUE: Contiguous axial scanning of the abdomen and pelvis without IV contrast. Coronal and sagit jeremiah reconstructions performed. FINDINGS: AICD leads with right atrial, right ventricular, and coronary sinus leads. Heart mildly enlarged with out pericardial effusion. There is a moderate right effusion with adjacent atelectasis. Tiny hiatal hernia. Slightly nodular hepatic contour. Tiny subcentimeter hypodensity lateral inferior right liver lobe to o small for accurate CT characterization, probable tiny cyst. No hydropic change of the gallbladder though underlying cholelithiasis is suggested. There is some mi ld wall thickening which may be present, possible chronic cholecystitis. There are calculi noted within the mid and lower bile duct. There are 2 in the mid bile duct measurin g 8 mm and 6 mm and a string of 4 calculi in the lower bile duct measuring up to 4 mm. Peripheral to coronal images 42, 43, 44. Adrenal glands, spleen, and pancreas show no gross abnormality by noncontrast CT. 1 cm calculus left kidney. Bilateral perinephric edema likely senescent change, stable from 2017. No dilated small bowel, free fluid, or free air. No mesenteric or retroperitoneal lymphadenopathy. Oral contrast progressed to the hepatic flexure of the colon. Mild to moderate stool burden. Proximal sigmoid diverticulosis. There is presacral edema. Madrid catheter is in place. Prominent nondependent air in the bladder lumen possible small locule of air in the wall of the right bladder dome, coronal image 46 and sagittal image 72. The remainder of t he bladder wall appears thickened. Trace free fluid in the pelvis. No pelvic lymphadenopathy. Bones: Moderate degenerative change of the hips. Mild degenerative change of the SI joints. Advanced degenerative disc disease mid lumbar spine. Hypertrophic facet arthropathy with grade 1 anterolisthes is L4-L5. IMPRESSION: 1. Madrid catheter is in place. Prominent air in the lumen of the bladder could be due to instrumenta tion. Given bladder wall thickening and a tiny locule of air in the wall of the bladder, correlate fo r cystitis. 2. Choledocholithiasis with a couple calculi measuring up to 8 mm in the mid bile duct and a string of 4 calculi in the lower bile duct measuring up to 4 mm. No hydropic gallbladder changes at this jemima e to suggest complete biliary blockage. 3. Cholelithiasis. Mild gallbladder wall thickening may reflect chronic cholecystitis. 4. Presacral edema and mild pelvic free fluid. 5. Mild to moderate stool burden. Proximal sigmoid diverticulosis. No convincing evidence for acute diverticulitis. 6. Slight nodular hepatic contour may be normal variation in this patient. Correlate with patient ri sk factors to exclude the possibility of underlying cirrhosis. 7. Moderate-sized right pleural effusion with adjacent atelectasis.
[2020-09-13 11:54] LABS: Erythrocyte Sedimentation Rate 7 mm/hr (0-15)
--- NOTE | 2020-09-13 12:40 | P.PN ---
Subjective Progress Note Date: 09/13/20 HISTORY OF PRESENT ILLNESS: 09/11/2020 This is a 80-year-old male with a past medical history significant for congestive heart failure, chronic kidney disease, COPD, atrial fibrillation, hypertension, and hyperlipidemia. Patient follows with a [employer] lab technician out of [place] (Dr. Crane?). We have been asked to see the patient in consultation for congestive heart failure. Patient examined at the bedside. Patient states yesterday he was sitting on the side of his bed at home. He was trying to get out of bed but fell and landed on the floor. He states when he called EMS they noticed his fingers and lips to be blue so they brought him to the emergency room. The patient currently denies chest pain or pressure. He denies shortness of breath at the time of examination. Patient was found to be in acute exacerbation of CHF and was started on IV Lasix. EKG reveals paced rhythm Chest xray small right pleural effusion. Emphysema. Mild pulmonary vascular congestion. Cardiomegaly. Laboratory data: WBC 11.2. Hemoglobin 16.3. Platelet count 88. INR 4.0. Sodium 132. BUN 48. Creatinine 1.62. Bilirubin 3.0. AST 325. ALT 162. Troponin 0.074. BNP 11,600. Current home cardiac medications include Zaroxolyn 2.5 mg daily as needed, Coumadin 1 mg daily, Aldactone 25 mg daily, pravastatin 40 mg daily, potassium chloride 20 meq daily, Lasix 80 mg twice a day, Coreg 12.5 mg twice a day, amiodarone 200 mg daily Most recent echocardiogram obtained in August 2020 revealed ejection fraction less than 20%, mild mitral regurgitation, mild tricuspid regurgitation, and mild aortic regurgitation. 09/12/2020 Patient examined at the bedside. Patient denies chest or pain. Reports improvement in his shortness of breath. He remains on IV Lasix 80 mg every 12 hours. Fluid balance over the last 24 hours is -1700 mL. BUN 53. Creatinine 1.46, down from 1.62 yesterday. LFTs are improving. AST 172. ALT 145. Patient is requesting to have his AICD interrogated. 09/13/2020 Patient examined this morning at the bedside. Patient denies chest pain or pressure. Patient reports minimal shortness of breath. INR 3.2. Coumadin continues to remain on hold. BUN 49. Creatinine 1.33. Patient remains on IV Lasix. LFTs continue to improve. Blood cultures are positive for E. coli. PHYSICAL EXAM: VITAL SIGNS: Reviewed. GENERAL: Well-developed in no acute distress. HEENT: Head is normocephalic. Pupils are equal, round. Sclerae anicteric. Mucous membranes of the mouth are moist. Neck supple. No JVD or thyromegaly LUNGS: Respirations even and unlabored. Lungs diminished bilaterally. HEART: Regular rate and rhythm. S1 and S2 heard. ABDOMEN: Soft. Nondistended. Nontender. EXTREMITIES: Normal range of motion. No clubbing or cyanosis. Peripheral pulses intact. EH hose to bilateral lower extremities NEUROLOGIC: Awake and alert. Oriented x 3. ASSESSMENT: Acute exacerbation of chronic systolic heart failure, ejection fraction less than 20% History of paroxysmal atrial fibrillation, on anticoagulation with Coumadin Supratherapeutic INR Transaminitis, suspect secondary to hepatic congestion History of AICD implantation Chronic kidney disease COPD Abnormal troponin, secondary to acute exacerbation of heart failure and chronic kidney disease, no evidence of acute coronary syndrome E. coli bacteremia PLAN: Infectious disease following for bacteremia Continue IV Lasix for another 24 hours. Monitor kidney function Accurate I&O Daily weights Continue to hold Coumadin secondary to elevated INR. Repeat in a.m. Further recommendations pending patient's course Nurse practitioner note has been reviewed by physician. Signing provider agrees with the documented findings, assessment, and plan of care. Objective - Vital Signs Vital signs: Vital Signs Temp 97.8 F 09/13/20 04:00 Pulse 70 09/13/20 08:00 Resp 16 09/13/20 08:00 BP 108/71 09/13/20 08:00 Pulse Ox 98 09/13/20 08:00 Intake & Output 09/12/20 09/13/20 09/13/20 18:59 06:59 18:59 Intake Total 597 180 Output Total 2600 2450 475 Balance -2002 Weight 90.1 kg Intake: Oral 597 180 Output: Urine 2600 2450 475 Other: Voiding Method Indwelling Catheter Indwelling Catheter Indwelling Catheter - Labs CBC & Chem 7: 09/13/20 07:33 09/13/20 07:33 Labs: Abnormal Lab Results - Last 24 Hours (Table) 09/13/20 09/13/2009/13/21 Range/Units 06:00 07:33 07:33 RDW (11.5-15.5) % Plt Count (150-450) k/uL Lymphocytes # (1.0-4.8) k/uL PT 30.9 H (9.0-12.0) sec INR 3.2 H (<1.2) Carbon Dioxide 19 L (22-30) mmol/L BUN 49 H (9-20) mg/dL Creatinine 1.33 H (0.66-1.25) mg/dL Glucose 113 H (74-99) mg/dL Total Bilirubin 2.6 H (0.2-1.3) mg/dL AST 112 H (17-59) U/L ALT 115 H (4-49) U/L Alkaline Phosphatase 131 H (38-126) U/L C-Reactive Protein 35.2 H (<10.0) mg/L Albumin 3.3 L (3.5-5.0) g/dL Urine Blood Moderate H (Negative) Ur Leukocyte Esterase Small H (Negative) Urine RBC 57 H (0-5) /hpf Urine Bacteria Rare H (None) /hpf Hyaline Casts 10 H (0-2) /lpf Urine Mucus Rare H (None) /hpf 09/13/20 Range/Units 07:33 RDW 16.8 H (11.5-15.5) % Plt Count 96 L (150-450) k/uL Lymphocytes # 0.7 L (1.0-4.8) k/uL PT (9.0-12.0) sec INR (<1.2) Carbon Dioxide (22-30) mmol/L BUN (9-20) mg/dL Creatinine (0.66-1.25) mg/dL Glucose (74-99) mg/dL Total Bilirubin (0.2-1.3) mg/dL AST (17-59) U/L ALT (4-49) U/L Alkaline Phosphatase (38-126) U/L C-Reactive Protein (<10.0) mg/L Albumin (3.5-5.0) g/dL Urine Blood (Negative) Ur Leukocyte Esterase (Negative) Urine RBC (0-5) /hpf Urine Bacteria (None) /hpf Hyaline Casts (0-2) /lpf Urine Mucus (None) /hpf Microbiology - Last 24 Hours (Table) 09/10/20 06:45 Blood Culture Gram Stain - Final Blood Blood Culture - Final Escherichia coli 09/10/20 06:30 Blood Culture Gram Stain - Final Blood Blood Culture - Final Escherichia coli
--- NOTE | 2020-09-13 15:07 | P.PN ---
Subjective 80-year-old male was admitted secondary to CHF exacerbation and acute hypoxic respiratory failure was requiring the BiPAP yesterday patient is off BiPAP patient is not wheezing will discontinue the systemic steroids and patient will be continued on IV Lasix is improvement in serum creatinine as well as a serum sodium with IV Lasix. Patient appears to have heart failure exacerbation at this time. Patient was also started on Rocephin for minimally abnormal urine although patient doesn't have any symptoms UTI antibiotics will be discontinued at this time there is no evidence of pneumonia either. Patient is presently on 3 L of oxygen. 09/12/2020 Patient is present with his and doesn't usually use oxygen at home. Patient's electrolytes and urine creatinine continue improved patient is feeling better. Patient will remain on IV Lasix.Patient's creatinine at baseline is around 1.4 present creatinine is around 1.4. Patient feels much better and repeat chest x-ray showing some pulmonary edema. Patient is found to be bacteremic with E. coli possible source being urinary tract infection, repeat urine cultures today and tomorrow. Patient's E. coli is pansensitive and possible source of infection is urinary tract infection 09/13/2020 Patient's repeat blood cultures from yesterday are so far negative. Patient can use to be on Rocephin. Infectious disease evaluated the patient. As you urine analysis is not quite impressive for infection we're obtaining abdominal CT scan to rule out any intra-abdominal infection which showed possibility of cholecystitis and possible choledocholithiasis with dilated common bile duct of around 8 mm. Patient did have elevated liver enzymes which were initially believed to be secondary to hepatic congestion. Is possibly of cystitis as well on the kidney computed tomography scan due to surgery and gastroenterology will be consulted. Patient is Being continued on IV Lasix patient has improvement in liver function 48 anemia as well as renal function patient present creatinine is 1.33 significant improvement since admission and continue to improve. Patient is off oxygen Constitutional: Denied any fatigue denied any fever. Cardio vascular: denied any chest pain, palpitations Gastrointestinal denied any nausea vomiting Pulmonary: Significantly improved shortness of breath. Neurologic denied any new focal deficits All inpatient medications were reviewed and appropriate changes in these medications as dictated in the interval history and assessment and plan. Objective - Vital Signs Vital signs: Vital Signs Temp 97.8 F 09/13/20 04:00 Pulse 70 09/13/20 12:00 Resp 16 09/13/20 14:00 BP 98/75 09/13/20 12:00 Pulse Ox 97 09/13/20 12:00 Intake & Output 09/12/20 09/13/20 09/13/20 18:59 06:59 18:59 Intake Total 597 420 Output Total 2600 2450 475 Balance -2002 -55 Weight 90.1 kg Intake: Oral 597 420 Output: Urine 2600 2450 475 Other: Voiding Method Indwelling Catheter Indwelling Catheter Indwelling Catheter - Exam PHYSICAL EXAMINATION: GENERAL: The patient is drowsy on BiPAP, not in any acute distress. Well developed, well nourished. HEENT: Pupils are round and equally reacting to light. EOMI. No scleral icterus. No conjunctival pallor. Normocephalic, atraumatic. No pharyngeal erythema. No thyromegaly. CARDIOVASCULAR: S1 and S2 present. No murmurs, rubs, or gallops. PULMONARY: Chest is clear to auscultation, no wheezing or crackles. ABDOMEN: Soft, nontender, nondistended, normoactive bowel sounds. No palpable organomegaly. MUSCULOSKELETAL: No joint swelling or deformity. EXTREMITIES: No cyanosis, clubbing, or pedal edema. NEUROLOGICAL: Gross neurological examination did not reveal any focal deficits. SKIN: No rashes. - Labs CBC & Chem 7: 09/13/20 07:33 09/13/20 07:33 Labs: Abnormal Lab Results - Last 24 Hours (Table) 09/13/20 09/13/20 09/13/20 Range/Units 06:00 07:33 07:33 RDW (11.5-15.5) % Plt Count (150-450) k/uL Lymphocytes # (1.0-4.8) k/uL PT 30.9 H (9.0-12.0) sec INR 3.2 H (<1.2) Carbon Dioxide 19 L (22-30) mmol/L BUN 49 H (9-20) mg/dL Creatinine 1.33 H (0.66-1.25) mg/dL Glucose 113 H (74-99) mg/dL Total Bilirubin 2.6 H (0.2-1.3) mg/dL AST 112 H (17-59) U/L ALT 115 H (4-49) U/L Alkaline Phosphatase 131 H (38-126) U/L C-Reactive Protein 35.2 H (<10.0) mg/L Albumin 3.3 L (3.5-5.0) g/dL Urine Blood Moderate H (Negative) Ur Leukocyte Esterase Small H (Negative) Urine RBC 57 H (0-5) /hpf Urine Bacteria Rare H (None) /hpf Hyaline Casts 10 H (0-2) /lpf Urine Mucus Rare H (None) /hpf 09/13/20 Range/Units 07:33 RDW 16.8 H (11.5-15.5) % Plt Count 96 L (150-450) k/uL Lymphocytes # 0.7 L (1.0-4.8) k/uL PT (9.0-12.0) sec INR (<1.2) Carbon Dioxide (22-30) mmol/L BUN (9-20) mg/dL Creatinine (0.66-1.25) mg/dL Glucose (74-99) mg/dL Total Bilirubin (0.2-1.3) mg/dL AST (17-59) U/L ALT (4-49) U/L Alkaline Phosphatase (38-126) U/L C-Reactive Protein (<10.0) mg/L Albumin (3.5-5.0) g/dL Urine Blood (Negative) Ur Leukocyte Esterase (Negative) Urine RBC (0-5) /hpf Urine Bacteria (None) /hpf Hyaline Casts (0-2) /lpf Urine Mucus (None) /hpf Microbiology - Last 24 Hours (Table) 09/12/20 11:38 Blood Culture - Preliminary Blood No Growth after 24 hours Assessment and Plan Plan: -Acute hypoxic respiratory failure: Secondary to congestive heart failure chronic systolic dysfunction with acute exacerbation. Patient will be continued on IV Lasix. We'll repeat, his metabolic profile liver enzymes continues to be elevated. -E. coli bacteremia in you with the Rocephin possible sources being cystitis or cholecystitis. Gen. surgery and gastroenterology will be consulted . -Hyponatremia , hypervolemic hyponatremia proved with Lasix. -Elevated liver enzymes may be secondary to choledocholithiasis. Gastroenterology will be consulted -Chronic kidney disease stage 3 may be hypertensive nephrosclerosis next and heparin atrial fibrillation paroxysmal presently rate controlled Coumadin will be held today will be restarted back tomorrow we will repeat INR tomorrow -COPD with mild acute acute exacerbation: Patient used to be smoker until 5 years ago used to smoke 1 pack per day. Patient will not require any systemic steroids at this time patient will be switched to inhaled steroids and IV steroids will be discontinued Congestive heart heart failure chronic systolic dysfunction with EF of around less than 20% with acute exacerbation patient has an AICD . -Hypertension -Benign prostatic hypertrophy -Sleep apnea -Hypothyroidism -Supratherapeutic INR without any evidence of bleeding DVT prophylaxis patient's INR is presently 3.2. Patient will be resumed on Coumadin starting tomorrow.
--- NOTE | 2020-09-13 18:53 | PN ---
PROGRESS NOTE DATE OF SERVICE: 09/13/2020 REASON FOR FOLLOWUP: E coli bacteremia secondary to ascending cholangitis. INTERVAL HISTORY: The patient is currently afebrile. The patient is breathing slightly comfortably. The patient denies having any chest pain, shortness of breath. Occasional cough. Minimal abdominal pain. Nausea but no vomiting. No diarrhea. PHYSICAL EXAMINATION: Blood pressure 108/71 with pulse of 70, temperature 98. He is 98% on room air. General description is an elderly male lying in bed in no distress. RESPIRATORY SYSTEM: Unlabored breathing. Clear to auscultation anteriorly. HEART: S1, S2. Regular rate and rhythm. ABDOMEN: Soft. Mildly tender in right upper quadrant area. EXTREMITIES: No edema of the feet. LABS: Hemoglobin 15.1, white count 7.3. INR is 3.2. Creatinine is 1.33. Liver enzymes mildly improved. DIAGNOSTIC IMPRESSION AND PLAN: Patient with an Escherichia coli bacteremia. Source is likely ascending cholangitis in this patient who did have evidence of choledocholithiasis. GI and General Surgery have been consulted. Will await their recommendations. Continue with Rocephin and will monitor his clinical course closely. MMODL / IJN: [id number] /
[2020-09-13] MEDS: ALPRAZolam 0.5 MG TAB PO PRN (20:50)
[2020-09-13] MEDS: PRAVASTATIN SODIUM 40 MG TAB PO SCH (20:50)
[2020-09-14] MEDS: LEVOTHYROXINE 25 MCG TAB PO SCH (06:01)
[2020-09-14 07:16] LABS: Calcium 8.2 mg/dL (8.4-10.2); Potassium 3.8 mmol/L (3.5-5.1)
[2020-09-14] MEDS: FUROSEMIDE 10 MG/ML 10 ML VIAL IV SCH ×2 (09:21→20:08)
[2020-09-14] MEDS: METOPROLOL TARTRATE 50 MG TAB PO SCH ×2 (09:21→20:08)
[2020-09-14] MEDS: SPIRONOLACTONE 25 MG TAB PO SCH (09:21)
[2020-09-14] MEDS: FINASTERIDE 5 MG TAB PO SCH (09:21)
[2020-09-14] MEDS: AMIODARONE 200 MG TAB PO SCH (09:21)
[2020-09-14 09:22] LABS: ALT 95 U/L (4-49); AST 80 U/L (17-59); Alkaline Phosphatase 128 U/L (38-126)
[2020-09-14 09:31] LABS: INR 2.7 (<1.2)
[2020-09-14 09:32] LABS: Prothrombin Time 26.6 sec (9.0-12.0)
[2020-09-14] MEDS ORDERED: PHYTONADIONE ORAL 5 MG/5 ML ORAL.SYRG PO STA (09:39)
--- NOTE | 2020-09-14 11:42 | P.PN ---
Subjective This is a pleasant 80-year-old male past medical history significant for congestive heart failure, chronic kidney disease, COPD, atrial fibrillation, hypertension and dyslipidemia. He follows with Dr. Crane out of [facility]. He is seen and examined resting comfortably in no acute distress. He has no symptoms of shortness of breath or current abdominal pain. Blood pressure 104/68 heart rate 71 afebrile maintaining oxygen saturation on room air. Laboratory data reviewed, INR 2.7. Currently maintained on amiodarone 200 mg daily, lasix 80 mg IV BID, lopressor 50 mg BID, pravastatin 40 mg daily and aldactone 25 mg daily. He is scheduled to undergo ERCP and then possible cholecystecomty thereafter. GENERAL: Well-appearing, well-nourished and in no acute distress. NECK: Supple without JVD or thyromegaly. LUNGS: Breath sounds clear to auscultation bilaterally. Respiration equal and unlabored. No wheezes, rales or rhonchi. Diminished bilaterally. HEART: Regular rate and rhythm without murmurs, rubs or gallops. S1 and S2 heard. EXTREMITIES: Normal range of motion, no edema. No clubbing or cyanosis. Peripheral pulses intact. ASSESSMENT Acute on chronic heart failure with reduced ejection fraction, EF less than 20% Paroxysmal atrial fibrillation on coumadin Supratherapeutic INR Transaminitis, suspect colangitis Non-ischemic cardiomyopathy s/p AICD Chronic kidney disease COPD Abnormal troponin secondary to heart failure and renal disease E. coli bacteremia PLAN Warfarin is on hold, INR still up at 2.7 placing the patient at increased risk for bleeding. Nurse Practitioner note has been reviewed, I agree with a documented findings and plan of care. Patient was seen and examined. Objective - Vital Signs Vital signs: Vital Signs Temp 97.6 F 09/14/20 08:00 Pulse 71 09/14/20 08:00 Resp 16 09/14/20 08:00 BP 104/68 09/14/20 08:00 Pulse Ox 99 09/14/20 08:00 Intake & Output 09/13/20 09/14/20 09/14/20 18:59 06:59 18:59 Intake Total 600 660 Output Total 1075 1150 150 Balance -475 -490 -150 Weight 90.1 kg Intake: Oral 600 660 Output: Urine 1075 1150 150 Straight 900 Other: Voiding Method Indwelling Catheter Indwelling Catheter # Bowel Movements 1 - Labs CBC & Chem 7: 09/13/20 07:33 09/14/20 05:43 Labs: Abnormal Lab Results - Last 24 Hours (Table) 09/14/20 09/14/20 09/14/20 Range/Units 05:43 05:43 09:01 PT 26.6 H (9.0-12.0) sec INR 2.7 H (<1.2) BUN 42 H (9-20) mg/dL Creatinine 1.33 H (0.66-1.25) mg/dL Glucose 71 L (74-99) mg/dL Calcium 8.2 L (8.4-10.2) mg/dL AST 80 H (17-59) U/L ALT 95 H (4-49) U/L Alkaline Phosphatase 128 H (38-126) U/L Microbiology - Last 24 Hours (Table) 09/13/20 07:33 Blood Culture - Preliminary Blood No Growth after 24 hours 09/12/20 11:38 Blood Culture - Preliminary Blood No Growth after 24 hours
--- NOTE | 2020-09-14 11:50 | P.GSCN ---
History of Present Illness Consult date: 09/14/20 History of present illness: CHIEF COMPLAINT: Shortness of breath Reason for consult: Cholecystitis HISTORY OF PRESENT ILLNESS: This is a 80-year-old male with a known history of COPD, CHF with an EF of 20%, atrial fibrillation anticoagulated with Coumadin. He presented to the emergency room with evidence of shortness of breath and low oxygen level. He is being treated for CHF exacerbation. He is currently on IV Lasix. Cardiology is following. He is on room air satting at 99%. Surgical service was consulted in regards to cholecystitis. Patient did have E. coli bacteremia. He has infectious disease following the ordered a computed tomography scan of the abdomen and pelvis for further investigate the source of the bacteremia. CAT scan findings did show choledocholithiasis with a couple calculi measuring up to 8 mm in the mid bile duct and a string of 4 calculi in the lower bile duct measuring up to 4 mm. No hypertropic gallbladder changes at this time to suggest complete biliary blockage. Cholelithiasis. Mild gallbladder wall thickening may reflect chronic cholecystitis. Patient denies any abdominal pain. He does report being diagnosed as "gallstones 40 years ago. He denies any nausea vomiting or discomfort after eating. He did have evidence of elevated total bilirubin and LFTs. GI service is following and the patient scheduled for ERCP Thursday. He is afebrile. PAST MEDICAL HISTORY: See list. PAST SURGICAL HISTORY: See list. MEDICATIONS: See list. ALLERGIES: See list. SOCIAL HISTORY: No illicit drug use. REVIEW OF SYSTEMS: CONSTITUTIONAL: Denies fever or chills. HEENT: Denies blurred vision, vision changes, or eye pain. Denies hemoptysis CARDIOVASCULAR: Denies chest pain or pressure. RESPIRATORY: No shortness of breath. GASTROINTESTINAL: See HPI for pertinent findings HEMATOLOGIC: Denies bleeding disorders. GENITOURINARY: Denies any blood in urine or increased urinary frequency. SKIN: Denies pruitis. Denies rash. PHYSICAL EXAM: VITAL SIGNS: Reviewed GENERAL: Well-developed in no acute distress. HEENT: No sclera icterus. Extraocular movements grossly intact. Moist buccal mucosa. Head is atraumatic, normocephalic. No nasal drainage. ABDOMEN: Soft. Nondistended. Nontender NEUROLOGIC: Alert and oriented. Cranial nerves II through XII grossly intact. LABORATORY DATA: WBC 7.3 Hgb 15.1 INR 2.7 creatinine 1.33 total bili 2.6 AST 11 ALT 95 alk phos 128 IMAGING: CAT scan findings did show choledocholithiasis with a couple calculi measuring up to 8 mm in the mid bile duct and a string of 4 calculi in the lower bile duct measuring up to 4 mm. No hypertropic gallbladder changes at this time to suggest complete biliary blockage. Cholelithiasis. Mild gallbladder wall thickening may reflect chronic cholecystitis. ASSESSMENT: 1. Chronic cholecystitis 2. Choledocholithiasis 3. Bacteremia with E. coli likely due to cholecystitis 4. Coagulopathy receiving vitamin K PLAN: -Patient is scheduled for laparoscopic cholecystectomy on 09/17/[address] Gage -Patient is scheduled for ERCP on Thursday with GI service -Agree with vitamin K -Continue to hold Coumadin -Continue IV antibiotics -Continue to monitor LFTs, total bilirubin and INR Thank you for this consultation Physician [employer] note has been reviewed by physician. Signing provider agrees with the documented findings, assessment, and plan of care. 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 Smoked for 5 years- 1PPD Past Drug Use History: None Reported - Past Family History Father Family Medical History: Coronary Artery Disease (CAD), Deep Vein Thrombosis (DVT) Additional Family Medical History / Comment(s): Heart disease, blood clot that traveled ultimately result in his Mother Family Medical History: Cancer, GI Bleed Additional Family Medical History / Comment(s): Some type of intestinal cancer resulting in a bleed. Medications and Allergies Home Medications Medication Instructions Recorded Confirmed Type Amiodarone [Cordarone] 200 mg PO DAILY 11/10/16 09/10/20 History Finasteride [Proscar] 5 mg PO DAILY 11/10/16 09/10/20 History Levothyroxine Sodium [Levo-T] 25 mcg PO DAILY 11/10/16 09/10/20 History Pravastatin Sodium [Pravachol] 40 mg PO HS 11/10/16 09/10/20 History Spironolactone [Aldactone] 25 mg PO DAILY 11/10/16 09/10/20 History ALPRAZolam [Xanax] 0.5 mg PO TID 06/27/17 09/10/20 History Carvedilol [Coreg] 12.5 mg PO BID 06/25/20 09/10/20 History Nitroglycerin Sl Tabs [Nitrostat] 0.4 mg SL Q5M PRN 06/25/20 09/10/20 History metOLazone [Zaroxolyn] 2.5 mg PO DIRECTED PRN 06/25/20 09/10/20 History Loperamide [Imodium] 2 mg PO QID PRN 08/15/20 09/10/20 History Warfarin [Coumadin] 1 mg PO DAILY 08/15/20 09/10/20 History Potassium Chloride ER [K-Dur 20] 20 meq PO DAILY #0 08/18/20 09/10/20 Rx Furosemide [Lasix] 80 mg PO BID 09/10/20 09/10/20 History Allergies Allergy/AdvReac Type Severity Reaction Status Date / Time formoterol [From Dulera] Allergy Hallucinati Verified 09/10/20 07:17 ons hydromorphone [From Dilaudid] Allergy Rash/Hives Verified 09/10/20 07:17 methocarbamol Allergy Unknown Verified 09/10/20 07:17 mometasone furoate Allergy Hallucinati Verified 09/10/20 07:17 [From Dulera] ons Surgical - Exam Vital Signs Temp Pulse Resp BP Pulse Ox 97.6 F 70 22 96/67 98 09/10/20 06:10 09/10/20 06:10 09/10/20 06:10 09/10/20 06:10 09/10/20 06:10 Results - Labs 09/13/20 07:33 09/14/20 05:43 Abnormal Lab Results - Last 24 Hours (Table) 09/14/20 09/14/20 09/14/20 Range/Units 05:43 05:43 09:01 PT 26.6 H (9.0-12.0) sec INR 2.7 H (<1.2) BUN 42 H (9-20) mg/dL Creatinine 1.33 H (0.66-1.25) mg/dL Glucose 71 L (74-99) mg/dL Calcium 8.2 L (8.4-10.2) mg/dL AST 80 H (17-59) U/L ALT 95 H (4-49) U/L Alkaline Phosphatase 128 H (38-126) U/L Microbiology - Last 24 Hours (Table) 09/13/20 07:33 Blood Culture - Preliminary Blood No Growth after 24 hours 09/12/20 11:38 Blood Culture - Preliminary Blood No Growth after 24 hours Diabetes panel 09/14/20 09/14/20 Range/Units 05:43 05:43 Sodium 137 (137-145) mmol/L Potassium 3.8 (3.5-5.1) mmol/L Chloride 102 (98-107) mmol/L Carbon Dioxide 28 (22-30) mmol/L BUN 42 H (9-20) mg/dL Creatinine 1.33 H (0.66-1.25) mg/dL Glucose 71 L (74-99) mg/dL Calcium 8.2 L (8.4-10.2) mg/dL AST 80 H (17-59) U/L ALT 95 H (4-49) U/L Alkaline Phosphatase 128 H (38-126) U/L Calcium panel 09/14/20 Range/Units 05:43 Calcium 8.2 L (8.4-10.2) mg/dL Pituitary panel 09/14/20 Range/Units 05:43 Sodium 137 (137-145) mmol/L Potassium 3.8 (3.5-5.1) mmol/L Chloride 102 (98-107) mmol/L Carbon Dioxide 28 (22-30) mmol/L BUN 42 H (9-20) mg/dL Creatinine 1.33 H (0.66-1.25) mg/dL Glucose 71 L (74-99) mg/dL Calcium 8.2 L (8.4-10.2) mg/dL Adrenal panel 09/14/20 09/14/20 Range/Units 05:43 05:43 Sodium 137 (137-145) mmol/L Potassium 3.8 (3.5-5.1) mmol/L Chloride 102 (98-107) mmol/L Carbon Dioxide 28 (22-30) mmol/L BUN 42 H (9-20) mg/dL Creatinine 1.33 H (0.66-1.25) mg/dL Glucose 71 L (74-99) mg/dL Calcium 8.2 L (8.4-10.2) mg/dL AST 80 H (17-59) U/L ALT 95 H (4-49) U/L Alkaline Phosphatase 128 H (38-126) U/L
--- NOTE | 2020-09-14 12:09 | P.PN ---
Subjective Progress Note Date: 09/14/20 80-year-old male was admitted secondary to CHF exacerbation and acute hypoxic respiratory failure was requiring the BiPAP yesterday patient is off BiPAP patient is not wheezing will discontinue the systemic steroids and patient will be continued on IV Lasix is improvement in serum creatinine as well as a serum sodium with IV Lasix. Patient appears to have heart failure exacerbation at this time. Patient was also started on Rocephin for minimally abnormal urine although patient doesn't have any symptoms UTI antibiotics will be discontinued at this time there is no evidence of pneumonia either. Patient is presently on 3 L of oxygen. 09/12/2020 Patient is present with his and doesn't usually use oxygen at home. Patient's electrolytes and urine creatinine continue improved patient is feeling better. Patient will remain on IV Lasix.Patient's creatinine at baseline is around 1.4 present creatinine is around 1.4. Patient feels much better and repeat chest x-ray showing some pulmonary edema. Patient is found to be bacteremic with E. coli possible source being urinary tract infection, repeat urine cultures today and tomorrow. Patient's E. coli is pansensitive and possible source of infection is urinary tract infection 09/13/2020 Patient's repeat blood cultures from yesterday are so far negative. Patient can use to be on Rocephin. Infectious disease evaluated the patient. As you urine analysis is not quite impressive for infection we're obtaining abdominal CT scan to rule out any intra-abdominal infection which showed possibility of cholecystitis and possible choledocholithiasis with dilated common bile duct of around 8 mm. Patient did have elevated liver enzymes which were initially believed to be secondary to hepatic congestion. Is possibly of cystitis as well on the kidney computed tomography scan due to surgery and gastroenterology will be consulted. Patient is Being continued on IV Lasix patient has improvement in liver function 48 anemia as well as renal function patient present creatinine is 1.33 significant improvement since admission and continue to improve. Patient is off oxygen 09/14/2020 Patient is seen and evaluated in follow-up currently sitting comfortably on room air. Multiple medical consultations including her etiology, infectious disease, surgery, and GI following. Patient is scheduled to undergo laparoscopic cholecystectomy on Thursday. Patient was tentatively scheduled for an ERCP on Thursday as his INR has been elevated. Today's INR is 2.7 and will give a dose of vitamin K. Will repeat INR. Creatinine today is the same at 1.33 with a BUN of 42. Sodium is 137 with a potassium of 3.8. ALT is 95, AST is also trending down at 80 and alkaline phosphatase slightly lower at 128. Most recent blood cultures have been negativ e and infectious disease is following. Patient is maintained on ceftriaxone and will continue at this time. Patient continues to be on IV Lasix 80 mg twice daily and will continue. Constitutional: Denied any fatigue denied any fever. Cardio vascular: denied any chest pain, palpitations Gastrointestinal denied any nausea vomiting Pulmonary: Significantly improved shortness of breath. Neurologic denied any new focal deficits All inpatient medications were reviewed and appropriate changes in these medications as dictated in the interval history and assessment and plan. Objective - Vital Signs Vital signs: Vital Signs Temp 97.6 F 09/14/20 08:00 Pulse 71 09/14/20 08:00 Resp 16 09/14/20 08:00 BP 104/68 09/14/20 08:00 Pulse Ox 99 09/14/20 08:00 Intake & Output 09/13/20 09/14/20 09/14/20 18:59 06:59 18:59 Intake Total 600 660 Output Total 1075 1150 150 Balance -475 -490 -150 Weight 90.1 kg Intake: Oral 600 660 Output: Urine 1075 1150 150 Straight 900 Other: Voiding Method Indwelling Catheter Indwelling Catheter # Bowel Movements 1 - Exam GENERAL: The patient is awake sitting up in bed, not in any acute distress. Well developed, well nourished. Currently on room air. HEENT: Pupils are round and equally reacting to light. EOMI. No scleral icterus. No conjunctival pallor. Normocephalic, atraumatic. No pharyngeal erythema. No thyromegaly. CARDIOVASCULAR: S1 and S2 present. No murmurs, rubs, or gallops. PULMONARY: Chest is clear to auscultation, no wheezing or crackles. ABDOMEN: Soft, nontender, nondistended, normoactive bowel sounds. No palpable organomegaly. MUSCULOSKELETAL: No joint swelling or deformity. EXTREMITIES: No cyanosis, clubbing, or pedal edema. NEUROLOGICAL: Gross neurological examination did not reveal any focal deficits. SKIN: No rashes. - Labs CBC & Chem 7: 09/13/20 07:33 09/14/20 05:43 Labs: Abnormal Lab Results - Last 24 Hours (Table) 09/14/20 09/14/20 09/14/20 Range/Units 05:43 05:43 09:01 PT 26.6 H (9.0-12.0) sec INR 2.7 H (<1.2) BUN 42 H (9-20) mg/dL Creatinine 1.33 H (0.66-1.25) mg/dL Glucose 71 L (74-99) mg/dL Calcium 8.2 L (8.4-10.2) mg/dL AST 80 H (17-59) U/L ALT 95 H (4-49) U/L Alkaline Phosphatase 128 H (38-126) U/L Microbiology - Last 24 Hours (Table) 09/12/20 11:38 Blood Culture - Preliminary Blood No Growth after 24 hours Assessment and Plan Assessment: -Acute hypoxic respiratory failure: Secondary to congestive heart failure chronic systolic dysfunction with acute exacerbation. Patient will be continued on IV Lasix. Current creatinine is 1.33 and liver functions trending down -E. coli bacteremia maintained on Rocephin possible sources being cystitis or cholecystitis. Surgery and GI following and patient tentatively scheduled for ERCP Thursday although now being scheduled for lap don on Thursday with surgery. -Hyponatremia , hypervolemic hyponatremia improved with Lasix. Current sodium is 137 -Elevated liver enzymes may be secondary to choledocholithiasis. 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 Patient will not require any systemic steroids at this time patient will be switched to inhaled steroids -Congestive heart heart failure chronic systolic dysfunction with EF of around less than 20% with acute exacerbation patient has an AICD . -Hypertension -Benign prostatic hypertrophy -Sleep apnea -Hypothyroidism -Supratherapeutic INR without any evidence of bleeding. Continue to hold Coumadin and INR is 2.7 today and was given a dose of vitamin K. Will await s urgery to resume -DVT prophylaxis Plan: Continue current medications. Continue to hold Coumadin at this time with the possibility of surgery on Thursday. Patient underwent CT of the abdomen showing choledocholithiasis with a couple of calculi with no hydropic gallbladder changes to suggest complete biliary blockage along with cholelithiasis and mild gallbladder wall thickening with mild to moderate stool burden with no evidence of acute diverticulitis. Surgery is planning laparoscopic cholecystectomy on Thursday. GI and surgery also following. Will repeat a.m. labs along with INR and monitor closely. Discussion was had with Dr. Whitaker in the plan is to return home with home care she is adamant against rehab readdicted case management and social work following working on discharge planning needs.
--- NOTE | 2020-09-14 16:23 | PN ---
PROGRESS NOTE DATE OF SERVICE: 09/14/2020 REASON FOR FOLLOWUP: E coli bacteremia secondary to ascending cholangitis. INTERVAL HISTORY: The patient is currently afebrile. The patient is feeling better. Breathing comfortably. The patient denies having any chest pain, shortness of breath or cough. No nausea, no vomiting. No abdominal pain or diarrhea. PHYSICAL EXAMINATION: Blood pressure 114/66 with pulse of 71, temperature 97.6. He is 98% on room air. General description is an elderly male lying in bed in no distress. RESPIRATORY SYSTEM: Unlabored breathing, clear to auscultation anteriorly. HEART: S1, S2. Regular rate and rhythm. ABDOMEN: Soft, no tenderness. LABS: INR is 2.7. Liver enzymes are mildly elevated. Blood culture repeat so far negative. DIAGNOSTIC IMPRESSION AND PLAN: Patient with Escherichia coli bacteremia secondary to ascending cholangitis in this patient has evidence of choledocholithiasis. GI and Surgery has been consulted. Patient to continue with Rocephin. Monitor clinical course closely. MMODL / IJN: [id number] /
--- NOTE | 2020-09-14 16:42 | P.CONS ---
History of Present Illness - Reason for Consult Consult date: 09/14/20 Choledocholithiasis Requesting physician: Deshawn Almazan - Chief Complaint Shortness of breath - History of Present Illness This is a pleasant 80-year-old white male patient who was brought to the emergency room 4 days ago with complaints of severe shortness of breath and was found on the ground with low oxygen levels. He also had complaints of generalized weakness and difficulty with walking. He has multiple comorbidities including coronary artery disease with an ejection fraction of less than 20% as reported in August 2020, atrial fibrillation on Coumadin, hypertension, dyslipidemia, permanent pacemaker, chronic kidney disease, history of gallstones. Multiple consultants on case including cardiology and pulmonology. Patient was noted to have elevated LFTs on admission, with total bilirubin 4.5, alkaline phosphatase 147, AST 111, ALT 56. He had a CT of the abdomen which showed choledocholithiasis with a couple of calculi measuring up to 8 mm in the mid bile duct and a string of 4 calculi in the lower bile duct measuring up to 4 mm. No hydropic gallbladder changes at this time to suggest complete biliary blockage. Cholelithiasis. Mild gallbladder wall thickening may reflect chronic cholecystitis. Mild to moderate stool burden. Proximal sigmoid diverticulosis. No convincing evidence for acute diverticulitis. Slight nodular hepatic con tour may be normal variation in this patient. Moderate size right pleural effusion with adjacent atelectasis. Madrid catheter in place. The patient denies any abdominal pain, nausea, or vomiting. He has been tolerating a regular diet. There has been some trending down of his LFTs total bilirubin 2.6, alkaline phosphatase 131, AST 112, ALT 1:15. INR 2.7. Review of Systems Constitutional: Denies chills, Denies fever Eyes: denies blurred vision, denies pain Ears, nose, mouth and throat: Denies headache, Denies sore throat Cardiovascular: Reports dyspnea on exertion, Denies chest pain Respiratory: Reports dyspnea, Denies cough Gastrointestinal: Denies abdominal pain, Denies change in bowel habits, Denies constipation, Denies loss of appetite, Denies nausea, Denies vomiting Musculoskeletal: Denies myalgias Integumentary: Denies pruritus, Denies rash Neurological: Denies numbness, Denies weakness Endocrine: Denies fatigue, Denies weight change Past Medical History Past Medical History: Atrial Fibrillation, Coronary Artery Disease (CAD), Heart Failure, COPD, Hypertension, Osteoarthritis (OA), Prostate Disorder, Renal Disease, Sleep Apnea/CPAP/BIPAP, Thyroid Disorder Additional Past Medical History / Comment(s): CKD 3, Ventricular tachycardia, cardiomyopathy, CAD, EF 10% (07/20/2020), Prostatitis, kidney failure, vertigo & orthostatic,[id number], degenerative neck vertebra,lower lumbar pinched nerves, osteopina, 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 Smoked for 5 years- 1PPD Past Drug Use History: None Reported - Past Family History Father Family Medical History: Coronary Artery Disease (CAD), Deep Vein Thrombosis (DVT) Additional Family Medical History / Comment(s): Heart disease, blood clot that traveled ultimately result in his Mother Family Medical History: Cancer, GI Bleed Additional Family Medical History / Comment(s): Some type of intestinal cancer resulting in a bleed. Medications and Allergies Home Medications Medication Instructions Recorded Confirmed Type Amiodarone [Cordarone] 200 mg PO DAILY 11/10/16 09/10/20 History Finasteride [Proscar] 5 mg PO DAILY 11/10/16 09/10/20 History Levothyroxine Sodium [Levo-T] 25 mcg PO DAILY 11/10/16 09/10/20 History Pravastatin Sodium [Pravachol] 40 mg PO HS 11/10/16 09/10/20 History Spironolactone [Aldactone] 25 mg PO DAILY 11/10/16 09/10/20 History ALPRAZolam [Xanax] 0.5 mg PO TID 06/27/17 09/10/20 History Carvedilol [Coreg] 12.5 mg PO BID 06/25/20 09/10/20 History Nitroglycerin Sl Tabs [Nitrostat] 0.4 mg SL Q5M PRN 06/25/20 09/10/20 History metOLazone [Zaroxolyn] 2.5 mg PO DIRECTED PRN 06/25/20 09/10/20 History Loperamide [Imodium] 2 mg PO QID PRN 08/15/20 09/10/20 History Warfarin [Coumadin] 1 mg PO DAILY 08/15/20 09/10/20 History Potassium Chloride ER [K-Dur 20] 20 meq PO DAILY #0 08/18/20 09/10/20 Rx Furosemide [Lasix] 80 mg PO BID 09/10/20 09/10/20 History Allergies Allergy/AdvReac Type Severity Reaction Status Date / Time formoterol [From Dulera] Allergy Hallucinati Verified 09/10/20 07:17 ons hydromorphone [From Dilaudid] Allergy Rash/Hives Verified 09/10/20 07:17 methocarbamol Allergy Unknown Verified 09/10/20 07:17 mometasone furoate Allergy Hallucinati Verified 09/10/20 07:17 [From Dulera] ons Physical Exam Vitals: Vital Signs Temp Pulse Resp BP BP Pulse Ox 09/14/20 14:00 16 09/14/20 12:00 71 16 114/66 98 09/14/20 08:00 97.6 F 71 16 104/68 99 09/14/20 04:03 98.0 F 70 18 115/74 98 09/13/20 23:17 70 20 106/71 97 09/13/20 20:41 97.9 F 70 18 114/74 97 09/13/20 16:00 70 16 108/71 98 Intake and Output 09/14/20 09/14/20 09/14/20 06:59 14:59 22:59 Intake Total 180 Output Total 900 150 Balance -900 30 Intake: Oral 180 Output: Urine 900 150 Straight 900 Other: Voiding Method Indwelling Catheter # Voids 0 # Bowel Movements 1 0 Weight 90.1 kg General appearance: The patient is alert, oriented, appears in no acute distress. HET: Head is normocephalic and atraumatic. Conjunctiva pink. Sclera anicteric. Neck: Supple without lymphadenopathy. Abdomen: Soft, nontender, nondistended with bowel sounds. No guarding or rigidity. Extremities: Normal skin color and turgor. No pedal edema Skin: No rashes, no jaundice Neurological: No focal deficits. Alert and oriented 3. Results CBC & Chem 7: 09/13/20 07:33 09/14/20 05:43 Labs: Abnormal Lab Results - Last 24 Hours (Table) 09/14/20 09/14/20 09/14/20 Range/Units 05:43 05:43 09:01 PT 26.6 H (9.0-12.0) sec INR 2.7 H (<1.2) BUN 42 H (9-20) mg/dL Creatinine 1.33 H (0.66-1.25) mg/dL Glucose 71 L (74-99) mg/dL Calcium 8.2 L (8.4-10.2) mg/dL AST 80 H (17-59) U/L ALT 95 H (4-49) U/L Alkaline Phosphatase 128 H (38-126) U/L Microbiology - Last 24 Hours (Table) 09/12/20 11:38 Blood Culture - Preliminary Blood No Growth after 48 hours 09/13/20 07:33 Blood Culture - Preliminary Blood No Growth after 24 hours Comments: CT of the abdomen which showed choledocholithiasis with a couple of calculi measuring up to 8 mm in the mid bile duct and a string of 4 calculi in the lower bile duct measuring up to 4 mm. No hydropic gallbladder changes at this time to suggest complete biliary blockage. Cholelithiasis. Mild gallbladder wall thickening may reflect chronic cholecystitis. Mild to moderate stool burden. Proximal sigmoid diverticulosis. No convincing evidence for acute diverticulitis. Slight nodular hepatic contour may be normal variation in this patient. Moderate size right pleural effusion with adjacent atelectasis. Madrid catheter in place. Assessment and Plan (1) Choledocholithiasis Narrative/Plan: This is a pleasant 80-year-old white male patient who was brought to the emergency room 4 days ago with complaints of severe shortness of breath and was found on the ground with low oxygen levels. He also had complaints of generalized weakness and difficulty with walking. He has multiple comorbidities including coronary artery disease with an ejection fraction of less than 20% as reported in August 2020, atrial fibrillation on Coumadin, hypertension, dyslipidemia, permanent pacemaker, chronic kidney disease, history of gallstones. Multiple consultants on case including cardiology and pulmonology. Patient was noted to have elevated LFTs on admission, with total bilirubin 4.5, alkaline phosphatase 147, AST 111, ALT 56. He had a CT of the abdomen which showed choledocholithiasis with a couple of calculi measuring up to 8 mm in the mid bile duct and a string of 4 calculi in the lower bile duct measuring up to 4 mm. No hydropic gallbladder changes at this time to suggest complete biliary blockage. Cholelithiasis. Mild gallbladder wall thickening may reflect chronic cholecystitis. Mild to moderate stool burden. Proximal sigmoid diverticulosis. No convincing evidence for acute diverticulitis. Slight nodular hepatic contour may be normal variation in this patient. Moderate size right pleural effusion with adjacent atelectasis. Madrid catheter in place. The patient denies any abdominal pain, nausea, or vomiting. He has been tolerating a regular diet. There has been some trending down of his LFTs total bilirubin 2.6 , alkaline phosphatase 131, AST 112, ALT 1:15. INR 2.7. Vitamin K ordered, with repeat INR in the morning. Patient will be scheduled for ERCP on Thursday. Cardiology clearance appreciated. Current Visit: Yes Status: Acute Code(s): K80.50 - CALCULUS OF BILE DUCT W/O CHOLANGITIS OR CHOLECYST W/O OBST SNOMED Code(s): 711998087 (2) Transaminitis Current Visit: Yes Status: Acute Code(s): R74.01 - ELEVATION OF LEVELS OF LIVER TRANSAMINASE LEVELS SNOMED Code(s): 616639140 (3) Chronic kidney disease Current Visit: Yes Status: Acute Code(s): N18.9 - CHRONIC KIDNEY DISEASE, UNSPECIFIED SNOMED Code(s): 815307544 (4) COPD (chronic obstructive pulmonary disease) Current Visit: Yes Status: Acute Code(s): J44.9 - CHRONIC OBSTRUCTIVE PULMONARY DISEASE, UNSPECIFIED SNOMED Code(s): 86334388 (5) Atrial fibrillation Current Visit: No Status: Acute Code(s): I48.91 - UNSPECIFIED ATRIAL FIBRILLATION SNOMED Code(s): 25206645 Plan: 1. Supportive care 2. Diet as tolerated, NPO after midnight Thursday 3. Agree with vitamin K 4. Repeat INR, CMP in the morning 5. Cardiology clearance appreciated to proceed with ERCP 6. ERCP planned for September 16 Thank you for this consultation, we will continue to follow closely Dr. Iliana Wright I agree with the dictator's note, documented as a scribe by Keisha Mcgrath.
[2020-09-14] MEDS: PRAVASTATIN SODIUM 40 MG TAB PO SCH (20:08)
[2020-09-14] MEDS: ALPRAZolam 0.5 MG TAB PO PRN (20:08)
[2020-09-15] MEDS: LEVOTHYROXINE 25 MCG TAB PO SCH (06:24)
[2020-09-15 06:43] LABS: INR 1.8 (<1.2); Prothrombin Time 17.9 sec (9.0-12.0)
[2020-09-15 06:45] LABS: Calcium 8.4 mg/dL (8.4-10.2); Potassium 3.4 mmol/L (3.5-5.1)
[2020-09-15] MEDS ORDERED: PHYTONADIONE ORAL 5 MG/5 ML ORAL.SYRG PO STA (07:46)
--- NOTE | 2020-09-15 08:36 | PN ---
PROGRESS NOTE DATE OF DICTATION: September 15, 2020. REQUESTING PHYSICIAN: Dr. Keith Sales HISTORY OF PRESENT ILLNESS: The patient is a 80-year-old pleasant white male admitted to the hospital with shortness of breath, generalized weakness for the last few days duration. At the time of admission to the hospital, he was noted to have elevated LFTs with bilirubin of 4.5, alkaline phosphatase of 147. ALT, ALT are slightly elevated. CT of the abdomen and pelvis showed cholelithiasis as well as 2 small CBD stones measuring 8 mm in size in the distal common bile duct, the patient was seen on consultation yesterday. He is scheduled for an ERCP tomorrow. Coumadin is currently on hold. INR today is 1.8. He received vitamin K yesterday. He denies any abdominal pain. No nausea, no vomiting. PHYSICAL EXAMINATION: He appears comfortable. VITAL SIGNS: Stable. Blood pressure is 103/86, pulse is 70, temperature 97.9. HEENT examination: Unremarkable. Conjunctivae pink. Sclerae anicteric. Oral cavity no lesions. NECK: No JVD. No lymph node enlargement. CHEST was clear to auscultation. HEART: Regular rate and rhythm. ABDOMEN: Soft. Bowel sounds are positive. No organomegaly. EXTREMITIES: No pedal edema. SKIN: No rashes. NEURO: He is alert and oriented x3. No focal deficits. LAB: T-bilirubin is 3, AST 75, ALT 84, alkaline phosphatase 122. INR 1.8. IMPRESSION: 1. Elevated LFTs and mild jaundice secondary to choledocholithiasis seen on CT of the abdomen and pelvis. 2. Asymptomatic cholelithiasis. 3. History of congestive heart failure. 4. History of atrial fibrillation on Coumadin, currently on hold. INR is 1.8. RECOMMENDATIONS: 1. We will give him 2.5 mg of vitamin K p.o. x1 today. 2. Repeat PT/INR in the morning. 3. Proceed with ERCP tomorrow. 4. Discussed with him risks, benefits and complications and he is agreeable to it. The plan was also discussed with his daughter, Cinthia today. Thank you for this consultation. MMODL / JEFFREYN: [id number] /
[2020-09-15] MEDS: METOPROLOL TARTRATE 50 MG TAB PO SCH ×2 (09:08→20:32)
[2020-09-15] MEDS: SPIRONOLACTONE 25 MG TAB PO SCH (09:08)
[2020-09-15] MEDS: AMIODARONE 200 MG TAB PO SCH (09:08)
[2020-09-15] MEDS: FINASTERIDE 5 MG TAB PO SCH (09:08)
[2020-09-15] MEDS: FUROSEMIDE 10 MG/ML 10 ML VIAL IV SCH (09:08)
--- NOTE | 2020-09-15 10:57 | P.PN ---
Progress Note - Text Progress Note Date: 09/15/20 Patient feels well. He is scheduled for ERCP tomorrow. On exam vital signs are stable. Abdomen soft. Cholelithiasis with choledocholithiasis. Patient scheduled for ERCP tomorrow a laparoscopic cholecystectomy on Thursday.
[2020-09-15] MEDS ORDERED: POTASSIUM CHLORIDE ER 20 MEQ TAB.ER PO STA (11:44)
--- NOTE | 2020-09-15 11:45 | P.PN ---
Subjective Progress Note Date: 09/15/20 This is a pleasant 80-year-old male past medical history significant for congestive heart failure, chronic kidney disease, COPD, atrial fibrillation, hypertension and dyslipidemia. He follows with Dr. Crane out of [facility]. He is seen and examined resting comfortably in no acute distress. He has no symptoms of shortness of breath or current abdominal pain. Blood pressure 104/68 heart rate 71 afebrile maintaining oxygen saturation on room air. Laboratory data reviewed, INR 2.7. Currently maintained on amiodarone 200 mg daily, lasix 80 mg IV BID, lopressor 50 mg BID, pravastatin 40 mg daily and aldactone 25 mg daily. He is scheduled to undergo ERCP and then possible cholecystecomty thereafter. 09/15: INR today 1.8, BUN 37 creatinine 1.22. ERCP has been postponed until tomorrow and surgery for Thursday. Patient is complaining of numbness and tingling in his left arm and he has a dressing in place above the elbow. Nursing has been updated to recheck him. He is afebrile, heart rate in the 70s, blood pressure 102/66. cardiac monitor is paced rhythm. GENERAL: Well-appearing, well-nourished and in no acute distress. NECK: Supple without JVD or thyromegaly. LUNGS: Breath sounds clear to auscultation bilaterally. Respiration equal and unlabored. No wheezes, rales or rhonchi. Diminished bilaterally. HEART: Regular rate and rhythm without murmurs, rubs or gallops. S1 and S2 heard. EXTREMITIES: Normal range of motion, no edema. No clubbing or cyanosis. Peripheral pulses intact. ASSESSMENT Acute on chronic heart failure with reduced ejection fraction, EF less than 20% Paroxysmal atrial fibrillation on coumadin Supratherapeutic INR Transaminitis, suspect colangitis Non-ischemic cardiomyopathy s/p AICD Chronic kidney disease COPD Abnormal troponin secondary to heart failure and renal disease E. coli bacteremia PLAN 1potassium will be ordered, noted patient is on Aldactone Warfarin is on hold, status post vitamin K. ERCP scheduled for tomorrow and surgery on Thursday. Nurse Practitioner note has been reviewed, I agree with a documented findings and plan of care. Patient was seen and examined. Objective - Vital Signs Vital signs: Vital Signs Temp 97.9 F 09/15/20 03:06 Pulse 70 03/13/21 03:06 Resp 18 09/15/20 03:06 BP 102/66 09/15/20 03:06 Pulse Ox 97 09/15/20 03:06 Intake & Output 09/14/20 09/15/20 09/15/20 18:59 06:59 18:59 Intake Total 540 Output Total 2350 1650 300 Balance -1810 -1650 -300 Weight 89.3 kg Intake: Oral 540 Output: Urine 2350 1650 300 Straight 300 300 Other: Voiding Method Indwelling Catheter Indwelling Catheter # Voids 0 # Bowel Movements 1 - Labs CBC & Chem 7: 09/13/20 07:33 09/15/20 05:58 Labs: Abnormal Lab Results - Last 24 Hours (Table) 09/15/20 09/15/20 Range/Units 05:58 05:58 PT 17.9 H (9.0-12.0) sec INR 1.8 H (<1.2) Potassium 3.4 L (3.5-5.1) mmol/L BUN 37 H (9-20) mg/dL Glucose 104 H (74-99) mg/dL Total Bilirubin 3.0 H (0.2-1.3) mg/dL AST 75 H (17-59) U/L ALT 84 H (4-49) U/L Total Protein 6.0 L (6.3-8.2) g/dL Albumin 3.0 L (3.5-5.0) g/dL Microbiology - Last 24 Hours (Table) 09/13/20 07:33 Blood Culture - Preliminary Blood No Growth after 48 hours 09/12/20 11:38 Blood Culture - Preliminary Blood No Growth after 48 hours
--- NOTE | 2020-09-15 13:16 | P.PN ---
Subjective 80-year-old male was admitted secondary to CHF exacerbation and acute hypoxic respiratory failure was requiring the BiPAP yesterday patient is off BiPAP patient is not wheezing will discontinue the systemic steroids and patient will be continued on IV Lasix is improvement in serum creatinine as well as a serum sodium with IV Lasix. Patient appears to have heart failure exacerbation at this time. Patient was also started on Rocephin for minimally abnormal urine although patient doesn't have any symptoms UTI antibiotics will be discontinued at this time there is no evidence of pneumonia either. Patient is presently on 3 L of oxygen. 09/12/2020 Patient is present with his and doesn't usually use oxygen at home. Patient's electrolytes and urine creatinine continue improved patient is feeling better. Patient will remain on IV Lasix.Patient's creatinine at baseline is around 1.4 present creatinine is around 1.4. Patient feels much better and repeat chest x-ray showing some pulmonary edema. Patient is found to be bacteremic with E. coli possible source being urinary tract infection, repeat urine cultures today and tomorrow. Patient's E. coli is pansensitive and possible source of infection is urinary tract infection 09/13/2020 Patient's repeat blood cultures from yesterday are so far negative. Patient can use to be on Rocephin. Infectious disease evaluated the patient. As you urine analysis is not quite impressive for infection we're obtaining abdominal CT scan to rule out any intra-abdominal infection which showed possibility of cholecystitis and possible choledocholithiasis with dilated common bile duct of around 8 mm. Patient did have elevated liver enzymes which were initially believed to be secondary to hepatic congestion. Is possibly of cystitis as well on the kidney computed tomography scan due to surgery and gastroenterology will be consulted. Patient is Being continued on IV Lasix patient has improvement in liver function 48 anemia as well as renal function patient present creatinine is 1.33 significant improvement since admission and continue to improve. Patient is off oxygen 09/14/2020 Patient's CHF improved significantly patient was switched to oral Lasix patient's creatinine continued improvement is around 1.2 today. Metolazone will be switched to regular 2.5 daily. Patient will undergo ERCP tomorrow and cholecystectomy on Thursday liver enzymes continued to improve bilirubin continued to improve. Potassium will be replaced. Continue to hold off on Coumadin INR is 1.8 today Constitutional: Denied any fatigue denied any fever. Cardio vascular: denied any chest pain, palpitations Gastrointestinal denied any nausea vomiting Pulmonary: Significantly improved shortness of breath. Neurologic denied any new focal deficits All inpatient medications were reviewed and appropriate changes in these medications as dictated in the interval history and assessment and plan. Objective - Vital Signs Vital signs: Vital Signs Temp 97.9 F 09/15/20 03:06 Pulse 70 09/15/20 03:06 Resp 18 09/15/20 03:06 BP 102/66 09/15/20 03:06 Pulse Ox 97 09/15/20 03:06 Intake & Output 09/14/20 09/15/20 09/15/20 18:59 06:59 18:59 Intake Total 540 Output Total 2350 1650 300 Balance -1810 -1650 -300 Weight 89.3 kg Intake: Oral 540 Output: Urine 2350 1650 300 Straight 300 300 Other: Voiding Method Indwelling Catheter Indwelling Catheter # Voids 0 # Bowel Movements 1 - Exam PHYSICAL EXAMINATION: GENERAL: Alert oriented 3 off oxygen not in any acute distress. Well developed, well nourished. HEENT: Pupils are round and equally reacting to light. EOMI. No scleral icterus. No conjunctival pallor. Normocephalic, atraumatic. No pharyngeal erythema. No thyromegaly. CARDIOVASCULAR: S1 and S2 present. No murmurs, rubs, or gallops. PULMONARY: Chest is clear to auscultation, no wheezing or crackles. ABDOMEN: Soft, nontender, nondistended, normoactive bowel sounds. No palpable organomegaly. MUSCULOSKELETAL: No joint swelling or deformity. EXTREMITIES: No cyanosis, clubbing, or pedal edema. NEUROLOGICAL: Gross neurological examination did not reveal any focal deficits. SKIN: No rashes. - Labs CBC & Chem 7: 09/13/20 07:33 09/15/20 05:58 Labs: Abnormal Lab Results - Last 24 Hours (Table) 09/15/20 09/15/20 Range/Units 05:58 05:58 PT 17.9 H (9.0-12.0) sec INR 1.8 H (<1.2) Potassium 3.4 L (3.5-5.1) mmol/L BUN 37 H (9-20) mg/dL Glucose 104 H (74-99) mg/dL Total Bilirubin 3.0 H (0.2-1.3) mg/dL AST 75 H (17-59) U/L ALT 84 H (4-49) U/L Total Protein 6.0 L (6.3-8.2) g/dL Albumin 3.0 L (3.5-5.0) g/dL Microbiology - Last 24 Hours (Table) 09/13/20 07:33 Blood Culture - Preliminary Blood No Growth after 48 hours 09/12/20 11:38 Blood Culture - Preliminary Blood No Growth after 48 hours Assessment and Plan Plan: -Acute hypoxic respiratory failure: Secondary to congestive heart failure chronic systolic dysfunction with acute exacerbation. Patient is being switched to oral diuretics -E. coli bacteremia in you with the Rocephin possible sources being cystitis or cholecystitis. Patient will undergo ERCP tomorrow and cholecystectomy on Thursday -Hyponatremia , hypervolemic hyponatremia improved with Lasix. -Elevated liver enzymes may be secondary to choledocholithiasis. 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 Patient will not require any systemic steroids at this time patient will be continued on inhaled steroids and IV steroids will be discontinued Congestive heart heart failure chronic systolic dysfunction with EF of around less than 20% with acute exacerbation patient has an AICD . -Hypertension -Benign prostatic hypertrophy -Sleep apnea -Hypothyroidism -Supratherapeutic INR on admission DVT prophylaxis patient's INR is presently 1.8.
[2020-09-15] MEDS: FUROSEMIDE 80 MG TAB PO SCH (17:07)
[2020-09-15] MEDS: PRAVASTATIN SODIUM 40 MG TAB PO SCH (20:32)
[2020-09-15] MEDS: ALPRAZolam 0.5 MG TAB PO PRN (20:32)
--- NOTE | 2020-09-15 22:16 | PN ---
PROGRESS NOTE DATE OF SERVICE: 09/15/2020. REASON FOR FOLLOWUP: E coli bacteremia secondary to ascending cholangitis. INTERVAL HISTORY: Patient is currently afebrile. The patient is breathing comfortably. The patient denies having any chest pain, shortness of breath or cough. No abdominal pain. No diarrhea. No nausea, no vomiting. PHYSICAL EXAMINATION: Blood pressure 104/60 with a pulse of 72, temperature 98.2. He is 98% on room air. General description: The patient is an elderly male up in the chair in no distress. Respiratory system: Unlabored breathing, decreased breath sounds in the base, no wheeze. HEART: S1, S2. Regular rate and rhythm. ABDOMEN: Soft, no tenderness. EXTREMITIES: No edema of the feet. LAB: INR is 1.8. Creatinine is 1.22. DIAGNOSTIC IMPRESSION: Patient with E. Coli bacteria secondary to ascending cholangectomy. The patient did have evidence of choledochal disease. Plan is for an open cholecystectomy. Patient is covered with Rocephin 2 grams daily to continue. Follow up blood culture has been negative and continue supportive care. MMODL / IJN: [id number] /
[2020-09-16] MEDS: LEVOTHYROXINE 25 MCG TAB PO SCH (05:48)
[2020-09-16 06:25] LABS: Albumin 2.9 g/dL (3.5-5.0); Calcium 8.1 mg/dL (8.4-10.2); Potassium 3.9 mmol/L (3.5-5.1); Total Bilirubin 3.1 mg/dL (0.2-1.3); Total Protein 5.7 g/dL (6.3-8.2)
[2020-09-16] MEDS ORDERED: INDOMETHACIN 50MG SUPPOSITORY RECTAL STA (08:10)
[2020-09-16] MEDS ORDERED: SUCCINYLCHOLINE CHLORIDE 100 MG/5 ML SYR IV ONE (09:17)
[2020-09-16] MEDS ORDERED: PROPOFOL 10 MG/ML 20 ML VIAL IV ONE (09:17)
[2020-09-16] MEDS ORDERED: IOPAMIDOL-300 50ML BTL MISCELLANE ONE (09:57)
[2020-09-16] MEDS ORDERED: IV FLUID CONTINUATION 1,000 ML IV ONE (09:57)
--- NOTE | 2020-09-16 10:01 | P.PCN ---
Date of Procedure: 09/16/20 Procedure(s) Performed: Brief history: Patient is a 80-year-old white male scheduled for an ERCP as part of evaluation of abdominal pain and elevated serum transaminases and jaundice for the last 5 days' duration. Patient also had gram-negative bacteremia secondary to ascending cholangitis. He denies any abdominal pain. CT of abdomen showed CBD stones. Procedure performed: ERCP with biliary sphincterotomy and balloon stone extraction Preoperative diagnoses: Ascending cholangitis/CBD stones IV sedation per anesthesia: Procedure: After informed consent was obtained from the patient and after the risks benefits and complications including bleeding perforation and pancreatitis explained in detail the patient was brought into the endoscopy unit. The patient was placed in prone position and IV conscious sedation was administered by anesthesia under continuous monitoring. The Olympus side-viewing duodenoscope was then inserted into the mouth and esophagus intubated without any difficulty. The scope was gradually advanced into the stomach and duodenum. The major papilla was identified without any difficulty. There was a large preoperative diverticulum noted. Initial cannulation using the tapered-tip catheter resulted in opacification of the common bile duct and upon injection of dye there were 2 filling defects noted. The CBD was dilated measuring 1 cm in diameter. At this time the cath was exchanged over a guidewire with a biliary sphincterotome which was advanced. A biliary sphincterotomy was performed at 11 o'clock position and was extended to 1 cm. Following this an 8 mm balloon catheter was passed over the guidewire into the proximal CBD and was gently inflated and withdrawn and 2 stones seen exiting the ampulla. Stones measured about 5 mm in diameter. At this time an occlusion cholangio-Kvng was performed and no other filling defects were noted. Patient tolerated the procedure well. The pancreatic duct was intentionally not cannulated during the entire procedure. Impression: Slightly dilated CBD with 2 small filling defects status post biliary sphinct erotomy and balloon stone extraction as described above Pancreatic duct not cannulated Recommendations: The findings of this examination were discussed with the patient as well as a family. He will be on a clear liquid diet today. Repeat labs in the morning. Continue with broad spectrum antibiotics.
--- NOTE | 2020-09-16 10:16 | FL ---
EXAMINATION TYPE: FL ERCP biliary duct only DATE OF EXAM: 09/16/2020 CLINICAL HISTORY: CT 09/13/2020 TECHNIQUE: Intraprocedural fluoroscopy. COMPARISON: None. FINDINGS: Fluoroscopic guidance was provided during procedure ERCP. A total of 90 seconds of fluoros copic time was utilized during the procedure and 1 spot images was acquired. IMPRESSION: As Above.
[2020-09-16] MEDS: FUROSEMIDE 80 MG TAB PO SCH ×2 (11:07→14:03)
[2020-09-16] MEDS: METOPROLOL TARTRATE 50 MG TAB PO SCH ×2 (12:23→20:29)
[2020-09-16] MEDS: AMIODARONE 200 MG TAB PO SCH (12:23)
[2020-09-16] MEDS: metOLazone 2.5 MG TAB PO SCH (12:24)
[2020-09-16] MEDS: FINASTERIDE 5 MG TAB PO SCH (12:24)
[2020-09-16] MEDS: SPIRONOLACTONE 25 MG TAB PO SCH (12:24)
--- NOTE | 2020-09-16 14:15 | P.PN ---
Progress Note - Text Progress Note Date: 09/16/20 Patient underwent ERCP is morning. He had 2 stones removed from his bile duct. He will be scheduled for laparoscopic cholecystectomy in the a.m.
--- NOTE | 2020-09-16 15:13 | P.PN ---
Subjective 80-year-old male was admitted secondary to CHF exacerbation and acute hypoxic respiratory failure was requiring the BiPAP yesterday patient is off BiPAP patient is not wheezing will discontinue the systemic steroids and patient will be continued on IV Lasix is improvement in serum creatinine as well as a serum sodium with IV Lasix. Patient appears to have heart failure exacerbation at this time. Patient was also started on Rocephin for minimally abnormal urine although patient doesn't have any symptoms UTI antibiotics will be discontinued at this time there is no evidence of pneumonia either. Patient is presently on 3 L of oxygen. 09/12/2020 Patient is present with his and doesn't usually use oxygen at home. Patient's electrolytes and urine creatinine continue improved patient is feeling better. Patient will remain on IV Lasix.Patient's creatinine at baseline is around 1.4 present creatinine is around 1.4. Patient feels much better and repeat chest x-ray showing some pulmonary edema. Patient is found to be bacteremic with E. coli possible source being urinary tract infection, repeat urine cultures today and tomorrow. Patient's E. coli is pansensitive and possible source of infection is urinary tract infection 09/13/2020 Patient's repeat blood cultures from yesterday are so far negative. Patient can use to be on Rocephin. Infectious disease evaluated the patient. As you urine analysis is not quite impressive for infection we're obtaining abdominal CT scan to rule out any intra-abdominal infection which showed possibility of cholecystitis and possible choledocholithiasis with dilated common bile duct of around 8 mm. Patient did have elevated liver enzymes which were initially believed to be secondary to hepatic congestion. Is possibly of cystitis as well on the kidney computed tomography scan due to surgery and gastroenterology will be consulted. Patient is Being continued on IV Lasix patient has improvement in liver function 48 anemia as well as renal function patient present creatinine is 1.33 significant improvement since admission and continue to improve. Patient is off oxygen 09/15/2020 Patient's CHF improved significantly patient was switched to oral Lasix patient's creatinine continued improvement is around 1.2 today. Metolazone will be switched to regular 2.5 daily. Patient will undergo ERCP tomorrow and cholecystectomy on Thursday liver enzymes continued to improve bilirubin continued to improve. Potassium will be replaced. Continue to hold off on Coumadin INR is 1.8 today 09/16/2020 Patient had an ERCP and extraction of the common bile duct stone today. And will undergo cholecystectomy tomorrow continue to hold Coumadin Constitutional: Denied any fatigue denied any fever. Cardio vascular: denied any chest pain, palpitations Gastrointestinal denied any nausea vomiting Pulmonary: Significantly improved shortness of breath. Neurologic denied any new focal deficits All inpatient medications were reviewed and appropriate changes in these medications as dictated in the interval history and assessment and plan. Objective - Vital Signs Vital signs: Vital Signs Temp 97.5 F L 09/16/20 11:51 Pulse 70 09/16/20 11:51 Resp 20 09/16/20 11:51 BP 116/66 09/16/20 11:51 Pulse Ox 99 09/16/20 11:51 Intake & Output 09/15/20 09/16/20 09/16/20 17:59 06:59 18:59 Intake Total 460 Output Total Balance 460 Weight 93 kg Intake: IV 400 cefTRIAXone 2 gm In 100 Sodium Chloride 0.9% 50 ml @ 100 mls/hr IVPB Q24HR [facility] Rx#:[id number] Oral 60 Output: Urine Straight Other: Voiding Method Indwelling Catheter # Bowel Movements 1 - Exam PHYSICAL EXAMINATION: GENERAL: Alert oriented 3 off oxygen not in any acute distress. Well developed, well nourished. HEENT: Pupils are round and equally reacting to light. EOMI. No scleral icterus. No conjunctival pallor. Normocephalic, atraumatic. No pharyngeal erythema. No thyromegaly. CARDIOVASCULAR: S1 and S2 present. No murmurs, rubs, or gallops. PULMONARY: Chest is clear to auscultation, no wheezing or crackles. ABDOMEN: Soft, nontender, nondistended, normoactive bowel sounds. No palpable or ganomegaly. MUSCULOSKELETAL: No joint swelling or deformity. EXTREMITIES: No cyanosis, clubbing, or pedal edema. NEUROLOGICAL: Gross neurological examination did not reveal any focal deficits. SKIN: No rashes. - Labs CBC & Chem 7: 09/13/20 07:33 09/16/20 05:31 Labs: Abnormal Lab Results - Last 24 Hours (Table) 09/16/20 Range/Units 05:31 BUN 30 H (9-20) mg/dL Calcium 8.1 L (8.4-10.2) mg/dL Total Bilirubin 3.1 H (0.2-1.3) mg/dL AST 72 H (17-59) U/L ALT 75 H (4-49) U/L Total Protein 5.7 L (6.3-8.2) g/dL Albumin 2.9 L (3.5-5.0) g/dL Microbiology - Last 24 Hours (Table) 09/12/20 11:38 Blood Culture - Preliminary Blood No Growth after 96 hours 09/13/20 07:33 Blood Culture - Preliminary Blood No Growth after 72 hours Assessment and Plan Plan: -Acute hypoxic respiratory failure: Secondary to congestive heart failure chronic systolic dysfunction with acute exacerbation. Patient is on oral diuretics -E. coli bacteremia: Continue with Rocephin. Repeat blood cultures are negative. Patient is found to have cholecystitis and ascending cholangitis patient had a stone extraction today status post ERCP and patient will undergo cholecystectomy tomorrow -Hyponatremia , hypervolemic hyponatremia improved with Lasix. -Elevated liver enzymes may be secondary to choledocholithiasis. 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 Patient will not require any systemic steroids at this time patient will be continued on inhaled steroids and IV steroids will be discontinued Congestive heart heart failure chronic systolic dysfunction with EF of around less than 20% with acute exacerbation patient has an AICD . -Hypertension -Benign prostatic hypertrophy -Sleep apnea -Hypothyroidism -Supratherapeutic INR on admission DVT prophylaxis patient's INR is presently 1.8.
--- NOTE | 2020-09-16 18:37 | PN ---
PROGRESS NOTE DATE OF SERVICE: 09/16/2020 REASON FOR FOLLOWUP: E coli bacteremia secondary to ascending cholangitis. INTERVAL HISTORY: Patient is currently afebrile. The patient is breathing comfortably. Denies having any chest pain, shortness of breath or cough. No nausea. No abdominal pain or diarrhea. PHYSICAL EXAMINATION: Blood pressure 97/67, pulse of 70, temperature 97.5, he is 97% on room air. General description is an elderly male lying in bed in no distress. Respiratory system: Unlabored breathing, clear to auscultation anteriorly. Heart S1, S2. Regular rate and rhythm. Abdomen soft, no tenderness. LABS: BUN of 30, creatinine 1.02. Blood culture repeat has been negative so far. DIAGNOSTIC IMPRESSION AND PLAN: Patient with E coli bacteremia secondary to ascending cholangitis in this patient covered with Rocephin. Waiting for his appy and cholecystectomy tomorrow. Continue supportive care. MMODL / IJN: [id number] /
[2020-09-16] MEDS: PRAVASTATIN SODIUM 40 MG TAB PO SCH (20:29)
[2020-09-16] MEDS: ALPRAZolam 0.5 MG TAB PO PRN (20:31)
[2020-09-17 04:23] LABS: INR 1.3 (<1.2); Prothrombin Time 13.5 sec (9.0-12.0)
[2020-09-17 04:25] LABS: Albumin 2.7 g/dL (3.5-5.0); Calcium 8.1 mg/dL (8.4-10.2); Potassium 3.7 mmol/L (3.5-5.1); Total Bilirubin 2.6 mg/dL (0.2-1.3); Total Protein 5.4 g/dL (6.3-8.2)
[2020-09-17 04:45] LABS: Anisocytosis Slight; HCT 47.2 % (39.0-53.0); Hypochromasia Slight; MCH 30.8 pg (25.0-35.0); MCHC 31.7 g/dL (31.0-37.0); MCV 97.2 fL (80.0-100.0); Macrocytosis Slight; Platelet Count 117 k/uL (150-450); RBC 4.85 m/uL (4.30-5.90); RDW 16.8 % (11.5-15.5); WBC 5.6 k/uL (3.8-10.6)
[2020-09-17 05:07] LABS: Eosinophils # (M) 0.11 k/uL (0-0.7); Lymphocytes # (M) 0.67 k/uL (1.0-4.8); Monocytes # (M) 0.45 k/uL (0-1.0); Neutrophils # (M) 4.37 k/uL (1.3-7.7); Neutrophils % (M) 78 %; Nucleated Red Blood Cells 0 /100 WBC (0-0); Total Cells Counted 100
[2020-09-17] MEDS ORDERED: LACTATED RINGERS 1,000 ML IV ONE (08:20)
[2020-09-17] MEDS ORDERED: HEPARIN SODIUM,PORCINE 5,000 UNIT/ML 1 ML VIAL ONE (08:32)
[2020-09-17] MEDS ORDERED: LIDOCAINE 1% INJ 10MG/ML (20 ML MDV) ONE (08:41)
[2020-09-17] MEDS ORDERED: GLYCOPYRROLATE 0.2 MG/ML 2 ML VIAL ONE (08:41)
[2020-09-17] MEDS ORDERED: fentaNYL (PF) 50 MCG/ML 2 ML AMP ONE (08:41)
[2020-09-17] MEDS ORDERED: SUCCINYLCHOLINE CHLORIDE 100 MG/5 ML SYR IV ONE (08:41)
[2020-09-17] MEDS ORDERED: ETOMIDATE 2 MG/ML 10 ML VIAL ONE (08:41)
[2020-09-17] MEDS ORDERED: NEOSTIGMINE 1 MG/ML 10 ML VIAL ONE (08:41)
[2020-09-17] MEDS ORDERED: ROCURONIUM 10 MG/ML (5 ML VIAL) IV ONE (08:41)
[2020-09-17] MEDS ORDERED: SODIUM CHLORIDE 0.9% 50 ML with ceFAZolin 2,000 MG IV ONE ×2 (09:13)
[2020-09-17] MEDS ORDERED: BUPIVACAIN-EPI 0.5%-1:200,000 30 ML VIAL SQ ONE (09:21)
--- NOTE | 2020-09-17 10:02 | P.OP ---
Date of Procedure: 09/17/20 Preoperative Diagnosis: Choledocholithiasis Postoperative Diagnosis: Choledocholithiasis Cholecystitis Procedure(s) Performed: Laparoscopic cholecystectomy Anesthesia: JACOB Surgeon: Dante Gage Estimated Blood Loss (ml): 10 Pathology: other (Gallbladder) Condition: stable Disposition: PACU Description of Procedure: The patient was placed on the operating table. The patient received a general endotracheal tube anesthesia. The patients abdomen was prepped and draped in the usual sterile fashion. Through an infraumbilical stab incision, the fascia of the anterior abdominal wall was grasped with a pair of Kochers and then the Veress needle was placed in the peritoneal cavity. Position of the Veress needle was confirmed with positive drop test. The abdomen was then insufflated. After adequate insufflation, the 10 mm trocar was placed in the peritoneal cavity. Following this the laparoscope was placed in the peritoneal cavity. The patient was placed in the head-up, right side up position and then a 5 mm trocar was placed in the right lateral and right subcostal position under direct visualization. A 8 mm trocar was placed in the epigastric position. The gallbladder was grasped in the fundus and infundibulum. Traction on the gallbladder was placed in the lateral and the cephalad positions. The triangle of Calot was visualized.. The cystic duct was bluntly dissected until the union of the cystic duct and common bile duct was seen. A critical view of safety was achieved. The cystic duct was then divided and sealed with the Harmonic scissors. A PDS Endoloop was then placed throughout the cystic duct stump. The cystic artery divided and sealed with the Harmonic scissors. The gallbladder was then removed from the liver bed using Harmonic scissors. The gallbladder was then extracted through the epigastric port site. Operative field was checked for any bleeding spots and Harmonic scissors was used to coagulate the liver bed. The abdomen was irrigated. The trocars were removed. The skin was closed using interrupted 3-0 Vicryl suture. Dermabond dressing were applied. The patient tolerated the procedure well.
[2020-09-17] MEDS ORDERED: FUROSEMIDE 80 MG TAB PO SCH (13:15)
--- NOTE | 2020-09-17 13:29 | P.PN ---
Subjective Progress Note Date: 09/17/20 80-year-old male was admitted secondary to CHF exacerbation and acute hypoxic respiratory failure was requiring the BiPAP yesterday patient is off BiPAP patient is not wheezing will discontinue the systemic steroids and patient will be continued on IV Lasix is improvement in serum creatinine as well as a serum sodium with IV Lasix. Patient appears to have heart failure exacerbation at this time. Patient was also started on Rocephin for minimally abnormal urine although patient doesn't have any symptoms UTI antibiotics will be discontinued at this time there is no evidence of pneumonia either. Patient is presently on 3 L of oxygen. 09/12/2020 Patient is present with his and doesn't usually use oxygen at home. Patient's electrolytes and urine creatinine continue improved patient is feeling better. Patient will remain on IV Lasix.Patient's creatinine at baseline is around 1.4 present creatinine is around 1.4. Patient feels much better and repeat chest x-ray showing some pulmonary edema. Patient is found to be bacteremic with E. coli possible source being urinary tract infection, repeat urine cultures today and tomorrow. Patient's E. coli is pansensitive and possible source of infection is urinary tract infection 09/13/2020 Patient's repeat blood cultures from yesterday are so far negative. Patient can use to be on Rocephin. Infectious disease evaluated the patient. As you urine analysis is not quite impressive for infection we're obtaining abdominal CT scan to rule out any intra-abdominal infection which showed possibility of cholecystitis and possible choledocholithiasis with dilated common bile duct of around 8 mm. Patient did have elevated liver enzymes which were initially believed to be secondary to hepatic congestion. Is possibly of cystitis as well on the kidney computed tomography scan due to surgery and gastroenterology will be consulted. Patient is Being continued on IV Lasix patient has improvement in liver function 48 anemia as well as renal function patient present creatinine is 1.33 significant improvement since admission and continue to improve. Patient is off oxygen 09/14/2020 Patient is seen and evaluated in follow-up currently sitting comfortably on room air. Multiple medical consultations including her etiology, infectious disease, surgery, and GI following. Patient is scheduled to undergo laparoscopic cholecystectomy on Thursday. Patient was tentatively scheduled for an ERCP on Thursday as his INR has been elevated. Today's INR is 2.7 and will give a dose of vitamin K. Will repeat INR. Creatinine today is the same at 1.33 with a BUN of 42. Sodium is 137 with a potassium of 3.8. ALT is 95, AST is also trending down at 80 and alkaline phosphatase slightly lower at 128. Most recent blood cultures have been negativ e and infectious disease is following. Patient is maintained on ceftriaxone and will continue at this time. Patient continues to be on IV Lasix 80 mg twice daily and will continue. 09/15/2020 Patient's CHF improved significantly patient was switched to oral Lasix patient's creatinine continued improvement is around 1.2 today. Metolazone will be switched to regular 2.5 daily. Patient will undergo ERCP tomorrow and cholecystectomy on Thursday liver enzymes continued to improve bilirubin continued to improve. Potassium will be replaced. Continue to hold off on Coumadin INR is 1.8 today 09/16/2020 Patient had an ERCP and extraction of the common bile duct stone today. And will undergo cholecystectomy tomorrow continue to hold Coumadin 09/17/2020 Patient is scheduled to undergo laparoscopic cholecystectomy with surgery today. Will await report. Will discuss with surgery about the possibility of resuming Coumadin. White blood count this morning is 5.6 with hemoglobin of 15.0. Cu rrent INR is 1.3, sodium is 135 with a potassium of 3.7. Creatinine slightly worsened at 1.43. Liver functions trending down. Will follow up with case management as family has refused rehab. Will repeat a.m. labs. Constitutional: Denied any fatigue denied any fever. Cardio vascular: denied any chest pain, palpitations Gastrointestinal denied any nausea vomiting Pulmonary: Significantly improved shortness of breath. Neurologic denied any new focal deficits All inpatient medications were reviewed and appropriate changes in these medications as dictated in the interval history and assessment and plan. Objective - Vital Signs Vital signs: Vital Signs Temp 97.0 F L 09/17/20 08:21 Pulse 70 09/17/20 08:21 Resp 16 09/17/20 08:21 BP 109/63 09/17/20 08:21 Pulse Ox 97 09/17/20 08:21 Intake & Output 09/16/20 09/17/20 09/17/20 18:59 06:59 18:59 Intake Total 560 50 Output Total 300 1700 Balance 260 -1700 50 Weight 93 kg 90 kg Intake: IV 400 50 cefTRIAXone 2 gm In 100 Sodium Chloride 0.9% 50 ml @ 100 mls/hr IVPB Q24HR [facility] Rx#:[id number] Oral 160 Output: Urine 300 1700 Straight 300 Other: Voiding Method Indwelling Catheter Indwelling Catheter # Bowel Movements 1 - Exam GENERAL: The patient is awake sitting up in bed, not in any acute distress. Well developed, well nourished. Currently on room air. HEENT: Pupils are round and equally reacting to light. EOMI. No scleral icterus. No conjunctival pallor. Normocephalic, atraumatic. No pharyngeal erythema. No thyromegaly. CARDIOVASCULAR: S1 and S2 present. No murmurs, rubs, or gallops. PULMONARY: Chest is clear to auscultation, no wheezing or crackles. ABDOMEN: Soft, nontender, nondistended, normoactive bowel sounds. No palpable organomegaly. MUSCULOSKELETAL: No joint swelling or deformity. EXTREMITIES: No cyanosis, clubbing, or pedal edema. NEUROLOGICAL: Gross neurological examination did not reveal any focal deficits. SKIN: No rashes. - Labs CBC & Chem 7: 09/17/20 03:55 09/17/20 03:55 Labs: Abnormal Lab Results - Last 24 Hours (Table) 09/17/20 09/17/20 09/17/20 Range/Units 03:55 03:55 03:55 RDW 16.8 H (11.5-15.5) % Plt Count 117 L (150-450) k/uL Lymphocytes # (Manual) 0.67 L (1.0-4.8) k/uL PT 13.5 H (9.0-12.0) sec INR 1.3 H (<1.2) Sodium 135 L (137-145) mmol/L BUN 35 H (9-20) mg/dL Creatinine 1.43 H (0.66-1.25) mg/dL Glucose 67 L (74-99) mg/dL Calcium 8.1 L (8.4-10.2) mg/dL Total Bilirubin 2.6 H (0.2-1.3) mg/dL AST 63 H (17-59) U/L ALT 57 H (4-49) U/L Total Protein 5.4 L (6.3-8.2) g/dL Albumin 2.7 L (3.5-5.0) g/dL Microbiology - Last 24 Hours (Table) 09/12/20 11:38 Blood Culture - Preliminary Blood No Growth after 96 hours 09/13/20 07:33 Blood Culture - Preliminary Blood No Growth after 72 hours Assessment and Plan Assessment: -Acute hypoxic respiratory failure: Secondary to congestive heart failure chroni c systolic dysfunction with acute exacerbation. Patient is on oral diuretics -E. coli bacteremia: Continue with Rocephin. Repeat blood cultures are negative. Patient is found to have cholecystitis and ascending cholangitis patient had a stone extraction today status post ERCP and patient will undergo cholecystectomy tomorrow -Hyponatremia , hypervolemic hyponatremia improved with Lasix. -Elevated liver enzymes may be secondary to choledocholithiasis. 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 Patient will not require any systemic steroids at this time patient will be continued on inhaled steroids and IV steroids will be discontinued -Congestive heart heart failure chronic systolic dysfunction with EF of around less than 20% with acute exacerbation patient has an AICD . -Hypertension -Benign prostatic hypertrophy -Sleep apnea -Hypothyroidism -Supratherapeutic INR on admission -DVT prophylaxis patient's INR is presently 1.8. Plan: Continue current medications. Continue to hold Coumadin at this time and will discuss with surgery about resuming. Patient currently undergoing laparoscopic cholecystectomy and will await report. GI and surgery following. Will repeat a.m. labs along with INR and monitor closely. Will discuss with case management about discharge planning needs as family has refused rehab. Possible discharge in 24-48 hours.
[2020-09-17 14:01] VITALS: BMI 34.0
[2020-09-17] MEDS: ALPRAZolam 0.5 MG TAB PO PRN ×2 (14:44→21:08)
[2020-09-17] MEDS: AMIODARONE 200 MG TAB PO SCH (14:44)
[2020-09-17] MEDS: SPIRONOLACTONE 25 MG TAB PO SCH (14:45)
[2020-09-17] MEDS: FINASTERIDE 5 MG TAB PO SCH (14:45)
[2020-09-17] MEDS: FUROSEMIDE 80 MG TAB PO SCH ×2 (14:45→21:06)
[2020-09-17] MEDS: LEVOTHYROXINE 25 MCG TAB PO SCH (14:45)
[2020-09-17] MEDS: METOPROLOL TARTRATE 50 MG TAB PO SCH ×2 (14:45→21:06)
[2020-09-17] MEDS: metOLazone 2.5 MG TAB PO SCH (14:48)
--- NOTE | 2020-09-17 15:42 | P.PN ---
Subjective Progress Note Date: 09/17/20 Principal diagnosis: Choledocholithiasis The patient is a pleasant 80-year-old white male who was admitted to the hospital with shortness of breath generalized weakness and was noted to have elevated LFTs on admission. CT of the abdomen and pelvis showed cholelithiasis as well as 2 small CBD stones in the distal common bile duct. The patient underwent ERCP yesterday with biliary sphincterectomy and stone extraction. Today he underwent cholecystectomy with Dr. Gage. He states he is having surgical incision pain. He also states that he is shivering. He was noted to have a normal temperature. LFTs are trending down, today total bilirubin 2.6, alkaline phosphatase 114, AST 63, ALT 57. Objective - Vital Signs Vital signs: Vital Signs Temp 97.1 F L 09/17/20 09:54 Pulse 70 09/17/20 12:00 Resp 16 09/17/20 12:00 BP 111/69 09/17/20 12:00 Pulse Ox 98 09/17/20 12:00 Intake & Output 09/16/20 09/17/20 09/17/20 18:59 06:59 18:59 Intake Total 560 350 Output Total 300 1700 5 Balance 260 -1700 345 Weight 93 kg 90 kg 90 kg Intake: IV 400 350 cefTRIAXone 2 gm In 100 Sodium Chloride 0.9% 50 ml @ 100 mls/hr IVPB Q24HR [facility] Rx#:[id number] Oral 160 Output: Urine 300 1700 Straight 300 Estimated Blood Loss 5 Other: Voiding Method Indwelling Catheter Indwelling Catheter # Bowel Movements 1 - Exam General appearance: The patient is alert, oriented, appears in no acute distress. HET: Head is normocephalic and atraumatic. Conjunctiva pink. Sclera anicteric. Neck: Supple without lymphadenopathy. Abdomen: Soft, incision sites clean dry and intact, with surgical tenderness, nondistended with bowel sounds. No guarding or rigidity. Extremities: Normal skin color and turgor. No pedal edema Skin: No rashes, no jaundice Neurological: No focal deficits. Alert and oriented 3. - Labs CBC & Chem 7: 09/17/20 03:55 09/17/20 03:55 Labs: Abnormal Lab Results - Last 24 Hours (Table) 09/17/20 09/17/20 09/17/20 Range/Units 03:55 03:55 03:55 RDW 16.8 H (11.5-15.5) % Plt Count 117 L (150-450) k/uL Lymphocytes # (Manual) 0.67 L (1.0-4.8) k/uL PT 13.5 H (9.0-12.0) sec INR 1.3 H (<1.2) Sodium 135 L (137-145) mmol/L BUN 35 H (9-20) mg/dL Creatinine 1.43 H (0.66-1.25) mg/dL Glucose 67 L (74-99) mg/dL Calcium 8.1 L (8.4-10.2) mg/dL Total Bilirubin 2.6 H (0.2-1.3) mg/dL AST 63 H (17-59) U/L ALT 57 H (4-49) U/L Total Protein 5.4 L (6.3-8.2) g/dL Albumin 2.7 L (3.5-5.0) g/dL Microbiology - Last 24 Hours (Table) 09/13/20 07:33 Blood Culture - Preliminary Blood No Growth after 96 hours 09/12/20 11:38 Blood Culture - Preliminary Blood No Growth after 96 hours Assessment and Plan (1) Choledocholithiasis Narrative/Plan: This is a pleasant 80-year-old white male patient who was brought to the emergency room 4 days ago with complaints of severe shortness of breath and was found on the ground with low oxygen levels. He also had complaints of generalized weakness and difficulty with walking. He has multiple comorbidities including coronary artery disease with an ejection fraction of less than 20% as reported in August 2020, atrial fibrillation on Coumadin, hypertension, dyslipidemia, permanent pacemaker, chronic kidney disease, history of gallstones. Multiple consultants on case including cardiology and pulmonology. Patient was noted to have elevated LFTs on admission, with total bilirubin 4.5, alkaline phosphatase 147, AST 111, ALT 56. He had a CT of the abdomen which showed choledocholithiasis with a couple of calculi measuring up to 8 mm in the mid bile duct and a string of 4 calculi in the lower bile duct measuring up to 4 mm. No hydropic gallbladder changes at this time to suggest complete biliary bl ockage. Cholelithiasis. Mild gallbladder wall thickening may reflect chronic cholecystitis. Mild to moderate stool burden. Proximal sigmoid diverticulosis. No convincing evidence for acute diverticulitis. Slight nodular hepatic contour may be normal variation in this patient. Moderate size right pleural effusion with adjacent atelectasis. [place] catheter in place. The patient denies any abdominal pain, nausea, or vomiting. He has been tolerating a regular diet. There has been some trending down of his LFTs total bilirubin 2.6, alkaline phosphatase 131, AST 112, ALT 1:15. INR 2.7. Repeat LFTs are trending down. He is status post ERCP with to stone extraction and cholecystectomy. Current Visit: Yes Status: Acute Code(s): K80.50 - CALCULUS OF BILE DUCT W/O CHOLANGITIS OR CHOLECYST W/O OBST SNOMED Code(s): 571632159 (2) Transaminitis Current Visit: Yes Status: Acute Code(s): R74.01 - ELEVATION OF LEVELS OF LIVER TRANSAMINASE LEVELS SNOMED Code(s): 404163199 (3) Chronic kidney disease Current Visit: Yes Status: Acute Code(s): N18.9 - CHRONIC KIDNEY DISEASE, UNSPECIFIED SNOMED Code(s): 479060405 (4) COPD (chronic obstructive pulmonary disease) Current Visit: Yes Status: Acute Code(s): J44.9 - CHRONIC OBSTRUCTIVE PULMONARY DISEASE, UNSPECIFIED SNOMED Code(s): 56384122 (5) Atrial fibrillation Current Visit: No Status: Acute Code(s): I48.91 - UNSPECIFIED ATRIAL FIBRILLATION SNOMED Code(s): 85472630 Plan: 1. Supportive care 2. Diet per surgical service recommendation 3. Repeat CMP 4. Patient is status post ERCP and cholecystectomy Thank you for this consultation, we will continue to follow closely Dr. Iliana Wright I agree with the dictator's note, documented as a scribe by Keisha Mcgrath.
[2020-09-17] MEDS ORDERED: ONDANSETRON 4 MG/2 ML VIAL IVP PRN (15:44)
[2020-09-17] MEDS: MORPHINE SULFATE 2 MG/ML SYRINGE IVP PRN (17:43)
[2020-09-17] MEDS: PRAVASTATIN SODIUM 40 MG TAB PO SCH (21:06)
--- NOTE | 2020-09-17 23:38 | PN ---
PROGRESS NOTE DATE OF SERVICE: 09/17/2020 REASON FOR FOLLOWUP: E coli bacteremia secondary to ascending cholangitis. INTERVAL HISTORY: The patient is currently afebrile. The patient is breathing comfortably. The patient is status post laparoscopic cholecystectomy. He tolerated the procedure. Denies chest pain, shortness of breath or cough. No abdominal pain or diarrhea. PHYSICAL EXAMINATION: Blood pressure 100/61, pulse of 74, temperature 98.4. He is 94% on 2 L nasal cannula. General description is an elderly male lying in bed in no distress. RESPIRATORY SYSTEM: Unlabored breathing with decreased breath sounds at the base. No wheeze. HEART: S1, S2. Regular rate and rhythm. ABDOMEN: Soft. No tenderness. LABS: Hemoglobin is 15, white count 5.6, BUN of 35, creatinine 1.43. Repeat blood culture has been negative. DIAGNOSTIC IMPRESSION AND PLAN: Patient with Escherichia coli bacteremia secondary to ascending cholangitis with choledocholithiasis and cholecystitis in this patient who is status post cholecystectomy. The patient is covered with Rocephin; to continue while inpatient. Hopefully transition to oral on discharge. Continue with supportive care. MMODL / IJN: [id number] / [email or web address]
[2020-09-18] MEDS: FUROSEMIDE 80 MG TAB PO SCH ×2 (00:26→09:20)
[2020-09-18] MEDS: MORPHINE SULFATE 2 MG/ML SYRINGE IVP PRN (06:23)
[2020-09-18] MEDS: LEVOTHYROXINE 25 MCG TAB PO SCH (06:23)
[2020-09-18 06:31] LABS: Anisocytosis Slight; Basophils % (A) 0 %; Eosinophils % (A) 0 %; HCT 46.9 % (39.0-53.0); HGB 15.4 gm/dL (13.0-17.5); Lymphocytes # (A) 0.7 k/uL (1.0-4.8); Lymphocytes % (A) 7 %; MCH 31.8 pg (25.0-35.0); MCHC 32.8 g/dL (31.0-37.0); MCV 96.9 fL (80.0-100.0); Macrocytosis Slight; Mean Platelet Volume 9.4; Monocytes % (A) 11 %; Neutrophils # (A) 7.5 k/uL (1.3-7.7); Neutrophils % (A) 80 %; Platelet Count 113 k/uL (150-450); RBC 4.84 m/uL (4.30-5.90); RDW 16.7 % (11.5-15.5); WBC 9.4 k/uL (3.8-10.6)
[2020-09-18 06:35] LABS: INR 1.4 (<1.2); Prothrombin Time 14.4 sec (9.0-12.0)
[2020-09-18 06:42] LABS: Albumin 2.7 g/dL (3.5-5.0); Calcium 8.3 mg/dL (8.4-10.2); Potassium 4.3 mmol/L (3.5-5.1); Total Bilirubin 2.9 mg/dL (0.2-1.3); Total Protein 5.4 g/dL (6.3-8.2)
[2020-09-18] MEDS ORDERED: ACETAMINOPHEN TAB 325 MG TAB PO PRN (08:54)
[2020-09-18] MEDS: SPIRONOLACTONE 25 MG TAB PO SCH (09:20)
[2020-09-18] MEDS: metOLazone 2.5 MG TAB PO SCH (09:20)
[2020-09-18] MEDS: METOPROLOL TARTRATE 50 MG TAB PO SCH ×2 (09:20→20:04)
[2020-09-18] MEDS: FINASTERIDE 5 MG TAB PO SCH (09:20)
[2020-09-18] MEDS: AMIODARONE 200 MG TAB PO SCH (09:20)
[2020-09-18] MEDS: HYDROcodone/APAP 5-325MG 1 EACH TAB PO PRN ×3 (09:34→22:28)
[2020-09-18] MEDS ORDERED: FUROSEMIDE 10 MG/ML 10 ML VIAL IV SCH (09:45)
[2020-09-18] MEDS ORDERED: traMADol 50 MG TAB PO PRN (11:43)
--- NOTE | 2020-09-18 11:44 | XR ---
EXAMINATION TYPE: XR chest 2V DATE OF EXAM: 09/18/2020 COMPARISON: 09/13/2020 INDICATION: CHF TECHNIQUE: Frontal and lateral views of the chest are obtained. FINDINGS: The heart size is moderately prominent. The pulmonary vasculature is normal. Small focal infiltrate is at the right lung base. Correlate for pneumonia and atelectasis. Pacemaker overlies left chest.. Chronic rotator cuff tears are likely present bilaterally. IMPRESSION: 1. Right lower lobe infiltrate. Correlate for pneumonia. 2. Cardiomegaly.
--- NOTE | 2020-09-18 12:03 | P.PN ---
Subjective Progress Note Date: 09/18/20 CHIEF COMPLAINT: Abdominal pain HISTORY OF PRESENT ILLNESS: Patient is postop day #1 status post laparoscopic cholecystectomy for choledocholithiasis and cholecystitis. Patient had been complaining of abdominal pain. He denies any nausea or vomiting. He is currently nothing by mouth. Afebrile. WBC 9.4 Hgb 15.4 platelets 113 INR 1.4 creatinine 1.62 total bili 2.9 AST 113 ALT 59 alk phos 95 PHYSICAL EXAM: VITAL SIGNS: Reviewed. GENERAL: Well-developed in no acute distress. HEENT: No sclera icterus. Extraocular movements grossly intact. Moist buccal mucosa. Head is atraumatic, normocephalic. ABDOMEN: Soft. Nondistended. Incision site clean dry and intact LORENZO drain with sanguinous output NEUROLOGIC: Alert and oriented. Cranial nerves II through XII grossly intact. ASSESSMENT: 1. Cholecystitis with choledocholithiasis status post laparoscopic cholecystectomy. Postop day #1 2. E. coli bacteremia secondary to ascending cholangitis PLAN: -Continue supportive care -Continue antibiotics per ID -Continue pain medication as needed -Continue low-fat diet -Encourage incentive spirometer use -Encourage patient to increase activity Physician Director [employer] note has been reviewed by physician. Signing provider agrees with the documented findings, assessment, and plan of care. Objective - Vital Signs Vital signs: Vital Signs Temp 99.4 F 09/18/20 04:00 Pulse 74 09/18/20 04:00 Resp 16 09/18/20 04:00 BP 99/61 09/18/20 04:00 Pulse Ox 94 L 09/18/20 04:00 Intake & Output 09/17/20 09/18/20 09/18/20 18:59 06:59 18:59 Intake Total 350 480 Output Total 5 750 25 Balance 345 -270 -25 Weight 90 kg 89.5 kg Intake: IV 350 Oral 480 Output: Drainage 50 25 Right Abdomen 50 25 Urine 700 Estimated Blood Loss 5 Other: Voiding Method Indwelling Catheter Indwelling Catheter - Labs CBC & Chem 7: 09/18/20 05:46 09/18/20 05:46 Labs: Abnormal Lab Results - Last 24 Hours (Table) 09/18/20 09/18/20 09/18/20 Range/Units 05:46 05:46 05:46 RDW 16.7 H (11.5-15.5) % Plt Count 113 L (150-450) k/uL Lymphocytes # 0.7 L (1.0-4.8) k/uL PT 14.4 H (9.0-12.0) sec INR 1.4 H (<1.2) Sodium 133 L (137-145) mmol/L Chloride 96 L (98-107) mmol/L Carbon Dioxide 31 H (22-30) mmol/L BUN 39 H (9-20) mg/dL Creatinine 1.62 H (0.66-1.25) mg/dL Calcium 8.3 L (8.4-10.2) mg/dL Total Bilirubin 2.9 H (0.2-1.3) mg/dL AST 113 H (17-59) U/L ALT 59 H (4-49) U/L Total Protein 5.4 L (6.3-8.2) g/dL Albumin 2.7 L (3.5-5.0) g/dL Microbiology - Last 24 Hours (Table) 09/13/20 07:33 Blood Culture - Preliminary Blood No Growth after 120 hours 09/12/20 11:38 Blood Culture - Preliminary Blood No Growth after 120 hours
--- NOTE | 2020-09-18 13:20 | P.PN ---
Subjective Progress Note Date: 09/18/20 HISTORY OF PRESENT ILLNESS: 09/11/2020 This is a 80-year-old male with a past medical history significant for congestive heart failure, chronic kidney disease, COPD, atrial fibrillation, hypertension, and hyperlipidemia. Patient follows with a plate printer out of [place] (Dr. Crane?). We have been asked to see the patient in consultation for congestive heart failure. Patient examined at the bedside. Patient states yesterday he was sitting on the side of his bed at home. He was trying to get out of bed but fell and landed on the floor. He states when he called EMS they noticed his fingers and lips to be blue so they brought him to the emergency room. The patient currently denies chest pain or pressure. He denies shortness of breath at the time of examination. Patient was found to be in acute exacerbation of CHF and was started on IV Lasix. EKG reveals paced rhythm Chest xray small right pleural effusion. Emphysema. Mild pulmonary vascular congestion. Cardiomegaly. Laboratory data: WBC 11.2. Hemoglobin 16.3. Platelet count 88. INR 4.0. Sodium 132. BUN 48. Creatinine 1.62. Bilirubin 3.0. AST 325. ALT 162. Troponin 0.074. BNP 11,600. Current home cardiac medications include Zaroxolyn 2.5 mg daily as needed, Coumadin 1 mg daily, Aldactone 25 mg daily, pravastatin 40 mg daily, potassium chloride 20 meq daily, Lasix 80 mg twice a day, Coreg 12.5 mg twice a day, amiodarone 200 mg daily Most recent echocardiogram obtained in August 2020 revealed ejection fraction less than 20%, mild mitral regurgitation, mild tricuspid regurgitation, and mild aortic regurgitation. 09/12/2020 Patient examined at the bedside. Patient denies chest or pain. Reports improvement in his shortness of breath. He remains on IV Lasix 80 mg every 12 hours. Fluid balance over the last 24 hours is -1700 mL. BUN 53. Creatinine 1.46, down from 1.62 yesterday. LFTs are improving. AST 172. ALT 145. Patient is requesting to have his AICD interrogated. 09/13/2020 Patient examined this morning at the bedside. Patient denies chest pain or pressure. Patient reports minimal shortness of breath. INR 3.2. Coumadin continues to remain on hold. BUN 49. Creatinine 1.33. Patient remains on IV Lasix. LFTs continue to improve. Blood cultures are positive for E. coli. 09/18/2020 Patient examined this morning at the bedside. He is status post laparoscopic cholecystectomy. INR 1.4. BUN 39. Creatinine increased to 1.62. He denies chest pain or pressure. Reports mild shortness of breath. PHYSICAL EXAM: VITAL SIGNS: Reviewed. GENERAL: Well-developed in no acute distress. HEENT: Head is normocephalic. Pupils are equal, round. Sclerae anicteric. Mucous membranes of the mouth are moist. Neck supple. No JVD or thyromegaly LUNGS: Respirations even and unlabored. Lungs diminished bilaterally. HEART: Regular rate and rhythm. S1 and S2 heard. EXTREMITIES: Normal range of motion. No clubbing or cyanosis. Peripheral pulses intact. Trace bilateral lower extremity edema ASSESSMENT: Acute cholecystitis and choledocholithiasis, status post laparoscopic cholecystectomy Acute exacerbation of chronic systolic heart failure, ejection fraction less than 20% History of paroxysmal atrial fibrillation, on anticoagulation with Coumadin Supratherapeutic INR Transaminitis History of AICD implantation Chronic kidney disease COPD Abnormal troponin, secondary to acute exacerbation of heart failure and chronic kidney disease, no evidence of acute coronary syndrome E. coli bacteremia PLAN: Infectious disease following Continue Lasix Monitor kidney function Accurate I&O Daily weights Begin losartan 12.5mg at HS. Hold for SBP less than 90. Resume Coumadin. Spoke with surgery [facility] who states Coumadin may be resumed from surgical standpoint. Further recommendations pending patient's course Nurse practitioner note has been reviewed by physician. Signing provider agrees with the documented findings, assessment, and plan of care. Objective - Vital Signs Vital signs: Vital Signs Temp 99.4 F 09/18/20 04:00 Pulse 74 09/18/20 04:00 Resp 16 09/18/20 04:00 BP 99/61 09/18/20 04:00 Pulse Ox 94 L 09/18/20 04:00 Intake & Output 09/17/20 09/18/20 09/18/20 18:59 06:59 18:59 Intake Total 350 480 Output Total 5 750 425 Balance 345 -270 -425 Weight 90 kg 89.5 kg Intake: IV 350 Oral 480 Output: Drainage 50 25 Right Abdomen 50 25 Urine 700 400 Estimated Blood Loss 5 Other: Voiding Method Indwelling Catheter Indwelling Catheter - Labs CBC & Chem 7: 09/18/20 05:46 09/18/20 05:46 Labs: Abnormal Lab Results - Last 24 Hours (Table) 09/18/20 09/18/20 09/18/20 Range/Units 05:46 05:46 05:46 RDW 16.7 H (11.5-15.5) % Plt Count 113 L (150-450) k/uL Lymphocytes # 0.7 L (1.0-4.8) k/uL PT 14.4 H (9.0-12.0) sec INR 1.4 H (<1.2) Sodium 133 L (137-145) mmol/L Chloride 96 L (98-107) mmol/L Carbon Dioxide 31 H (22-30) mmol/L BUN 39 H (9-20) mg/dL Creatinine 1.62 H (0.66-1.25) mg/dL Calcium 8.3 L (8.4-10.2) mg/dL Total Bilirubin 2.9 H (0.2-1.3) mg/dL AST 113 H (17-59) U/L ALT 59 H (4-49) U/L Total Protein 5.4 L (6.3-8.2) g/dL Albumin 2.7 L (3.5-5.0) g/dL Microbiology - Last 24 Hours (Table) 09/13/20 07:33 Blood Culture - Preliminary Blood No Growth after 120 hours 09/12/20 11:38 Blood Culture - Preliminary Blood No Growth after 120 hours
--- NOTE | 2020-09-18 13:26 | P.PN ---
Subjective Progress Note Date: 09/18/20 Principal diagnosis: Choledocholithiasis The patient is a pleasant 80-year-old white male who was admitted to the hospital with shortness of breath generalized weakness and was noted to have elevated LFTs on admission. CT of the abdomen and pelvis showed cholelithiasis as well as 2 small CBD stones in the distal common bile duct. The patient underwent ERCP with biliary sphincterectomy and stone extraction. He is postop day #[address] Gage. He states he is having surgical incision pain. LFTS is are stable. Objective - Vital Signs Vital signs: Vital Signs Temp 99.4 F 09/18/20 04:00 Pulse 74 09/18/20 04:00 Resp 16 09/18/20 04:00 BP 99/61 09/18/20 04:00 Pulse Ox 94 L 09/18/20 04:00 Intake & Output 09/17/20 09/18/20 09/18/20 18:59 06:59 18:59 Intake Total 350 480 Output Total 5 750 25 Balance 345 -270 -25 Weight 90 kg 89.5 kg Intake: IV 350 Oral 480 Output: Drainage 50 25 Right Abdomen 50 25 Urine 700 Estimated Blood Loss 5 Other: Voiding Method Indwelling Catheter Indwelling Catheter - Exam General appearance: The patient is alert, oriented, appears in no acute distress. HET: Head is normocephalic and atraumatic. Conjunctiva pink. Sclera anicteric. Neck: Supple without lymphadenopathy. Abdomen: Soft, incision sites clean dry and intact, LORENZO drain intact with serosanguineous drainage, surgical tenderness, nondistended with bowel sounds. No guarding or rigidity. Extremities: Normal skin color and turgor. No pedal edema Skin: No rashes, no jaundice Neurological: No focal deficits. Alert and oriented 3. - Labs CBC & Chem 7: 09/18/20 05:46 09/18/20 05:46 Labs: Abnormal Lab Results - Last 24 Hours (Table) 09/18/20 09/18/20 09/18/20 Range/Units 05:46 05:46 05:46 RDW 16.7 H (11.5-15.5) % Plt Count 113 L (150-450) k/uL Lymphocytes # 0.7 L (1.0-4.8) k/uL PT 14.4 H (9.0-12.0) sec INR 1.4 H (<1.2) Sodium 133 L (137-145) mmol/L Chloride 96 L (98-107) mmol/L Carbon Dioxide 31 H (22-30) mmol/L BUN 39 H (9-20) mg/dL Creatinine 1.62 H (0.66-1.25) mg/dL Calcium 8.3 L (8.4-10.2) mg/dL Total Bilirubin 2.9 H (0.2-1.3) mg/dL AST 113 H (17-59) U/L ALT 59 H (4-49) U/L Total Protein 5.4 L (6.3-8.2) g/dL Albumin 2.7 L (3.5-5.0) g/dL Microbiology - Last 24 Hours (Table) 09/12/20 11:38 Blood Culture - Preliminary Blood No Growth after 120 hours 09/13/20 07:33 Blood Culture - Preliminary Blood No Growth after 96 hours Assessment and Plan (1) Choledocholithiasis Narrative/Plan: This is a pleasant 80-year-old white male patient who was brought to the emergency room 4 days ago with complaints of severe shortness of breath and was found on the ground with low oxygen levels. He also had complaints of gener alized weakness and difficulty with walking. He has multiple comorbidities including coronary artery disease with an ejection fraction of less than 20% as reported in August 2020, atrial fibrillation on Coumadin, hypertension, dyslipidemia, permanent pacemaker, chronic kidney disease, history of gallstones. Multiple consultants on case including cardiology and pulmonology. Patient was noted to have elevated LFTs on admission, with total bilirubin 4.5, alkaline phosphatase 147, AST 111, ALT 56. He had a CT of the abdomen which showed choledocholithiasis with a couple of calculi measuring up to 8 mm in the mid bile duct and a string of 4 calculi in the lower bile duct measuring up to 4 mm. No hydropic gallbladder changes at this time to suggest complete biliary blockage. Cholelithiasis. Mild gallbladder wall thickening may reflect chronic cholecystitis. Mild to moderate stool burden. Proximal sigmoid diverticulosis. No convincing evidence for acute diverticulitis. Slight nodular hepatic contour may be normal variation in this patient. Moderate size right pleural effusion with adjacent atelectasis. [place] catheter in place. The patient denies any abdominal pain, nausea, or vomiting. He has been tolerating a regular diet. There has been some trending down of his LFTs total bilirubin 2.6, alkaline phosphatase 131, AST 112, ALT 1:15. INR 2.7. Repeat LFTs are trending down. He is status post ERCP with to stone extraction and cholecystectomy. Current Visit: Yes Status: Acute Code(s): K80.50 - CALCULUS OF BILE DUCT W/O CHOLANGITIS OR CHOLECYST W/O OBST SNOMED Code(s): 699197204 (2) Transaminitis Narrative/Plan: LFTs stable, slowly trending down. Patient likely has underlying liver disease as noted on CT abdomen and pelvis owing a slightly nodular hepatic contour. Current Visit: Yes Status: Acute Code(s): R74.01 - ELEVATION OF LEVELS OF LIVER TRANSAMINASE LEVELS SNOMED Code(s): 151837339 (3) Chronic kidney disease Current Visit: Yes Status: Acute Code(s): N18.9 - CHRONIC KIDNEY DISEASE, UNSPECIFIED SNOMED Code(s): 277029058 (4) COPD (chronic obstructive pulmonary disease) Current Visit: Yes Status: Acute Code(s): J44.9 - CHRONIC OBSTRUCTIVE PULMONARY DISEASE, UNSPECIFIED SNOMED Code(s): 67611822 (5) Atrial fibrillation Current Visit: No Status: Acute Code(s): I48.91 - UNSPECIFIED ATRIAL FIBRILLATION SNOMED Code(s): 04168686 Plan: 1. Supportive care 2. Diet per surgical service recommendation 3. Repeat CMP daily 4. Patient is status post ERCP and cholecystectomy Thank you for this consultation, we will continue to follow closely Dr. Iliana Wright I agree with the dictator's note, documented as a scribe by Keisha Mcgrath.
--- NOTE | 2020-09-18 15:26 | P.PN ---
Subjective Progress Note Date: 09/18/20 80-year-old male was admitted secondary to CHF exacerbation and acute hypoxic respiratory failure was requiring the BiPAP yesterday patient is off BiPAP patient is not wheezing will discontinue the systemic steroids and patient will be continued on IV Lasix is improvement in serum creatinine as well as a serum sodium with IV Lasix. Patient appears to have heart failure exacerbation at this time. Patient was also started on Rocephin for minimally abnormal urine although patient doesn't have any symptoms UTI antibiotics will be discontinued at this time there is no evidence of pneumonia either. Patient is presently on 3 L of oxygen. 09/12/2020 Patient is present with his and doesn't usually use oxygen at home. Patient's electrolytes and urine creatinine continue improved patient is feeling better. Patient will remain on IV Lasix.Patient's creatinine at baseline is around 1.4 present creatinine is around 1.4. Patient feels much better and repeat chest x-ray showing some pulmonary edema. Patient is found to be bacteremic with E. coli possible source being urinary tract infection, repeat urine cultures today and tomorrow. Patient's E. coli is pansensitive and possible source of infection is urinary tract infection 09/13/2020 Patient's repeat blood cultures from yesterday are so far negative. Patient can use to be on Rocephin. Infectious disease evaluated the patient. As you urine analysis is not quite impressive for infection we're obtaining abdominal CT scan to rule out any intra-abdominal infection which showed possibility of cholecystitis and possible choledocholithiasis with dilated common bile duct of around 8 mm. Patient did have elevated liver enzymes which were initially believed to be secondary to hepatic congestion. Is possibly of cystitis as well on the kidney computed tomography scan due to surgery and gastroenterology will be consulted. Patient is Being continued on IV Lasix patient has improvement in liver function 48 anemia as well as renal function patient present creatinine is 1.33 significant improvement since admission and continue to improve. Patient is off oxygen 09/14/2020 Patient is seen and evaluated in follow-up currently sitting comfortably on room air. Multiple medical consultations including her etiology, infectious disease, surgery, and GI following. Patient is scheduled to undergo laparoscopic cholecystectomy on Thursday. Patient was tentatively scheduled for an ERCP on Thursday as his INR has been elevated. Today's INR is 2.7 and will give a dose of vitamin K. Will repeat INR. Creatinine today is the same at 1.33 with a BUN of 42. Sodium is 137 with a potassium of 3.8. ALT is 95, AST is also trending down at 80 and alkaline phosphatase slightly lower at 128. Most recent blood cultures have been negativ e and infectious disease is following. Patient is maintained on ceftriaxone and will continue at this time. Patient continues to be on IV Lasix 80 mg twice daily and will continue. 09/15/2020 Patient's CHF improved significantly patient was switched to oral Lasix patient's creatinine continued improvement is around 1.2 today. Metolazone will be switched to regular 2.5 daily. Patient will undergo ERCP tomorrow and cholecystectomy on Thursday liver enzymes continued to improve bilirubin continued to improve. Potassium will be replaced. Continue to hold off on Coumadin INR is 1.8 today 09/16/2020 Patient had an ERCP and extraction of the common bile duct stone today. And will undergo cholecystectomy tomorrow continue to hold Coumadin 09/17/2020 Patient is scheduled to undergo laparoscopic cholecystectomy with surgery today. Will await report. Will discuss with surgery about the possibility of resuming Coumadin. White blood count this morning is 5.6 with hemoglobin of 15.0. Cu rrent INR is 1.3, sodium is 135 with a potassium of 3.7. Creatinine slightly worsened at 1.43. Liver functions trending down. Will follow up with case management as family has refused rehab. Will repeat a.m. labs. 09/18/2020 Patient is seen and evaluated in follow-up status post laparoscopic ch olecystectomy and continues to have extreme right upper quadrant abdominal discomfort. Patient is passing gas although no reports of bowel movement at this time. Patient has LORENZO drain noted with sanguinous output noted. Patient states the LORENZO drain has been drained multiple times today. Patient is maintained on IV antibiotics in the form of ceftriaxone and will continue. Patient's blood pressure has been on the lower side and had an intermittent low- grade temp at 4:00 this morning of 99.4. Chest x-ray was done showing possible right lower lobe infiltrate with cardiomegaly. Patient also given incentive spirometer and instructed to use at least 10 times every hour while awake. Multiple medical consultations following including surgery, GI, infectious disease. Diet was started and patient is on low fiber diet and will continue and advance as tolerated. Patient was having multiple episodes of abdominal discomfort and nausea with vomiting last night although states has improved. In structed the patient to increase activity as tolerated. Current INR today is 1.4 and will resume Coumadin and monitor labs. Creatinine slightly worse at 1.6 to, sodium is 133, potassium is 4.3. White blood count is 9.4 and hemoglobin is 15.4. Constitutional: Denied any fatigue denied any fever. Cardio vascular: denied any chest pain, palpitations Gastrointestinal: Reports right-sided abdominal discomfort and tenderness and passing gas Pulmonary: Significantly improved shortness of breath. Neurologic denied any new focal deficits All inpatient medications were reviewed and appropriate changes in these medications as dictated in the interval history and assessment and plan. Objective - Vital Signs Vital signs: Vital Signs Temp 99.4 F 09/18/20 04:00 Pulse 74 09/18/20 04:00 Resp 16 09/18/20 04:00 BP 99/61 09/18/20 04:00 Pulse Ox 94 L 09/18/20 04:00 Intake & Output 09/17/20 09/18/20 09/18/20 18:59 06:59 18:59 Intake Total 350 480 Output Total 5 750 25 Balance 345 -270 -25 Weight 90 kg 89.5 kg Intake: IV 350 Oral 480 Output: Drainage 50 25 Right Abdomen 50 25 Urine 700 Estimated Blood Loss 5 Other: Voiding Method Indwelling Catheter Indwelling Catheter - Exam GENERAL: The patient is awake sitting up in bed, not in any acute distress. Well developed, well nourished. Currently on room air. HEENT: Pupils are round and equally reacting to light. EOMI. No scleral icterus. No conjunctival pallor. Normocephalic, atraumatic. No pharyngeal erythema. No thyromegaly. CARDIOVASCULAR: S1 and S2 present. No murmurs, rubs, or gallops. PULMONARY: Chest is clear to auscultation, no wheezing or crackles. ABDOMEN: Soft, tender on palpation of the right upper quadrant to mid abdominal region, nondistended, normoactive bowel sounds. No palpable organomegaly. LORENZO drain noted with sanguinous fluid on the right MUSCULOSKELETAL: No joint swelling or deformity. EXTREMITIES: No cyanosis, clubbing, or pedal edema. NEUROLOGICAL: Gross neurological examination did not reveal any focal deficits. SKIN: No rashes. - Labs CBC & Chem 7: 09/18/20 05:46 09/18/20 05:46 Labs: Abnormal Lab Results - Last 24 Hours (Table) 09/18/20 09/18/20 09/18/20 Range/Units 05:46 05:46 05:46 RDW 16.7 H (11.5-15.5) % Plt Count 113 L (150-450) k/uL Lymphocytes # 0.7 L (1.0-4.8) k/uL PT 14.4 H (9.0-12.0) sec INR 1.4 H (<1.2) Sodium 133 L (137-145) mmol/L Chloride 96 L (98-107) mmol/L Carbon Dioxide 31 H (22-30) mmol/L BUN 39 H (9-20) mg/dL Creatinine 1.62 H (0.66-1.25) mg/dL Calcium 8.3 L (8.4-10.2) mg/dL Total Bilirubin 2.9 H (0.2-1.3) mg/dL AST 113 H (17-59) U/L ALT 59 H (4-49) U/L Total Protein 5.4 L (6.3-8.2) g/dL Albumin 2.7 L (3.5-5.0) g/dL Microbiology - Last 24 Hours (Table) 09/13/20 07:33 Blood Culture - Preliminary Blood No Growth after 120 hours 09/12/20 11:38 Blood Culture - Preliminary Blood No Growth after 120 hours Assessment and Plan Assessment: -Acute hypoxic respiratory failure: Secondary to congestive heart failure chronic systolic dysfunction with acute exacerbation. Patient is on oral diuretics -E. coli bacteremia: Continue with Rocephin. Repeat blood cultures are negative. Patient is found to have cholecystitis and ascending cholangitis patient had a stone extraction today status post ERCP and underwent cholecystectomy yesterday -Hyponatremia , hypervolemic hyponatremia improved with Lasix. -Elevated liver enzymes may be secondary to choledocholithiasis. 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 Patient will be continued on inhaled steroids -Congestive heart heart failure chronic systolic dysfunction with EF of around less than 20% with acute exacerbation patient has an AICD . -Hypertension -Benign prostatic hypertrophy -Sleep apnea -Hypothyroidism -Supratherapeutic INR on admission -DVT prophylaxis patient's INR is presently 1.4. Resuming Coumadin Plan: Continue current medications. Coumadin is being resumed. Multiple medical consultations following including GI, surgery, cardiology. Patient underwent laparoscopic cholecystectomy yesterday. Will repeat a.m. labs along with INR and monitor closely. Will discuss with case management about discharge planning needs as family has refused rehab.
[2020-09-18] MEDS ORDERED: WARFARIN 2 MG TAB PO ONE (18:00)
--- NOTE | 2020-09-18 18:55 | PN ---
PROGRESS NOTE DATE OF SERVICE: 09/18/2020 REASON FOR FOLLOWUP: E coli bacteremia secondary to ascending cholangitis and choledocholithiasis. INTERVAL HISTORY: The patient is currently afebrile. The patient is feeling better, breathing comfortably. Denies having any chest pain or shortness of breath or cough. No worsening abdominal pain and no vomiting or diarrhea. PHYSICAL EXAMINATION: Blood pressure 107/63 with a pulse of 71, temperature 98.7. He is 94% on room air. General description is an elderly male lying in bed in no distress. RESPIRATORY SYSTEM: Unlabored breathing. Clear to auscultation anteriorly. HEART: S1, S2. Regular rate and rhythm. ABDOMEN: Soft. No tenderness. LABS: Hemoglobin is 15.4, white count 9.4. Creatinine is slightly up at 1.62. DIAGNOSTIC IMPRESSION AND PLAN: Patient with an Escherichia coli bacteremia secondary to choledocholithiasis and cholecystitis, status post cholecystectomy. Patient is on Rocephin. Plan to finish therapy with oral antibiotics. Worsening of the kidney function needs to be monitored closely. Continue with supportive care. MMODL / IJN: [id number] /
[2020-09-18] MEDS: PRAVASTATIN SODIUM 40 MG TAB PO SCH (20:04)
[2020-09-18] MEDS: LOSARTAN 25 MG TAB PO SCH (20:04)
[2020-09-18] MEDS: FUROSEMIDE 10 MG/ML 10 ML VIAL IV SCH (20:05)
[2020-09-18] MEDS ORDERED: LOSARTAN 25 MG TAB PO SCH (21:00)
[2020-09-19] MEDS: HYDROcodone/APAP 5-325MG 1 EACH TAB PO PRN ×3 (05:27→23:24)
[2020-09-19] MEDS: LEVOTHYROXINE 25 MCG TAB PO SCH (05:27)
--- NOTE | 2020-09-19 05:45 | P.CONS ---
History of Present Illness - Chief Complaint Medical debility - History of Present Illness I had the opportunity to see patient for inpatient rehab consultation with regard to medical debility. Patient admitted to [facility] September 10 with COPD exacerbation, hypoxia. Seen by cardiology for CHF, atrial fibrillation and 20% ejection fraction/cardiomyopathy. Seen by Dr. Maurice for the COPD. Seen by Dr. Pizraro for abdominal discomfort and eventually underwent cholecystectomy by Dr. Gonzalez September 17. Chest x-rays followed for right lower lobe infiltrate and cardiomegaly. Patient has not had therapies for a few days but prior PT reports moderate assistance for bed mobility, minimal assistance to stand and transfer and supervision for gait 40 feet with roller walker. OT reports minimal assistance for upper dressing and bathing moderate assistance for lower dressing and maximal assistance for toileting and toileting transfers. Previous functional history as elicited patient: 80-year-old ambidextrous white male who is single lives in a first-floor apartment alone. Family looks in on him and does the cooking laundry and driving. Patient describes independent with own standing shower, gait with 4 wheeled walker outside and standard cane inside. PMD Dr. Keith Sales. Review of Systems Review of systems: ENT: Denies sneezes or discharge. Eyes: Denies discharge or photophobia. Cardiac: Denies chest pain or palpitation. Pulmonary: Denies cough or shortness of breath. Gastrointestinal: Abdominal discomfort. Genitourinary: Denies discharge or frequency. Musculoskeletal: Denies muscle or bone aches. Neurologic: Denies motor or sensory change. Endocrine: Denies shakes or sweats. Oncology: Denies cancers. Dermatologic: Denies rash, itching, pruritus. ALLERGY/immunology: Denies sneezes, rashes. 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 Smoked for 5 years- 1PPD Past Drug Use History: None Reported - Past Family History Father Family Medical History: Coronary Artery Disease (CAD), Deep Vein Thrombosis (DVT) Additional Family Medical History / Comment(s): Heart disease, blood clot that traveled ultimately result in his Mother Family Medical History: Cancer, GI Bleed Additional Family Medical History / Comment(s): Some type of intestinal cancer resulting in a bleed. Medications and Allergies Home Medications Medication Instructions Recorded Confirmed Type Amiodarone [Cordarone] 200 mg PO DAILY 11/10/16 09/10/20 History Finasteride [Proscar] 5 mg PO DAILY 11/10/16 09/10/20 History Levothyroxine Sodium [Levo-T] 25 mcg PO DAILY 11/10/16 09/10/20 History Pravastatin Sodium [Pravachol] 40 mg PO HS 11/10/16 09/10/20 History Spironolactone [Aldactone] 25 mg PO DAILY 11/10/16 09/10/20 History ALPRAZolam [Xanax] 0.5 mg PO TID 06/27/17 09/10/20 History Carvedilol [Coreg] 12.5 mg PO BID 06/25/20 09/10/20 History Nitroglycerin Sl Tabs [Nitrostat] 0.4 mg SL Q5M PRN 06/25/20 09/10/20 History metOLazone [Zaroxolyn] 2.5 mg PO DIRECTED PRN 06/25/20 09/10/20 History Loperamide [Imodium] 2 mg PO QID PRN 08/15/20 09/10/20 History Warfarin [Coumadin] 1 mg PO DAILY 08/15/20 09/10/20 History Potassium Chloride ER [K-Dur 20] 20 meq PO DAILY #0 08/18/20 09/10/20 Rx Furosemide [Lasix] 80 mg PO BID 09/10/20 09/10/20 History Allergies Allergy/AdvReac Type Severity Reaction Status Date / Time formoterol [From Dulera] Allergy Hallucinati Verified 09/10/20 07:17 ons hydromorphone [From Dilaudid] Allergy Rash/Hives Verified 09/10/20 07:17 methocarbamol Allergy Unknown Verified 09/10/20 07:17 mometasone furoate Allergy Hallucinati Verified 09/10/20 07:17 [From Dulera] ons Physical Exam Vitals: Vital Signs Temp Pulse Resp BP Pulse Ox 09/19/20 04:00 97.6 F 69 19 91/54 97 09/19/20 00:00 97.3 F L 70 19 91/63 95 09/18/20 20:00 97.7 F 74 16 93/57 96 09/18/20 16:00 69 20 101/66 94 L 09/18/20 13:36 71 18 09/18/20 12:00 71 18 107/63 94 L 09/18/20 08:00 98.7 F 66 16 101/62 95 Intake and Output 09/18/20 09/18/20 09/19/20 14:59 22:59 06:59 Intake Total 240 Output Total 694 193 1703 Balance -185 -850 -1550 Intake: Oral 240 Output: Drainage 25 50 Right Abdomen 25 50 Urine 929 072 7149 Uretheral ([place]) 800 Other: Voiding Method Indwelling Catheter Indwelling Catheter Indwelling Catheter Weight 88.9 kg Skin: Atrophic, intact. Did not examine abdomen closely. General: Overweight build and comfortable appearance. Head: Normocephalic, atraumatic. Eyes: Symmetric. Pupils equal round. Ears: Symmetric. Hearing within normal limits. Mouth: Clear. Neck: Supple. Carotid without bruit. Cardiac: Regular rate and rhythm. Lungs: Clear anteriorly and posteriorly. Abdomen: Soft active nontender. Extremities: Normal tone. Neurological: Mental status: Alert, cooperative, pleasant. Cranial nerves: Symmetric facial tone and trapezius. Motor: Active movement all 4 limbs. Sensation: Intact throughout. DTRs: Symmetric and equal throughout. Mobility: Sits and stands with 5% minimal assistance. Results CBC & Chem 7: 09/18/20 05:46 09/18/20 05:46 Labs: Abnormal Lab Results - Last 24 Hours (Table) 09/18/20 09/18/20 09/18/20 Range/Units 05:46 05:46 05:46 RDW 16.7 H (11.5-15.5) % Plt Count 113 L (150-450) k/uL Lymphocytes # 0.7 L (1.0-4.8) k/uL PT 14.4 H (9.0-12.0) sec INR 1.4 H (<1.2) Sodium 133 L (137-145) mmol/L Chloride 96 L (98-107) mmol/L Carbon Dioxide 31 H (22-30) mmol/L BUN 39 H (9-20) mg/dL Creatinine 1.62 H (0.66-1.25) mg/dL Calcium 8.3 L (8.4-10.2) mg/dL Total Bilirubin 2.9 H (0.2-1.3) mg/dL AST 113 H (17-59) U/L ALT 59 H (4-49) U/L Total Protein 5.4 L (6.3-8.2) g/dL Albumin 2.7 L (3.5-5.0) g/dL Microbiology - Last 24 Hours (Table) 09/12/20 11:38 Blood Culture - Final Blood No Growth after 144 hours 09/13/20 07:33 Blood Culture - Preliminary Blood No Growth after 120 hours Assessment and Plan (1) COPD (chronic obstructive pulmonary disease) Current Visit: Yes Status: Acute Code(s): J44.9 - CHRONIC OBSTRUCTIVE PULMONARY DISEASE, UNSPECIFIED SNOMED Code(s): 41634875 (2) Choledocholithiasis Current Visit: Yes Status: Acute Code(s): K80.50 - CALCULUS OF BILE DUCT W/O CHOLANGITIS OR CHOLECYST W/O OBST SNOMED Code(s): 549899783 Plan: Impression: 1. Medical debility. 2. COPD exacerbation with acute hypoxia. 3. Choledocholithiasis status post cholecystectomy. 4. Cardiomyopathy 20% ejection fraction. 5. Hypertension. 6. Atrophic fibrillation. 7. Osteoarthritis. Counts and plan: At this time overweight resumption of PT and OT after the cholecystectomy. In fact we'll make sure it is ordered at this time. Follow closely with yourself. Noted patient went through quite a bit of effort to demonstrates to me that he can get out of bed on his own right motivated for return to home with previous supports.
[2020-09-19 07:40] LABS: Calcium 8.4 mg/dL (8.4-10.2); Potassium 3.3 mmol/L (3.5-5.1); Total Bilirubin 3.6 mg/dL (0.2-1.3)
[2020-09-19 07:46] LABS: INR 1.5 (<1.2); Prothrombin Time 15.1 sec (9.0-12.0)
[2020-09-19] MEDS: FUROSEMIDE 10 MG/ML 10 ML VIAL IV SCH ×2 (09:34→09:55)
[2020-09-19] MEDS: METOPROLOL TARTRATE 50 MG TAB PO SCH ×2 (09:38→21:59)
[2020-09-19] MEDS: AMIODARONE 200 MG TAB PO SCH (09:38)
[2020-09-19] MEDS: SPIRONOLACTONE 25 MG TAB PO SCH (09:38)
[2020-09-19] MEDS: metOLazone 2.5 MG TAB PO SCH (09:38)
[2020-09-19] MEDS: FINASTERIDE 5 MG TAB PO SCH (09:38)
--- NOTE | 2020-09-19 12:24 | P.PN ---
Subjective Progress Note Date: 09/19/20 Principal diagnosis: Choledocholithiasis The patient is a pleasant 80-year-old white male who was admitted to the hospital with shortness of breath generalized weakness and was noted to have elevated LFTs on admission. CT of the abdomen and pelvis showed cholelithiasis as well as 2 small CBD stones in the distal common bile duct. The patient underwent ERCP with biliary sphincterectomy and stone extraction. He is postop day #[address] Gage. He states he is having surgical incision pain. Mild elevation in bilirubin today, at 3.6. Alkaline phosphatase 101, AST 108, ALT 51. Patient states he did have a bowel movement this morning. Denies any nausea or vomiting. Objective - Vital Signs Vital signs: Vital Signs Temp 97.6 F 09/19/20 04:00 Pulse 69 09/19/20 04:00 Resp 19 09/19/20 04:00 BP 91/54 09/19/20 04:00 Pulse Ox 97 09/19/20 04:00 Intake & Output 09/18/20 09/19/20 09/19/20 18:59 06:59 18:59 Intake Total 240 240 Output Total 1275 2350 Balance -1035 -2350 240 Weight 88.9 kg Intake: Oral 240 240 Output: Drainage 25 50 Right Abdomen 25 50 Urine 1250 2300 Uretheral ([place]) 800 Other: Voiding Method Indwelling Catheter Indwelling Catheter - Exam General appearance: The patient is alert, oriented, appears in no acute dis tress. HET: Head is normocephalic and atraumatic. Conjunctiva pink. Sclera anicteric. Neck: Supple without lymphadenopathy. Abdomen: Soft, incision sites clean dry and intact, LORENZO drain intact with serosanguineous drainage, surgical tenderness, nondistended with bowel sounds. No guarding or rigidity. Extremities: Normal skin color and turgor. No pedal edema Skin: No rashes, no jaundice Neurological: No focal deficits. Alert and oriented 3. - Labs CBC & Chem 7: 09/18/20 05:46 09/19/20 07:13 Labs: Abnormal Lab Results - Last 24 Hours (Table) 09/19/20 09/19/20 Range/Units 07:13 07:13 PT 15.1 H (9.0-12.0) sec INR 1.5 H (<1.2) Sodium 129 L (137-145) mmol/L Potassium 3.3 L (3.5-5.1) mmol/L Chloride 90 L (98-107) mmol/L Carbon Dioxide 33 H (22-30) mmol/L BUN 39 H (9-20) mg/dL Creatinine 1.39 H (0.66-1.25) mg/dL Total Bilirubin 3.6 H (0.2-1.3) mg/dL AST 108 H (17-59) U/L ALT 51 H (4-49) U/L Total Protein 6.0 L (6.3-8.2) g/dL Albumin 3.0 L (3.5-5.0) g/dL Microbiology - Last 24 Hours (Table) 09/12/20 11:38 Blood Culture - Final Blood No Growth after 144 hours 09/13/20 07:33 Blood Culture - Preliminary Blood No Growth after 120 hours Assessment and Plan (1) Choledocholithiasis Narrative/Plan: This is a pleasant 80-year-old white male patient who was brought to the emergency room 4 days ago with complaints of severe shortness of breath and was found on the ground with low oxygen levels. He also had complaints of generalized weakness and difficulty with walking. He has multiple comorbidities including coronary artery disease with an ejection fraction of less than 20% as reported in August 2020, atrial fibrillation on Coumadin, hypertension, dyslipidemia, permanent pacemaker, chronic kidney disease, history of gallstones. Multiple consultants on case including cardiology and pulmonology. Patient was noted to have elevated LFTs on admission, with total bilirubin 4.5, alkaline phosphatase 147, AST 111, ALT 56. He had a CT of the abdomen which showed choledocholithiasis with a couple of calculi measuring up to 8 mm in the mid bile duct and a string of 4 calculi in the lower bile duct measuring up to 4 mm. No hydropic gallbladder changes at this time to suggest complete biliary blockage. Cholelithiasis. Mild gallbladder wall thickening may reflect chronic cholecystitis. Mild to moderate stool burden. Proximal sigmoid diverticulosis. No convincing evidence for acute diverticulitis. Slight nodular hepatic contour may be normal variation in this patient. Moderate size right pleural effusion with adjacent atelectasis. [place] catheter in place. The patient denies any abdominal pain, nausea, or vomiting. He has been tolerating a regular diet. There has been some trending down of his LFTs total bilirubin 2.6, alkaline phosphatase 131, AST 112, ALT 1:15. INR 2.7. Repeat LFTs are trending down. He is status post ERCP with to stone extraction and cholecystectomy. Current Visit: Yes Status: Acute Code(s): K80.50 - CALCULUS OF BILE DUCT W/O CHOLANGITIS OR CHOLECYST W/O OBST SNOMED Code(s): 569629707 (2) Transaminitis Narrative/Plan: LFTs stable, Bilirubin with mild elevation from 2.9 to 3.6 today. Patient likely has underlying liver disease as noted on CT abdomen and pelvis owing a slightly nodular hepatic contour. Current Visit: Yes Status: Acute Code(s): R74.01 - ELEVATION OF LEVELS OF LIVER TRANSAMINASE LEVELS SNOMED Code(s): 704486104 (3) Chronic kidney disease Current Visit: Yes Status: Acute Code(s): N18.9 - CHRONIC KIDNEY DISEASE, UNSPECIFIED SNOMED Code(s): 108347451 (4) COPD (chronic obstructive pulmonary disease) Current Visit: Yes Status: Acute Code(s): J44.9 - CHRONIC OBSTRUCTIVE PULMONARY DISEASE, UNSPECIFIED SNOMED Code(s): 23704752 (5) Atrial fibrillation Current Visit: No Status: Acute Code(s): I48.91 - UNSPECIFIED ATRIAL FIBRILLATION SNOMED Code(s): 62812969 Plan: 1. Supportive care 2. Diet per surgical service recommendation 3. Repeat CMP daily 4. Patient is status post ERCP and cholecystectomy 5. Acute hepatitis panel ordered Thank you for this consultation, we will continue to follow closely Dr. Iliana Wright I agree with the dictator's note, documented as a scribe by Keisha Mcgrath.
[2020-09-19] MEDS ORDERED: POTASSIUM CHLORIDE ER 20 MEQ TAB.ER PO STA ×2 (13:45→14:06)
--- NOTE | 2020-09-19 13:47 | P.PN ---
Subjective Progress Note Date: 09/19/20 CHIEF COMPLAINT: Abdominal pain HISTORY OF PRESENT ILLNESS: Patient is postop day #2 status post laparoscopic cholecystectomy for choledocholithiasis and cholecystitis. Patient reports that his abdominal pain is controlled. He is now having diarrhea. Denies any nausea or vomiting. On a low-fat diet. Afebrile. Total bili is up from 2.9 to 3.6 AST 108 ALT 51 potassium 3.3 PHYSICAL EXAM: VITAL SIGNS: Reviewed. GENERAL: Well-developed in no acute distress. HEENT: No sclera icterus. Extraocular movements grossly intact. Moist buccal mucosa. Head is atraumatic, normocephalic. ABDOMEN: Soft. Nondistended. Incision site clean dry and intact LORENZO drain with serosanguinous output NEUROLOGIC: Alert and oriented. Cranial nerves II through XII grossly intact. ASSESSMENT: 1. Cholecystitis with choledocholithiasis status post laparoscopic cholecystectomy. Postop day #2 2. E. coli bacteremia secondary to ascending cholangitis PLAN: -Recommend to keep patient one more day and repeat LFTs in a.m. 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 Signing provider agrees with the documented findings, assessment, and plan of care. Objective - Vital Signs Vital signs: Vital Signs Temp 97.4 F L 09/19/20 11:24 Pulse 70 09/19/20 11:24 Resp 18 09/19/20 11:24 BP 99/68 09/19/20 12:51 Pulse Ox 98 09/19/20 11:24 Intake & Output 09/18/20 09/19/20 09/19/20 18:59 06:59 18:59 Intake Total 240 290 Output Total 8872 7280 9252 Balance -3684 -2937 -6031 Weight 88.9 kg Intake: IV 50 cefTRIAXone 2 gm In 50 Sodium Chloride 0.9% 50 ml @ 100 mls/hr IVPB Q24HR [facility] Rx#:[id number] Oral 240 240 Output: Drainage 25 50 25 Right Abdomen 25 50 25 Urine 1250 2300 2800 Uretheral ([place]) 800 1600 Other: Voiding Method Indwelling Catheter Indwelling Catheter Indwelling Catheter - Labs CBC & Chem 7: 09/18/20 05:46 09/19/20 07:13 Labs: Abnormal Lab Results - Last 24 Hours (Table) 09/19/20 09/19/20 Range/Units 07:13 07:13 PT 15.1 H (9.0-12.0) sec INR 1.5 H (<1.2) Sodium 129 L (137-145) mmol/L Potassium 3.3 L (3.5-5.1) mmol/L Chloride 90 L (98-107) mmol/L Carbon Dioxide 33 H (22-30) mmol/L BUN 39 H (9-20) mg/dL Creatinine 1.39 H (0.66-1.25) mg/dL Total Bilirubin 3.6 H (0.2-1.3) mg/dL AST 108 H (17-59) U/L ALT 51 H (4-49) U/L Total Protein 6.0 L (6.3-8.2) g/dL Albumin 3.0 L (3.5-5.0) g/dL Microbiology - Last 24 Hours (Table) 09/13/20 07:33 Blood Culture - Final Blood No Growth after 144 hours 09/12/20 11:38 Blood Culture - Final Blood No Growth after 144 hours
--- NOTE | 2020-09-19 14:01 | P.PN ---
Subjective Progress Note Date: 09/19/20 80-year-old male was admitted secondary to CHF exacerbation and acute hypoxic respiratory failure was requiring the BiPAP yesterday patient is off BiPAP patient is not wheezing will discontinue the systemic steroids and patient will be continued on IV Lasix is improvement in serum creatinine as well as a serum sodium with IV Lasix. Patient appears to have heart failure exacerbation at this time. Patient was also started on Rocephin for minimally abnormal urine although patient doesn't have any symptoms UTI antibiotics will be discontinued at this time there is no evidence of pneumonia either. Patient is presently on 3 L of oxygen. 09/12/2020 Patient is present with his and doesn't usually use oxygen at home. Patient's electrolytes and urine creatinine continue improved patient is feeling better. Patient will remain on IV Lasix.Patient's creatinine at baseline is around 1.4 present creatinine is around 1.4. Patient feels much better and repeat chest x-ray showing some pulmonary edema. Patient is found to be bacteremic with E. coli possible source being urinary tract infection, repeat urine cultures today and tomorrow. Patient's E. coli is pansensitive and possible source of infection is urinary tract infection 09/13/2020 Patient's repeat blood cultures from yesterday are so far negative. Patient can use to be on Rocephin. Infectious disease evaluated the patient. As you urine analysis is not quite impressive for infection we're obtaining abdominal CT scan to rule out any intra-abdominal infection which showed possibility of cholecystitis and possible choledocholithiasis with dilated common bile duct of around 8 mm. Patient did have elevated liver enzymes which were initially believed to be secondary to hepatic congestion. Is possibly of cystitis as well on the kidney computed tomography scan due to surgery and gastroenterology will be consulted. Patient is Being continued on IV Lasix patient has improvement in liver function 48 anemia as well as renal function patient present creatinine is 1.33 significant improvement since admission and continue to improve. Patient is off oxygen 09/14/2020 Patient is seen and evaluated in follow-up currently sitting comfortably on room air. Multiple medical consultations including her etiology, infectious disease, surgery, and GI following. Patient is scheduled to undergo laparoscopic cholecystectomy on Thursday. Patient was tentatively scheduled for an ERCP on Thursday as his INR has been elevated. Today's INR is 2.7 and will give a dose of vitamin K. Will repeat INR. Creatinine today is the same at 1.33 with a BUN of 42. Sodium is 137 with a potassium of 3.8. ALT is 95, AST is also trending down at 80 and alkaline phosphatase slightly lower at 128. Most recent blood cultures have been negativ e and infectious disease is following. Patient is maintained on ceftriaxone and will continue at this time. Patient continues to be on IV Lasix 80 mg twice daily and will continue. 09/15/2020 Patient's CHF improved significantly patient was switched to oral Lasix patient's creatinine continued improvement is around 1.2 today. Metolazone will be switched to regular 2.5 daily. Patient will undergo ERCP tomorrow and cholecystectomy on Thursday liver enzymes continued to improve bilirubin continued to improve. Potassium will be replaced. Continue to hold off on Coumadin INR is 1.8 today 09/16/2020 Patient had an ERCP and extraction of the common bile duct stone today. And will undergo cholecystectomy tomorrow continue to hold Coumadin 09/17/2020 Patient is scheduled to undergo laparoscopic cholecystectomy with surgery today. Will await report. Will discuss with surgery about the possibility of resuming Coumadin. White blood count this morning is 5.6 with hemoglobin of 15.0. Cu rrent INR is 1.3, sodium is 135 with a potassium of 3.7. Creatinine slightly worsened at 1.43. Liver functions trending down. Will follow up with case management as family has refused rehab. Will repeat a.m. labs. 09/18/2020 Patient is seen and evaluated in follow-up status post laparoscopic ch olecystectomy and continues to have extreme right upper quadrant abdominal discomfort. Patient is passing gas although no reports of bowel movement at this time. Patient has LORENZO drain noted with sanguinous output noted. Patient states the LORENZO drain has been drained multiple times today. Patient is maintained on IV antibiotics in the form of ceftriaxone and will continue. Patient's blood pressure has been on the lower side and had an intermittent low- grade temp at 4:00 this morning of 99.4. Chest x-ray was done showing possible right lower lobe infiltrate with cardiomegaly. Patient also given incentive spirometer and instructed to use at least 10 times every hour while awake. Multiple medical consultations following including surgery, GI, infectious disease. Diet was started and patient is on low fiber diet and will continue and advance as tolerated. Patient was having multiple episodes of abdominal discomfort and nausea with vomiting last night although states has improved. In structed the patient to increase activity as tolerated. Current INR today is 1.4 and will resume Coumadin and monitor labs. Creatinine slightly worse at 1.6 to, sodium is 133, potassium is 4.3. White blood count is 9.4 and hemoglobin is 15.4. 09/19/2020 Patient is seen and evaluated in follow-up this morning currently walking the halls with a walker with PT/OT therapy. With case management and social work and the daughter is again now refusing any form a rehab and will be bringing the patient home and will have home care. Patient is status post cholecystectomy. Patient is maintained on IV antibiotics in the form of ceftriaxone and will continue this time. Patient will likely continue the course on oral antibiotics upon discharge. Most recent repeat blood cultures have remained negative. Infectious disease is following. Sodium slightly worsened today at 129 and patient is maintained on low fiber diet. Creatinine slightly improved at 1.39. Potassium is 3.3 and will replace. Per nursing staff patient just started having multiple episodes of diarrhea and loose stool and C. diff testing is currently pending. We'll start Imodium if C. diff is negative. Patient continues to have sanguinous output noted in the LORENZO and surgery is following closely. Total bilirubin elevated as well today at 3.6 and liver function slowly trending down. Will repeat a.m. labs. Constitutional: Denied any fatigue denied any fever. Cardio vascular: denied any chest pain, palpitations Gastrointestinal: Reports right-sided abdominal discomfort and tenderness, currently started having multiple bowel movements and loose stool Pulmonary: Significantly improved shortness of breath. Neurologic denied any new focal deficits All inpatient medications were reviewed and appropriate changes in these medications as dictated in the interval history and assessment and plan. Objective - Vital Signs Vital signs: Vital Signs Temp 97.9 F 09/19/20 08:00 Pulse 69 09/19/20 08:00 Resp 19 09/19/20 08:00 BP 109/70 09/19/20 08:00 Pulse Ox 98 09/19/20 08:00 Intake & Output 09/18/20 09/19/20 09/19/20 18:59 06:59 18:59 Intake Total 240 240 Output Total 1275 2350 Balance -1035 -2350 240 Weight 88.9 kg Intake: Oral 240 240 Output: Drainage 25 50 Right Abdomen 25 50 Urine 1250 2300 Uretheral ([place]) 800 Other: Voiding Method Indwelling Catheter Indwelling Catheter - Exam GENERAL: The patient is awake sitting up in bed, not in any acute distress. Well developed, well nourished. Currently on room air. HEENT: Pupils are round and equally reacting to light. EOMI. No scleral icterus. No conjunctival pallor. Normocephalic, atraumatic. No pharyngeal erythema. No thyromegaly. CARDIOVASCULAR: S1 and S2 present. No murmurs, rubs, or gallops. PULMONARY: Chest is clear to auscultation, no wheezing or crackles. ABDOMEN: Soft, tender on palpation of the right upper quadrant to mid abdominal region, nondistended, normoactive bowel sounds. No palpable organomegaly. LORENZO drain noted with sanguinous fluid on the right MUSCULOSKELETAL: No joint swelling or deformity. EXTREMITIES: No cyanosis, clubbing, or pedal edema. NEUROLOGICAL: Gross neurological examination did not reveal any focal deficits. SKIN: No rashes. - Labs CBC & Chem 7: 09/18/20 05:46 09/19/20 07:13 Labs: Abnormal Lab Results - Last 24 Hours (Table) 09/19/20 09/19/20 Range/Units 07:13 07:13 PT 15.1 H (9.0-12.0) sec INR 1.5 H (<1.2) Sodium 129 L (137-145) mmol/L Potassium 3.3 L (3.5-5.1) mmol/L Chloride 90 L (98-107) mmol/L Carbon Dioxide 33 H (22-30) mmol/L BUN 39 H (9-20) mg/dL Creatinine 1.39 H (0.66-1.25) mg/dL Total Bilirubin 3.6 H (0.2-1.3) mg/dL AST 108 H (17-59) U/L ALT 51 H (4-49) U/L Total Protein 6.0 L (6.3-8.2) g/dL Albumin 3.0 L (3.5-5.0) g/dL Microbiology - Last 24 Hours (Table) 09/12/20 11:38 Blood Culture - Final Blood No Growth after 144 hours 09/13/20 07:33 Blood Culture - Preliminary Blood No Growth after 120 hours Assessment and Plan Assessment: -Acute hypoxic respiratory failure: Secondary to congestive heart failure chronic systolic dysfunction with acute exacerbation. Patient is on oral diuretics -E. coli bacteremia: Continue with Rocephin. Repeat blood cultures are negative. -cholecystitis and ascending cholangitis patient had a stone extraction today status post ERCP and recently underwent cholecystectomy -Hyponatremia , hypervolemic hyponatremia improved with Lasix. -Elevated liver enzymes may be secondary to choledocholithiasis. 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 Patient will be continued on inhaled steroids -Congestive heart heart failure chronic systolic dysfunction with EF of around less than 20% with acute exacerbation patient has an AICD . -Hypertension -Benign prostatic hypertrophy -Sleep apnea -Hypothyroidism -Supratherapeutic INR on admission -DVT prophylaxis patient's INR is presently 1.4. Resuming Coumadin Plan: Continue current medications. Coumadin resumed. Multiple medical consultations following including GI, surgery, cardiology. Patient recently underwent laparoscopic cholecystectomy. Total bilirubin elevated today and will repeat a.m. labs and C. diff has been ordered as patient is now having multiple episodes of diarrhea. Will repeat a.m. labs along with INR and monitor closely. Family has also decided against rehab and would like the patient to return home when stabilized and discharged. Will repeat a.m. labs. Possible discharge in 24-48 hours.
--- NOTE | 2020-09-19 14:09 | P.PN ---
Subjective Progress Note Date: 09/19/20 HISTORY OF PRESENT ILLNESS: 09/11/2020 This is a 80-year-old male with a past medical history significant for congestive heart failure, chronic kidney disease, COPD, atrial fibrillation, hypertension, and hyperlipidemia. Patient follows with a endless track vehicle mechanic out of [place] (Dr. Crane?). We have been asked to see the patient in consultation for congestive heart failure. Patient examined at the bedside. Patient states yesterday he was sitting on the side of his bed at home. He was trying to get out of bed but fell and landed on the floor. He states when he called EMS they noticed his fingers and lips to be blue so they brought him to the emergency room. The patient currently denies chest pain or pressure. He denies shortness of breath at the time of examination. Patient was found to be in acute exacerbation of CHF and was started on IV Lasix. EKG reveals paced rhythm Chest xray small right pleural effusion. Emphysema. Mild pulmonary vascular congestion. Cardiomegaly. Laboratory data: WBC 11.2. Hemoglobin 16.3. Platelet count 88. INR 4.0. Sodium 132. BUN 48. Creatinine 1.62. Bilirubin 3.0. AST 325. ALT 162. Troponin 0.074. BNP 11,600. Current home cardiac medications include Zaroxolyn 2.5 mg daily as needed, Coumadin 1 mg daily, Aldactone 25 mg daily, pravastatin 40 mg daily, potassium chloride 20 meq daily, Lasix 80 mg twice a day, Coreg 12.5 mg twice a day, amiodarone 200 mg daily Most recent echocardiogram obtained in August 2020 revealed ejection fraction less than 20%, mild mitral regurgitation, mild tricuspid regurgitation, and mild aortic regurgitation. 09/12/2020 Patient examined at the bedside. Patient denies chest or pain. Reports improvement in his shortness of breath. He remains on IV Lasix 80 mg every 12 hours. Fluid balance over the last 24 hours is -1700 mL. BUN 53. Creatinine 1.46, down from 1.62 yesterday. LFTs are improving. AST 172. ALT 145. Patient is requesting to have his AICD interrogated. 09/13/2020 Patient examined this morning at the bedside. Patient denies chest pain or pressure. Patient reports minimal shortness of breath. INR 3.2. Coumadin continues to remain on hold. BUN 49. Creatinine 1.33. Patient remains on IV Lasix. LFTs continue to improve. Blood cultures are positive for E. coli. 09/18/2020 Patient examined this morning at the bedside. He is status post laparoscopic cholecystectomy. INR 1.4. BUN 39. Creatinine increased to 1.62. He denies chest pain or pressure. Reports mild shortness of breath. 09/19/2020 Patient examined this morning at the bedside. Patient denies chest pain or pressure. She denies shortness of breath. He is currently on IV Lasix. BUN 39. Creatinine 1.39. Patient was resumed on Coumadin yesterday. INR 1.5 today. Potassium 3.3. Patient's bilirubin increased from 2.9 to 3.6. General surgery is following. PHYSICAL EXAM: VITAL SIGNS: Reviewed. GENERAL: Well-developed in no acute distress. HEENT: Head is normocephalic. Pupils are equal, round. Sclerae anicteric. Mucous membranes of the mouth are moist. Neck supple. No JVD or thyromegaly LUNGS: Respirations even and unlabored. Lungs diminished bilaterally. HEART: Regular rate and rhythm. S1 and S2 heard. EXTREMITIES: Normal range of motion. No clubbing or cyanosis. Peripheral pulses intact. Trace bilateral lower extremity edema ASSESSMENT: Acute cholecystitis and choledocholithiasis, status post laparoscopic cholecyst ectomy Acute exacerbation of chronic systolic heart failure, ejection fraction less than 20% History of paroxysmal atrial fibrillation, on anticoagulation with Coumadin Supratherapeutic INR, resolved Transaminitis History of AICD implantation Chronic kidney disease COPD Abnormal troponin, secondary to acute exacerbation of heart failure and chronic kidney disease, no evidence of acute coronary syndrome E. coli bacteremia Hypokalemia PLAN: Continue postoperative management per general surgery Discontinue IV Lasix. Begin oral Lasix 80 mg twice a day Monitor kidney function Accurate I&O Daily weights Continue Coumadin. Monitor INR Replace potassium Further recommendations pending patient's course Nurse practitioner note has been reviewed by physician. Signing provider agrees with the documented findings, assessment, and plan of care. Objective - Vital Signs Vital signs: Vital Signs Temp 97.4 F L 09/19/20 11:24 Pulse 70 09/19/20 11:24 Resp 18 09/19/20 11:24 BP 99/68 09/19/20 12:51 Pulse Ox 98 09/19/20 11:24 Intake & Output 09/18/20 09/19/20 09/19/20 18:59 06:59 18:59 Intake Total 240 290 Output Total 1277 0284 4769 Balance -3532 -7846 -2133 Weight 88.9 kg Intake: IV 50 cefTRIAXone 2 gm In 50 Sodium Chloride 0.9% 50 ml @ 100 mls/hr IVPB Q24HR [facility] Rx#:[id number] Oral 240 240 Output: Drainage 25 50 25 Right Abdomen 25 50 25 Urine 1250 2300 2800 Uretheral ([place]) 800 1600 Other: Voiding Method Indwelling Catheter Indwelling Catheter Indwelling Catheter - Labs CBC & Chem 7: 09/18/20 05:46 09/19/20 07:13 Labs: Abnormal Lab Results - Last 24 Hours (Table) 09/19/20 09/19/20 Range/Units 07:13 07:13 PT 15.1 H (9.0-12.0) sec INR 1.5 H (<1.2) Sodium 129 L (137-145) mmol/L Potassium 3.3 L (3.5-5.1) mmol/L Chloride 90 L (98-107) mmol/L Carbon Dioxide 33 H (22-30) mmol/L BUN 39 H (9-20) mg/dL Creatinine 1.39 H (0.66-1.25) mg/dL Total Bilirubin 3.6 H (0.2-1.3) mg/dL AST 108 H (17-59) U/L ALT 51 H (4-49) U/L Total Protein 6.0 L (6.3-8.2) g/dL Albumin 3.0 L (3.5-5.0) g/dL Microbiology - Last 24 Hours (Table) 09/13/20 07:33 Blood Culture - Final Blood No Growth after 144 hours 09/12/20 11:38 Blood Culture - Final Blood No Growth after 144 hours
[2020-09-19] MEDS: ALPRAZolam 0.5 MG TAB PO PRN ×2 (14:12→21:59)
[2020-09-19] MEDS ORDERED: DIPHENOX-ATROP 2.5-0.025 MG 1 EACH TAB PO PRN (14:56)
--- NOTE | 2020-09-19 17:20 | PN ---
PROGRESS NOTE DATE OF SERVICE: 09/19/2020 REASON FOR FOLLOWUP: E coli bacteremia secondary to choledocholithiasis and cholecystitis. INTERVAL HISTORY: The patient is currently afebrile. The patient is breathing comfortably. No chest pain, shortness of breath or cough. No abdominal pain. He did have an episode of diarrhea. PHYSICAL EXAMINATION: Blood pressure 96/65, pulse of 60, temperature 97.9. He is 97% on room air. General description is an elderly male lying in bed in no distress. RESPIRATORY SYSTEM: Unlabored breathing. Clear to auscultation anteriorly. HEART: S1, S2. Regular rate and rhythm. ABDOMEN: Soft. No tenderness. LABS: BUN of 39, creatinine 1.39. DIAGNOSTIC IMPRESSION AND PLAN: Patient with an Escherichia coli bacteremia secondary to choledocholithiasis, status post cholecystectomy, on Rocephin. Transition to a short course of oral Ceftin for about a week and close outpatient followup. MMODL / IJN: [id number] /
[2020-09-19] MEDS: FUROSEMIDE 80 MG TAB PO SCH (17:32)
[2020-09-19] MEDS ORDERED: WARFARIN 2 MG TAB PO ONE (18:00)
[2020-09-19] MEDS ORDERED: Potassium Replacement Protocol 1 EACH MISC MISCELLANE PRN (19:03)
[2020-09-19] MEDS: LOSARTAN 25 MG TAB PO SCH (21:59)
[2020-09-19] MEDS: POTASSIUM CHLORIDE ER 20 MEQ TAB.ER PO SCH ×2 (21:59→23:24)
[2020-09-19] MEDS: PRAVASTATIN SODIUM 40 MG TAB PO SCH (21:59)
[2020-09-20] MEDS: LEVOTHYROXINE 25 MCG TAB PO SCH (06:29)
[2020-09-20 08:13] LABS: Albumin 3.1 g/dL (3.5-5.0); Calcium 8.7 mg/dL (8.4-10.2); Potassium 3.5 mmol/L (3.5-5.1); Total Bilirubin 3.6 mg/dL (0.2-1.3); Total Protein 6.3 g/dL (6.3-8.2)
[2020-09-20 08:17] LABS: INR 1.5 (<1.2); Prothrombin Time 14.9 sec (9.0-12.0)
[2020-09-20 08:18] VITALS: TEMP 97.7
[2020-09-20] MEDS ORDERED: POTASSIUM CHLORIDE ER 20 MEQ TAB.ER PO STA (09:27)
--- NOTE | 2020-09-20 10:04 | P.PN ---
Subjective Progress Note Date: 09/20/20 Principal diagnosis: Choledocholithiasis The patient is a pleasant 80-year-old white male who was admitted to the hospital with shortness of breath generalized weakness and was noted to have elevated LFTs on admission. CT of the abdomen and pelvis showed cholelithiasis as well as 2 small CBD stones in the distal common bile duct. The patient underwent ERCP with biliary sphincterectomy and stone extraction and cholecystectomy with Dr. Gage. He states his Demerol pain is getting better and less every day. He denies any nausea or vomiting. He has had a bowel movement since surgery. He continues to have a small amount of serosanguineous drainage from his LORENZO drain. No acute changes through the night. He is tolerating his diet. LFTs are stable. Objective - Vital Signs Vital signs: Vital Signs Temp 97.7 F 09/20/20 08:00 Pulse 70 09/20/20 08:00 Resp 16 09/20/20 08:00 BP 99/65 09/20/20 08:00 Pulse Ox 97 09/20/20 08:00 Intake & Output 09/19/20 09/20/20 09/20/20 18:59 06:59 18:59 Intake Total 1010 Output Total 4325 1000 Balance -3315 -1000 Weight 85.6 kg Intake: IV 50 cefTRIAXone 2 gm In 50 Sodium Chloride 0.9% 50 ml @ 100 mls/hr IVPB Q24HR [facility] Rx#:[id number] Oral 960 Output: Drainage 25 Right Abdomen 25 Urine 4300 1000 Uretheral ([place]) 2400 Other: Voiding Method Indwelling Catheter Indwelling Catheter - Exam General appearance: The patient is alert, oriented, appears in no acute distress. HET: Head is normocephalic and atraumatic. Conjunctiva pink. Sclera anicteric. Neck: Supple without lymphadenopathy. Abdomen: Soft, incision sites clean dry and intact, LORENZO drain intact with serosanguineous drainage, surgical tenderness, nondistended with bowel sounds. No guarding or rigidity. Extremities: Normal skin color and turgor. No pedal edema Skin: No rashes, no jaundice Neurological: No focal deficits. Alert and oriented 3. - Labs CBC & Chem 7: 09/18/20 05:46 09/20/20 07:37 Labs: Abnormal Lab Results - Last 24 Hours (Table) 09/19/20 09/20/20 09/20/20 Range/Units 18:04 07:37 07:37 PT 14.9 H (9.0-12.0) sec INR 1.5 H (<1.2) Sodium 130 L (137-145) mmol/L Potassium 3.2 L (3.5-5.1) mmol/L Chloride 89 L (98-107) mmol/L Carbon Dioxide 31 H (22-30) mmol/L BUN 40 H (9-20) mg/dL Creatinine 1.37 H (0.66-1.25) mg/dL Total Bilirubin 3.6 H (0.2-1.3) mg/dL AST 98 H (17-59) U/L Alkaline Phosphatase 128 H (38-126) U/L Albumin 3.1 L (3.5-5.0) g/dL Microbiology - Last 24 Hours (Table) 09/13/20 07:33 Blood Culture - Final Blood No Growth after 144 hours Assessment and Plan (1) Choledocholithiasis Narrative/Plan: This is a pleasant 80-year-old white male patient who was brought to the emergency room 4 days ago with complaints of severe shortness of breath and was found on the ground with low oxygen levels. He also had complaints of generalized weakness and difficulty with walking. He has multiple comorbidities including coronary artery disease with an ejection fraction of less than 20% as reported in August 2020, atrial fibrillation on Coumadin, hypertension, dyslipidemia, permanent pacemaker, chronic kidney disease, history of gallstones. Multiple consultants on case including cardiology and pulmonology. Patient was noted to have elevated LFTs on admission, with total bilirubin 4.5, alkaline phosphatase 147, AST 111, ALT 56. He had a CT of the abdomen which showed choledocholithiasis with a couple of calculi measuring up to 8 mm in the mid bile duct and a string of 4 calculi in the lower bile duct measuring up to 4 mm. No hydropic gallbladder changes at this time to suggest complete biliary blockage. Cholelithiasis. Mild gallbladder wall thickening may reflect chronic cholecystitis. Mild to moderate stool burden. Proximal sigmoid diverticulosis. No convincing evidence for acute diverticulitis. Slight nodular hepatic contour may be normal variation in this patient. Moderate size right pleural effusion with adjacent atelectasis. [place] catheter in place. The patient denies any abdominal pain, nausea, or vomiting. He has been tolerating a regular diet. There has been some trending down of his LFTs total bilirubin 2.6, alkaline phosphatase 131, AST 112, ALT 1:15. INR 2.7. Repeat LFTs are trending down. He is status post ERCP with to stone extraction and cholecystectomy. Current Visit: Yes Status: Acute Code(s): K80.50 - CALCULUS OF BILE DUCT W/O CHOLANGITIS OR CHOLECYST W/O OBST SNOMED Code(s): 816398052 (2) Transaminitis Narrative/Plan: LFTs stable, Bilirubin with mild elevation from 2.9 to 3.6 today. Patient likely has underlying liver disease as noted on CT abdomen and pelvis owing a slightly nodular hepatic contour. Current Visit: Yes Status: Acute Code(s): R74.01 - ELEVATION OF LEVELS OF LIVER TRANSAMINASE LEVELS SNOMED Code(s): 878408920 (3) Chronic kidney disease Current Visit: Yes Status: Acute Code(s): N18.9 - CHRONIC KIDNEY DISEASE, UNSPECIFIED SNOMED Code(s): 895328623 (4) COPD (chronic obstructive pulmonary disease) Current Visit: Yes Status: Acute Code(s): J44.9 - CHRONIC OBSTRUCTIVE PULMONARY DISEASE, UNSPECIFIED SNOMED Code(s): 17784546 (5) Atrial fibrillation Current Visit: No Status: Acute Code(s): I48.91 - UNSPECIFIED ATRIAL FIBRILLATION SNOMED Code(s): 10245030 Plan: 1. Supportive care 2. Diet per surgical service recommendation 3. Repeat CMP daily 4. Patient is status post ERCP and cholecystectomy 5. Acute hepatitis panel ordered and reviewed 6. Patient may be discharged home from a gastroenterology standpoint, would recommend follow-up her trending LFTs and likely underlying chronic liver disease Thank you for this consultation, we will sign off at this time Dr. Iliana Wright I agree with the dictator's note, documented as a scribe by Keisha Mcgrath.
[2020-09-20] MEDS: metOLazone 2.5 MG TAB PO SCH (10:26)
[2020-09-20] MEDS: AMIODARONE 200 MG TAB PO SCH (10:26)
[2020-09-20] MEDS: SPIRONOLACTONE 25 MG TAB PO SCH (10:26)
[2020-09-20] MEDS: METOPROLOL TARTRATE 50 MG TAB PO SCH (10:26)
[2020-09-20] MEDS: FINASTERIDE 5 MG TAB PO SCH (10:27)
[2020-09-20] MEDS: FUROSEMIDE 80 MG TAB PO SCH (10:27)
--- NOTE | 2020-09-20 11:55 | P.PN ---
Subjective Progress Note Date: 09/20/20 CHIEF COMPLAINT: Abdominal pain HISTORY OF PRESENT ILLNESS: Patient is postop day #3 status post laparoscopic cholecystectomy for choledocholithiasis and cholecystitis. Patient reports that his abdominal pain is controlled. His diarrhea has improved. He is passing gas. LORENZO drain minimal serosanguineous output. Denies any nausea or vomiting. He is tolerating low-fat diet. Afebrile. C. diff negative has a 3.5 creatinine 1.37 total bili 3.6 AST 98 ALT 49 alk phos 128 PHYSICAL EXAM: VITAL SIGNS: Reviewed. GENERAL: Well-developed in no acute distress. HEENT: No sclera icterus. Extraocular movements grossly intact. Moist buccal mucosa. Head is atraumatic, normocephalic. ABDOMEN: Soft. Nondistended. Incision site clean dry and intact LORENZO drain with serosanguinous output NEUROLOGIC: Alert and oriented. Cranial nerves II through XII grossly intact. ASSESSMENT: 1. Cholecystitis with choledocholithiasis status post laparoscopic cholecystectomy. Postop day #3 2. E. coli bacteremia secondary to ascending cholangitis PLAN: -Patient can be discharge from surgical standpoint -Patient to follow-up with Dr. Gage in 1 week -Nursing staff to discontinue LORENZO drain -Continue supportive care -Continue antibiotics per ID -Continue pain medication as needed -Continue low-fat diet -Encourage incentive spirometer use -Encourage patient to increase activity Physician [employer] Winder note has been reviewed by physician. Signing provider agrees with the documented findings, assessment, and plan of care. Objective - Vital Signs Vital signs: Vital Signs Temp 97.7 F 09/20/20 08:00 Pulse 70 09/20/20 08:00 Resp 16 09/20/20 08:00 BP 99/65 09/20/20 08:00 Pulse Ox 97 09/20/20 08:00 Intake & Output 09/19/20 09/20/20 09/20/20 18:59 06:59 18:59 Intake Total 1010 Output Total 4325 1000 Balance -3315 -1000 Weight 85.6 kg Intake: IV 50 cefTRIAXone 2 gm In 50 Sodium Chloride 0.9% 50 ml @ 100 mls/hr IVPB Q24HR [facility] Rx#:[id number] Oral 960 Output: Drainage 25 Right Abdomen 25 Urine 4300 1000 Uretheral ([place]) 2400 Other: Voiding Method Indwelling Catheter Indwelling Catheter Indwelling Catheter - Labs CBC & Chem 7: 09/18/20 05:46 09/20/20 07:37 Labs: Abnormal Lab Results - Last 24 Hours (Table) 09/19/20 09/20/20 09/20/20 Range/Units 18:04 07:37 07:37 PT 14.9 H (9.0-12.0) sec INR 1.5 H (<1.2) Sodium 130 L (137-145) mmol/L Potassium 3.2 L (3.5-5.1) mmol/L Chloride 89 L (98-107) mmol/L Carbon Dioxide 31 H (22-30) mmol/L BUN 40 H (9-20) mg/dL Creatinine 1.37 H (0.66-1.25) mg/dL Total Bilirubin 3.6 H (0.2-1.3) mg/dL AST 98 H (17-59) U/L Alkaline Phosphatase 128 H (38-126) U/L Albumin 3.1 L (3.5-5.0) g/dL Microbiology - Last 24 Hours (Table) 09/13/20 07:33 Blood Culture - Final Blood No Growth after 144 hours
[2020-09-20 12:13] VITALS: BP 98/59; PULSE 62; RESP 18
[2020-09-20 14:01] LABS: Hepatitis A Antibody IgM Non-Reactive (Non-Reactive); Hepatitis B Core IgM Non-Reactive (Non-Reactive); Hepatitis B Surface Antigen Non-Reactive (Non-Reactive); Hepatitis C IgG Antibody Non-Reactive (Non-Reactive)
[2020-09-20] MEDS ORDERED: TAMSULOSIN 0.4 MG CAP.ER.24H PO STA (14:01)
--- NOTE | 2020-09-20 14:04 | P.PN ---
Subjective Progress Note Date: 09/20/20 HISTORY OF PRESENT ILLNESS: 09/11/2020 This is a 80-year-old male with a past medical history significant for congestive heart failure, chronic kidney disease, COPD, atrial fibrillation, hypertension, and hyperlipidemia. Patient follows with a targeteer out of [place] (Dr. Crane?). We have been asked to see the patient in consultation for congestive heart failure. Patient examined at the bedside. Patient states yesterday he was sitting on the side of his bed at home. He was trying to get out of bed but fell and landed on the floor. He states when he called EMS they noticed his fingers and lips to be blue so they brought him to the emergency room. The patient currently denies chest pain or pressure. He denies shortness of breath at the time of examination. Patient was found to be in acute exacerbation of CHF and was started on IV Lasix. EKG reveals paced rhythm Chest xray small right pleural effusion. Emphysema. Mild pulmonary vascular congestion. Cardiomegaly. Laboratory data: WBC 11.2. Hemoglobin 16.3. Platelet count 88. INR 4.0. Sodium 132. BUN 48. Creatinine 1.62. Bilirubin 3.0. AST 325. ALT 162. Troponin 0.074. BNP 11,600. Current home cardiac medications include Zaroxolyn 2.5 mg daily as needed, Coumadin 1 mg daily, Aldactone 25 mg daily, pravastatin 40 mg daily, potassium chloride 20 meq daily, Lasix 80 mg twice a day, Coreg 12.5 mg twice a day, amiodarone 200 mg daily Most recent echocardiogram obtained in August 2020 revealed ejection fraction less than 20%, mild mitral regurgitation, mild tricuspid regurgitation, and mild aortic regurgitation. 09/12/2020 Patient examined at the bedside. Patient denies chest or pain. Reports improvement in his shortness of breath. He remains on IV Lasix 80 mg every 12 hours. Fluid balance over the last 24 hours is -1700 mL. BUN 53. Creatinine 1.46, down from 1.62 yesterday. LFTs are improving. AST 172. ALT 145. Patient is requesting to have his AICD interrogated. 09/13/2020 Patient examined this morning at the bedside. Patient denies chest pain or pressure. Patient reports minimal shortness of breath. INR 3.2. Coumadin continues to remain on hold. BUN 49. Creatinine 1.33. Patient remains on IV Lasix. LFTs continue to improve. Blood cultures are positive for E. coli. 09/18/2020 Patient examined this morning at the bedside. He is status post laparoscopic cholecystectomy. INR 1.4. BUN 39. Creatinine increased to 1.62. He denies chest pain or pressure. Reports mild shortness of breath. 09/19/2020 Patient examined this morning at the bedside. Patient denies chest pain or pressure. She denies shortness of breath. He is currently on IV Lasix. BUN 39. Creatinine 1.39. Patient was resumed on Coumadin yesterday. INR 1.5 today. Potassium 3.3. Patient's bilirubin increased from 2.9 to 3.6. General surgery is following. 09/20/2020 Patient examined this morning at the bedside. Patient denies chest pain or pressure. He denies shortness of breath. He remains on oral Lasix. Blood pressure running with a systolic in the 90s. Patient denies dizziness or lightheadedness. INR 1.5. BUN 40. Creatinine 1.37. PHYSICAL EXAM: VITAL SIGNS: Reviewed. GENERAL: Well-developed in no acute distress. HEENT: Head is normocephalic. Pupils are equal, round. Sclerae anicteric. Mucous membranes of the mouth are moist. Neck supple. No JVD or thyromegaly LUNGS: Respirations even and unlabored. Lungs diminished bilaterally. HEART: Regular rate and rhythm. S1 and S2 heard. EXTREMITIES: Normal range of motion. No clubbing or cyanosis. Peripheral pulses intact. Trace bilateral lower extremity edema ASSESSMENT: Acute cholecystitis and choledocholithiasis, status post laparoscopic cholecystectomy Acute exacerbation of chronic systolic heart failure, ejection fraction less than 20% History of paroxysmal atrial fibrillation, on anticoagulation with Coumadin Supratherapeutic INR, resolved Transaminitis History of AICD implantation Chronic kidney disease COPD Abnormal troponin, secondary to acute exacerbation of heart failure and chronic kidney disease, no evidence of acute coronary syndrome E. coli bacteremia Hypokalemia PLAN: Continue postoperative management per general surgery Continue current cardiac medications Patient is stable for discharge home today from a cardiac perspective We will sign off. Please reconsult if needed. Nurse practitioner note has been reviewed by physician. Signing provider agrees with the documented findings, assessment, and plan of care. Objective - Vital Signs Vital signs: Vital Signs Temp 97.7 F 09/20/20 08:00 Pulse 62 09/20/20 12:00 Resp 18 09/20/20 12:00 BP 98/59 09/20/20 12:00 Pulse Ox 97 09/20/20 12:00 Intake & Output 09/19/20 09/20/20 09/20/20 18:59 06:59 18:59 Intake Total 1010 Output Total 4325 1000 760 Balance -3315 -1000 -760 Weight 85.6 kg Intake: IV 50 cefTRIAXone 2 gm In 50 Sodium Chloride 0.9% 50 ml @ 100 mls/hr IVPB Q24HR [facility] Rx#:[id number] Oral 960 Output: Drainage 25 10 Right Abdomen 25 10 Urine 4300 1000 750 Uretheral ([place]) 2400 Other: Voiding Method Indwelling Catheter Indwelling Catheter Indwelling Catheter - Labs CBC & Chem 7: 09/18/20 05:46 09/20/20 07:37 Labs: Abnormal Lab Results - Last 24 Hours (Table) 09/19/20 09/20/20 09/20/20 Range/Units 18:04 07:37 07:37 PT 14.9 H (9.0-12.0) sec INR 1.5 H (<1.2) Sodium 130 L (137-145) mmol/L Potassium 3.2 L (3.5-5.1) mmol/L Chloride 89 L (98-107) mmol/L Carbon Dioxide 31 H (22-30) mmol/L BUN 40 H (9-20) mg/dL Creatinine 1.37 H (0.66-1.25) mg/dL Total Bilirubin 3.6 H (0.2-1.3) mg/dL AST 98 H (17-59) U/L Alkaline Phosphatase 128 H (38-126) U/L Albumin 3.1 L (3.5-5.0) g/dL Microbiology - Last 24 Hours (Table) 09/13/20 07:33 Blood Culture - Final Blood No Growth after 144 hours
--- NOTE | 2020-09-20 16:32 | PN ---
PROGRESS NOTE DATE OF SERVICE: 09/20/2020 REASON FOR FOLLOWUP: E coli bacteremia secondary to choledocholithiasis and cholecystitis. INTERVAL HISTORY: The patient is currently afebrile, breathing comfortably. Denies having any chest pain, shortness of breath or cough. Some abdominal discomfort but no vomiting or diarrhea. PHYSICAL EXAMINATION: Blood pressure 98/59, pulse of 62, temperature 97.7. He is 97% on room air. General description is an elderly male lying in bed in no distress. RESPIRATORY SYSTEM: Unlabored breathing, clear to auscultation anteriorly. HEART: S1, S2. Regular rate and rhythm. ABDOMEN: Soft, no tenderness. LABS: BUN of 40, creatinine 1.37. INR is 1.5. Hepatitis panel was negative. DIAGNOSTIC IMPRESSION AND PLAN: Patient with Escherichia coli bacteremia secondary to choledocholithiasis and cholecystitis, status post cholecystectomy. Patient have improved. Blood culture repeat has been negative. Finish therapy with a week course of oral Ceftin on discharge. Continue Rocephin while inpatient. Continue supportive care. MMODL / IJN: [id number] /
--- NOTE | 2020-09-20 16:59 | P.DS ---
Providers Date of admission: 09/10/20 06:34 Expected date of discharge: 09/20/20 Attending physician: Tamera Wilson Consults: 09/10/20 06:33 Consult Physician Routine Consulting Provider: Terrell Freitas Consult Reason/Comments: copd Do you want consulting provider notified?: Yes 09/10/20 10:51 Consult Physician Routine Consulting Provider: Devendra Chavira Consult Reason/Comments: CHF Do you want consulting provider notified?: Yes 09/12/20 14:24 Consult Physician Routine Consulting Provider: Sarath Johansen Consult Reason/Comments: UTI, bacteremia Do you want consulting provider notified?: Yes 09/13/20 15:17 Consult Physician Routine Consulting Provider: Dante Gage Consult Reason/Comments: Cholecystitis Do you want consulting provider notified?: Yes 09/13/20 15:18 Consult Physician Routine Consulting Provider: Neville Osorio Consult Reason/Comments: Choledocholithiasis with possible ascending cholangitis Do you want consulting provider notified?: Yes 09/14/20 14:38 Consult Physician Routine Consulting Provider: Devendra Chavira Consult Reason/Comments: need cardiac clearance for 3-15 (card already on case) Do you want consulting provider notified?: Already Contacted 09/18/20 15:34 Consult Physician Routine Consulting Provider: Petey Houston Consult Reason/Comments: IPR Do you want consulting provider notified?: Yes Primary care physician: Keith Sales Hospital Course: Final diagnosis -Acute hypoxic respiratory failure: Secondary to congestive heart failure chronic systolic dysfunction with acute exacerbation -E. coli bacteremia Repeat blood cultures are negative. -cholecystitis and ascending cholangitis patient had a stone extraction status post ERCP and recently underwent cholecystectomy -Hyponatremia , hypervolemic hyponatremia improved -Elevated liver enzymes may be secondary to choledocholithiasis. 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 -Hypertension -Benign prostatic hypertrophy -Sleep apnea -Hypothyroidism -Supratherapeutic INR on admission -DVT prophylaxis Discharge disposition Patient is being discharged in a stable condition with guarded prognosis to home. Patient will follow-up with Dr. Sales in the outpatient setting upon discharge. Patient also instructed to follow-up with surgery along with GI and pulmonary in the outpatient setting. Patient will continue with oral antibiotics in the form of Ceftin twice daily for the next 1 week. Total time taken is greater than 35 minutes. Hospital course 80-year-old male was admitted secondary to CHF exacerbation and acute hypoxic respiratory failure was requiring the BiPAP yesterday patient is off BiPAP patient is not wheezing will discontinue the systemic steroids and patient will be continued on IV Lasix is improvement in serum creatinine as well as a serum sodium with IV Lasix. Patient appears to have heart failure exacerbation at this time. Patient was also started on Rocephin for minimally abnormal urine although patient doesn't have any symptoms UTI antibiotics will be discontinued at this time there is no evidence of pneumonia either. Patient is presently on 3 L of oxygen. 09/12/2020 Patient is present with his and doesn't usually use oxygen at home. Patient's electrolytes and urine creatinine continue improved patient is feeling better. Patient will remain on IV Lasix.Patient's creatinine at baseline is around 1.4 present creatinine is around 1.4. Patient feels much better and repeat chest x-ray showing some pulmonary edema. Patient is found to be bacteremic with E. coli possible source being urinary tract infection, repeat urine cultures today and tomorrow. Patient's E. coli is pansensitive and possible source of infection is urinary tract infection 09/13/2020 Patient's repeat blood cultures from yesterday are so far negative. Patient can use to be on Rocephin. Infectious disease evaluated the patient. As you urine analysis is not quite impressive for infection we're obtaining abdominal CT scan to rule out any intra-abdominal infection which showed possibility of cholecystitis and possible choledocholithiasis with dilated common bile duct of around 8 mm. Patient did have elevated liver enzymes which were initially believed to be secondary to hepatic congestion. Is possibly of cystitis as well on the kidney computed tomography scan due to surgery and gastroenterology will be consulted. Patient is Being continued on IV Lasix patient has improvement in liver function 48 anemia as well as renal function patient present creatinine is 1.33 significant improvement since admission and continue to improve. Patient is off oxygen 09/14/2020 Patient is seen and evaluated in follow-up currently sitting comfortably on room air. Multiple medical consultations including her etiology, infectious disease, surgery, and GI following. Patient is scheduled to undergo laparoscopic cholecystectomy on Thursday. Patient was tentatively scheduled for an ERCP on Thursday as his INR has been elevated. Today's INR is 2.7 and will give a dose of vitamin K. Will repeat INR. Creatinine today is the same at 1.33 with a BUN of 42. Sodium is 137 with a potassium of 3.8. ALT is 95, AST is also trending down at 80 and alkaline phosphatase slightly lower at 128. Most recent blood cultures have been n egative and infectious disease is following. Patient is maintained on ceftriaxone and will continue at this time. Patient continues to be on IV Lasix 80 mg twice daily and will continue. 09/15/2020 Patient's CHF improved significantly patient was switched to oral Lasix patient's creatinine continued improvement is around 1.2 today. Metolazone will be switched to regular 2.5 daily. Patient will undergo ERCP tomorrow and cholecystectomy on Thursday liver enzymes continued to improve bilirubin continued to improve. Potassium will be replaced. Continue to hold off on Coumadin INR is 1.8 today 09/16/2020 Patient had an ERCP and extraction of the common bile duct stone today. And will undergo cholecystectomy tomorrow continue to hold Coumadin 09/17/2020 Patient is scheduled to undergo laparoscopic cholecystectomy with surgery today. Will await report. Will discuss with surgery about the possibility of resuming Coumadin. White blood count this morning is 5.6 with hemoglobin of 15.0. Current INR is 1.3, sodium is 135 with a potassium of 3.7. Creatinine slightly worsened at 1.43. Liver functions trending down. Will follow up with case management as family has refused rehab. Will repeat a.m. labs. 09/18/2020 Patient is seen and evaluated in follow-up status post laparoscopic cholecystectomy and continues to have extreme right upper quadrant abdominal discomfort. Patient is passing gas although no reports of bowel movement at this time. Patient has LORENZO drain noted with sanguinous output noted. Patient states the LORENZO drain has been drained multiple times today. Patient is maintained on IV antibiotics in the form of ceftriaxone and will continue. Patient's blood pressure has been on the lower side and had an intermittent low- grade temp at 4:00 this morning of 99.4. Chest x-ray was done showing possible right lower lobe infiltrate with cardiomegaly. Patient also given incentive spirometer and instructed to use at least 10 times every hour while awake. [facility] medical consultations following including surgery, GI, infectious disease. Diet was started and patient is on low fiber diet and will continue and advance as tolerated. Patient was having multiple episodes of abdominal discomfort and nausea with vomiting last night although states has improved. Instructed the patient to increase activity as tolerated. Current INR today is 1.4 and will resume Coumadin and monitor labs. Creatinine slightly worse at 1.6 to, sodium is 133, potassium is 4.3. White blood count is 9.4 and hemoglobin is 15.4. 09/19/2020 Patient is seen and evaluated in follow-up this morning currently walking the halls with a walker with PT/OT therapy. With case management and social work and the daughter is again now refusing any form a rehab and will be bringing the patient home and will have home care. Patient is status post cholecystectomy. Patient is maintained on IV antibiotics in the form of ceftriaxone and will continue this time. Patient will likely continue the course on oral antibiotics upon discharge. Most recent repeat blood cultures have remained negative. Infectious disease is following. Sodium slightly worsened today at 129 and patient is maintained on low fiber diet. Creatinine slightly improved at 1.39. Potassium is 3.3 and will replace. Per nursing staff patient just started having multiple episodes of diarrhea and loose stool and C. diff testing is currently pending. We'll start Imodium if C. diff is negative. Patient continues to have sanguinous output noted in the LORENZO and surgery is following closely. Total bilirubin elevated as well today at 3.6 and liver function slowly trending down. Will repeat a.m. labs. 09/20/2020 Patient is seen and evaluated in follow-up this morning and is being discharged today. Patient did have indwelling [place] catheter removed and is voiding with no difficulty. Patient did work with physical therapy today and will be going home with home care and continued PT/OT therapy in the home. Patient is concerned about going home stating he is not ready and has refused multiple times for going to rehab. Patient and family do not want him to go to an ECF. Son-in-law is picking the patient up today. Currently no reports of chest pain, shortness of breath, or palpitations. Patient is afebrile. No reports of nausea or vomiting and patient is tolerating diet. Patient will be discharged home today. Guarded prognosis On exam vital signs are stable. Cardio S1, S2 are muffled. Respiratory system shows diminished breath sounds at the bases with no wheezing or rhonchi noted. Abdomen is soft and obese, and nontender. Nervous system shows diffuse weakness. Please refer to medication reconciliation sheet for a list of medications. Patient Condition at Discharge: Good Plan - Discharge Summary Discharge Rx Participant: No New Discharge Prescriptions: New Cefuroxime Axetil [Ceftin] 500 mg PO BID 7 Days #14 tab Losartan [Cozaar] 12.5 mg PO HS 30 Days #30 tab Metoprolol Tartrate [Lopressor] 50 mg PO BID 30 Days #60 tab HYDROcodone/APAP 5-325MG [[place] 5-325] 1 each PO Q6HR PRN #10 tab PRN Reason: Pain Acetaminophen Tab [Tylenol] 650 mg PO Q6HR PRN tab PRN Reason: Fever And/ Or Pain Continue Pravastatin Sodium [Pravachol] 40 mg PO HS Spironolactone [Aldactone] 25 mg PO DAILY Finasteride [Proscar] 5 mg PO DAILY Levothyroxine Sodium [Levo-T] 25 mcg PO DAILY Amiodarone [Cordarone] 200 mg PO DAILY ALPRAZolam [Xanax] 0.5 mg PO TID Nitroglycerin Sl Tabs [Nitrostat] 0.4 mg SL Q5M PRN PRN Reason: Chest Pain metOLazone [Zaroxolyn] 2.5 mg PO DIRECTED PRN PRN Reason: per heart monitor Warfarin [Coumadin] 1 mg PO DAILY Loperamide [Imodium] 2 mg PO QID PRN PRN Reason: Diarrhea Potassium Chloride ER [K-Dur 20] 20 meq PO DAILY #0 Furosemide [Lasix] 80 mg PO BID Discontinued Carvedilol [Coreg] 12.5 mg PO BID Discharge Medication List Amiodarone [Cordarone] 200 mg PO DAILY 11/10/16 [History] Finasteride [Proscar] 5 mg PO DAILY 11/10/16 [History] Levothyroxine Sodium [Levo-T] 25 mcg PO DAILY 11/10/16 [History] Pravastatin Sodium [Pravachol] 40 mg PO HS 11/10/16 [History] Spironolactone [Aldactone] 25 mg PO DAILY 11/10/16 [History] ALPRAZolam [Xanax] 0.5 mg PO TID 06/27/17 [History] Nitroglycerin Sl Tabs [Nitrostat] 0.4 mg SL Q5M PRN 06/25/20 [History] metOLazone [Zaroxolyn] 2.5 mg PO DIRECTED PRN 06/25/20 [History] Loperamide [Imodium] 2 mg PO QID PRN 08/15/20 [History] Warfarin [Coumadin] 1 mg PO DAILY 08/15/20 [History] Potassium Chloride ER [K-Dur 20] 20 meq PO DAILY #0 08/18/20 [Rx] Furosemide [Lasix] 80 mg PO BID 09/10/20 [History] Acetaminophen Tab [Tylenol] 650 mg PO Q6HR PRN tab 09/20/20 [Rx] Cefuroxime Axetil [Ceftin] 500 mg PO BID 7 Days #14 tab 09/20/20 [Rx] HYDROcodone/APAP 5-325MG [[place] 5-325] 1 each PO Q6HR PRN #10 tab 09/20/20 [Rx] Losartan [Cozaar] 12.5 mg PO HS 30 Days #30 tab 09/20/20 [Rx] Metoprolol Tartrate [Lopressor] 50 mg PO BID 30 Days #60 tab 09/20/20 [Rx] Follow up Appointment(s)/Referral(s): Terrell Freitas DO [Doctor of Osteopathic Medicine] - 10/04/20 10:30 am () Pura Villegas NPC [Nurse Practitioner] - 1 Week (1-2 weeks) Keith Sales DO [Primary Care Provider] - 09/24/20 4:15 pm (Thursday) Dante Gage MD [STAFF PHYSICIAN] - 10/02/20 2:00 pm (Thursday) Ambulatory/Diagnostic Orders: Comprehensive Metabolic Panel [LAB.AMB] Time Frame: 3 Days, Location: None Selected Patient Instructions/Handouts: Laparoscopic Cholecystectomy (DC), ERCP (Endoscopic Retrograde Cholangiopancreatography) (DC) Activity/Diet/Wound Care/Special Instructions: [facility] [phone] Activity Limited until follow-up Follow-up with primary care provider follow up with surgery outpatient in one week Continue with antibiotics for 1 week until finished Continue low fiber diet and continue fluid restrictions of 1500 mL daily Repeat labs in a few days to monitor kidney and liver functions Continue with Coumadin and repeat INR as discussed Follow-up with your director of health education outpatient Discharge Disposition: HOME WITH HOME HEALTH SERVICES
[2020-09-20] MEDS ORDERED: WARFARIN 1.5 MG TAB PO ONE (18:00)
--- NOTE | 2020-09-21 08:54 | CDI ---
Documentation Clarification Form Date: 09/21/20 From: Lisa Menchaca Phone: Admit Date: 09/10/2020 06:34:00 AM Patient Name: Iftikhar Chance Visit Number: [id number] Discharge Date: 09/20/2020 05:09:00 PM ATTENTION: The Clinical Documentation Specialists (CDI) and [facility] Coding Staff appreciate your assistance in clarifying documentation. Please respond to the clarification below the line at the bottom and electronically sign. The CDI & [facility] Coding staff will review the response and follow-up if needed. Please note: Queries are made part of the Legal Health Record. If you have any questions, please contact the author of this message via ITS. Dr. Tamera Wilson, Bacteremia documented in the multiple progress notes starting on 09/12, Dr Johansen's consult, Dr Gage's consult and DS. Patient history/risk factors: HTN w CKD II & acute on chronic systolic CHF, calculus of GB & bile duct with acute on chronic cholecystitis & cholelithasis wo obstruction Clinical Indicators: Blood cultures came back positive with an E coli sensitive pathogen. Patient is treated with Rocephin 1 g daily. WBC: 11.2 Left Shift: 9.8 Lactic acid: 4.9 Blood Culture: Escherichia coli Consult: Infectious disease- E coli bacteremia Antibiotics: IV antibiotics, Bacteremia is considered a lab finding. Please clarify if that lab finding is clinical indicator of a more definitive medical diagnosis such as: Sepsis Infectious Process, please specify: Other, please specify Unable to determine Not my documentation MTDD
--- NOTE | 2020-10-01 16:20 | CDI ---
Documentation Clarification Form Date: 10/01/2020 From: Lisa Menchaca Phone: Admit Date: 09/10/2020 06:34:00 AM Patient Name: Iftikhar Chance Visit Number: [id number] Discharge Date: 09/20/2020 05:09:00 PM ATTENTION: The Clinical Documentation Specialists (CDI) and [facility] Coding Staff appreciate your assistance in clarifying documentation. Please respond to the clarification below the line at the bottom and electronically sign. The CDI & [facility] Coding staff will review the response and follow-up if needed. Please note: Queries are made part of the Legal Health Record. If you have any questions, please contact the author of this message via ITS. Dr. Deshawn Almazan, Bacteremia documented in the multiple progress notes starting on 09/12, Dr Johansen's consult, Dr Gage's consult and DS. Patient history/risk factors: HTN w CKD II & acute on chronic systolic CHF, calculus of GB & bile duct with acute on chronic cholecytitis & cholelithasis wo obstruction Clinical Indicators: Blood cultures came back positive with an E coli sensitive pathogen.Patient is treated with Rocephin 1 g daily. WBC: 11.2 Left Shift: 9.8 Lactic acid: 4.9 Blood Culture: Escherichia coli Consult: Infectious disease- E coli bacteremia Antibiotics: IV antibiotics, Bacteremia is considered a lab finding. Please clarify if that lab finding is clinical indicator of a more definitive medical diagnosis such as: Sepsis Infectious Process, please specify: Other, please specify Unable to determine Sepsis MTDD
== END 2020-09-20 17:09 | disposition home health service (06) | DRG 853 ==
LOC: EC 06:01 → 3SCARD 06:34
PROVIDERS: ADMIT Hospitalist; ATTEND Hospitalist
PROC: 5A09557 Assistance with Respiratory Ventilation, Greater than 96 Consecutive Hours, Continuous Positive Airway Pressure (ICD-10-PCS; 2020-09-10)
PROC: 0FC98ZZ Extirpation of Matter from Common Bile Duct, Via Natural or Artificial Opening Endoscopic (ICD-10-PCS; 2020-09-16 08:15)
PROC: 0FT44ZZ Resection of Gallbladder, Percutaneous Endoscopic Approach (ICD-10-PCS; principal; 2020-09-17 08:25)
DX: A41.51 Sepsis due to Escherichia coli [E. coli] (principal); J96.01 Acute respiratory failure with hypoxia; I50.23 Acute on chronic systolic (congestive) heart failure; I13.0 Hypertensive heart and chronic kidney disease with heart failure and stage 1 through stage 4 chronic kidney disease, or unspecified chronic kidney disease; K80.66 Calculus of gallbladder and bile duct with acute and chronic cholecystitis without obstruction; I47.2 Ventricular tachycardia; E87.1 Hypo-osmolality and hyponatremia; N39.0 Urinary tract infection, site not specified; J98.11 Atelectasis; I42.8 Other cardiomyopathies; D63.1 Anemia in chronic kidney disease; J43.9 Emphysema, unspecified; I48.0 Paroxysmal atrial fibrillation; Z20.822 Contact with and (suspected) exposure to COVID-19; K76.1 Chronic passive congestion of liver; N18.2 Chronic kidney disease, stage 2 (mild); I95.1 Orthostatic hypotension; E03.9 Hypothyroidism, unspecified; I08.3 Combined rheumatic disorders of mitral, aortic and tricuspid valves; E78.5 Hyperlipidemia, unspecified; I25.10 Atherosclerotic heart disease of native coronary artery without angina pectoris; N40.0 Benign prostatic hyperplasia without lower urinary tract symptoms; K57.30 Diverticulosis of large intestine without perforation or abscess without bleeding; G47.30 Sleep apnea, unspecified; M19.90 Unspecified osteoarthritis, unspecified site; M50.30 Other cervical disc degeneration, unspecified cervical region; M51.36 Other intervertebral disc degeneration, lumbar region; M85.80 Other specified disorders of bone density and structure, unspecified site; E87.6 Hypokalemia; G58.9 Mononeuropathy, unspecified; R77.8 Other specified abnormalities of plasma proteins; E66.9 Obesity, unspecified; Z68.34 Body mass index [BMI] 34.0-34.9, adult; R79.1 Abnormal coagulation profile; T45.515A Adverse effect of anticoagulants, initial encounter; R53.81 Other malaise; Z79.890 Hormone replacement therapy; Z79.01 Long term (current) use of anticoagulants; Z79.899 Other long term (current) drug therapy; Z87.891 Personal history of nicotine dependence; Z95.810 Presence of automatic (implantable) cardiac defibrillator; Z96.653 Presence of artificial knee joint, bilateral; Z98.890 Other specified postprocedural states; Z71.3 Dietary counseling and surveillance; W06.XXXA Fall from bed, initial encounter; Z88.5 Allergy status to narcotic agent; Z88.8 Allergy status to other drugs, medicaments and biological substances; Z86.19 Personal history of other infectious and parasitic diseases; Z82.49 Family history of ischemic heart disease and other diseases of the circulatory system; Z83.2 Family history of diseases of the blood and blood-forming organs and certain disorders involving the immune mechanism; Z80.0 Family history of malignant neoplasm of digestive organs
CPT/HCPCS: 36415; 43262; 43264; 71045; 71046; 74176; 74328; 80048; 80053; 80074; 81001; 81003; 82550; 83605; 83615; 83735; 83880; 84075; 84100; 84132; 84450; 84460; 84484; 85025; 85610; 85652; 85730; 86140; 87040; 87077; 87186; 87324; 87635; 88304; 93005; 94640; 94660; 94760; 96372; 96374; 96375; 99285; 99291